=== PATIENT | female | born 1975 ===

== ENCOUNTER → 2020-05-27 12:40 | Outpatient (BNV) | payer MEDICAID, SELFPAY | PROVIDERS: PCP Family Medicine; Visit Provider Internal Medicine | DX: D72.829 Elevated white blood cell count, unspecified (principal); D50.9 Iron deficiency anemia, unspecified | CPT/HCPCS: 99212; 99213; 99214 ==

== ENCOUNTER 2020-05-30 08:09 | Outpatient (REF) | payer MEDICAID, SELFPAY ==
--- NOTE | 2020-05-30 10:33 | ECG_ITS ---
Test Reason : GERD Blood Pressure : / mmHG Vent. Rate : 087 BPM Atrial Rate : 087 BPM P-R Int : 136 ms QRS Dur : 078 ms QT Int : 368 ms P-R-T Axes : 055 026 011 degrees QTc Int : 442 ms Normal sinus rhythm Normal ECG When compared to the previous EKG of No significant changes seen Referred By: Asaf Stark Electronically Signed By:Mitul Winn
--- NOTE | 2020-05-30 10:43 | XR_ITS ---
EXAMINATION: XR CHEST CLINICAL INFORMATION: K21.9 - Gastro-esophageal reflux disease without esophagitis COMPARISON: Chest radiographs 05/05/2016 TECHNIQUE: 2 views of the chest were obtained. FINDINGS: The lungs are clear. There is no airspace consolidation or effusion. No groundglass opacities. The costophrenic sulci are well-defined. The heart is normal in size. The hilar and mediastinal contours are normal. There is focal calcific tendinosis adjacent to right humeral head. No acute bony abnormality. XR/XR chest 2V IMPRESSION: Unremarkable examination.
[2020-05-30 10:48] LABS: MANUAL DIFF FLAG NO
[2020-05-30 10:53] LABS: Basophils Percent Auto 0.3 % (0-2); Eosinophils Absolute Auto 0.2 X10*3/uL (0.0-0.4); Eosinophils Percent Auto 1.3 % (0-4); Hemoglobin 12.4 g/dl (12.0-16.0); Imm Gran Abs Auto 0.04 X10*3/uL (0.00-0.03); Imm Gran Pct Auto 0.3 % (0.0-0.4); Lymphocytes Absolute Auto 2.7 X10*3/uL (1.2-4.9); Mean Corpuscular HGB Conc 30.2 g/dl (31.0-35.0); Mean Corpuscular Hemoglobin 22.1 pg (27.0-33.0); Mean Platelet Volume 10.4 fL (9.4-12.3); Monocytes Absolute Auto 0.6 X10*3/uL (0.1-1.2); Monocytes Percent Auto 4.5 % (2-11); Neutrophils Absolute Auto 9.5 X10*3/uL (2.0-8.3); Neutrophils Percent Auto 72.6 % (45-73); Platelet Count 465 X10*3/uL (160-400); Red Blood Count 5.62 X10*6/uL (4.20-5.50); Red Cell Distribution Width 16.1 % (11.0-16.0)
[2020-05-30 10:58] LABS: Estimated Average Glucose 183 mg/dL
[2020-05-30 11:27] LABS: Alanine Aminotransferase 14 U/L (0-31); Albumin Level 4.2 g/dL (3.5-5.0); Alkaline Phosphatase 151 U/L (39-117); Anion Gap 13 (12-20); Aspartate Amino Transferase 14 U/L (5-31); Bilirubin Total 0.8 mg/dL (0.0-1.0); Blood Urea Nitrogen 8 mg/dL (9-16); C Reactive Protein 5.57 mg/dL (< or = 0.50); Calcium 9.8 mg/dL (8.4-10.2); Carbon Dioxide 29 mmol/L (22-29); Chloride 105 mmol/L (96-108); Cholesterol 271 mg/dL; Estimated Glomerular Filt Rate > 60; Glucose Random 128 mg/dL (60-115); HDL Cholesterol 43 mg/dL; LDL Cholesterol Calculated 199 mg/dl; Sodium 142 mmol/L (135-145); Total Protein 7.6 g/dL (6.5-8.0); Triglycerides 146 mg/dL
[2020-05-30 11:40] LABS: Ferritin 61 ng/mL (10-250); TSH reflex Free T4 1.24 mIU/mL (0.32-4.0)
[2020-06-02 14:57] LABS: Insulin Level Total 22.6 uIU/mL
[2020-06-02 15:43] LABS: Folate 5.7 ng/mL (> or = 4.0); Vitamin B12 398 pg/mL (200-900)
[2020-06-02 17:43] LABS: Calcium (PTHI) 9.8 mg/dL (8.6-10.2); PTHI 80 pg/mL (14-64)
[2020-06-04 01:22] LABS: Zinc 66 mcg/dL (60-130)
[2020-06-04 13:07] LABS: Vitamin B1 <6 nmol/L (8-30)
[2020-06-05 13:33] LABS: Vitamin A 35 mcg/dL (38-98)
== END 2020-05-30 08:10 | disposition home or self-care (01) ==
LOC: HO.LAB 08:09
PROVIDERS: PCP Family Medicine; Visit Provider Surgery
DX: E66.01 Morbid (severe) obesity due to excess calories (principal); E11.9 Type 2 diabetes mellitus without complications; I10 Essential (primary) hypertension; K21.9 Gastro-esophageal reflux disease without esophagitis; E78.5 Hyperlipidemia, unspecified; Z71.3 Dietary counseling and surveillance; Z79.4 Long term (current) use of insulin; Z79.899 Other long term (current) drug therapy
CPT/HCPCS: 36415; 71046; 80053; 80061; 82306; 82607; 82728; 82746; 83036; 83525; 83970; 84425; 84443; 84590; 84630; 85025; 86140; 93005; 99202

== ENCOUNTER → 2020-06-09 11:00 | Outpatient (BNVA) | payer MEDICAID, SELFPAY | PROVIDERS: PCP Family Medicine; Visit Provider Physician Assistant ==

== ENCOUNTER 2020-06-17 07:34 | Outpatient (REF) | payer MEDICAID, SELFPAY ==
--- NOTE | ~2020-06-17 | US_ITS ---
EXAMINATION: US COMPLETE ABDOMEN WITH LIVER ELASTOGRAPHY CLINICAL INFORMATION: Obesity COMPARISON: December 12, 2019 TECHNIQUE: Real-time imaging of the abdominal viscera. Noninvasive ultrasound liver fibrosis assessment is performed using Nicole ElastPQ point quantification shear wave elastography (pSWE) with a C5-2 MHz transducer. Multiple elastography samples are obtained. FINDINGS: PANCREAS: Normal. The visualized pancreatic head and body are normal in appearance. The remainder of the pancreas is obscured from visualization by the overlying bowel gas. ABDOMINAL AORTA: The proximal, middle, and distal aortic segments are normal in caliber. INFERIOR VENA CAVA: Visualized portions are normal. LIVER: There is hepatomegaly. There is a homogeneous echogenic mass within the right lobe measuring approximately 9 x 8 x 1.1 mm in size with the appearance of hemangioma. Hepatic echogenicity is diffusely increased. The right lobe measures 20.2 cm in length. The left lobe measures 14.9 cm in length. Portal flow is hepatopedal Shear wave liver elastography median stiffness is 1.31 m/s (reference: normal median stiffness is 1.3 m/s or less). IQR/median stiffness to assess sampling precision is 0.15 (reference: good quality data set is IQR/median stiffness of 0.15 or less). GALLBLADDER: Cholelithiasis is present as well as echogenic bile. No wall thickening identified and no pericholecystic fluid was identified. No tenderness to palpation is elicited. COMMON BILE DUCT: Normal in caliber measuring 0.3 cm in diameter. RIGHT KIDNEY: Normal. No hydronephrosis. No renal calculi or focal parenchymal lesions. The kidney measures 10.3 cm in maximum dimension. LEFT KIDNEY: There appears to be mild hydronephrosis similar to previous studies of ultrasound the abdomen of December 12, [address] of the abdomen of December 01, 2017.. No calculi or focal masses are appreciated. The kidney measures 10.4 cm in maximum dimension. SPLEEN: Normal. The spleen measures 9.9 cm in maximum dimension. FREE FLUID: None. US/US abdomen comp w elastography IMPRESSION: Findings consistent with fatty infiltration of the liver. Cholelithiasis without evidence of acute cholecystitis. Hepatic hemangioma. Liver elastography: In the absence of other known clinical signs, measurements rule out compensated advanced chronic liver disease. If there are known clinical signs, further testing may be needed for confirmation. REFERENCE: Society of Radiologists in Ultrasound Liver Stiffness Thresholds (2020): LIVER STIFFNESS THRESHOLDS: *Liver Stiffness equal or less than 1.3 m/s: High probability of being normal. *Liver Stiffness less than 1.7 m/s: In the absence of other known clinical signs, rules out compensated advanced chronic liver disease. *Liver Stiffness 1.7-2.1 m/s: Suggestive of compensated advanced chronic liver disease but need further test for confirmation. *Liver Stiffness over 2.1 m/s: Rules in compensated advanced chronic liver disease. *Liver Stiffness over 2.4 m/s: Suggestive of clinically significant portal hypertension. QUALITY OF DATA SET: *IQR/Median value equal or less than 0.15 implies a quality data set. *IQR/Median value over 0.15 implies a poor quality data set. SIGNIFICANT CHANGE FROM PRIOR EXAM: Significant change if liver stiffness measurement is 10% or greater from prior exam. OTHER CONSIDERATIONS: The stage of liver fibrosis may be overestimated in the setting of acute hepatitis, liver inflammation, elevated liver function tests, hepatic vascular congestion, obstructive cholestasis, non-fasting state, and infiltrative diseases such as amyloidosis and lymphoma. In some patients with NAFLD, the liver stiffness thresholds for compensated advanced chronic liver disease may be lower. In causes other than viral hepatitis and NAFLD, liver stiffness thresholds are not well established.
--- NOTE | ~2020-06-17 | FL_ITS ---
EXAMINATION: FL UPPER GI SERIES CLINICAL INFORMATION: Gastroesophageal reflux disease. COMPARISON: None TECHNIQUE: Air contrast upper GI examination. FINDINGS: There is normal elevation of the soft palate while saying candy. There is normal apposition of the vocal cords while saying E. Patient swallowed CO2 crystals, thin barium, and thick barium. Patient states that she has no difficulty swallowing. No nasopharyngeal reflux or tracheal aspiration identified. No cricopharyngeal hypertrophy or Zenker's diverticulum. There is normal distensibility of the esophagus without evidence of persistent stricture or mucosal abnormality. No hiatal hernia. No gastroesophageal reflux was elicited during the study including with water siphon test. The stomach demonstrates normal distensibility without evidence of focal mass or ulceration. There was no delay in gastric emptying. The duodenal bulb sweep appeared unremarkable. FLUOROSCOPY TIME: 1.7 minutes. DOSE AREA PRODUCT: 29.871 Gycm2. FL/FL upper GI series IMPRESSION: Normal air contrast upper GI examination.
[2020-06-18 12:07] LABS: H Pylori Breath Test NOT DETECTED (NOT DETECTED)
== END 2020-06-17 07:35 | disposition home or self-care (01) ==
LOC: HO.US 07:34
PROVIDERS: Visit Provider Surgery
DX: Z01.818 Encounter for other preprocedural examination (principal); E66.01 Morbid (severe) obesity due to excess calories; K21.9 Gastro-esophageal reflux disease without esophagitis; I10 Essential (primary) hypertension
CPT/HCPCS: 74240; 76705; 76981; 83013; 99211

== ENCOUNTER → 2020-06-20 08:15 | Outpatient (BNVA) | payer MEDICAID, SELFPAY | PROVIDERS: PCP Family Medicine; Visit Provider Dietitian, Registered ==

== ENCOUNTER → 2020-06-27 08:11 | Outpatient (BNVA) | payer MEDICAID, SELFPAY | PROVIDERS: PCP Family Medicine; Visit Provider Surgery ==

== ENCOUNTER 2020-06-30 08:35 | Outpatient (REF) | payer MEDICAID, SELFPAY | END 2020-06-30 08:36 | disposition home or self-care (01) | LOC: HO.LAB 08:35 | PROVIDERS: PCP Surgery; Visit Provider Surgery | DX: Z13.89 Encounter for screening for other disorder (principal) ==

== ENCOUNTER 2020-07-05 08:58 | Outpatient (REF) | payer MEDICAID, SELFPAY ==
[2020-07-05 09:59] LABS: MANUAL DIFF FLAG NO
[2020-07-05 10:14] LABS: INTERNATIONAL NORM RATIO 1.1 (0.9-1.1); Prothrombin Time 13.2 SEC (10.8-13.0)
[2020-07-05 10:19] LABS: Estimated Average Glucose 140 mg/dL; Hemoglobin A1c % 6.5 %
[2020-07-05 10:25] LABS: Basophils Percent Auto 0.4 % (0-2); Eosinophils Absolute Auto 0.1 X10*3/uL (0.0-0.4); Eosinophils Percent Auto 1.2 % (0-4); Hematocrit 39.9 % (37-47); Hemoglobin 12.4 g/dl (12.0-16.0); Imm Gran Abs Auto 0.04 X10*3/uL (0.00-0.03); Imm Gran Pct Auto 0.4 % (0.0-0.4); Lymphocytes Absolute Auto 2.4 X10*3/uL (1.2-4.9); Lymphocytes Percent Auto 23.2 % (20-40); Mean Corpuscular HGB Conc 31.1 g/dl (31.0-35.0); Mean Corpuscular Hemoglobin 22.3 pg (27.0-33.0); Mean Corpuscular Volume 71.8 fL (80-98); Mean Platelet Volume 10.9 fL (9.4-12.3); Monocytes Absolute Auto 0.7 X10*3/uL (0.1-1.2); Monocytes Percent Auto 6.4 % (2-11); Neutrophils Absolute Auto 7.1 X10*3/uL (2.0-8.3); Neutrophils Percent Auto 68.4 % (45-73); Platelet Count 464 X10*3/uL (160-400); Red Blood Count 5.56 X10*6/uL (4.20-5.50); Red Cell Distribution Width 17.2 % (11.0-16.0); White Blood Count 10.3 X10*3/uL (4.8-10.8)
[2020-07-05 10:57] LABS: Alanine Aminotransferase 12 U/L (0-31); Albumin Level 4.3 g/dL (3.5-5.0); Alkaline Phosphatase 111 U/L (39-117); Anion Gap 13 (12-20); Aspartate Amino Transferase 12 U/L (5-31); Bilirubin Total 0.6 mg/dL (0.0-1.0); Blood Urea Nitrogen 11 mg/dL (9-16); Calcium 9.5 mg/dL (8.4-10.2); Carbon Dioxide 26 mmol/L (22-29); Chloride 106 mmol/L (96-108); Estimated Glomerular Filt Rate > 60; Glucose Random 101 mg/dL (60-115); Potassium 4.7 mmol/L (3.3-5.1); Sodium 140 mmol/L (135-145); Total Protein 7.4 g/dL (6.5-8.0)
== END 2020-07-05 08:59 | disposition home or self-care (01) ==
LOC: HO.LAB 08:58
PROVIDERS: PCP Family Medicine; Visit Provider Surgery
DX: K80.20 Calculus of gallbladder without cholecystitis without obstruction (principal); K21.9 Gastro-esophageal reflux disease without esophagitis; I10 Essential (primary) hypertension; E66.01 Morbid (severe) obesity due to excess calories; E78.5 Hyperlipidemia, unspecified
CPT/HCPCS: 36415; 80053; 83036; 85025; 85610; 85730

== ENCOUNTER 2020-07-08 08:11 | Day surgery (SDC) | payer MEDICAID, SELFPAY ==
[2020-07-04 09:52] VITALS: BMI 46.3
--- NOTE | 2020-07-07 12:09 | P.CONAN_ITS ---
Documented by User: Nahed Garrett 07/07/20 13:45 HPI - Anesthesia Eval Consult details Narrative: 44yo F for Cholecystectomy Laparoscopic PMFSH Active Problems Active Problems: All Active Problems (Updated 07/04/20 @ 09:58 by Hemalatha Edmond) Chronic leukopenia (Acute) Leucocytosis (Chronic) Vitamin B1 deficiency (Acute) Vitamin A deficiency (Acute) Vitamin D deficiency (Acute) Vitamin D deficiency, unspecified (Acute) Cholelithiasis (Acute) GERD (gastroesophageal reflux disease) (Acute) Depression (Acute) Hypertension (Acute) Insulin dependent diabetes mellitus (Acute) Morbid obesity (Acute) Bilateral shoulder pain (Acute) Chronic back pain (Acute) Dyslipidemia (Acute) Polycystic ovarian syndrome (Acute) Past Medical History Medical History Arthritis Axillary hidradenitis suppurativa Bilateral shoulder pain Chronic back pain COVID-19 vaccine administered Depression Dyslipidemia Family history of anesthesia complication Fibromyalgia GERD (gastroesophageal reflux disease) Hypertension Insulin dependent diabetes mellitus Leukocytosis (leucocytosis) Morbid obesity Obesity Polycystic ovarian syndrome Sickle thalassemia disease Sleep apnea Family History Family History Mother Diabetes DVT (deep venous thrombosis) HTN (hypertension) Father Diabetes HTN (hypertension) Sister Stroke Son Asthma Sickle cell anemia Son Sickle cell anemia Surgical History Surgical History History of esophagogastroduodenoscopy (EGD) Hx of section Social History Social History Are you a primary acute care assistant to a significant other at home: No Do you presently have visiting nurse or other home services: No Alcohol intake: former Smoking Status: Never smoker Use of substances other than those prescribed or required for medical reasons: No Have you been hit, kicked, punched, or otherwise hurt by someone within the past year? If so, by whom?: No Advance Directives Information Provided: No Recently lost weight without trying: No Meds Allergies Allergy/AdvReac Type Severity Reaction Status Date / Time No Known Allergies Allergy Verified 07/04/20 10:01 Home Medications Medication Instructions Recorded Confirmed Last Taken Type aspirin [Aspir-81] 81 mg PO DAILY 05/27/20 07/04/20 Unknown History atorvastatin 80 mg PO BEDTIME 05/27/20 07/04/20 Unknown History cyclobenzaprine 10 mg PO BEDTIME 05/27/20 07/04/20 Unknown History fluoxetine 20 mg PO DAILY 05/27/20 07/04/20 Unknown History fluticasone propionate [Flonase 1 spray INTRANASAL DAILY 05/27/20 07/04/20 Unknown History Allergy Relief] insulin glargine [Lantus Solostar 18 unit SUBCUT QAM 05/27/20 07/04/20 Unknown History U-100 Insulin] insulin lispro [Humalog KwikPen 22 unit SUBCUT TID 05/27/20 05/30/20 Unknown History Insulin] loratadine 10 mg PO DAILY 05/27/20 07/04/20 Unknown History magnesium 30 mg PO DAILY 05/27/20 07/04/20 Unknown History medroxyprogesterone [Provera] 10 mg PO DAILY 05/27/20 07/04/20 Unknown History oxycodone 10 mg PO BID PRN 05/27/20 07/04/20 Unknown History sennosides [senna] 8.6 mg PO BEDTIME 05/27/20 07/04/20 Unknown History lisinopril 5 mg tablet 5 mg PO DAILY 05/30/20 07/04/20 Unknown History liraglutide [Victoza 2-Kody] 1.2 mg SUBCUT DAILY 07/04/20 07/04/20 Unknown History Exam Exam Date and Time: July 07, 2020 1209 Height,Weight and Vital Signs: Height 5 ft 4 in Weight 122.47 kg Pertinent Lab Results Pertinent Lab Results: Laboratory Tests 07/05/20 09:25 Blood Type AB Positive Antibody Screen NEGATIVE Laboratory Tests 07/05/20 07/05/20 09:25 09:25 WBC 10.3 Hgb 12.4 Hct 39.9 Plt Count 464 H Sodium 140 Potassium 4.7 Chloride 106 Carbon Dioxide 26 BUN 11 Creatinine 0.84 Narrative Narrative: EKG 05/2020 Normal sinus rhythm Normal ECG When compared to the previous EKG of No significant changes seen Assessment and Plan Assessment Anesthesia Assessment: Chart Reviewed Documented by User: Caio Carroll 07/08/20 10:44 [facility] Past Medical History Medical History Arthritis Axillary hidradenitis suppurativa Bilateral shoulder pain Chronic back pain COVID-19 vaccine administered Depression Dyslipidemia Family history of anesthesia complication Fibromyalgia GERD (gastroesophageal reflux disease) Hypertension Insulin dependent diabetes mellitus Leukocytosis (leucocytosis) Morbid obesity Obesity Polycystic ovarian syndrome Sickle thalassemia disease Sleep apnea Family History Family History Mother Diabetes DVT (deep venous thrombosis) HTN (hypertension) Father Diabetes HTN (hypertension) Sister Stroke Son Asthma Sickle cell anemia Son Sickle cell anemia Surgical History Surgical History History of esophagogastroduodenoscopy (EGD) Hx of section Social History Social History Are you a primary acute care assistant to a significant other at home: No Do you presently have visiting nurse or other home services: No Alcohol intake: former Smoking Status: Never smoker Use of substances other than those prescribed or required for medical reasons: No Have you been hit, kicked, punched, or otherwise hurt by someone within the past year? If so, by whom?: No Advance Directives Information Provided: No Recently lost weight without trying: No Meds Allergies Allergy/AdvReac Type Severity Reaction Status Date / Time No Known Allergies Allergy Verified 07/04/20 10:01 Home Medications Medication Instructions Recorded Confirmed Last Taken Type aspirin [Aspir-81] 81 mg PO DAILY 05/27/20 07/04/20 Unknown History atorvastatin 80 mg PO BEDTIME 05/27/20 07/04/20 Unknown History cyclobenzaprine 10 mg PO BEDTIME 05/27/20 07/04/20 Unknown History fluoxetine 20 mg PO DAILY 05/27/20 07/04/20 Unknown History fluticasone propionate [Flonase 1 spray INTRANASAL DAILY 05/27/20 07/04/20 Unknown History Allergy Relief] insulin glargine [Lantus Solostar 18 unit SUBCUT QAM 05/27/20 07/04/20 Unknown History U-100 Insulin] insulin lispro [Humalog KwikPen 22 unit SUBCUT TID 05/27/20 05/30/20 Unknown History Insulin] loratadine 10 mg PO DAILY 05/27/20 07/04/20 Unknown History magnesium 30 mg PO DAILY 05/27/20 07/04/20 Unknown History medroxyprogesterone [Provera] 10 mg PO DAILY 05/27/20 07/04/20 Unknown History oxycodone 10 mg PO BID PRN 05/27/20 07/04/20 Unknown History sennosides [senna] 8.6 mg PO BEDTIME 05/27/20 07/04/20 Unknown History lisinopril 5 mg tablet 5 mg PO DAILY 05/30/20 07/04/20 Unknown History liraglutide [Victoza 2-Kody] 1.2 mg SUBCUT DAILY 07/04/20 07/04/20 Unknown History Exam Airway Mallampati Class: III TM Dist: >3cm Neck ROM: Full Loose/Missing/Broken Teeth: No Heart: [id number] Lungs: cta b/l Assessment and Plan Assessment Anesthesia Assessment: Anesthesia Plan Discussed, PAT Visit and Chart Reviewed Final Anesthetic Review NPO: Yes ASA Class: III Final Preanesthetic Review: No Changes in Pt Med Stat, Meds/Allgs Chart Re viewed, Consent Obtained/Reviewed and Anes Risks/Benef Reviewed Patient Risk: Intermediate Procedure Risk: Low Assessment/Block/Sedation in SS: Assess/Block/Sedation-SS Anesthetic Plan Anesthetic Plan: GA and Agree w/ Assess. and Plan Disposition: Standard PACU
[2020-07-08] VITALS (8 sets, daily range): BP systolic 105–142; BP diastolic 53–82; PULSE 77–96; RESP 14–20; TEMP 36.2–36.3; O2SAT 93–100
--- NOTE | 2020-07-08 07:38 | MHC.SHP ---
Pre-Procedural Eval Section A The patient is an INPATIENT: No The History & Physical has been completed within 30 days and I have reviewed it.: Yes Section B Chief Complaint: cholecystitis Details of Present Illness: Symptomatic cholelithiasis Relevant Family History (Specify if Yes): No Relevant Social History: None Present Medications: see Short Stay Collaborative assessment Medical History: No relevant PMH History of Previous Operations: No relevant previous surgery Allergies: Allergies Allergy/AdvReac Type Severity Reaction Status Date / Time No Known Allergies Allergy Verified 07/04/20 10:01 Review of Systems Sugical H&P ROS: Negative: Constitution, Cardiovascular, Respiratory, Neurological, Psychiatric, Hem-Onc, Allergic/Immunologic, Gastrointestinal, Genitourinary, Musculoskeletal, Integumentary, Endocrine and Eyes/Ears/Nose/Throat Exam Surgical H&P Exam: Normal: HEENT, Normal: Heart, Normal: Lungs, Normal: Extremities, Normal: Abdomen, Normal: Skin and Normal: Neurological Plan Diagnosis/Plan: Unchanged (Lap cholecystectomy ) I have reviewed the history and physical and performed a pertinent physical examination on my patient. No changes have occurred unless specified.
[2020-07-08 09:49] LABS: Glucose, Whole Blood 98 mg/dL (60-115)
[2020-07-08 10:03] LABS: UPreg QC Valid YES; Urine Pregnancy NEGATIVE (NEGATIVE)
[2020-07-08 10:14] LABS: COVID-19 Test Negative (Negative)
--- NOTE | 2020-07-08 12:18 | PM.OP ---
Brief Operative Note Date of Service: 07/08/20 Pre-op diagnosis: Cholelithiasis Post-op diagnosis: same Procedure: Procedure: Diagnostic laparoscopy This is a 44 year old female who is seen for morbid obesity. During worl-up she was found to have cholelithiasis. Because she may need a gastric bypass due to her insulin dependent diabetes, I recommended a laparoscopic cholecystectomy prior to bariatric procedure as the anatomy of the upper GI tract and certain procedures such as the ERCP will not be feasible if required. Risks and complications of the surgery were discussed with the patient in advance, particularly the postoperative bleeding, infection, DVT or PE, bile leak, major bile duct injury that may require additional surgical intervention, cardiac, pulmonary or renal complications among others. We also discussed the possibility of not performing the cholecystectomy if the anatomy does not allow it to be done safely. The patient understood the risks and was in agreement with the plan. PROCEDURE: After informed consent was obtained by the patient, the patient was transferred to the Operating Room and was placed in the supine position. The patient was given preoperative antibiotics and after successful induction of general anesthesia, pneumatic compression devices were placed. The patient was then prepped and draped in the usual sterile manner and abdominal access was established with the Shilpa technique. The abdomen was insufflated with C02 to a pressure of 15 mmHg. A 5 mm Versi-step port was placed, slightly to the right and superior from the umbilicus. The 5 mm camera was introduced. We inspected the area where the trocar had been placed and there was no injury. The patient was then placed initially in a steep reverse Trendelenburg position and one additional 5 mm Versi-step port was placed at the right flank. At that point the patient was placed in a steep reverse Trendelenburg position tilted to the left side. The gallbladder was retracted cephalad and laterally. The patient had a very large right liver lobe and the fundus of the gallbladder was several centimeters below the liver margin. In order to provide adequate exposure to the cystic artery and duct, the gallbladder had to be retracted extensively. Even then due to the size of the liver, the area could not be exposed adequately. The gallbladder itself appeared normal without evidence of inflammation. I felt that the risks of removing it given the difficult anatomy, outweighed the benefits of removing it given the fact that it appeared normal. I made a decision then to abort based on my discussion with the patient preoperatively. At that point the patient was placed in supine position, we deflated the abdomen and we removed all ports under direct vision and no bleeding was noted from any of the port sites. The fascia of the 12 mm port was closed using a #1 Polysorb suture. 60cc 0.25% Marcaine plain were used to infiltrate the fascial closure as well as all skin incisions. The wounds were irrigated with saline mixed with antibiotic solution and then the skin was closed with 4-0 Monocryl subcuticular sutures antibiotic-coated. Steri-strips and OpSites were used to cover all incisions. The patient extubated and was transferred in stable condition to the Recovery Room for further care. I was present and performed all steps of the procedure. Lorraine Huynh was the election assistant. There were no residents to assist with this case. Chance Stark M.D., Ph.D., F.A.C.S. Surgeon: Asaf Stark MD Anesthesia: GETA, local and other (TAP block) Telephone Maintenance Mechanic: Thelma Padgett Estimated blood loss (mL): 0 Tourniquet time (min): 0 IV fluids (mL): 1,000 Urine output (mL): 0 (No Rodriguez to record) Pathology: none sent Condition: stable Disposition: PACU
[2020-07-08] MEDS: Acetaminophen 325 MG TABLET 650 MG PO (13:41)
[2020-07-08] MEDS: oxyCODONE HCl Immed Release 5 MG TABLET PO (13:42)
== END 2020-07-08 14:40 | disposition home or self-care (01) ==
PROVIDERS: Nurse Practitioner; PCP Family Medicine; Visit Provider Surgery
PROC: 0FT44ZZ Resection of Gallbladder, Percutaneous Endoscopic Approach (ICD-10-PCS; CPT 47562; principal; 2020-07-08 10:10)
DX: K80.20 Calculus of gallbladder without cholecystitis without obstruction (principal); R16.0 Hepatomegaly, not elsewhere classified; E11.9 Type 2 diabetes mellitus without complications; Z79.4 Long term (current) use of insulin; E66.01 Morbid (severe) obesity due to excess calories; Z68.42 Body mass index [BMI] 45.0-49.9, adult; D57.40 Sickle-cell thalassemia without crisis; I10 Essential (primary) hypertension; G47.33 Obstructive sleep apnea (adult) (pediatric); Z99.89 Dependence on other enabling machines and devices; Z79.899 Other long term (current) drug therapy
CPT/HCPCS: 47562; 36415; 81025; 82947; 86850; 86900; 87635; 94660; J0131; J0690; J1100; J2250; J2405; J3010

== ENCOUNTER → 2020-07-11 13:31 | Outpatient (BNVA) | payer MEDICAID, SELFPAY | PROVIDERS: PCP Family Medicine; Visit Provider Nurse Practitioner | DX: Z13.89 Encounter for screening for other disorder (principal) | CPT/HCPCS: 99212 ==

== ENCOUNTER → 2020-07-14 11:01 | Outpatient (BNVA) | payer MEDICAID, SELFPAY | PROVIDERS: PCP Family Medicine; Visit Provider Physician Assistant ==

== ENCOUNTER → 2020-07-18 10:40 | Outpatient (BNVA) | payer MEDICAID, SELFPAY | PROVIDERS: PCP Family Medicine; Visit Provider Surgery | DX: E66.01 Morbid (severe) obesity due to excess calories (principal); Z68.41 Body mass index [BMI] 40.0-44.9, adult; E11.9 Type 2 diabetes mellitus without complications; K80.20 Calculus of gallbladder without cholecystitis without obstruction; Z79.4 Long term (current) use of insulin; Z71.3 Dietary counseling and surveillance | CPT/HCPCS: 99212 ==

== ENCOUNTER → 2020-07-28 10:28 | Outpatient (BNVA) | payer MEDICAID, SELFPAY | PROVIDERS: PCP Family Medicine; Visit Provider Physician Assistant ==

== ENCOUNTER → 2020-08-04 10:18 | Outpatient (BNVA) | payer MEDICAID, SELFPAY | PROVIDERS: PCP Family Medicine; Visit Provider Surgery ==

== ENCOUNTER → 2020-08-13 08:35 | Outpatient (BNVA) | payer MEDICAID, SELFPAY | PROVIDERS: PCP Family Medicine; Visit Provider Surgery ==

== ENCOUNTER → 2020-08-15 14:06 | Outpatient (BNVA) | payer MEDICAID, SELFPAY | PROVIDERS: PCP Family Medicine; Visit Provider Nurse Practitioner ==

== ENCOUNTER → 2020-08-21 08:11 | Outpatient (BNVA) | payer MEDICAID, SELFPAY | PROVIDERS: PCP Family Medicine; Visit Provider Dietitian, Registered | DX: E66.01 Morbid (severe) obesity due to excess calories (principal); Z68.41 Body mass index [BMI] 40.0-44.9, adult | CPT/HCPCS: 97803 ==

== ENCOUNTER → 2020-08-25 09:31 | Outpatient (BNVA) | payer MEDICAID, SELFPAY | PROVIDERS: PCP Family Medicine; Visit Provider Physician Assistant ==

== ENCOUNTER → 2020-09-01 11:44 | Outpatient (BNVA) | payer MEDICAID, SELFPAY | PROVIDERS: PCP Family Medicine; Visit Provider Physician Assistant ==

== ENCOUNTER → 2020-09-05 08:34 | Outpatient (BNVA) | payer MEDICAID, SELFPAY | PROVIDERS: PCP Family Medicine; Visit Provider Surgery ==

== ENCOUNTER 2020-09-06 09:11 | Outpatient (REF) | payer MEDICAID, SELFPAY ==
[2020-09-06 10:28] LABS: Estimated Average Glucose 123 mg/dL; Hemoglobin A1c % 5.9 %
== END 2020-09-06 09:12 | disposition home or self-care (01) ==
LOC: HO.LAB 09:11
PROVIDERS: PCP Family Medicine; Visit Provider Surgery
DX: E11.9 Type 2 diabetes mellitus without complications (principal)
CPT/HCPCS: 36415; 83036

== ENCOUNTER → 2020-09-12 08:19 | Outpatient (BNVA) | payer MEDICAID, SELFPAY | PROVIDERS: PCP Family Medicine; Visit Provider Surgery ==

== ENCOUNTER 2020-09-18 07:17 | Inpatient (IN) | payer MEDICAID, SELFPAY ==
[2020-09-10 09:38] VITALS: BMI 44.1
[2020-09-13 09:14] LABS: MANUAL DIFF FLAG NO
[2020-09-13 09:34] LABS: Basophils Percent Auto 0.3 % (0-2); Eosinophils Absolute Auto 0.1 X10*3/uL (0.0-0.4); Hematocrit 39.5 % (37-47); Hemoglobin 12.2 g/dl (12.0-16.0); Imm Gran Abs Auto 0.05 X10*3/uL (0.00-0.03); Imm Gran Pct Auto 0.5 % (0.0-0.4); Lymphocytes Absolute Auto 2.4 X10*3/uL (1.2-4.9); Lymphocytes Percent Auto 22.3 % (20-40); Mean Corpuscular HGB Conc 30.9 g/dl (31.0-35.0); Mean Corpuscular Hemoglobin 22.1 pg (27.0-33.0); Mean Corpuscular Volume 71.7 fL (80-98); Mean Platelet Volume 10.6 fL (9.4-12.3); Monocytes Absolute Auto 0.5 X10*3/uL (0.1-1.2); Neutrophils Absolute Auto 7.5 X10*3/uL (2.0-8.3); Neutrophils Percent Auto 70.9 % (45-73); Platelet Count 466 X10*3/uL (160-400); Red Blood Count 5.51 X10*6/uL (4.20-5.50); Red Cell Distribution Width 16.4 % (11.0-16.0); White Blood Count 10.6 X10*3/uL (4.8-10.8)
[2020-09-13 09:38] LABS: INTERNATIONAL NORM RATIO 1.1 (0.9-1.1); Prothrombin Time 13.5 SEC (10.8-13.0)
[2020-09-13 09:43] LABS: Estimated Average Glucose 120 mg/dL; Hemoglobin A1c % 5.8 %
[2020-09-13 09:45] LABS: Alanine Aminotransferase 12 U/L (0-31); Albumin Level 4.1 g/dL (3.5-5.0); Alkaline Phosphatase 107 U/L (39-117); Anion Gap 11 (12-20); Aspartate Amino Transferase 10 U/L (5-31); Bilirubin Total 0.5 mg/dL (0.0-1.0); Blood Urea Nitrogen 9 mg/dL (9-16); C Reactive Protein 3.06 mg/dL (< or = 0.50); Calcium 9.7 mg/dL (8.4-10.2); Carbon Dioxide 28 mmol/L (22-29); Chloride 106 mmol/L (96-108); Cholesterol 251 mg/dL; Creatinine Clr Calc Pharmacy 111.5; Estimated Glomerular Filt Rate > 60; Glucose Random 108 mg/dL (60-115); HDL Cholesterol 39 mg/dL; LDL Cholesterol Calculated 188 mg/dl; Potassium 4.9 mmol/L (3.3-5.1); Sodium 140 mmol/L (135-145); Triglycerides 124 mg/dL
[2020-09-13 10:05] LABS: TSH reflex Free T4 1.15 uIU/mL (0.32-4.0)
[2020-09-15 14:46] LABS: Insulin Level Total 13.2 uIU/mL
--- NOTE | 2020-09-17 07:53 | P.CONAN_ITS ---
Documented by User: Nahed Garrett 09/17/20 07:55 HPI - Anesthesia Eval Consult details Narrative: 44yo F for Gastric Bypass Laparoscopic PMFSH Active Problems Active Problems: All Active Problems (Updated 09/10/20 @ 09:42 by Hemalatha Edmond) Chronic leukopenia (Acute) Leucocytosis (Chronic) Vitamin B1 deficiency (Acute) Vitamin A deficiency (Acute) Vitamin D deficiency (Acute) Vitamin D deficiency, unspecified (Acute) Cholelithiasis (Acute) GERD (gastroesophageal reflux disease) (Acute) HAWKINS (nonalcoholic steatohepatitis) (Acute) Chronic idiopathic constipation (Acute) Abdominal cramping (Acute) Gallstones (Acute) COVID-19 (Acute) Diabetes (Acute) Depression (Acute) Hypertension (Acute) Insulin dependent diabetes mellitus (Acute) Morbid obesity (Acute) Bilateral shoulder pain (Acute) Chronic back pain (Acute) Dyslipidemia (Acute) Polycystic ovarian syndrome (Acute) Past Medical History Medical History (Updated 09/18/20 @ 08:08 by Sondra Milligan) Arthritis Axillary hidradenitis suppurativa Bilateral shoulder pain Chronic back pain COVID-19 vaccine administered Depression Dyslipidemia Family history of anesthesia complication Fibromyalgia Hypertension Insulin dependent diabetes mellitus Leukocytosis (leucocytosis) Morbid obesity Obesity Polycystic ovarian syndrome Sickle thalassemia disease Sleep apnea Vitamin D deficiency Family History Family History Mother Diabetes DVT (deep venous thrombosis) HTN (hypertension) Father Diabetes HTN (hypertension) Sister Stroke Son Asthma Sickle cell anemia Son Sickle cell anemia Surgical History Surgical History History of esophagogastroduodenoscopy (EGD) Hx of section Hx of cholecystectomy Social History Social History Are you a primary adult care manager to a significant other at home: No Do you presently have visiting nurse or other home services: No Smoking Status: Never smoker Use of substances other than those prescribed or required for medical reasons: No Have you been hit, kicked, punched, or otherwise hurt by someone within the past year? If so, by whom?: No Are you DNR?: No Advance Directives Information Provided: No Recently lost weight without trying: No Eating poorly because of decreased appetite: No Nutrition Risks: No Nutritional Risk Patient : No Poor oral hygiene: No Meds Allergies Allergy/AdvReac Type Severity Reaction Status Date / Time No Known Allergies Allergy Verified 09/18/20 06:45 Home Medications Medication Instructions Recorded Confirmed Last Taken Type atorvastatin 80 mg PO BEDTIME 05/27/20 09/12/20 Unknown History cyclobenzaprine 10 mg PO BEDTIME 05/27/20 09/12/20 Unknown History fluoxetine 20 mg PO DAILY 05/27/20 09/12/20 Unknown History fluticasone propionate [Flonase 1 spray INTRANASAL DAILY 05/27/20 09/12/20 Unknown History Allergy Relief] insulin glargine [Lantus Solostar 8 unit SUBCUT QAM 05/27/20 09/12/20 Unknown History U-100 Insulin] loratadine 10 mg PO DAILY 05/27/20 09/12/20 Unknown History magnesium 30 mg PO DAILY 05/27/20 09/12/20 Unknown History medroxyprogesterone [Provera] 10 mg PO DAILY 05/27/20 09/12/20 Unknown History oxycodone 10 mg PO BID PRN 05/27/20 09/12/20 Unknown History lisinopril 5 mg tablet 5 mg PO DAILY 05/30/20 09/12/20 Unknown History liraglutide [Victoza 2-Kody] 1.2 mg SUBCUT QAM 07/04/20 09/12/20 Unknown History Exam Exam Date and Time: September 17, 2020 0753 Height,Weight and Vital Signs: Height 5 ft 4 in Weight 116.573 kg Pertinent Lab Results Pertinent Lab Results: Laboratory Tests 09/13/20 09/13/20 09/13/20 09:00 09:00 09:00 WBC 10.6 RBC 5.51 H Hgb 12.2 Hct 39.5 MCV 71.7 L MCH 22.1 L MCHC 30.9 L RDW 16.4 H Plt Count 466 H MPV 10.6 Immature Gran % (Auto) 0.5 H Neut % (Auto) 70.9 Lymph % (Auto) 22.3 [place] % (Auto) 5.0 Eos % (Auto) 1.0 Baso % (Auto) 0.3 Lymph # (Auto) 2.4 [place] # (Auto) 0.5 Eos # (Auto) 0.1 Baso # (Auto) 0.0 Abs Immat Gran (auto) 0.05 H Absolute Neuts (auto) 7.5 Absolute Nucleated RBC 0.000 Nucleated RBC % (auto) 0.0 PT 13.5 H INR 1.1 APTT 36.0 Sodium 140 Potassium 4.9 Chloride 106 Carbon Dioxide 28 Anion Gap 11 L BUN 9 Creatinine 0.79 Estim Creat Clear Calc 111.5 Estimated GFR > 60 Random Glucose 108 Estimat Average Glucose Hemoglobin A1c % Total Insulin Calcium 9.7 Total Bilirubin 0.5 AST 10 ALT 12 Alkaline Phosphatase 107 C-Reactive Protein 3.06 H Total Protein 7.0 Albumin 4.1 Triglycerides 124 Cholesterol 251 LDL Cholesterol, Calc 188 HDL Cholesterol 39 TSH 1.15 Blood Type Antibody Screen 09/13/20 09/13/20 09/13/20 09:00 09:00 09:00 WBC RBC Hgb Hct MCV MCH MCHC RDW Plt Count MPV Immature Gran % (Auto) Neut % (Auto) Lymph % (Auto) [place] % (Auto) Eos % (Auto) Baso % (Auto) Lymph # (Auto) [place] # (Auto) Eos # (Auto) Baso # (Auto) Abs Immat Gran (auto) Absolute Neuts (auto) Absolute Nucleated RBC Nucleated RBC % (auto) PT INR APTT Sodium Potassium Chloride Carbon Dioxide Anion Gap BUN Creatinine Estim Creat Clear Calc Estimated GFR Random Glucose Estimat Average Glucose 120 Hemoglobin A1c % 5.8 Total Insulin 13.2 Calcium Total Bilirubin AST ALT Alkaline Phosphatase C-Reactive Protein Total Protein Albumin Triglycerides Cholesterol LDL Cholesterol, Calc HDL Cholesterol TSH Blood Type AB Positive Antibody Screen NEGATIVE Narrative Narrative: EKG 05/2020 Vent. Rate : 087 BPM Atrial Rate : 087 BPM P-R Int : 136 ms QRS Dur : 078 ms QT Int : 368 ms P-R-T Axes : 055 026 011 degrees QTc Int : 442 ms Normal sinus rhythm Normal ECG When compared to the previous EKG of No significant changes seen Assessment and Plan Assessment Anesthesia Assessment: Chart Reviewed Documented by User: Sondra Milligan 09/18/20 08:27 [facility] Past Medical History Medical History (Updated 09/18/20 @ 08:08 by Sondra Milligan) Arthritis Axillary hidradenitis suppurativa Bilateral shoulder pain Chronic back pain COVID-19 vaccine administered Depression Dyslipidemia Family history of anesthesia complication Fibromyalgia Hypertension Insulin dependent diabetes mellitus Leukocytosis (leucocytosis) Morbid obesity Obesity Polycystic ovarian syndrome Sickle thalassemia disease Sleep apnea Vitamin D deficiency Family History Family History Mother Diabetes DVT (deep venous thrombosis) HTN (hypertension) Father Diabetes HTN (hypertension) Sister Stroke Son Asthma Sickle cell anemia Son Sickle cell anemia Family history of problems with anesthesia: No Surgical History Surgical History History of esophagogastroduodenoscopy (EGD) Hx of section Hx of cholecystectomy History of Problems with Anesthesia: No Social History Social History Are you a primary adult care manager to a significant other at home: No Do you presently have visiting nurse or other home services: No Smoking Status: Never smoker Use of substances other than those prescribed or required for medical reasons: No Have you been hit, kicked, punched, or otherwise hurt by someone within the past year? If so, by whom?: No Are you DNR?: No Advance Directives Information Provided: No Recently lost weight without trying: No Eating poorly because of decreased appetite: No Nutrition Risks: No Nutritional Risk Patient : No Poor oral hygiene: No Meds Allergies Allergy/AdvReac Type Severity Reaction Status Date / Time No Known Allergies Allergy Verified 09/18/20 06:45 Home Medications Medication Instructions Recorded Confirmed Last Taken Type atorvastatin 80 mg PO BEDTIME 05/27/20 09/12/20 Unknown History cyclobenzaprine 10 mg PO BEDTIME 05/27/20 09/12/20 Unknown History fluoxetine 20 mg PO DAILY 05/27/20 09/12/20 Unknown History fluticasone propionate [Flonase 1 spray INTRANASAL DAILY 05/27/20 09/12/20 Unknown History Allergy Relief] insulin glargine [Lantus Solostar 8 unit SUBCUT QAM 05/27/20 09/12/20 Unknown History U-100 Insulin] loratadine 10 mg PO DAILY 05/27/20 09/12/20 Unknown History magnesium 30 mg PO DAILY 05/27/20 09/12/20 Unknown History medroxyprogesterone [Provera] 10 mg PO DAILY 05/27/20 09/12/20 Unknown History oxycodone 10 mg PO BID PRN 05/27/20 09/12/20 Unknown History lisinopril 5 mg tablet 5 mg PO DAILY 05/30/20 09/12/20 Unknown History liraglutide [Victoza 2-Kody] 1.2 mg SUBCUT QAM 07/04/20 09/12/20 Unknown History Exam Height,Weight and Vital Signs: Vital Signs Temp Pulse Resp BP Pulse Ox 09/18/20 06:48 96.9 F 79 18 118/72 99 Pertinent Lab Results Pertinent Lab Results: Laboratory Results - last 24 hr 09/18/20 09/18/20 06:25 06:30 Urine Test NEGATIVE COVID-19 ([facility]) Negative COVID-19 Clin Com See Note Airway Mallampati Class: II TM Dist: >3cm Neck ROM: Full Heart: RRR Lungs: CTAB Assessment and Plan Assessment Anesthesia Assessment: Anesthesia Plan Discussed and Chart Reviewed Final Anesthetic Review NPO: Yes ASA Class: III Final Preanesthetic Review: No Changes in Pt Med Stat, Meds/Allgs Chart Reviewed, Consent Obtained/Reviewed and Anes Risks/Benef Reviewed Patient Risk: Intermediate Procedure Risk: Intermediate Assessment/Block/Sedation in SS: Assess/Block/Sedation-SS Anesthetic Plan Anesthetic Plan: GA Disposition: Standard PACU and Inp. Admit - Standard Bed
--- NOTE | 2020-09-17 23:06 | MHC.SHP ---
Pre-Procedural Eval Section A The patient is an INPATIENT: Yes The History & Physical has been completed within 30 days and I have reviewed it.: Yes Section B Chief Complaint: obesity Details of Present Illness: morbid obesity Relevant Family History (Specify if Yes): No Relevant Social History: None Present Medications: see Short Stay Collaborative assessment Medical History: No relevant PMH History of Previous Operations: No relevant previous surgery Allergies: Allergies Allergy/AdvReac Type Severity Reaction Status Date / Time No Known Allergies Allergy Verified 09/12/20 15:00 Review of Systems Sugical H&P ROS: Negative: Constitution, Cardiovascular, Respiratory, Neurological, Psychiatric, Hem-Onc, Allergic/Immunologic, Gastrointestinal, Genitourinary, Musculoskeletal, Integumentary, Endocrine and Eyes/Ears/Nose/Throat Exam Surgical H&P Exam: Normal: HEENT, Normal: Heart, Normal: Lungs, Normal: Extremities, Normal: Abdomen, Normal: Skin and Normal: Neurological Plan Diagnosis/Plan: Unchanged I have reviewed the history and physical and performed a pertinent physical examination on my patient. No changes have occurred unless specified.
[2020-09-18] VITALS (16 sets, daily range): BP systolic 118–181; BP diastolic 63–96; PULSE 79–98; RESP 14–20; TEMP 35.9–36.6; O2SAT 94–100
--- NOTE | ~2020-09-18 | FL_ITS ---
EXAMINATION: UPPER GI WITH GASTROGRAFIN CLINICAL INFORMATION: Postop day 1 status post chest bypass. COMPARISON: Upper GI exam 06/17/2020. TECHNIQUE: Upright upper GI exam was obtained following 5050 Gastrografin. FINDINGS: On oral administration the diluted Gastrografin there is normal progression of bolus from the cavity through the esophagus into reconstructed bypass stomach and from the stomach into the small bowel promptly. No extravasation or reflux seen. Slight delayed images upper stomach reveals contrast within the small bowel loops in the midabdomen. There is a Azeri drain seen adjacent to the reconstructed stomach extending peripherally into a suction bulb. FL/FL upper GI w gastrografin IMPRESSION: Widely patent GE junction and gastrojejunal anastomosis. No extravasation seen.
[2020-09-18 06:39] LABS: UPreg QC Valid YES; Urine Pregnancy NEGATIVE (NEGATIVE)
[2020-09-18 06:49] LABS: COVID-19 Test Negative (Negative); IDNOW Serial# 9DD0AD1C
[2020-09-18] MEDS: Lactated Ringers 1,000 ML 999 ML IV (07:06)
[2020-09-18] MEDS: Lactated Ringers 1,000 ML 100 ML IVCONT (07:07)
--- NOTE | 2020-09-18 07:18 | HO.ANESPROP2 ---
[facility] Active Problems Active Problems: All Active Problems (Updated 09/10/20 @ 09:42 by Hemalatha Edmond) Chronic leukopenia (Acute) Leucocytosis (Chronic) Vitamin B1 deficiency (Acute) Vitamin A deficiency (Acute) Vitamin D deficiency (Acute) Vitamin D deficiency, unspecified (Acute) Cholelithiasis (Acute) GERD (gastroesophageal reflux disease) (Acute) HAWKINS (nonalcoholic steatohepatitis) (Acute) Chronic idiopathic constipation (Acute) Abdominal cramping (Acute) Gallstones (Acute) COVID-19 (Acute) Diabetes (Acute) Depression (Acute) Hypertension (Acute) Insulin dependent diabetes mellitus (Acute) Morbid obesity (Acute) Bilateral shoulder pain (Acute) Chronic back pain (Acute) Dyslipidemia (Acute) Polycystic ovarian syndrome (Acute) Past Medical History Medical History (Updated 09/10/20 @ 09:42 by Hemalatha Edmond) Arthritis Axillary hidradenitis suppurativa Bilateral shoulder pain Chronic back pain COVID-19 vaccine administered Depression Dyslipidemia Family history of anesthesia complication Fibromyalgia Hypertension Insulin dependent diabetes mellitus Leukocytosis (leucocytosis) Morbid obesity Obesity Polycystic ovarian syndrome Sickle thalassemia disease Sleep apnea Family History Family History Mother Diabetes DVT (deep venous thrombosis) HTN (hypertension) Father Diabetes HTN (hypertension) Sister Stroke Son Asthma Sickle cell anemia Son Sickle cell anemia Surgical History Surgical History (Updated 09/10/20 @ 08:04 by Hemalatha Edmond) History of esophagogastroduodenoscopy (EGD) Hx of section Hx of cholecystectomy Social History Social History (Updated 09/10/20 @ 09:43 by Hemalatha Edmond) Are you a primary health care legal assistant to a significant other at home: No Do you presently have visiting nurse or other home services: No Smoking Status: Never smoker Meds Allergies Allergy/AdvReac Type Severity Reaction Status Date / Time No Known Allergies Allergy Verified 09/18/20 06:45 Active Medications: Current Medications Generic Name Dose Route Start Last Admin Trade Name Freq PRN Reason Stop Dose Admin Lactated Ringer's 1,000 mls @ 100 mls/hr 09/18/20 06:15 09/18/20 07:07 Lr IVCONT 100 mls/hr .Q10H TINY Administration Home Medications Medication Instructions Recorded Confirmed Last Taken Type atorvastatin 80 mg PO BEDTIME 05/27/20 09/12/20 Unknown History cyclobenzaprine 10 mg PO BEDTIME 05/27/20 09/12/20 Unknown History fluoxetine 20 mg PO DAILY 05/27/20 09/12/20 Unknown History fluticasone propionate [Flonase 1 spray INTRANASAL DAILY 05/27/20 09/12/20 Unknown History Allergy Relief] insulin glargine [Lantus Solostar 8 unit SUBCUT QAM 05/27/20 09/12/20 Unknown History U-100 Insulin] loratadine 10 mg PO DAILY 05/27/20 09/12/20 Unknown History magnesium 30 mg PO DAILY 05/27/20 09/12/20 Unknown History medroxyprogesterone [Provera] 10 mg PO DAILY 05/27/20 09/12/20 Unknown History oxycodone 10 mg PO BID PRN 05/27/20 09/12/20 Unknown History lisinopril 5 mg tablet 5 mg PO DAILY 05/30/20 09/12/20 Unknown History liraglutide [Victoza 2-Kody] 1.2 mg SUBCUT QAM 07/04/20 09/12/20 Unknown History Exam Exam Date and Time: September 18, 2020 0718 Height,Weight and Vital Signs: Height 5 ft 4 in Weight 116.573 kg Last Vital Signs Temp 96.9 F 09/18/20 06:48 Pulse 79 09/18/20 06:48 Resp 18 09/18/20 06:48 BP 118/72 09/18/20 06:48 Pulse Ox 99 09/18/20 06:48 Pertinent Lab Results Pertinent Lab Results: Laboratory Tests 09/13/20 09/13/20 09/13/20 09:00 09:00 09:00 WBC 10.6 RBC 5.51 H Hgb 12.2 Hct 39.5 MCV 71.7 L MCH 22.1 L MCHC 30.9 L RDW 16.4 H Plt Count 466 H MPV 10.6 Immature Gran % (Auto) 0.5 H Neut % (Auto) 70.9 Lymph % (Auto) 22.3 [place] % (Auto) 5.0 Eos % (Auto) 1.0 Baso % (Auto) 0.3 Lymph # (Auto) 2.4 [place] # (Auto) 0.5 Eos # (Auto) 0.1 Baso # (Auto) 0.0 Abs Immat Gran (auto) 0.05 H Absolute Neuts (auto) 7.5 Absolute Nucleated RBC 0.000 Nucleated RBC % (auto) 0.0 PT 13.5 H INR 1.1 APTT 36.0 Sodium 140 Potassium 4.9 Chloride 106 Carbon Dioxide 28 Anion Gap 11 L BUN 9 Creatinine 0.79 Estim Creat Clear Calc 111.5 Estimated GFR > 60 Random Glucose 108 Estimat Average Glucose Hemoglobin A1c % Total Insulin Calcium 9.7 Total Bilirubin 0.5 AST 10 ALT 12 Alkaline Phosphatase 107 C-Reactive Protein 3.06 H Total Protein 7.0 Albumin 4.1 Triglycerides 124 Cholesterol 251 LDL Cholesterol, Calc 188 HDL Cholesterol 39 TSH 1.15 Urine Test COVID-19 ([facility]) COVID-Heart Metabolics Blood Type Antibody Screen 09/13/20 09/13/20 09/13/20 09:00 09:00 09:00 WBC RBC Hgb Hct MCV MCH MCHC RDW Plt Count MPV Immature Gran % (Auto) Neut % (Auto) Lymph % (Auto) [place] % (Auto) Eos % (Auto) Baso % (Auto) Lymph # (Auto) [place] # (Auto) Eos # (Auto) Baso # (Auto) Abs Immat Gran (auto) Absolute Neuts (auto) Absolute Nucleated RBC Nucleated RBC % (auto) PT INR APTT Sodium Potassium Chloride Carbon Dioxide Anion Gap BUN Creatinine Estim Creat Clear Calc Estimated GFR Random Glucose Estimat Average Glucose 120 Hemoglobin A1c % 5.8 Total Insulin 13.2 Calcium Total Bilirubin AST ALT Alkaline Phosphatase C-Reactive Protein Total Protein Albumin Triglycerides Cholesterol LDL Cholesterol, Calc HDL Cholesterol TSH Urine Test COVID-19 ([facility]) COVID-Heart Metabolics Blood Type AB Positive Antibody Screen NEGATIVE 09/18/20 09/18/20 06:25 06:30 WBC RBC Hgb Hct MCV MCH MCHC RDW Plt Count MPV Immature Gran % (Auto) Neut % (Auto) Lymph % (Auto) [place] % (Auto) Eos % (Auto) Baso % (Auto) Lymph # (Auto) [place] # (Auto) Eos # (Auto) Baso # (Auto) Abs Immat Gran (auto) Absolute Neuts (auto) Absolute Nucleated RBC Nucleated RBC % (auto) PT INR APTT Sodium Potassium Chloride Carbon Dioxide Anion Gap BUN Creatinine Estim Creat Clear Calc Estimated GFR Random Glucose Estimat Average Glucose Hemoglobin A1c % Total Insulin Calcium Total Bilirubin AST ALT Alkaline Phosphatase C-Reactive Protein Total Protein Albumin Triglycerides Cholesterol LDL Cholesterol, Calc HDL Cholesterol TSH Urine Test NEGATIVE COVID-19 ([facility]) Negative COVID-19 Clin Com See Note Blood Type Antibody Screen
--- NOTE | 2020-09-18 12:17 | PM.OP ---
Brief Operative Note Date of Service: 09/18/20 Pre-op diagnosis: Morbid obesity and comorbidities including insulin dependent diabetes, sleep apnea, hypertension, GERD, DJD, PCOS, depression, liver steatosis, hepatomegaly, abdominal adhesions, hyperlipidemia Post-op diagnosis: same (and abdominal adhesions) Procedure: PROCEDURE: Upper endoscopy, laparoscopic lysis of adhesions and laparoscopic Ivette-en-Y gastric bypass with a Ivette limb of 155 cm INDICATIONS: This is a 44 year-old female with a BMI of 43.8 kg/m2 and associated comorbid conditions as described previously. After appropriate workup was performed and a 25.4lbs weight loss, the patient was electively scheduled for laparoscopic, possibly open, gastric bypass. The risks and complications of the procedure were discussed with the patient in advance, particularly the possibility of ; pulmonary embolism; anastomotic leak; bleeding; bowel obstruction; cardiac, pulmonary, or renal complications; as well as long-term problems such as insufficient weight loss, vitamin deficiency, anastomotic strictures, or ulcers. The patient understood all the risks, and was in agreement to proceed with surgery. DESCRIPTION OF PROCEDURE: After informed consent was obtained from the patient, the patient was given preoperative antibiotics, and was transferred to the operating room. After successful induction of general anesthesia, a Rodriguez catheter and pneumatic compressive devices were placed on both lower extremities. An upper endoscopy was performed next. The oropharynx and esophagus appeared to be within normal limits. There was no diaphragmatic hernia present consistent with the findings of the preoperative upper GI. The stomach was entered. Then after all fluid and air were suctioned and the stomach was fully decompressed, the scope was withdrawn and secured in the mid esophagus. The patient was then prepped and draped in the usual sterile manner, and abdominal access was established at the right upper quadrant with the Shilpa technique. A 12 mm blunt port was inserted, and the abdomen was insufflated with CO2 to a pressure of 15 mmHg. Under direct visualization, additional ports were placed, specifically a 5 and a 12 mm Versi-Step port, to the left and right of the umbilicus, two 5 mm ports to the left upper quadrant, and a 5 mm Versi-Step port to the right upper quadrant. Using the EndoClose suture passer device, I placed a #1 Polysorb tie across the falciform ligament in order to retract it up against the abdominal wall and prevent injury of the ligament with our instruments during the procedure. There were adhesions in the abdomen from previous C-sections involving the omentum and the anterior abdominal wall. Those were lysed completely with the ultrasonic device. Adhesiolysis took approximately 30 min to complete. Following that, the patient was placed in a steep reverse Trendelenburg position. An additional 5 mm port was placed to the right flank for the Mediflex retractor that was used to retract the left lobe of the liver. The pars flaccida was opened with the ultrasonic device and the lesser sac was entered. The angle of His was opened with the ultrasonic device the fundus of the stomach from any diaphragmatic and splenic attachments. ? PLEASE REVIEW BEFORE TO INCLUDE THIS SENTENCE There were extensive congenital adhesions between the pancreas and posterior gastric wall. Those were lysed completely with the ultrasonic device. I then opened the gastrocolic ligament between the transverse colon and the greater curvature of the stomach with the ultrasonic device to enter the lesser sac and facilitate delivery of the Ivette limb through the lesser sac at a later step of the procedure. The lesser omentum was divided with an Endo CHICHI-45 articulating marte load. I opened the angle of His with the ultrasonic device, the fundus of the stomach from any diaphragmatic or splenic attachments. After a window was established there, the stomach was divided transversely with an Endo CHICHI-45 articulating purple load. Every effort was made that the gastric pouch had a tubular and not spherical shape by limiting the vertical division of the stomach with the first staple load at the lesser curvature. A second articulating Endo CHICHI-45 purple load was fired next towards the angle of His. The staple line of the gastric remnant was then reinforced with a running 2-0 Surgidac suture using the Endo Stitch device. The retrogastric space was dissected after the first two staple loads were fired. The retrogastric space was opened in the avascular plane medially to the splenic artery and laterally to the left ki all the way to the angle of His. The gastric pouch was completed with two additional Endo CHICHI-45 and 60 articulating purple loads. The remaining staple line of the gastric remnant was also reinforced with a running 2-0 Surgidac suture using the Endo Stitch device. The staple line of the gastric pouch was reinforced with Hemoclips. The patient was then placed in supine position, and after we retracted the transverse colon and the omentum cephalad, we identified the ligament of Treitz. I counted 50 cm from the ligament of Treitz, and the small bowel and the mesentery were divided with an Endo CHICHI-60 white load. Using the ultrasonic device, we opened the peritoneum at the root of the mesentery further to gain extra mobility. A clip was used to jacquie the proximal end of the divided bowel, the bilio-pancreatic end, which was run back to the ligament of Treitz to confirm that we had marked the correct side and we had done so. We then developed the mesocolic window slightly to the left and superior to the ligament of Treitz using the ultrasonic device. The apex of the Ivette limb was identified. Following that, we grasped the apex of the Ivette limb with an articulating bowel grasper, and after we made sure there was no twisting of the mesentery, it was delivered in a retrocolic, retrogastric fashion through the mesocolic window which we had previously made. Following that, we noted there was no tension between the gastric pouch and the Ivette limb. Enterotomies were made at the apex of the pouch and the Ivette limb, and the gastro-jejunostomy was made with an Endo CHICHI-45 bird load measured to be 4.5 cm in diameter. The enterotomy was closed using the Endo Stitch device in one layer of running 2-0 Polysorb suture in a Kt fashion starting from each corner of the enterotomy and tying the two ends together in the center of the enterotomy. The Ivette limb was clamped with a bowel clamp approximately 15 cm from the gastro-jejunostomy, and a leak test was performed by submerging the anastomosis in saline and insufflating air off the scope into the pouch. There was no narrowing of the GE junction. There was no air leak during the test. There was no significant ischemia of the mucosa of the gastric pouch or Ivette limb. There was no bleeding from the suture or staple lines of the anastomosis, as well as the staple line of the gastric pouch which was clearly seen in its entirety. In addition, the anastomosis was patent, and we easily advanced the scope into the proximal Ivette limb. With the scope pulled back at the esophagus, we reinforced the anastomosis circumferentially with multiple interrupted 2-0 Polysorb sutures in a Lembert type fashion using the Endo Stitch device. At that point, we pulled the endoscope back to the esophagus while we were decompressing the Ivette limb and gastric pouch from any remaining air. At that point, the patient was placed in supine position, and after we reduced the Ivette limb back into the abdomen, I counted 155 cm from the gastro-jejunostomy. An enterotomy was made there with the ultrasonic device. After a similar enterotomy was made at the apex of the bilio-pancreatic limb, the jejuno-jejunostomy was made with an Endo CHICHI-60 white load. The enterotomy was closed with another Endo CHICHI-60 white load after appropriate alignment with four interrupted 2-0 Surgidac sutures. Two anti-obstruction sutures were placed next between the staple line of the bilio-pancreatic limb and the mesentery of the Ivette limb distal from the anastomosis to prevent kinking of the anastomosis. I then closed the small bowel mesenteric defect in a running fashion using a running 2-0 Surgidac suture using the Endo Stitch device. I checked the anastomosis at the end. The jejuno-jejunostomy was patent. The Ivette limb was not narrowed. The staple lines were intact, viable, without evidence of any ischemia, bleeding, or any open areas, and the entire anastomosis was sitting nicely without tension, narrowing, or kinking. I then closed the Milton's defect with two interrupted 2-0 Surgidac sutures in a U-type fashion and then the mesocolic defect with four interrupted 2-0 Sofsilk sutures in a U-type fashion. The Ivette limb was clamped 20 cm inferior to the mesocolic window and another endoscopy was performed. We could easily pass the gastroscope through the gastro-jejunostomy and mesocolic window without any narrowing, kinking, or evidence of bleeding or ischemia. At that point the gastroscope was withdrawn from the patient?s mouth while we were decompressing the bowel and the stomach from any remaining air. I ran back the Ivette limb from the mesocolic window to the jejuno-jejunostomy which appeared to be normal without any twisting or kinking. All blood clots were suctioned. I carefully positioned the transverse colon epiploic appendages to the root of the small bowel mesentery to prevent any adhesions between them and the anastomosis that could lead to an internal hernia. I then placed the patient back in a steep reverse Trendelenburg position. We looked into the lesser sac to see how the Ivette limb was situating and it was situating well. There was no bleeding from the suture lines of the remnant, angle of His, and gastric pouch, as well as from the mesentery of the Ivette limb. At this point I placed a 10 mm LUIS M drain underneath the gastro-jejunostomy and we secured the skin level with an #0 Sofsilk suture. The Mediflex retractor was removed, and the undersurface of the liver was inspected and there was no bleeding. The patient was placed in supine position. I closed the fascial defect of the two 12 mm periumbilical port sites laparoscopically with the EndoClose suture passer device using #1 Polysorb suture and the Shilpa port site with a figure of eight #1 Polysorb suture in an open fashion. Then 100 cc 0.25 % Marcaine and 10 mg of Dexamethasone plain were used to infiltrate both fascial closures as well as all skin incisions. At this point, the abdomen was deflated, all ports were removed under direct vision, and no bleeding was noted from any of the port sites. The skin incisions were irrigated with saline and were closed with 4-0 absorbable monofilament sutures. Steri-Strips and OpSites were used to cover all incisions. The patient was extubated and was transferred in stable condition to the recovery room for further care. I was present and performed all hair parts of the procedure. Dayron was the life science research assistant. There were no residents to assist with this case. Chance Stark MD, PhD, FACS Surgeon: Asaf Stark MD Anesthesia: GETA, local and other (TAP block) Was an Sap Basis Consultant used for this Procedure?: Yes Sap Basis Consultant: Thelma Padgett Estimated blood loss (mL): 10 IV fluids (mL): 4,000 Urine output (mL): 300 Pathology: none sent Condition: stable Disposition: PACU
--- NOTE | 2020-09-18 12:27 | PM.DS ---
DS: Providers Provider Date of Service: 09/19/20 Date of admission: 09/18/20 07:17 Primary care physician: Claudia Sapp MD DS: Medications Discharge Medications Home Medications: Home Medications Medication Instructions Recorded Confirmed atorvastatin 80 mg PO BEDTIME 05/27/20 09/12/20 cyclobenzaprine 10 mg PO BEDTIME 05/27/20 09/12/20 fluoxetine 20 mg PO DAILY 05/27/20 09/12/20 fluticasone propionate [Flonase 1 spray INTRANASAL DAILY 05/27/20 09/12/20 Allergy Relief] insulin glargine [Lantus Solostar 8 unit SUBCUT QAM 05/27/20 09/12/20 U-100 Insulin] loratadine 10 mg PO DAILY 05/27/20 09/12/20 magnesium 30 mg PO DAILY 05/27/20 09/12/20 medroxyprogesterone [Provera] 10 mg PO DAILY 05/27/20 09/12/20 oxycodone 10 mg PO BID PRN 05/27/20 09/12/20 lisinopril 5 mg tablet 5 mg PO DAILY 05/30/20 09/12/20 liraglutide [Victoza 2-Kody] 1.2 mg SUBCUT QAM 07/04/20 09/12/20 Previous Rx's Medication Instructions Recorded zchmbt-eqaejgus-uvcwcbi 1 cap PO QID #120 cap 02/14/20 3,000-9,500-15,000 unit capsule,delayed releas mecobalamin (vitamin B12) 1,000 1,000 mcg SUBLINGUAL DAILY #30 tab 06/14/20 mcg disintegrating tablet,sublingual thiamine HCl (vitamin B1) 100 mg 100 mg PO DAILY #30 tab 06/14/20 tablet vitamin A palmitate 15,000 unit 15,000 unit PO .COMPLEX #30 tab 06/14/20 tablet bisacodyl 5 mg tablet,delayed 10 mg PO BEDTIME 30 Days #60 tab 07/11/20 release dicyclomine 10 mg capsule 20 mg PO QID PRN #240 cap 07/21/20 docusate sodium 100 mg capsule 100 mg PO BID PRN #60 ea 07/21/20 omeprazole 40 mg capsule,delayed 40 mg PO DAILY #60 cap 07/21/20 release ondansetron HCl 4 mg tablet 4 mg PO Q12H #20 tab 09/12/20 pantoprazole 40 mg tablet,delayed 40 mg PO DAILY #30 tab 09/12/20 release polyethylene glycol 3350 17 gram 17 g PO DAILY #14 ea 09/12/20 oral powder packet sucralfate 100 mg/mL oral 10 ml PO BID #400 ml 09/12/20 suspension DS: Summary Time Spent with Patient Time attestation: ADMITTING DIAGNOSIS: Refractory morbid obesity with a BMI of 44 kg/m2 and associated co-morbid conditions includingIDDM, HTN, hyperlipidemia, GERD, arthritis, fibromyalgia, sicke cell thalassemia, depression DISCHARGE DIAGNOSIS: same, s/p laparoscopic RNYGBP Past surgical history: section and laparoscopic cholecystectomy PROCEDURE: Viefcuyd-suvwxt-atwsopwpbvn and laparoscopic Ivette-en-Y gastric bypass DISCHARGE SUMMARY: HISTORY OF PRESENT ILLNESS: The patient is a 44 year-old woman with a BMI of 48.1 kg/m2 and associated co-morbidities as described previously. The patient had extensive preoperative work-up, lost 25.4 lbs preoperatively and was electively scheduled for laparoscopic, possible open gastric bypass. Risks and complications of the surgery were discussed with the patient in advance, particularly the possibility of , pulmonary embolism, anastomotic leak, bleeding, bowel injury, GERD, cardiac, renal or pulmonary complications. The patient understood all the risks and was in agreement with the surgical plan. HOSPITAL COURSE: The patient underwent uneventful laparoscopic Ivette-en-Y gastric bypass on the day of admission. Postoperatively, the patient was transferred to the surgical floor on a monitored bed and hemoglobin during the first 8 hours remained stable. The patient was on IV Acetaminophen and dilaudid for pain control. On postoperative day one, the patient was feeling well without nausea, vomiting, fevers, or tachycardia. The patient had some mild incisional pain. The abdomen was soft. UGI showed no leak or obstruction. The patient was started on 1 ounce of water or ice every half hour. The Rodriguez was discontinued. During the first day, the patient did fairly well, having some incisional pain, but able to ambulate adequately and to tolerate liquids well. Since the patient is doing well, we decided that the patient was ready to be discharged. The patient was given instructions to follow-up with me next week and to call my office for any fever over 101, persistent abdominal pain, nausea, vomiting, change in the color of the LUIS M fluid, symptoms of DVT such as calf tenderness, or leg swelling, or pulmonary embolism such as chest pain or shortness of breath. The patient was also instructed to drink 40-60 ounces of liquids per day using the 1-ounce cups. The patient was given prescription for Tylenol for pain, Zofran prn for nausea, pantoprazole and carafate. The patient was encouraged to ambulate and use the incentive spirometry. The patient was allowed to shower, but no baths, and encouraged to stay active at home. All of these instructions were given to the patient personally. All questions were answered and the patient understood all instructions. The instructions were given to the patient in print as well. Total time spent providing and/or coordinating discharge services: 15 Discharge coordination time: Less than 30 minutes Quality: Stroke Does the patient have a stroke diagnosis?: No Physical Exam Vital Signs: Vital Signs: Last Vital Signs Temp 97.7 F 09/18/20 12:10 Pulse 92 09/18/20 12:10 Resp 16 09/18/20 12:10 BP 158/88 H 09/18/20 12:10 Pulse Ox 100 09/18/20 12:10 Body Mass Index 44.1 DS: Data Data Completed and Pending Labs on day of discharge: Laboratory Results - last 24 hr 09/18/20 09/18/20 06:25 06:30 Urine Test NEGATIVE COVID-19 ([facility]) Negative COVID-19 Clin Com See Note Discharge Plan Discharge Anticipated Discharge Date/Time: 09/19/20 12:21 Patient Disposition: Home, Self-Care Discharge Diagnosis: POD # 1, s/p gastric bypass Referrals: Claudia Sapp MD [Primary Care Provider] - 1 Week Discharge Medications: Continued docusate sodium 100 mg capsule 100 mg PO BID PRN (Reason: for constipation) Qty: 60 RF: 2 cyclobenzaprine 10 mg Tablet 10 mg PO BEDTIME RF: 0 medroxyprogesterone [Provera] 10 mg Tablet 10 mg PO DAILY RF: 0 atorvastatin 80 mg Tablet 80 mg PO BEDTIME RF: 0 fluoxetine 20 mg Tablet 20 mg PO DAILY RF: 0 fluticasone propionate [Flonase Allergy Relief] 50 mcg/actuation [place],Suspension 1 spray INTRANASAL DAILY RF: 0 oxycodone 10 mg Tablet 10 mg PO BID PRN (Reason: Pain) RF: 0 loratadine 10 mg Capsule 10 mg PO DAILY RF: 0 lisinopril 5 mg tablet 5 mg PO DAILY RF: 0 pantoprazole 40 mg tablet,delayed release (DR/EC) 40 mg PO DAILY Qty: 30 RF: 2 sucralfate 100 mg/mL suspension 10 ml PO BID Qty: 400 RF: 2 ondansetron HCl [Zofran] 4 mg tablet 4 mg PO Q12H Qty: 20 RF: 0 Held Creon 3,000-9,500- 15,000 unit capsule,delayed release(DR/EC) 1 cap PO QID Qty: 120 RF: 5 Hold Instructions: Discuss when to restart with Dr Sherrie Carvalho Solostar U-100 Insulin 100 unit/mL (3 mL) Insulin Pen 8 unit SUBCUT QAM RF: 0 Hold Instructions: Discuss dosage with Dr Stark Victoza 2-Kody 0.6 mg/0.1 mL (18 mg/3 mL) pen injector 1.2 mg subcut QAM RF: 0 Hold Instructions: Discuss when to restart with Dr Stark Discontinued thiamine HCl (vitamin B1) 100 mg tablet 100 mg PO DAILY Qty: 30 RF: 2 vitamin A palmitate 15,000 unit tablet 15,000 unit PO .COMPLEX Qty: 30 RF: 1 mecobalamin (vitamin B12) 1,000 mcg tablet,disintegrating 1,000 mcg sublingual DAILY Qty: 30 RF: 2 dicyclomine 10 mg capsule 20 mg PO QID PRN (Reason: cramping) Qty: 240 RF: 2 omeprazole 40 mg capsule,delayed release(DR/EC) 40 mg PO DAILY Qty: 60 RF: 2 magnesium 30 mg Tablet 30 mg PO DAILY RF: 0 bisacodyl [Dulcolax (bisacodyl)] 5 mg tablet,delayed release (DR/EC) 10 mg PO BEDTIME 30 Days Qty: 60 RF: 6 polyethylene glycol 3350 [Miralax] 17 gram powder in packet 17 g PO DAILY Qty: 14 RF: 0 Discharge Orders: Discharge Order (Routine); Ordered 09/19/20 Ordered By: Asaf Stark Diet: other Activity on Discharge: No heavy lifting Stand Alone Forms: Patient Portal Discharge page Activity Restrictions/Additional Instructions: No tub baths, sex or returning to work until discussed at first post op appointment. No exercise, alcohol, tobacco or illegal drug use. Continue to use incentive spirometer hourly while awake. Walk in home for 5- 10 minutes every 2 hours during the first week. Continue phase 1 diet today and start phase 2 diet tomorrow morning. Follow all instructions in the bariatric handbook and call with any questions. Empty LUIS M drain bulb at least twice per day and record drainage amount. Call MD if fluid is cloudy, greenish or bright red. Care Plan Goals: weight loss Health Concerns: morbid obesity Plan of Treatment: see discharge instructions Assessment: stable, post op gastric bypass Discharge Date/Time: 09/19/20 14:18
--- NOTE | 2020-09-18 12:43 | PM.PNGS ---
Subjective Subjective Date of Service: 09/19/20 Interval history: Complains of mild incisional pain but was able to ambulate and use the incentive spirometer. Physical Exam Vital Signs: Vital Signs: Last Vital Signs Temp 97.7 F 09/18/20 12:10 Pulse 88 09/18/20 12:25 Resp 16 09/18/20 12:25 BP 158/90 H 09/18/20 12:25 Pulse Ox 98 09/18/20 12:25 Body Mass Index 44.1 GI: Inspection: Yes incision (clean, dry and intact) and Yes other (LUIS M drain with serosanguinous fluid) Extrem: Right lower extremity: normal to inspection (no calf tenderness) Left lower extremity: normal to inspection (no calf tenderness) Progress Note: A&P Assessment and plan (1) Morbid obesity: Status: Acute (2) S/P gastric bypass: Status: Acute Assessment and Plan: s/p laparoscopic gastric bypass and lysis of adhesions Doing well Check am labs and UGI. If OK, will begin phase 1 bariatric diet (3) Insulin dependent diabetes mellitus: Problem details: dx 2012-taking Lantus QAM and Victoza QAM-glucose ~upper 80's to lower 90's Status: Acute (4) Hypertension: Status: Acute (5) Dyslipidemia: Status: Acute (6) Polycystic ovarian syndrome: Status: Acute (7) Chronic back pain: Status: Acute (8) Depression: Status: Acute (9) HAWKINS (nonalcoholic steatohepatitis): Problem details: mild elevation SMA 36 11/2018, US 12/07/2018, mld elevation SMA, Hep A, B, C neg, ast/alt wnl but alk phos up, AFP 0.9, ferritin wnl, ggt 59 07/05/2102/09/2102 [id number] Plt Count 464 H Estimated GFR > 60 Hemoglobin A1c % 6.5 Total Bilirubin 0.6 AST 12 ALT 12 Alkaline Phosphatase 111 D ULTRASOUND OF THE ABDOMEN WITH ELASTOGRAPHY 05/2020 IMPRESSION: Findings consistent with fatty infiltration of the liver. Cholelithiasis without evidence of acute cholecystitis. Hepatic hemangioma. Liver elastography: In the absence of other known clinical signs, measurements rule out compensated advanced chronic liver disease. If there are known clinical signs, further testing may be needed for confirmation. Status: Acute (10) GERD (gastroesophageal reflux disease): Status: Acute (11) Sleep apnea: Problem details: uses CPAP. Not used CPAP for over a month because machine broke Status: Acute (12) Abdominal adhesions: Status: Acute (13) DJD (degenerative joint disease): Status: Acute (14) Hepatomegaly: Status: Acute Fall Risk Details Current Medications: Current Medications Generic Name Dose Route Start Last Admin Trade Name Freq PRN Reason Stop Dose Admin Famotidine 20 mg 09/18/20 12:30 Famotidine/Pf 20 Mg/2 Ml Vial IVPUSH BID TINY Fentanyl 25 mcg 09/18/20 08:27 Fentanyl Citrate/Pf 100 Mcg/2 Ml Vial IVPUSH Q5M PRN Pain, Moderate (Pain Scale 4-6 Hydromorphone HCl 0.25 mg 09/18/20 08:27 Hydromorphone Hcl 0.5 Mg/0.5 Ml Syringe IVPUSH Q5M PRN Pain, Severe (Pain Scale 7-10) Lactated Ringer's 1,000 mls @ 100 mls/hr 09/18/20 06:15 09/18/20 07:07 Lr IVCONT 100 mls/hr .Q10H TINY Administration Promethazine HCl 6.25 mg/ 50.25 mls @ 201 mls/hr 09/18/20 08:27 Sodium Chloride IV ONCE PRN Nausea and Vomiting Ondansetron HCl 4 mg 09/18/20 08:27 Ondansetron Hcl 4 Mg/2 Ml Vial IVPUSH ONCE PRN Nausea and Vomiting Time Spent With Patient Time: Total time spent is greater than 50% in coordination of care (as documented) at patient's floor/unit and/or counseling patient: Time with patient: less than 15 minutes Procedures Date of Service Date of Service: 09/19/20
[2020-09-18] MEDS: Famotidine/PF 20 MG/2 ML VIAL IVPUSH ×2 (12:59→21:29)
[2020-09-18 13:04] LABS: Hematocrit 42.3 % (37-47); Hemoglobin 12.7 g/dl (12.0-16.0)
[2020-09-18] MEDS: HYDROmorphone HCl 0.5 MG/0.5 ML SYRINGE 0.25 MG IVPUSH ×4 (13:04→20:25)
[2020-09-18 13:35] LABS: Anion Gap 19 (12-20); Blood Urea Nitrogen 10 mg/dL (9-16); Calcium 9.1 mg/dL (8.4-10.2); Carbon Dioxide 18 mmol/L (22-29); Chloride 105 mmol/L (96-108); Creatinine Clr Calc Pharmacy 102.5; Estimated Glomerular Filt Rate > 60; Glucose Random 186 mg/dL (60-115); Potassium 5.6 mmol/L (3.3-5.1); Sodium 136 mmol/L (135-145)
[2020-09-18] MEDS: Lactated Ringers 1,000 ML 150 ML IVCONT ×2 (14:20→20:29)
[2020-09-18] MEDS: Enalaprilat Dihydrate 1.25 MG/ML VIAL 0.625 MG IV ×2 (14:25→20:09)
[2020-09-18] MEDS: ondansetron HCL 4 MG/2 ML VIAL IVPUSH ×2 (14:25→21:29)
[2020-09-18] MEDS: ceFAZolin Sodium/Dextrose,Iso 2 GM/50 ML PIGGYBACK IV (14:26)
[2020-09-18 16:28] LABS: Glucose, Whole Blood 200 mg/dL (60-115)
[2020-09-18 20:18] LABS: Glucose, Whole Blood 169 mg/dL (60-115)
[2020-09-18] MEDS: Metoprolol Tartrate 5 MG in 0.9 % Sodium Chloride 50 ML 220 MG IV (21:28)
[2020-09-18] MEDS: Insulin Lispro 100 UNIT/ML 3 ML VIAL SUBCUT (21:29)
[2020-09-19 00:02] VITALS: BP 146/74; PULSE 86
[2020-09-19] MEDS: HYDROmorphone HCl 0.5 MG/0.5 ML SYRINGE 0.25 MG IVPUSH (00:28)
[2020-09-19 02:06] VITALS: BP 122/69; PULSE 82
[2020-09-19] MEDS: Enalaprilat Dihydrate 1.25 MG/ML VIAL 0.625 MG IV ×3 (02:06→12:57)
[2020-09-19] MEDS: Lactated Ringers 1,000 ML 150 ML IVCONT ×2 (02:24→07:55)
[2020-09-19 03:29] VITALS: BP 128/54; PULSE 82; RESP 18; TEMP 36.2; O2SAT 98
[2020-09-19] MEDS: Metoprolol Tartrate 5 MG in 0.9 % Sodium Chloride 50 ML 220 MG IV (03:35)
[2020-09-19 05:09] LABS: MANUAL DIFF FLAG NO
[2020-09-19 05:13] LABS: Basophils Percent Auto 0.1 % (0-2); Hematocrit 33.9 % (37-47); Hemoglobin 10.5 g/dl (12.0-16.0); Imm Gran Abs Auto 0.07 X10*3/uL (0.00-0.03); Imm Gran Pct Auto 0.4 % (0.0-0.4); Lymphocytes Absolute Auto 1.7 X10*3/uL (1.2-4.9); Lymphocytes Percent Auto 10.8 % (20-40); Mean Corpuscular Hemoglobin 22.1 pg (27.0-33.0); Mean Corpuscular Volume 71.4 fL (80-98); Mean Platelet Volume 10.6 fL (9.4-12.3); Monocytes Absolute Auto 0.9 X10*3/uL (0.1-1.2); Monocytes Percent Auto 5.8 % (2-11); Neutrophils Absolute Auto 13.3 X10*3/uL (2.0-8.3); Neutrophils Percent Auto 82.9 % (45-73); Platelet Count 371 X10*3/uL (160-400); Red Blood Count 4.75 X10*6/uL (4.20-5.50); Red Cell Distribution Width 16.3 % (11.0-16.0)
[2020-09-19 05:46] LABS: Anion Gap 10 (12-20); Blood Urea Nitrogen 8 mg/dL (9-16); Carbon Dioxide 25 mmol/L (22-29); Chloride 108 mmol/L (96-108); Creatinine Clr Calc Pharmacy 117.6; Estimated Glomerular Filt Rate > 60; Glucose Random 99 mg/dL (60-115); Potassium 4.3 mmol/L (3.3-5.1); Sodium 139 mmol/L (135-145)
[2020-09-19] MEDS: ondansetron HCL 4 MG/2 ML VIAL IVPUSH ×2 (05:48→12:57)
[2020-09-19 07:12] VITALS: BP 146/78; PULSE 79; RESP 18; TEMP 36.4; O2SAT 97
[2020-09-19 07:46] LABS: Glucose, Whole Blood 91 mg/dL (60-115)
[2020-09-19] MEDS: Metoprolol Tartrate 5 MG in 0.9 % Sodium Chloride 50 ML 2220 MG IV (07:55)
[2020-09-19] MEDS: Famotidine/PF 20 MG/2 ML VIAL IVPUSH (07:57)
--- NOTE | 2020-09-19 09:40 | HO.POSTANES ---
Post Anesthesia Evaluation Post Anesthesia Evaluation Vital Signs: Vital Signs Temp Pulse Resp BP Pulse Ox 09/19/20 07:12 97.5 F 79 18 146/78 H 97 09/19/20 03:29 97.2 F 82 18 128/54 L 98 09/19/20 02:06 82 122/69 09/19/20 00:02 86 146/74 H 09/18/20 23:29 97.8 F 91 18 181/93 H 99 Anesthesia: General Endotracheal-GETA Mental Status: Awake Pain Control: Satisfactory Nausea/Vomiting: None Hydration: Adequate Anesthesia-Related Issues: No Anes. Related Issues
--- NOTE | 2020-09-19 09:41 | MHC.CM.PN ---
PATIENT LIVES WITH HER SPOUSE/HCP (COPY REQUESTED) NO DME OR VNA SERVICES IN THE HOME. SHE IS INDEPENDENT WITH ALL ADLS. SPOUSE IS IN ROOM TO TRANSPORT PATIENT HOME.
[2020-09-19 11:37] VITALS: BP 147/75; PULSE 71; RESP 18; TEMP 36.4; O2SAT 97
[2020-09-19 11:58] LABS: Glucose, Whole Blood 97 mg/dL (60-115)
--- NOTE | 2020-09-19 14:59 | MHC.CM.PN ---
note patient has been dischagre home no services s/p bariatric syrgery
== END 2020-09-19 14:18 | disposition home or self-care (01) | DRG 403 ==
LOC: HO.SSSA 12:27 → HO.S3 12:55
PROVIDERS: Nurse Practitioner; Physician Assistant; Admitting Provider Surgery; PCP Family Medicine; Visit Provider Surgery
PROC: 0D164ZA Bypass Stomach to Jejunum, Percutaneous Endoscopic Approach (ICD-10-PCS; principal; 2020-09-18 07:30)
DX: E66.01 Morbid (severe) obesity due to excess calories (principal); K75.81 Nonalcoholic steatohepatitis (NASH); E11.9 Type 2 diabetes mellitus without complications; G47.30 Sleep apnea, unspecified; K21.9 Gastro-esophageal reflux disease without esophagitis; M19.90 Unspecified osteoarthritis, unspecified site; E78.5 Hyperlipidemia, unspecified; K66.0 Peritoneal adhesions (postprocedural) (postinfection); F32.9 Major depressive disorder, single episode, unspecified; Z20.822 Contact with and (suspected) exposure to COVID-19; Z68.41 Body mass index [BMI] 40.0-44.9, adult; Z79.4 Long term (current) use of insulin; Z88.2 Allergy status to sulfonamides; Z79.891 Long term (current) use of opiate analgesic; Z79.899 Other long term (current) drug therapy
CPT/HCPCS: 36415; 74240; 80048; 80053; 80061; 81025; 82947; 83036; 83525; 84443; 85014; 85018; 85025; 85610; 85730; 86140; 86850; 86900; 86901; 87635; 99024; C1758; J0131; J0690; J1100; J1170; J2250; J2370; J2405; J3010

== ENCOUNTER 2020-09-21 06:21 | Emergency (ER) | payer MEDICAID, SELFPAY ==
[2020-09-21 07:02] VITALS: BP 133/64; PULSE 87; RESP 16; TEMP 37.4; O2SAT 98; BMI 43.7
== END 2020-09-21 09:45 | disposition left against medical advice (07) ==
PROVIDERS: Emergency Provider Emergency Medicine; PCP Family Medicine
DX: R10.9 Unspecified abdominal pain (principal); Z98.84 Bariatric surgery status
CPT/HCPCS: 99282

== ENCOUNTER 2020-09-21 22:10 | Inpatient (IN) | payer MEDICAID, SELFPAY ==
[2020-09-21 22:16] VITALS: BP 133/65; PULSE 65; RESP 18; TEMP 36.9; O2SAT 100
[2020-09-21 22:50] VITALS: BMI 45.9
--- NOTE | 2020-09-21 23:07 | PM.DS ---
DS: Providers Provider Date of Service: 09/22/20 Date of admission: 09/21/20 22:10 Primary care physician: Unknown Physician DS: Medications Discharge Medications Home Medications: Home Medications Medication Instructions Recorded Confirmed Lantus Solostar U-100 Insulin 8 unit SUBCUT QAM 05/27/20 09/12/20 atorvastatin 80 mg PO BEDTIME 05/27/20 09/12/20 cyclobenzaprine 10 mg PO BEDTIME 05/27/20 09/12/20 fluoxetine 20 mg PO DAILY 05/27/20 09/12/20 fluticasone propionate [Flonase 1 spray INTRANASAL DAILY 05/27/20 09/12/20 Allergy Relief] loratadine 10 mg PO DAILY 05/27/20 09/12/20 medroxyprogesterone [Provera] 10 mg PO DAILY 05/27/20 09/12/20 oxycodone 10 mg PO BID PRN 05/27/20 09/12/20 lisinopril 5 mg tablet 5 mg PO DAILY 05/30/20 09/12/20 Victoza 2-Kody 1.2 mg SUBCUT QAM 07/04/20 09/12/20 Previous Rx's Medication Instructions Recorded dhbnkl-[id number] 1 cap PO QID #120 cap 02/14/20 3,000-9,500-15,000 unit capsule,delayed releas docusate sodium 100 mg capsule 100 mg PO BID PRN #60 ea 07/21/20 ondansetron HCl 4 mg tablet 4 mg PO Q12H #20 tab 09/12/20 pantoprazole 40 mg tablet,delayed 40 mg PO DAILY #30 tab 09/12/20 release sucralfate 100 mg/mL oral 10 ml PO BID #400 ml 09/12/20 suspension DS: Summary Time Spent with Patient Time attestation: Total time spent providing and/or coordinating discharge services: Discharge coordination time: Greater than 30 minutes Quality: Stroke Does the patient have a stroke diagnosis?: No Physical Exam Vital Signs: Vital Signs: Last Vital Signs Temp 98.5 F 09/21/20 22:16 Pulse 65 09/21/20 22:16 Resp 18 09/21/20 22:16 BP 133/65 09/21/20 22:16 Pulse Ox 100 09/21/20 22:16 Body Mass Index 45.9 Discharge Plan Discharge Patient Disposition: Home Health Service Discharge Diagnosis: leukocytosis and hypoxia s/p LRYGB Referrals: Physician,Unknown [Primary Care Provider] - 1 Week Discharge Medications: Continued ciprofloxacin [Cipro] 500 mg/5 mL suspension,microcapsule recon 500 mg PO Q12H Qty: 60 RF: 0 fluoxetine 20 mg Tablet 20 mg PO DAILY RF: 0 fluticasone propionate [Flonase Allergy Relief] 50 mcg/actuation [place],Suspension 1 spray INTRANASAL DAILY RF: 0 Lantus Solostar U-100 Insulin 100 unit/mL (3 mL) Insulin Pen 8 unit SUBCUT QAM RF: 0 Hold Instructions: Discuss dosage with Dr Stark oxycodone 10 mg Tablet 10 mg PO BID PRN (Reason: Pain) RF: 0 loratadine 10 mg Capsule 10 mg PO DAILY RF: 0 lisinopril 5 mg tablet 5 mg PO DAILY RF: 0 pantoprazole 40 mg tablet,delayed release (DR/EC) 40 mg PO DAILY Qty: 30 RF: 2 sucralfate 100 mg/mL suspension 10 ml PO BID Qty: 400 RF: 2 ondansetron HCl [Zofran] 4 mg tablet 4 mg PO Q12H Qty: 20 RF: 0 Held medroxyprogesterone [Provera] 10 mg Tablet 10 mg PO DAILY RF: 0 Hold Instructions: Resume on 10/30/20. atorvastatin 80 mg Tablet 80 mg PO BEDTIME RF: 0 Hold Instructions: Resume on 10/06/20. Discontinued Creon 3,000-9,500- 15,000 unit capsule,delayed release(DR/EC) 1 cap PO QID Qty: 120 RF: 5 Hold Instructions: Discuss when to restart with Dr Sherrie carbajal docusate sodium 100 mg capsule 100 mg PO BID PRN (Reason: for constipation) Qty: 60 RF: 2 cyclobenzaprine 10 mg Tablet 10 mg PO BEDTIME RF: 0 Victoza 2-Kody 0.6 mg/0.1 mL (18 mg/3 mL) pen injector 1.2 mg subcut DAILY RF: 0 Hold Instructions: Discuss when to restart with Dr Stark Discharge Orders: Discharge Order (Routine); Ordered 09/22/20 Ordered By: Asaf Stark Diet: other Activity on Discharge: No heavy lifting Stand Alone Forms: Patient Portal Discharge page Activity Restrictions/Additional Instructions: Will have VNA home services for drain care. No tub baths, sex or returning to work until discussed at first post op appointment. No exercise, alcohol, tobacco or illegal drug use. Continue to use incentive spirometer hourly while awake. Walk in home for 5- 10 minutes every 2 hours during the first week. Continue phase 3 diet today. Follow all instructions in the bariatric handbook and call with any questions. Discharge Summary: Date of discharge: 09/22/20 Admit diagnosis: hypoxia and leukocytosis 3 days s/p LRYGB Discharge diagnosis: same, clinically improved and stable Hospital Course: 44 yo lady who is 3 days s/p LRYGB with Dr. Stark, went to [facility] ED and transfered here last night. No leak seen on CT, but with hypoxia and leukocytosis, will treat for empiric early pneumonia with IV antibiotics. Keep NPO, IVF, sliding scale overnight. Patient felt well this morning. Dr. Stark reviewed CT chest/abdomen/pelvis from [facility]: No abdominal pathology. Mild atelectasis. No pleural effusion or pneumonia. WBC had improved. Started phase 3 diet protein shakes and tolerated well. Was ambulating and using ICS (>2000). Discharged home on phase 3 and will follow up with Dr. Stark in office on Tuesday. Care Plan Goals: weight loss Health Concerns: obesity, T2DM Plan of Treatment: weight loss s/p LRYGB Assessment: s/p re-admission, transfered from [facility] ER Discharge Date/Time: 09/22/20 19:32
--- NOTE | 2020-09-21 23:08 | PM.HPGS ---
History of Present Illness History of Present Illness Date of Service: 09/22/20 Chief complaint: Sepsis Narrative: Felisa Lei is a 44 year old female who is 3 days s/p LRYGB with Dr. Stark, DOS 09/18/20. She went to [facility] ED for concerns regarding her drain, but left before being seen. Then called EMS when felt short of breath and noted fever at home. Went to [facility] ER, where they noted her to be slightly tachycardic and hypoxic at 80% on RA. Called our office, spoke with myself and then Dr. Stark. CT showed no signs of leak, did show small ?hepatic infarct likely related to recent bypass. WBC 16 with 90% neutrophils. Decision was made to transfer her to [facility] to keep overnight. No events overnight. I spoke with patient this morning with help of certified motor vehicle representative for [facility] [place]. Only complaints are some abdominal tenderness near her incisions. Reports normal/soft BMs and urinating normally. Patient confirmed that she needs sleep came to the [facility] emergency room with concerns for her drainage, she did leave the waiting room after being reassured by Dr. Stark and discussing expectations with drain output. However when she got home she felt unwell and had chills at home and had a temperature of a 102 degrees and family member checked her oxygen and it was low, they called an ambulance. Transfer to direct admit last night was uneventful and no overnight events. Has not needed any insulin. Prior to surgery was on 8 units q.a.m., has not needed since surgery. Has been ambulating in the [place]. Getting incentive spirometer up to 1999. Drain had 50 cc overnight since 22:00 yesterday and ended at 06:00 this morning. Patient spoke with Dr. Stark this morning. Review of Systems Constitutional: Constitutional: Reports as per HPI, Denies chills and Denies fever(s) Respiratory: Respiratory: Reports as per HPI Gastrointestinal: Gastrointestinal: Reports abdominal pain and Denies change in bowel habits Genitourinary: Genitourinary: Reports as per HPI [facility] Past Medical History Medical History Abdominal adhesions Abdominal cramping Arthritis Axillary hidradenitis suppurativa Bilateral shoulder pain BMI 45.0-49.9, adult Cholelithiasis Chronic back pain Chronic idiopathic constipation Chronic leukopenia COVID-19 COVID-19 vaccine administered Depression Diabetes DJD (degenerative joint disease) Dyslipidemia Family history of anesthesia complication Fibromyalgia Gallstones Hepatomegaly Hypertension Hypoxia Insulin dependent diabetes mellitus Intestinal malabsorption following gastrectomy Leucocytosis Leukocytosis (leucocytosis) Morbid obesity Obesity Polycystic ovarian syndrome Sickle thalassemia disease Sleep apnea Vitamin A deficiency Vitamin B1 deficiency Vitamin D deficiency Vitamin D deficiency, unspecified Family History Family History Mother Diabetes DVT (deep venous thrombosis) HTN (hypertension) Father Diabetes HTN (hypertension) Sister Stroke Son Asthma Sickle cell anemia Son Sickle cell anemia Surgical History Surgical History History of esophagogastroduodenoscopy (EGD) Hx of section Hx of cholecystectomy Social History Social History Household Members: Spouse and Children Housing: House Are you a primary patient care to a significant other at home: No Do you presently have visiting nurse or other home services: No Smoking Status: Never smoker Use of substances other than those prescribed or required for medical reasons: No Have you been hit, kicked, punched, or otherwise hurt by someone within the past year? If so, by whom?: No Do you feel safe in your current relationship?: Yes Is there a partner from a previous relationship who is making you feel unsafe now?: No Are you made to feel afraid or neglected: No Spiritual Healthcare Practices: No issues Spiritism Healthcare Practices: No issues Cultural Healthcare Practices: No issues Advance Directives: No Advance Directives Information Provided: No Do you have thoughts of harming others: None Do you have a plan to hurt others: No Plan Recently lost weight without trying: No Nutrition Risks: No Nutritional Risk Patient : No : No Poor oral hygiene: No service: No Current occupational status: unemployed Meds Allergies Allergy/AdvReac Type Severity Reaction Status Date / Time sulfamethoxazole Allergy Rash Verified 09/21/20 23:31 [From Bactrim] trimethoprim [From Bactrim] Allergy Rash Verified 09/21/20 23:31 Active Medications: Current Medications Generic Name Dose Route Start Last Admin Trade Name Freq PRN Reason Stop Dose Admin Lactated Ringer's 1,000 mls @ 125 mls/hr 09/21/20 22:45 Lr IVCONT .Q8H TINY Piperacillin Sod/Tazobactam 50 mls @ 100 mls/hr 09/21/20 22:45 Sod 3.375 gm/ Sodium Chloride IV Q6H [facility] Metronidazole 500 mg in 100 mls @ 100 mls/hr 09/21/20 23:15 Flagyl IV TID [facility] Insulin Human Lispro 0 unit 09/22/20 07:30 Insulin Lispro 100 Unit/Ml 3 Ml Vial SUBCUT 09/22/20 23:06 QIDACHS [facility] Protocol Home Medications Medication Instructions Recorded Confirmed Last Taken Type Lantus Solostar U-100 Insulin 8 unit SUBCUT QAM 05/27/20 09/22/20 Unknown History atorvastatin 80 mg PO BEDTIME 05/27/20 09/22/20 Unknown History cyclobenzaprine 10 mg PO BEDTIME 05/27/20 09/22/20 Unknown History fluoxetine 20 mg PO DAILY 05/27/20 09/22/20 Unknown History fluticasone propionate [Flonase 1 spray INTRANASAL DAILY 05/27/20 09/22/20 Unknown History Allergy Relief] loratadine 10 mg PO DAILY 05/27/20 09/22/20 Unknown History medroxyprogesterone [Provera] 10 mg PO DAILY 05/27/20 09/22/20 Unknown History oxycodone 10 mg PO BID PRN 05/27/20 09/22/20 Unknown History lisinopril 5 mg tablet 5 mg PO DAILY 05/30/20 09/22/20 Unknown History Victoza 2-Kody 1.2 mg SUBCUT DAILY 07/04/20 09/22/20 Unknown History Physical Exam Vital Signs: Vital Signs: Last Vital Signs Temp 98.5 F 09/21/20 22:16 Pulse 65 09/21/20 22:16 Resp 18 09/21/20 22:16 BP 133/65 09/21/20 22:16 Pulse Ox 100 09/21/20 22:16 Body Mass Index 45.9 Const: General: cooperative, comfortable, no acute distress, alert and awake Nutritional Appearance: obese Orientation/consciousness: oriented to person, oriented to place and oriented to time Neck: Neck: Yes normal visual inspection, Yes no lymphadenopathy and No submandibular swelling Resp: Effort & Inspection: normal respiratory effort and symmetric chest movement Auscultation: clear to auscultation bilaterally Cardio: Rate: regular rate Rhythm: regular rhythm GI: Other: Drain with serosanguineous fluid, incisions clean/dry/intact Inspection: Yes normal to inspection and Yes obesity Palpation (GI): Soft to palpation, nontender, no guarding, not rigid and No Rebound tenderness present Auscultation: normal bowel sounds Neuro: General: oriented to person, oriented to place and oriented to time Extrem: Right lower extremity: no edema Left lower extremity: no edema Psych: Appearance: grossly normal Mental Status: mental status grossly normal Speech and movement: Normal speech and movement present Affect: normal affect Attitude: cooperative Thought process: Normal thought process present Thought content: Normal thought content present Insight: Good insight present (Psych) Judgement: Good judgement present (Psych) Assessment and Plan (1) S/P gastric bypass: Status: Acute (2) Morbid obesity: Status: Acute (3) BMI 45.0-49.9, adult: Status: Acute (4) Intestinal malabsorption following gastrectomy: Status: Acute (5) Hypoxia: Status: Acute (6) Leukocytosis (leucocytosis): Status: Acute 44 yo lady who is 3 days s/p LRYGB with Dr. Stark, went to [facility] ED and transfered here. No leak seen on CT, but with hypoxia and leukocytosis, will treat for empiric early pneumonia with IV antibiotics. Keep NPO, IVF, sliding scale. Patient feels well today. Continue to ambulate and use incentive spirometer around the clock. She spoke with Dr. Stark as well this morning. He will review records and CT scan from [facility] to determine next steps. We will plan on discharge home with VNA services. Procedures Date of Service Date of Service: 09/22/20
[2020-09-21 23:38] LABS: Glucose, Whole Blood 87 mg/dL (60-115)
[2020-09-21] MEDS: Lactated Ringers 1,000 ML 125 ML IVCONT (23:45)
[2020-09-22] VITALS: BP 140/75; PULSE 68; RESP 18; TEMP 36.9; O2SAT 100
[2020-09-22] MEDS: metroNIDAZOLE/NS 500 MG/100 ML PIGGYBACK 100 MG IV ×2 (00:17→10:02)
[2020-09-22 04:00] VITALS: BP 150/76; PULSE 68; RESP 18; TEMP 36.6; O2SAT 99
[2020-09-22 06:27] LABS: Glucose, Whole Blood 102 mg/dL (60-115)
[2020-09-22 07:15] LABS: MANUAL DIFF FLAG NO
[2020-09-22 07:24] VITALS: BP 147/73; PULSE 73; RESP 20; TEMP 36.9; O2SAT 96
[2020-09-22 07:24] LABS: Basophils Percent Auto 0.3 % (0-2); Eosinophils Absolute Auto 0.2 X10*3/uL (0.0-0.4); Eosinophils Percent Auto 1.6 % (0-4); Hematocrit 30.9 % (37-47); Hemoglobin 9.7 g/dl (12.0-16.0); Imm Gran Abs Auto 0.04 X10*3/uL (0.00-0.03); Imm Gran Pct Auto 0.3 % (0.0-0.4); Lymphocytes Absolute Auto 1.9 X10*3/uL (1.2-4.9); Lymphocytes Percent Auto 16.9 % (20-40); Mean Corpuscular HGB Conc 31.4 g/dl (31.0-35.0); Mean Corpuscular Hemoglobin 22.7 pg (27.0-33.0); Mean Corpuscular Volume 72.2 fL (80-98); Monocytes Absolute Auto 0.7 X10*3/uL (0.1-1.2); Monocytes Percent Auto 6.4 % (2-11); Neutrophils Absolute Auto 8.6 X10*3/uL (2.0-8.3); Neutrophils Percent Auto 74.5 % (45-73); Platelet Count 318 X10*3/uL (160-400); Red Blood Count 4.28 X10*6/uL (4.20-5.50); Red Cell Distribution Width 16.6 % (11.0-16.0); White Blood Count 11.5 X10*3/uL (4.8-10.8)
[2020-09-22 07:37] LABS: Glucose, Whole Blood 102 mg/dL (60-115)
[2020-09-22 08:08] LABS: Alanine Aminotransferase 78 U/L (0-31); Albumin Level 3.4 g/dL (3.5-5.0); Alkaline Phosphatase 95 U/L (39-117); Anion Gap 14 (12-20); Aspartate Amino Transferase 17 U/L (5-31); Bilirubin Direct 0.2 mg/dL (0.0-0.5); Bilirubin Total 0.6 mg/dL (0.0-1.0); Blood Urea Nitrogen 6 mg/dL (9-16); Calcium 8.7 mg/dL (8.4-10.2); Carbon Dioxide 23 mmol/L (22-29); Chloride 107 mmol/L (96-108); Creatinine Clr Calc Pharmacy 115.8; Estimated Glomerular Filt Rate > 60; Glucose Random 89 mg/dL (60-115); Potassium 3.6 mmol/L (3.3-5.1); Sodium 140 mmol/L (135-145); Total Protein 5.8 g/dL (6.5-8.0)
[2020-09-22 11:35] LABS: Glucose, Whole Blood 94 mg/dL (60-115)
[2020-09-22 11:45] VITALS: BP 135/66; PULSE 66; RESP 20; TEMP 36.4; O2SAT 97
--- NOTE | 2020-09-22 12:25 | MHC.CM.PN ---
with acquisitions librarian met with pt and her pt is independent cm intervention is not indicated ,filed a hcp with pt naminG her HER AGENT ,PTS FAMILY WILL TRANSPORT HER HOME WHEN SHE IS DCD
--- NOTE | 2020-09-22 13:20 | PM.PNGS ---
Subjective Subjective Date of Service: 09/22/20 Interval history: Spoke to the patient with an educational sign language interpreter. Patient feels better.Has some mild incisional pain. No nausea or vomiting. No left abdominal pain or left shoulder pain Reviewed CT chest/abdomen/pelvis from [facility]: No abdominal pathology. Mild atelectasis. No pleural effusion or pneumonia Physical Exam Vital Signs: Vital Signs: Last Vital Signs Temp 97.5 F 09/22/20 11:45 Pulse 66 09/22/20 11:45 Resp 20 09/22/20 11:45 BP 135/66 09/22/20 11:45 Pulse Ox 97 09/22/20 11:45 Body Mass Index 45.9 GI: Inspection: Yes normal to inspection, Yes incision (healing well) and Yes other (LUIS M with serous fluid) Palpation (GI): Other GI palpation findings present (mild incisional tenderness) Extrem: Right lower extremity: normal to inspection (no calf tenderness) Left lower extremity: normal to inspection (no calf tenderness) Progress Note: A&P Assessment and plan (1) Morbid obesity: Status: Acute Assessment and Plan: 1. WBC has improved. Start phase 3 diet 2. Increase ambulation 3. Continue I/S hourly. I showed her how to do it. 4. Check ultrasound Fall Risk Details Current Medications: Current Medications Generic Name Dose Route Start Last Admin Trade Name Shekhar PRN Reason Stop Dose Admin Lactated Ringer's 1,000 mls @ 125 mls/hr 09/21/20 22:45 09/22/20 06:43 Lr IVCONT Not Given .Q8H TINY Metronidazole 500 mg in 100 mls @ 100 mls/hr 09/22/20 01:00 09/22/20 11:02 Flagyl IV Infused Q8H TINY Infusion Piperacillin Sod/Tazobactam 50 mls @ 100 mls/hr 09/22/20 00:00 09/22/20 13:11 Sod 4.5 gm/ Sodium Chloride IV 100 mls/hr Q6H TINY Administration Insulin Human Lispro 0 unit 09/22/20 07:30 09/22/20 11:45 Insulin Lispro 100 Unit/Ml 3 Ml Vial SUBCUT 09/22/20 23:06 Not Given QIDACHS [facility] Protocol Time Spent With Patient Time: Total time spent is greater than 50% in coordination of care (as documented) at patient's floor/unit and/or counseling patient: Time with patient: 15 - 24 minutes Procedures Date of Service Date of Service: 09/22/20
[2020-09-22] MEDS: Lactated Ringers 1,000 ML 125 ML IVCONT (13:51)
[2020-09-22 16:00] VITALS: BP 135/78; PULSE 78; RESP 20; TEMP 36.6; O2SAT 97
[2020-09-22 16:43] LABS: Glucose, Whole Blood 92 mg/dL (60-115)
== END 2020-09-22 19:32 | disposition home health service (06) | DRG 663 ==
PROVIDERS: Physician Assistant; Admitting Provider Surgery; PCP Family Medicine; Visit Provider Surgery
DX: D72.829 Elevated white blood cell count, unspecified (principal); E66.01 Morbid (severe) obesity due to excess calories; K90.89 Other intestinal malabsorption; Z68.42 Body mass index [BMI] 45.0-49.9, adult; Z98.84 Bariatric surgery status; R09.02 Hypoxemia; J98.11 Atelectasis; Z79.4 Long term (current) use of insulin; Z88.2 Allergy status to sulfonamides; Z79.51 Long term (current) use of inhaled steroids; Z79.891 Long term (current) use of opiate analgesic; Z79.899 Other long term (current) drug therapy
CPT/HCPCS: 36415; 80048; 80076; 82947; 85025; 99024; J0131; J0690; J1100; J1170; J2250; J2370; J2405; J2543; J3010

== ENCOUNTER → 2020-09-26 07:31 | Outpatient (BNVA) | payer MEDICAID, SELFPAY | PROVIDERS: PCP Family Medicine; Visit Provider Surgery | DX: E66.01 Morbid (severe) obesity due to excess calories (principal); Z68.41 Body mass index [BMI] 40.0-44.9, adult; Z98.84 Bariatric surgery status; Z71.3 Dietary counseling and surveillance | CPT/HCPCS: 99212 ==

== ENCOUNTER → 2020-10-02 09:36 | Outpatient (BNVA) | payer MEDICAID, SELFPAY | PROVIDERS: PCP Family Medicine; Referring Provider Family Medicine; Visit Provider Physician Assistant ==

== ENCOUNTER → 2020-10-09 09:39 | Outpatient (BNVA) | payer MEDICAID, SELFPAY | PROVIDERS: PCP Family Medicine; Visit Provider Physician Assistant ==

== ENCOUNTER → 2020-10-17 06:44 | Outpatient (BNVA) | payer MEDICAID, SELFPAY | PROVIDERS: PCP Family Medicine; Visit Provider Surgery | DX: E66.01 Morbid (severe) obesity due to excess calories (principal); Z68.39 Body mass index [BMI] 39.0-39.9, adult | CPT/HCPCS: 99212 ==

== ENCOUNTER → 2020-11-13 08:31 | Outpatient (BNVA) | payer MEDICAID, SELFPAY | PROVIDERS: PCP Family Medicine; Referring Provider Family Medicine; Visit Provider Physician Assistant ==

== ENCOUNTER → 2020-11-17 07:57 | Outpatient (BNVA) | payer MEDICAID, SELFPAY | PROVIDERS: PCP Family Medicine; Visit Provider Surgery | DX: E66.9 Obesity, unspecified (principal); Z68.38 Body mass index [BMI] 38.0-38.9, adult | CPT/HCPCS: 99212 ==

== ENCOUNTER 2021-01-30 13:22 | Outpatient (REF) | payer MEDICAID, SELFPAY ==
[2021-01-30 14:35] LABS: MANUAL DIFF FLAG NO
[2021-01-30 14:41] LABS: Basophils Percent Auto 0.3 % (0-2); Eosinophils Absolute Auto 0.2 X10*3/uL (0.0-0.4); Eosinophils Percent Auto 1.4 % (0-4); Hematocrit 41.1 % (37-47); Hemoglobin 12.8 g/dl (12.0-16.0); Imm Gran Abs Auto 0.03 X10*3/uL (0.00-0.03); Imm Gran Pct Auto 0.3 % (0.0-0.4); Lymphocytes Absolute Auto 3.5 X10*3/uL (1.2-4.9); Mean Corpuscular HGB Conc 31.1 g/dl (31.0-35.0); Mean Corpuscular Hemoglobin 23.1 pg (27.0-33.0); Mean Corpuscular Volume 74.3 fL (80-98); Mean Platelet Volume 10.3 fL (9.4-12.3); Monocytes Absolute Auto 0.5 X10*3/uL (0.1-1.2); Monocytes Percent Auto 4.4 % (2-11); Neutrophils Absolute Auto 7.3 X10*3/uL (2.0-8.3); Neutrophils Percent Auto 63.6 % (45-73); Platelet Count 413 X10*3/uL (160-400); Red Blood Count 5.53 X10*6/uL (4.20-5.50); Red Cell Distribution Width 15.6 % (11.0-16.0); White Blood Count 11.5 X10*3/uL (4.8-10.8)
[2021-01-30 14:54] LABS: Alanine Aminotransferase 10 U/L (0-31); Albumin Level 4.2 g/dL (3.5-5.0); Alkaline Phosphatase 115 U/L (39-117); Anion Gap 14 (12-20); Aspartate Amino Transferase 16 U/L (5-31); Bilirubin Total 0.3 mg/dL (0.0-1.0); Blood Urea Nitrogen 8 mg/dL (9-16); Calcium 9.8 mg/dL (8.4-10.2); Carbon Dioxide 23 mmol/L (22-29); Chloride 110 mmol/L (96-108); Estimated Glomerular Filt Rate > 60; Glucose Random 96 mg/dL (60-115); Potassium 4.5 mmol/L (3.3-5.1); Sodium 142 mmol/L (135-145); Total Protein 7.2 g/dL (6.5-8.0)
[2021-02-02 13:27] LABS: Alpha Fetoprotein 1.3 ng/mL
== END 2021-01-30 13:23 | disposition home or self-care (01) ==
LOC: HO.LAB 13:22
PROVIDERS: PCP Family Medicine; Referring Provider Family Medicine; Visit Provider Nurse Practitioner
DX: K75.81 Nonalcoholic steatohepatitis (NASH) (principal); K59.04 Chronic idiopathic constipation; K21.9 Gastro-esophageal reflux disease without esophagitis; K91.2 Postsurgical malabsorption, not elsewhere classified; Z90.3 Acquired absence of stomach [part of]
CPT/HCPCS: 36415; 80053; 82105; 85025; 99212

== ENCOUNTER 2021-03-03 09:29 | Outpatient (REF) | payer MEDICAID, SELFPAY ==
--- NOTE | ~2021-03-03 | US_ITS ---
EXAMINATION: US ABDOMEN LIMITED CLINICAL INFORMATION: [place]. COMPARISON: None. TECHNIQUE: Real-time imaging of the right upper quadrant abdominal viscera. FINDINGS: PANCREAS: Not well visualized due to bowel gas. LIVER: Normal. The liver is normal in size. The liver contour is normal. Liver echotexture is slightly increased.. No focal hepatic lesion. There is no intrahepatic biliary duct dilatation seen. The previously identified 1 cm hyperechoic lesion in the right lobe liver on prior exams is not appreciated. GALLBLADDER: The gallbladder is normal in size. There are gallstones in the gallbladder. The gallbladder wall is normal COMMON BILE DUCT: Normal in caliber measuring 0.3 cm in diameter. RIGHT KIDNEY: Normal. No hydronephrosis. No renal calculi or focal parenchymal lesions. The kidney measures 9.1 cm in maximum dimension. FREE FLUID: None. US/US abdomen limited IMPRESSION: Slightly echogenic liver probably representing fatty infiltration. Gallstones. Limited visualization of the pancreas.
== END 2021-03-03 09:30 | disposition home or self-care (01) ==
LOC: HO.US 09:29
PROVIDERS: PCP Family Medicine; Visit Provider Nurse Practitioner
DX: K75.81 Nonalcoholic steatohepatitis (NASH) (principal)
CPT/HCPCS: 76705

== ENCOUNTER 2021-04-08 11:06 | Outpatient (REF) | payer MEDICAID, SELFPAY ==
[2021-04-08 12:38] LABS: MANUAL DIFF FLAG NO
[2021-04-08 13:31] LABS: Basophils Percent Auto 0.4 % (0-2); Eosinophils Absolute Auto 0.1 X10*3/uL (0.0-0.4); Eosinophils Percent Auto 0.9 % (0-4); Hematocrit 37.6 % (37.0-47.0); Hemoglobin 11.6 g/dl (12.0-16.0); Imm Gran Abs Auto 0.03 X10*3/uL (0.00-0.03); Imm Gran Pct Auto 0.3 % (0.0-0.4); Lymphocytes Percent Auto 27.8 % (20-40); Mean Corpuscular HGB Conc 30.9 g/dl (31.0-35.0); Mean Corpuscular Hemoglobin 23.4 pg (27.0-33.0); Monocytes Absolute Auto 0.6 X10*3/uL (0.1-1.2); Monocytes Percent Auto 5.5 % (2-11); Neutrophils Percent Auto 65.1 % (45-73); Platelet Count 452 X10*3/uL (160-400); Red Blood Count 4.95 X10*6/uL (4.20-5.50); Red Cell Distribution Width 14.8 % (11.0-16.0); White Blood Count 10.7 X10*3/uL (4.8-10.8)
[2021-04-08 13:35] LABS: Estimated Average Glucose 111 mg/dL; Hemoglobin A1c % 5.5 %
[2021-04-08 14:42] LABS: TSH reflex Free T4 0.62 uIU/mL (0.32-4.0)
[2021-04-08 14:46] LABS: Folate 10.4 ng/mL (> or = 4.0); Vitamin B12 428 pg/mL (200-900)
[2021-04-08 15:11] LABS: Insulin 6 uU/mL (2-29)
[2021-04-09 16:32] LABS: Calcium (PTHI) 9.9 mg/dL (8.6-10.2); PTHI 81 pg/mL (14-64)
[2021-04-12 16:57] LABS: Zinc 64 mcg/dL (60-130)
[2021-04-14 12:02] LABS: Vitamin B1 7 nmol/L (8-30)
[2021-04-15 00:57] LABS: Vitamin A 26 mcg/dL (38-98)
== END 2021-04-08 11:07 | disposition home or self-care (01) ==
LOC: HO.LAB 11:06
PROVIDERS: PCP Family Medicine; Referring Provider Family Medicine; Visit Provider Physician Assistant
DX: R10.10 Upper abdominal pain, unspecified (principal); E66.9 Obesity, unspecified; Z68.34 Body mass index [BMI] 34.0-34.9, adult; Z98.84 Bariatric surgery status; Z71.3 Dietary counseling and surveillance
CPT/HCPCS: 36415; 82306; 82607; 82746; 83036; 83525; 83970; 84425; 84443; 84590; 84630; 85025; 99214

== ENCOUNTER → 2021-05-08 08:07 | Outpatient (BNVA) | payer MEDICAID, SELFPAY | PROVIDERS: PCP Family Medicine; Visit Provider Physician Assistant ==

== ENCOUNTER 2021-05-12 09:10 | Outpatient (REF) | payer MEDICAID, SELFPAY | END 2021-05-12 09:11 | disposition home or self-care (01) | LOC: HO.LAB 09:10 | PROVIDERS: Visit Provider Internal Medicine | DX: Z13.89 Encounter for screening for other disorder (principal) ==

== ENCOUNTER 2021-05-12 09:14 | Outpatient (REF) | payer MEDICAID, SELFPAY ==
[2021-05-12 10:31] LABS: Binax Internal Control QC Valid; Binax Now Covid-19 Ag Negative (Negative)
== END 2021-05-12 09:15 | disposition home or self-care (01) ==
LOC: HO.LAB 09:14
PROVIDERS: Visit Provider Internal Medicine
DX: Z20.822 Contact with and (suspected) exposure to COVID-19 (principal)
CPT/HCPCS: C9803

== ENCOUNTER → 2021-06-11 10:32 | Outpatient (REF) | payer MEDICAID, SELFPAY ==
--- NOTE | ~2021-06-11 | NM_ITS ---
EXAMINATION: NM BILIARY TRACT WITH ORAL FATTY MEAL CLINICAL INFORMATION: Upper abdominal pain. Gallstones COMPARISON: The previous study dated 01/31/2019 is available for comparison. Abdominal ultrasound dated 03/03/2021 is also available for comparison. TECHNIQUE: Serial gamma scintillation camera images were obtained over the abdomen for a total observation period of 123 minutes following the intravenous administration of 5 mCi Tc-99m Mebrofenin. FINDINGS: There is good concentration of activity in the liver by 5 minutes post injection. Biliary activity is visualized by 10 minutes. The gallbladder is well visualized by 30 minutes. Small bowel is well visualized by 20 minutes. At 60 minutes post Mebrofenin injection, 8 ounces of Ensure-plus Brand was administered orally and an additional 60 minutes of images were obtained. There is good emptying of the gallbladder following ingestion of the fatty meal. At the end of the study there is good clearance of activity from the liver and visualization of diffuse small bowel activity. The calculated gallbladder ejection fraction is 84% (normal gallbladder ejection fraction using Ensure supplement orally is greater than 33%). NM/NM hepatobiliary wo pharm IMPRESSION: Visualization of the gallbladder is evidence of a patent cystic duct and strong evidence against the diagnosis of acute cholecystitis. The common bile duct is patent. Gallbladder emptying and ejection fraction are normal. Liver function appears normal.
== END ==
LOC: HO.NUCMED 10:32
PROVIDERS: Visit Provider Nurse Practitioner
DX: R10.10 Upper abdominal pain, unspecified (principal); K80.20 Calculus of gallbladder without cholecystitis without obstruction
CPT/HCPCS: 78226; A9537

== ENCOUNTER 2022-01-05 10:55 | Outpatient (REF) | payer MEDICAID, SELFPAY | END 2022-01-05 10:56 | disposition home or self-care (01) | LOC: HO.MDS 10:55 | PROVIDERS: Visit Provider Internal Medicine | DX: D50.9 Iron deficiency anemia, unspecified (principal) | CPT/HCPCS: 96365; J1756 ==

== ENCOUNTER 2022-01-14 09:13 | Outpatient (REF) | payer MEDICAID, SELFPAY | END 2022-01-14 09:14 | disposition home or self-care (01) | LOC: HO.MDS 09:13 | PROVIDERS: Visit Provider Internal Medicine | DX: D50.9 Iron deficiency anemia, unspecified (principal) | CPT/HCPCS: 96365; J1756 ==

== ENCOUNTER 2022-01-21 10:37 | Outpatient (REF) | payer MEDICAID, SELFPAY | END 2022-01-21 10:38 | disposition home or self-care (01) | LOC: HO.MDS 10:37 | PROVIDERS: Visit Provider Internal Medicine | DX: D50.9 Iron deficiency anemia, unspecified (principal) | CPT/HCPCS: 96365; J1756 ==

== ENCOUNTER 2022-01-26 10:34 | Outpatient (REF) | payer MEDICAID, SELFPAY ==
[2022-01-26 12:23] LABS: Alanine Aminotransferase 17 U/L (0-31); Albumin Level 4.2 g/dL (3.5-5.0); Alkaline Phosphatase 120 U/L (39-117); Anion Gap 16 (12-20); Aspartate Amino Transferase 15 U/L (5-31); Bilirubin Total 0.5 mg/dL (0.0-1.0); Blood Urea Nitrogen 10 mg/dL (9-16); Calcium 9.5 mg/dL (8.4-10.2); Carbon Dioxide 26 mmol/L (22-29); Chloride 106 mmol/L (96-108); Estimated Glomerular Filt Rate > 60; Glucose Random 92 mg/dL (60-115); Potassium 4.8 mmol/L (3.3-5.1); Sodium 143 mmol/L (135-145); Total Protein 7.1 g/dL (6.5-8.0)
== END 2022-01-26 10:35 | disposition home or self-care (01) ==
LOC: HO.LAB 10:34
PROVIDERS: PCP Family Medicine; Visit Provider Nurse Practitioner
DX: Z01.818 Encounter for other preprocedural examination (principal); K59.04 Chronic idiopathic constipation
CPT/HCPCS: 36415; 80053; 99212

== ENCOUNTER → 2022-02-23 08:38 | Outpatient (BNVA) | payer MEDICAID, SELFPAY | PROVIDERS: PCP Family Medicine; Referring Provider Family Medicine; Visit Provider Nurse Practitioner | DX: K59.04 Chronic idiopathic constipation (principal); K21.9 Gastro-esophageal reflux disease without esophagitis; K75.81 Nonalcoholic steatohepatitis (NASH) | CPT/HCPCS: 99212 ==

== ENCOUNTER → 2022-05-13 10:18 | Outpatient (BNVA) | payer MEDICAID, SELFPAY | PROVIDERS: PCP Family Medicine; Visit Provider Nurse Practitioner | DX: K59.04 Chronic idiopathic constipation (principal); K64.4 Residual hemorrhoidal skin tags; K21.9 Gastro-esophageal reflux disease without esophagitis; K75.81 Nonalcoholic steatohepatitis (NASH) | CPT/HCPCS: 99212 ==

== ENCOUNTER 2022-06-09 07:43 | Outpatient (REF) | payer MEDICAID, SELFPAY ==
--- NOTE | ~2022-06-09 | MM_ITS ---
EXAMINATION: MM SCREENING DIGITAL BREAST TOMOSYNTHESIS, BILATERAL CLINICAL INFORMATION: Screening. Asymptomatic. The lifetime risk of breast cancer based on the Tyrer-Cuzick Model is 11.0%. COMPARISON: Mammography: September 28, 2018 and studies dating back to December 23, 2014 TECHNIQUE: Digital breast tomosynthesis is performed in both the craniocaudal and mediolateral oblique views along with computer-aided detection (CAD). Synthesized 2D images are generated from the tomosynthesis. FINDINGS: There are scattered areas of fibroglandular density (ACR BI-RADS breast composition Category b). There are no significant masses, abnormal calcifications, or other abnormalities. MM/MM tomosynthesis screening BI IMPRESSION: No significant changes from prior exam. ASSESSMENT: BI-RADS 1: Negative RECOMMENDATION: Routine annual mammography screening. This patient's information was entered into a reminder system with a target due date for their next mammogram.
== END 2022-06-09 07:44 | disposition home or self-care (01) ==
LOC: HO.MAMMO 07:43
PROVIDERS: PCP Family Medicine; Visit Provider Family Medicine
DX: Z12.31 Encounter for screening mammogram for malignant neoplasm of breast (principal)
CPT/HCPCS: 77063; 77067

== ENCOUNTER 2022-08-31 12:40 | Outpatient (REF) | payer MEDICAID, SELFPAY | END 2022-08-31 12:41 | disposition home or self-care (01) | LOC: HO.MDS 12:40 | PROVIDERS: PCP Family Medicine; Visit Provider Internal Medicine | DX: D50.9 Iron deficiency anemia, unspecified (principal) | CPT/HCPCS: 96365; J1756 ==

== ENCOUNTER 2022-09-07 11:56 | Outpatient (REF) | payer MEDICAID, SELFPAY | END 2022-09-07 11:57 | disposition home or self-care (01) | LOC: HO.MDS 11:56 | PROVIDERS: Visit Provider Internal Medicine | DX: D50.9 Iron deficiency anemia, unspecified (principal) | CPT/HCPCS: 96365; J1756 ==

== ENCOUNTER 2022-09-14 10:06 | Outpatient (REF) | payer MEDICAID, SELFPAY | END 2022-09-14 10:07 | disposition home or self-care (01) | LOC: HO.MDS 10:06 | PROVIDERS: Visit Provider Internal Medicine | DX: D50.9 Iron deficiency anemia, unspecified (principal) | CPT/HCPCS: 96365; J1756 ==

== ENCOUNTER 2022-10-05 09:05 | Emergency (ER) | payer MEDICAID, SELFPAY ==
--- NOTE | ~2022-10-05 | US_ITS ---
EXAMINATION: US RETROPERITONEAL LIMITED (RENAL ONLY) CLINICAL INFORMATION: Left CVA tenderness and dysuria. COMPARISON: Previous abdominal ultrasound from March 2021 and [address] November 2017 TECHNIQUE: Grayscale and color imaging of the kidneys FINDINGS: RIGHT KIDNEY: 9.5 x 4.7 x 5.2 cm (SAG x AP x TRV). The kidney is normal in size, contour, and echogenicity. Renal cortical thickness is normal. No calculi or focal parenchymal lesions. No hydronephrosis. LEFT KIDNEY: 10.4 x 5.7 x 4.5 cm (SAG x AP x TRV). The kidney is normal in size, contour, and echogenicity. Renal cortical thickness is normal. 4 mm echogenic area in the cortex of the lateral midpole. This is new from previous ultrasound and no corresponding abnormality is seen on previous CT November 2017. Mild fullness of the left renal pelvis similar to November 2017 ultrasound exam. No calyceal dilatation. US/US renal BI IMPRESSION: Normal right kidney. Mild fullness of the left renal pelvis similar to previous ultrasound November 2017. 4 mm nonspecific echogenic area in the cortex of the left kidney. This is not appreciated on previous ultrasound exam. No corresponding abnormality is seen on CT from 2018..
[2022-10-05 09:35] VITALS: BP 176/84; PULSE 71; RESP 18; TEMP 36.7; O2SAT 97; BMI 36.0
[2022-10-05 10:00] LABS: Appearance Urine Cloudy; Color Urine Yellow; Glucose Urine UA Negative (Negative); Leukocyte Esterase Urine Negative (Negative); Nitrite Urine Negative (Negative); PH 6.5 (5.0-9.0); Urine Blood Negative (Negative); Urine Ketones Trace mg/dL (Negative); Urine Protein Negative (Neg-Trace)
[2022-10-05 10:02] LABS: Basophils Absolute Auto 0.1 X10*3/uL (0.0-0.2); Basophils Percent Auto 0.5 % (0-2); Eosinophils Absolute Auto 0.1 X10*3/uL (0.0-0.4); Eosinophils Percent Auto 0.8 % (0-4); Hemoglobin 13.1 g/dl (12.0-16.0); Imm Gran Abs Auto 0.04 X10*3/uL (0.00-0.03); Imm Gran Pct Auto 0.4 % (0.0-0.4); Lymphocytes Absolute Auto 2.4 X10*3/uL (1.2-4.9); Lymphocytes Percent Auto 25.2 % (20-40); MANUAL DIFF FLAG SCAN; Mean Corpuscular HGB Conc 31.2 g/dl (31.0-35.0); Mean Corpuscular Hemoglobin 23.2 pg (27.0-33.0); Mean Corpuscular Volume 74.5 fL (80.0-98.0); Monocytes Absolute Auto 0.7 X10*3/uL (0.1-1.2); Monocytes Percent Auto 7.2 % (2-11); Neutrophils Absolute Auto 6.3 x10*3/uL (2.0-8.3); Neutrophils Percent Auto 65.9 % (45-73); PLT CLUMP 1; Red Blood Count 5.64 X10*6/uL (4.20-5.50); Red Cell Distribution Width 18.6 % (11.0-16.0); SCAN SMEAR FLAG 1
[2022-10-05 10:03] LABS: NRBC Pct Auto 1.7 /100WBC (0.0-0.2)
[2022-10-05 10:10] LABS: Alanine Aminotransferase 13 U/L (0-31); Albumin Level 4.1 g/dL (3.5-5.0); Alkaline Phosphatase 106 U/L (39-117); Anion Gap 15 (12-20); Aspartate Amino Transferase 14 U/L (5-31); Bilirubin Total 0.5 mg/dL (0.0-1.0); Blood Urea Nitrogen 11 mg/dL (9-16); Calcium 9.6 mg/dL (8.4-10.2); Carbon Dioxide 19 mmol/L (22-29); Chloride 112 mmol/L (96-108); Creatinine Clr Calc Pharmacy 96.2; Estimated Glomerular Filt Rate > 60; Glucose Random 98 mg/dL (60-115); Potassium 4.5 mmol/L (3.3-5.1); Sodium 141 mmol/L (135-145); Total Protein 7.3 g/dL (6.5-8.0)
[2022-10-05 10:52] LABS: Platelet Count 347 X10*3/uL (160-400); White Blood Count 9.5 X10*3/uL (4.8-10.8)
[2022-10-05 10:53] LABS: SLIDE REVIEW VERIFIED
--- NOTE | 2022-10-05 12:11 | ED_ITS ---
HPI - Female Genitourinary General Chief complaint: Urogenital-Female Stated complaint: Abd pain Time Seen by Provider: 10/05/22 11:36 Source: patient, RN notes reviewed, old records reviewed and cloth desizing range tender Mode of arrival: ambulatory Limitations: no limitations History of Present Illness HPI Narrative: 46 year old female with history of GERD, nonalcoholic steatohepatitis, gallstones, obesity w/ gastric bypass, CORBIN, depression, DM, HTN, and HDL presenting to the ED complaining of intermittent left flank pain radiating to suprapubic region with associated urinary hesitancy & dysuria x few days. Denies history of renal stones. Denies urinary frequency/ urgency, hematuria, fever, chills, N/V/D, abdomain pain, constipation. Related Data Home Medications Medication Instructions Recorded Confirmed fluticasone propionate 50 1 spray intranasal DAILY 05/27/20 08/23/22 mcg/actuation nasal spray,suspension (Flonase Allergy Relief) loratadine 10 mg capsule 10 mg PO DAILY 05/27/20 08/23/22 oxycodone 10 mg tablet 10 mg PO BID PRN Pain 05/27/20 08/23/22 atorvastatin 80 mg tablet 80 mg PO BEDTIME 01/26/22 08/23/22 cromolyn 4 % eye drops 1 drp ophthalmic (eye) QID 01/26/22 08/23/22 duloxetine 30 mg capsule,delayed 30 mg PO DAILY 01/26/22 08/23/22 release lisinopril 5 mg tablet 5 mg PO DAILY 01/26/22 08/23/22 alcohol swabs (Alcohol Prep Pads) 0 pad topical DIRECTED 05/13/22 blood sugar diagnostic (FreeStyle #10 ea 05/13/22 Lite Strips) lancets 33 gauge (TRUEplus Lancets) #100 ea 05/13/22 Previous Rx's Medication Instructions Recorded calcium citrate 315 mg-vitamin D3 1 tab PO DAILY #60 tabs 04/08/21 5 mcg (200 unit) tablet (Calcium Citrate + D) peg 3350-electrolytes 236 240 ml PO Q10M 1 day #4,000 mL 01/26/22 gram-22.74 gram-6.74 gram-5.86 gram solution (Golytely) bisacodyl 5 mg tablet,delayed 10 mg PO BEDTIME 30 days #60 tabs 07/08/22 release (Dulcolax (bisacodyl)) linaclotide 290 mcg capsule 290 mcg PO QAM 30 days #30 caps 07/08/22 (Linzess) hydrocortisone 2.5 % topical cream 1 appl IN QID hemorrhoids #60 grams 09/13/22 with perineal applicator (Proctosol HC) phenazopyridine 200 mg tablet 200 mg PO TID PRN pain 6 doses #6 10/05/22 (Pyridium) tabs Allergies Allergy/AdvReac Type Severity Reaction Status Date / Time sulfamethoxazole Allergy Rash Verified 05/13/22 10:40 [From Bactrim] trimethoprim [From Bactrim] Allergy Rash Verified 05/13/22 10:40 Review of Systems Review of Systems: Constitutional: No Fever, No Chills ENT/Mouth: No Ear Pain, No Swallowing Difficulty Cardiovascular: No Chest Pain, No SOB Respiratory: No Cough, No Wheezing Gastrointestinal: No Nausea, No Vomiting, No Diarrhea, No Constipation, No Abdominal pain Genitourinary: + Dysuria, No Urinary Frequency, +hesitancy, No Hematuria, No Urinary Incontinence/retention, No Urgency, + Flank Pain Musculoskeletal: No joint pain, No Myalgias, No Joint Swelling Skin: No Skin Lesions, No rash Neuro: No Weakness Yes all other systems are reviewed and are negative Constitutional: Constitutional: Reports as per [facility] Past Medical History Attestation statement: The following information was validated with the patient. Source: old records reviewed Medical History Abdominal adhesions Abdominal cramping Arthritis Axillary hidradenitis suppurativa Bilateral shoulder pain BMI 45.0-49.9, adult Cholelithiasis Chronic back pain Chronic idiopathic constipation Chronic leukopenia COVID-19 COVID-19 vaccine administered Depression Diabetes DJD (degenerative joint disease) Dyslipidemia Family history of anesthesia complication Fibromyalgia Gallstones Hepatomegaly Hypertension Hypoxia Insulin dependent diabetes mellitus Intestinal malabsorption following gastrectomy Leucocytosis Leukocytosis (leucocytosis) Morbid obesity Obesity Polycystic ovarian syndrome Sickle thalassemia disease Sleep apnea Vitamin A deficiency Vitamin B1 deficiency Vitamin D deficiency Vitamin D deficiency, unspecified Surgical History History of esophagogastroduodenoscopy (EGD) Hx of section Hx of cholecystectomy Hx of gastric bypass Family History Family History Mother Diabetes DVT (deep venous thrombosis) HTN (hypertension) Father Diabetes HTN (hypertension) Sister Stroke Son Asthma Sickle cell anemia Son Sickle cell anemia Maternal Aunt Ovary cancer Throat cancer Breast cancer Paternal Aunt Stomach neoplasm Social History Social History Household Members: Spouse and Children Housing: Apartment Are you a primary respiratory care technician to a significant other at home: Yes Do you presently have visiting nurse or other home services: No Patient Tobacco Use Status: Never used Tobacco Advance Directives: No Advance Directives Information Provided: Yes service: No Current occupational status: employed and unemployed 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 Current occupational exposures/hazards: Yes (stress) Physical Exam Vital Signs: Vital Signs: Last Vital Signs Temp 98.1 F 10/05/22 09:35 Pulse 75 10/05/22 15:21 Resp 19 10/05/22 15:21 BP 162/89 H 10/05/22 15:21 Pulse Ox 98 10/05/22 15:21 O2 Del Method Room Air 10/05/22 15:21 BMI result Body Mass Index 36.0 Vital signs stable, obese, hypertensive Const: General: cooperative, healthy appearing, no acute distress, alert and awake Nutritional Appearance: obese Orientation/consciousness: patient oriented x3 Limitations: no limitations HEENT: Head: Yes normal to inspection and Yes atraumatic Ears: hearing grossly normal bilaterally General nose exam: Normal external nose present Face and sinus: Yes normal facial exam Eyes: General: appearance normal, both eyes and all related structures EOM: EOMs intact bilaterally Neck: Neck: Yes normal visual inspection and Yes no meningeal signs Resp: Effort & Inspection: normal respiratory effort and no respiratory distress Auscultation: clear to auscultation bilaterally Cardio: Rate: regular rate Heart sounds: S1 normal heart sound present and S2 normal heart sound present GI: Inspection: Yes normal to inspection and Yes obesity Palpation (GI): Soft to palpation, nontender, no guarding, not rigid and No hepatosplenomegaly present : Other: Abdomen soft, non distended, non TTP, no rebound or guarding, well healed surgical scars noted from previous gastric bypass. No ecchymosis, erythema, obvious masses or deformity. + L CVA tenderness. No midline or paraspinal tenderness. General: Yes bladder normal to palpation and Yes CVA tenderness on the left Bimanual exam- vagina & uterus: bladder normal to palpation Back/Spine/Pelvis: Back: CVA tenderness Skin: Rashes: no rashes Wounds: no wounds Neuro: General: patient oriented x3, tone normal and no meningeal signs Gait exam (Neuro): Normal gait present Extrem: General: Yes normal to inspection Course Course Course Narrative: -1224: UA without infection or blood. CBC without leukocytosis. -1435: US/US renal BI ?IMPRESSION: Normal right kidney. Mild fullness of the left renal pelvis similar to previous ultrasound November 2017. 4 mm nonspecific echogenic area in the cortex of the left kidney. This is not appreciated on previous ultrasound exam. No corresponding abnormality is seen on CT from 2018. Results discussed with patient with oyster culturist. Recommended close PCP follow-up for abnormal findings seen on CT. Discussed worrisome signs and symptoms and strict return precautions, and when to return to the emergency department. They verbalized understanding and feel safe for discharge at this t [facility]. Medical Decision Making Medical Decision Making [facility] Narrative: 46 year old female with history of GERD, nonalcoholic steatohepatitis, gallstones, obesity w/ gastric bypass, CORBIN, depression, DM, HTN, and HDL presenting to the ED complaining of intermittent left flank pain radiating to suprapubic region with associated urinary hesitancy & dysuria x few days. Vital signs significant for hypertension, likely secondary to pain, obesity. Physical exam unremarkable except left CVA tenderness. Concern for renal stones, UTI vs pyelonephritis, hydronephrosis or MSK pain/spasming. Low suspicion for appendicitis/diverticulitis, cholecystitis/lithiasis, or ovarian pathology Plan: labs, UA, renal US, pain control Please refer to course for remaining clinical decision making, interpretation of labs/imaging results, and discussions with consultants and/or family members. Differential Diagnosis Differential Diagnoses: The differential diagnosis associated with the presentation includes As above Lab Data [facility] Lab Attestation statement: I reviewed the patient's lab results. 10/05/22 09:48 10/05/22 09:48 Labs: Lab Results 10/05/22 10/05/22 10/05/22 Range/Units 09:48 09:48 09:48 WBC 9.5 (4.8-10.8) X10*3/uL RBC 5.64 H (4.20-5.50) X10*6/uL Hgb 13.1 (12.0-16.0) g/dl Hct 42.0 (37.0-47.0) % MCV 74.5 L (80.0-98.0) fL MCH 23.2 L (27.0-33.0) pg MCHC 31.2 (31.0-35.0) g/dl RDW 18.6 H (11.0-16.0) % Plt Count 347 (160-400) X10*3/uL MPV Not Reportable Immature Gran % (Auto) 0.4 (0.0-0.4) % Neut % (Auto) 65.9 (45-73) % Lymph % (Auto) 25.2 (20-40) % [place] % (Auto) 7.2 (2-11) % Eos % (Auto) 0.8 (0-4) % Baso % (Auto) 0.5 (0-2) % Lymph # (Auto) 2.4 (1.2-4.9) X10*3/uL [place] # (Auto) 0.7 (0.1-1.2) X10*3/uL Eos # (Auto) 0.1 (0.0-0.4) X10*3/uL Baso # (Auto) 0.1 (0.0-0.2) X10*3/uL Abs Immat Gran (auto) 0.04 H (0.00-0.03) X10*3/uL Absolute Neuts (auto) 6.3 (2.0-8.3) x10*3/uL Absolute Nucleated RBC 0.160 H (0.0-0.012) X10*3/uL Nucleated RBC % (auto) 1.7 H (0.0-0.2) /100WBC Smear Tech's Comments VERIFIED Sodium 141 (135-145) mmol/L Potassium 4.5 (3.3-5.1) mmol/L Chloride 112 H (96-108) mmol/L Carbon Dioxide 19 L (22-29) mmol/L Anion Gap 15 (12-20) BUN 11 (9-16) mg/dL Creatinine 0.80 (0.5-1.4) mg/dL Estim Creat Clear Calc 96.2 Estimated GFR > 60 Random Glucose 98 (60-115) mg/dL Calcium 9.6 (8.4-10.2) mg/dL Total Bilirubin 0.5 (0.0-1.0) mg/dL AST 14 (5-31) U/L ALT 13 (0-31) U/L Alkaline Phosphatase 106 (39-117) U/L Total Protein 7.3 (6.5-8.0) g/dL Albumin 4.1 (3.5-5.0) g/dL Urine Color Yellow Urine Appearance Cloudy Urine pH 6.5 (5.0-9.0) Ur Specific [place] 1.020 (1.005-1.025) Urine Protein Negative (Neg-Trace) mg/dL Urine Glucose (UA) Negative (Negative) mg/dL Urine Ketones Trace (Negative) mg/dL Urine Blood Negative (Negative) Urine Nitrite Negative (Negative) Ur Leukocyte Esterase Negative (Negative) Radiology Impression Discussion of test interpretation with radiology: I have reviewed the radiologist's reading. External Record Review External record reviewed: Inpatient record, Office record, Outpatient record, Prior outpatient labs, Prior outpatient radiology, Primary care record and Outside ED record Tests considered The following testing was considered but not selected: As above Discharge Plan Discharge Clinical Impression: Left flank pain Patient Disposition: Home, Self-Care Instructions: Flank Pain (ED) Additional Instructions: Your blood work is reassuring Your urine is not infected Ultrasound shows fullness of your left renal pelvis which is similar to prior imaging from 2018 however also shows a 4 mm nonspecific echogenic area of the left kidney cortex Please have close follow-up with her primary care doctor pertaining to these findings, you need further workup If symptoms persist or worsen return to the emergency department Pyridium will help with urinary discomfort Prescriptions: New phenazopyridine [Pyridium] 200 mg tablet 200 mg PO TID PRN (Reason: pain) Qty: 6 0RF No Action bisacodyl [Dulcolax (bisacodyl)] 5 mg tablet,delayed release (DR/EC) 10 mg PO BEDTIME 30 Days Qty: 60 6RF Linzess 290 mcg capsule 290 mcg PO QAM 30 Days Qty: 30 3RF hydrocortisone [Proctosol HC] 2.5 % cream with perineal applicator 1 appl IN QID Qty: 60 3RF fluticasone propionate [Flonase Allergy Relief] 50 mcg/actuation [place],Suspension 1 spray INTRANASAL DAILY oxycodone 10 mg Tablet 10 mg PO BID PRN (Reason: Pain) loratadine 10 mg Capsule 10 mg PO DAILY calcium citrate-vitamin D3 [Calcium Citrate + D] 315 mg-5 mcg (200 unit) tablet 1 tab PO DAILY Qty: 60 11RF peg 3350-electrolytes [Golytely] 236-22.74-6.74 -5.86 gram recon soln 240 ml PO Q10M 1 Days Qty: 4000 0RF Rx Instructions: until fecal effluent is clear; do not exceed a total volume of 2,000 mL atorvastatin 80 mg tablet 80 mg PO BEDTIME lisinopril 5 mg tablet 5 mg PO DAILY duloxetine 30 mg capsule,delayed release(DR/EC) 30 mg PO DAILY cromolyn 4 % drops 1 drp ophthalmic (eye) QID alcohol swabs [Alcohol Prep Pads] Pads, Medicated 0 pad topical DIRECTED (DME) lancets [TRUEplus Lancets] 33 gauge misc See Rx Instructions .ROUTE BID Qty: 100 Rx Instructions: As directed (DME) FreeStyle Lite Strips Strip See Rx Instructions .ROUTE BID Qty: 10 Rx Instructions: As directed Referrals: [facility] [Provider Group] Claudia Sapp MD [Primary Care Provider] - Interventions: ED Discharge Assessment Last Done: 10/05/22 15:22 Discharge Date/Time: 10/05/22 15:23 Print Language: Swazi
[2022-10-05 15:21] VITALS: BP 162/89; PULSE 75; RESP 19; O2SAT 98
== END 2022-10-05 15:23 | disposition home or self-care (01) ==
PROVIDERS: Emergency Provider Emergency Medicine; PCP Family Medicine
DX: R10.9 Unspecified abdominal pain (principal); I10 Essential (primary) hypertension; E78.5 Hyperlipidemia, unspecified; Z98.84 Bariatric surgery status; Z79.899 Other long term (current) drug therapy; Z79.02 Long term (current) use of antithrombotics/antiplatelets
CPT/HCPCS: 36415; 76775; 80053; 81003; 85025; 99283; 99284

== ENCOUNTER 2022-10-13 10:57 | Outpatient (REF) | payer MEDICAID, SELFPAY ==
--- NOTE | ~2022-10-13 | CT_ITS ---
EXAMINATION: CT ABDOMEN WITHOUT AND WITH CONTRAST CLINICAL INFORMATION: Abnormal renal ultrasound. COMPARISON: Renal ultrasound 10/05/2022: Mild fullness of the left renal pelvis similar to previous ultrasound November 2017. A 4 mm nonspecific echogenic area in the cortex of the left kidney. This is not appreciated on previous ultrasound exam. No corresponding abnormality is seen on CT from 2018. TECHNIQUE: Contiguous axial thin section helical images of the abdomen were performed before and after the administration of oral contrast and 85 mL of Omnipaque 350 intravenous contrast. The data set was reformatted in the coronal and sagittal planes and reviewed on an independent workstation. This CT examination was performed using dose optimization techniques as appropriate, variously including the following: *Automated exposure control *Adjustment of mA and/or kV according to patient size (this includes techniques or standardized protocols for targeted exams where dose is matched to indication/reason for exam; i.e. extremities or head) *Use of iterative reconstruction technique DLP: 677 mGy-cm FINDINGS: LUNG BASES: The visualized lung bases are unremarkable. A small water density cyst is noted just below the inferior right pulmonary vein, unchanged from 12/01/2017. LIVER, GALLBLADDER, AND BILIARY TREE: The liver is normal in size and shape but is hypoattenuating suggesting hepatic steatosis. No focal hepatic lesion or biliary ductal dilatation is present. The gallbladder is unremarkable with no evidence of radiopaque gallstones, gallbladder wall thickening, or obvious pericholecystic inflammatory changes. PANCREAS: Unremarkable. SPLEEN: Unremarkable. ADRENAL GLANDS: Unremarkable. KIDNEYS AND URETERS: The kidneys are normal in size, shape, and attenuation. A benign 0.5 cm Bosniak class I renal cyst is noted in the left kidney which requires no additional imaging or follow-up. No solid renal masses are seen. No hydronephrosis, hydroureter, or calculi seen. No perinephric stranding. GASTROINTESTINAL TRACT: There is been interval gastric bypass with gastrojejunostomy since the prior CT scan. The visualized small and large bowel are unremarkable. The partially visualized appendix is unremarkable. ABDOMINAL WALL: No significant hernia is appreciated. LYMPH NODES: No retroperitoneal lymphadenopathy. Partially visualized top of uterus which appears mildly lobular similar to prior. VASCULAR: Unremarkable. OSSEOUS STRUCTURES: Unremarkable. CT/CT abdomen wo/w IV con IMPRESSION: A worrisome renal abnormality is not seen. There is no hydronephrosis. There is a benign left renal Bosniak class I cyst which needs no additional imaging or follow-up. Incidental note made of: 1. Hepatic steatosis. 2. Interval gastric bypass. 3. Probable uterine fibroids. Fleischner guidelines were followed. .
[2022-10-13] MEDS: iohexoL 350 MG/ML 100 ML INFUS..BTL 85 ML IV (12:25)
== END 2022-10-13 10:58 | disposition home or self-care (01) ==
LOC: HO.CT 10:57
PROVIDERS: PCP Family Medicine; Visit Provider Nurse Practitioner Primary Care
DX: R93.429 Abnormal radiologic findings on diagnostic imaging of unspecified kidney (principal)
CPT/HCPCS: 74170; Q9967

== ENCOUNTER 2022-12-24 10:04 | Outpatient (AMB) | payer MEDICAID, SELFPAY ==
[2022-12-24 10:25] VITALS: BP 146/79; PULSE 65; BMI 37.4
--- NOTE | 2022-12-24 10:25 | MHC.OFFVIS ---
Intake Vital Signs 12/24/22 10:25 Height 5 ft 4 in Weight 217 lb 13.067 oz BMI 37.4 BP 146/79 H Blood Pressure Location Rt brachial Position Sitting Pulse 65 Intake Visit Reasons: Colonoscopy Screening Intake Note: Patient presents to in office visit today in follow up to discuss colonoscopy screening. CC: Patient reports constipation, abdominal pain after some pain. Denies other GI symptoms today. Human Resource Officer Required: Yes Human Resource Officer Language: Ugandan Accompanied by: Self / Same As Patient Allergies sulfamethoxazole [From Bactrim] Allergy (Verified 12/27/22 09:17) Rash trimethoprim [From Bactrim] Allergy (Verified 12/27/22 09:17) Rash HPI Colonoscopy Screening HPI Details Assessment & Plan (1) Chronic idiopathic constipation: ?Code(s): K59.04 - Chronic idiopathic constipation ?Plan: Ug[place]an # Claudia ledesma she is doing much better on the 290mcg dose of LInzess.? She does not feel we need to make any more dosing adjustments to her therapy.? The problem she is having today is with a very large external hemorrhoid that is quite painful for her.? She has been using the cream aggressively and she is using the rectal cone but she still having trouble.? I instruct her that she can use ice packs wrapped in clot (frozen peas are quite affective because they do not have sharp edges) to set on and also Sitz baths.? If this does not resolve the problem I would be happy to refer her to General surgery for consideration of a hemorrhoidectomy. She has not been contacted yet for colonoscopy.? I checked as no longer an order in the computer so I me in put it as she is due for her follow-up screening. She is seeing her pcp this week, ask if they will be following her liver or if they want us to. Return office visit in 6 weeks and or after the colonoscopy (2) External hemorrhoids: ?Code(s): K64.4 - Residual hemorrhoidal skin tags (3) GERD (gastroesophageal reflux disease): ?Comment: Was on omeprazole twice a day but since her constipation is improved and she is not taking any medication ?Code(s): K21.9 - Gastro-esophageal reflux disease without esophagitis (4) HAWKINS (nonalcoholic steatohepatitis): ?Comment: mild elevation SMA 36 11/2018, US 12/07/2018, mld elevation SMA, Hep A, B, C neg, ast/alt wnl but alk phos up, AFP 0.9, ferritin wnl, ggt 59 01/30/2110/05/2109 ?[id number]:3314:[id number] WBC 11.5 H Hgb 12.8? D Hct 41.1? D MCV 74.3 L MCH 23.1 L Plt Count 413 H D Estimated GFR > 60 Total Bilirubin 0.3 AST 16 ALT 10 Alkaline Phosphatase 115? D Alpha Fetoprotein 1.3 ULTRASOUND OF THE ABDOMEN? 03/04/21 FINDINGS: PANCREAS: Not well visualized due to bowel gas. LIVER: Normal. The liver is normal in size. The liver contour is normal. Liver echotexture is slightly increased.. No focal hepatic lesion. There is no intrahepatic biliary duct dilatation seen. The previously identified 1 cm hyperechoic lesion in the right lobe liver on prior exams is not appreciated. GALLBLADDER: The gallbladder is normal in size. There are gallstones in the gallbladder. The gallbladder wall is normal COMMON BILE DUCT: Normal in caliber measuring 0.3 cm in diameter. RIGHT KIDNEY: Normal. No hydronephrosis. No renal calculi or focal parenchymal lesions. The kidney measures 9.1 cm in maximum dimension. FREE FLUID: None. US/US abdomen limited IMPRESSION: Slightly echogenic liver probably representing fatty infiltration. Gallstones. Limited visualization of the pancreas. NOW BEING FOLLOWED BY [facility] ?Code(s): K75.81 - Nonalcoholic steatohepatitis (HAWKINS) ? ? ? Medications: Changed From hydrocortisone 2.5 % (Proctosol HC) 1 appl? AR BID 30 grams 3RF hemorrho ids K64.4 - Residual h emorrhoidal skin t ags ? To hydrocortisone 2.5 % (Proctosol HC) 1 appl? AR QID 60 grams 3RF hemorrho ids K64.4 - Residual h emorrhoidal skin t ags ? COLONOSCOPY Not scheduled her obtained/no ordering computer.. BIOPSY TODAY'S VISIT Ugandan #Claudia Live She has been having a lot of personal struggles recently, and this has caused her to lack compliance daily with her Linzess. I suggest she try taking it later in the day, perhaps in the evening, but not at bedtime. Her hemorrhoids have been ok. She did not get an answer from her. PCP re: ROSS, so I will keep and eye. ROV 6 week. 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 Leucocytosis Leukocytosis (leucocytosis) Morbid obesity Obesity Polycystic ovarian syndrome Sickle thalassemia disease Sleep apnea Vitamin A deficiency Vitamin B1 deficiency Vitamin D deficiency Vitamin D deficiency, unspecified Surgical History (Updated 12/27/22 @ 09:20 by MICAELA Jeffries) History of esophagogastroduodenoscopy (EGD) Hx of section Hx of cholecystectomy Hx of gastric bypass Hx of tubal ligation Family History Mother Diabetes DVT (deep venous thrombosis) HTN (hypertension) Father Diabetes HTN (hypertension) Sister Stroke Son Asthma Sickle cell anemia Son Sickle cell anemia Maternal Aunt Ovary cancer Throat cancer Breast cancer Paternal Aunt Stomach neoplasm Social History Household Members: Spouse and Children Housing: Apartment Are you a primary continuum of care manager to a significant other at home: Yes Do you presently have visiting nurse or other home services: No Patient Tobacco Use Status: Never used Tobacco service: No Current occupational status: employed and unemployed 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 Current occupational exposures/hazards: Yes (stress) Review of Systems Const Denies fatigue, Denies fever(s), Denies night sweats, Denies poor appetite and Denies weight loss ENT Reports Normal hearing present, Denies dental pain, Denies dysphagia, Denies hearing loss, Denies mouth pain, Denies odynophagia, Denies throat swelling, Denies tongue swelling and Reports other (Dentition adequate) Card Reports no additional complaints Resp Reports no additional complaints GI Denies abdominal pain, Denies melena, Denies bloating, Denies hematochezia, Reports constipation, Denies GI cramping, Denies dysphagia, Denies excessive flatus, Denies early satiety, Denies heartburn, Denies diarrhea, Denies nausea, Denies odynophagia, Denies vomiting and Denies hematemesis Skin/Breast Denies pruritus, Denies lesions, Denies rash and Denies jaundice Neuro Reports Normal hearing present and Denies Abnormal speech present Endo Denies fatigue Aller/Immun Denies throat swelling and Denies tongue swelling Physical Exam Vital Signs: Last Vital Signs Pulse 65 12/24/22 10:25 BP 146/79 H 12/24/22 10:25 BMI result Body Mass Index 37.4 Const General: cooperative, no acute distress, well developed and well groomed Nutritional Appearance: well nourished and obese Orientation/consciousness: oriented to person, oriented to place and oriented to time Limitations: No language barrier HEENT Head: Yes normocephalic and Yes atraumatic Eyes General: appearance normal, both eyes and all related structures Pupils: Equal, round and reactive pupils present Neck Neck: Yes normal visual inspection and Yes no lymphadenopathy Thyroid: Thyroid normal Resp Effort & Inspection: normal respiratory effort and able to speak in complete sentences Auscultation: clear to auscultation bilaterally Cardio Rate: regular rate Rhythm: regular rhythm Heart sounds: Normal, physiologic split S2 sound present Peripheral pulses: radial pulses present and posterior tibial pulses present GI Inspection: No distended, Yes Abdominal panniculus present and Yes obesity Palpation (GI): Soft to palpation, nontender, no guarding, not rigid and No hepatosplenomegaly present Percussion: Yes normal to percussion Auscultation: normal bowel sounds Rectal Exam - Female: deferred Skin General skin exam: no rashes or lesions noted, turgor normal, skin not dry, no jaundice, No spider nevi and no striae Rashes: no rashes Nails: normal Neuro General: oriented to person, oriented to place and oriented to time Cranial nerves: Yes Equal, round and reactive pupils present and Yes Normal hearing present Speech: No Abnormal speech present Extrem General: Yes normal to inspection, No clubbing, No cyanosis and No edema Psych Appearance: grossly normal and well kempt Mental Status: mental status grossly normal Speech and movement: Normal speech and movement present Affect: normal affect Attitude: cooperative Thought process: Normal thought process present and not confabulating Thought content: Normal thought content present Insight: Limited insight present (Psych) Judgement: Limited judgement present (Psych) Assessment & Plan Assessment & Plan (1) Chronic idiopathic constipation: Code(s): K59.04 - Chronic idiopathic constipation Plan: COLONOSCOPY Not scheduled her obtained/no ordering computer.. BIOPSY TODAY'S VISIT Ug[place] #Claudia Ledesma She has been having a lot of personal struggles recently, and this has caused her to lack compliance daily with her Linzess. I suggest she try taking it later in the day, perhaps in the evening, but not at bedtime. Her hemorrhoids have been ok. She did not get an answer from her. PCP re: ROSS, so I will keep and eye. ROV 6 week. (2) GERD (gastroesophageal reflux disease): Comment: Was on omeprazole twice a day but since her constipation is improved and she is not taking any medication Code(s): K21.9 - Gastro-esophageal reflux disease without esophagitis Coding Level of Care Code Est Pt Level 3 (33503) Diagnoses Chronic idiopathic constipation K59.04 GERD (gastroesophageal reflux disease) K21.9
== END 2022-12-24 11:17 | disposition home or self-care (01) ==
PROVIDERS: PCP Family Medicine; Visit Provider Nurse Practitioner
DX: K59.04 Chronic idiopathic constipation (principal); K21.9 Gastro-esophageal reflux disease without esophagitis

== ENCOUNTER → 2022-12-24 10:04 | Outpatient (BNVA) | payer MEDICAID, SELFPAY | PROVIDERS: PCP Family Medicine; Visit Provider Nurse Practitioner | DX: K59.04 Chronic idiopathic constipation (principal); K21.9 Gastro-esophageal reflux disease without esophagitis | CPT/HCPCS: 99212; 99213 ==

== ENCOUNTER 2022-12-27 08:57 | Outpatient (REF) | payer MEDICAID, SELFPAY ==
[2022-12-27 13:38] LABS: CT PCR NOT DETECTED (Not Detect.); NG PCR NOT DETECTED (Not Detect.)
[2022-12-28 09:28] LABS: BV Int Neg Control Negative (Negative); BV Int Pos Control Positive (Positive)
[2022-12-29 21:28] LABS: HPV mRNA E6/E7 rflx Not Detected (Not Detected)
== END 2022-12-27 08:58 | disposition home or self-care (01) ==
LOC: HO.LNP 08:57
PROVIDERS: PCP Family Medicine; Visit Provider Advanced Practice Midwife
DX: R10.2 Pelvic and perineal pain (principal); I10 Essential (primary) hypertension; K59.04 Chronic idiopathic constipation; D21.9 Benign neoplasm of connective and other soft tissue, unspecified; K75.81 Nonalcoholic steatohepatitis (NASH); R33.9 Retention of urine, unspecified; E66.01 Morbid (severe) obesity due to excess calories; Z98.84 Bariatric surgery status; Z79.899 Other long term (current) drug therapy; Z12.4 Encounter for screening for malignant neoplasm of cervix
CPT/HCPCS: 0353U; 87480; 87510; 87624; 87660; 88142; 99386

== ENCOUNTER 2022-12-27 08:57 | Outpatient (AMB) | payer MEDICAID, SELFPAY ==
--- NOTE | 2022-12-27 09:10 | MHC.OFFVIS ---
Intake Vital Signs 12/27/22 09:13 Height 5 ft 4 in Weight 216 lb BMI 37.1 BP 140/84 H Intake Visit Reasons: Pelvic Pain 30min Intake Note: feeling pain and pressure in pelvic area Facilities Locator Required: Yes Facilities Locator Language: Mauritian Information Interpreted: non-clinical & clinical Health And Wellness Director: Health And Wellness Director Present (Aidyn) Allergies sulfamethoxazole [From Bactrim] Allergy (Verified 12/27/22 09:17) Rash trimethoprim [From Bactrim] Allergy (Verified 12/27/22 09:17) Rash Medication List - Last Reconciled 12/27/22 by Amparo Hogan CNM alcohol swabs (Alcohol Prep Pads) 0 pad topical DIRECTED atorvastatin 80 mg PO BEDTIME bisacodyl (Dulcolax (bisacodyl)) 10 mg (2 x 5 mg) PO BEDTIME 30 days blood sugar diagnostic (FreeStyle Lite Strips) As directed calcium citrate-vitamin D3 315 mg-5 mcg (200 unit) (Calcium Citrate + D) 1 tab PO DAILY cromolyn 4% 1 drp ophthalmic (eye) QID duloxetine 30 mg PO DAILY fluticasone propionate 50 mcg/actuation (Flonase Allergy Relief) 1 spray intranasal DAILY hydrocortisone 2.5% (Proctosol HC) 1 appl DC QID lancets (TRUEplus Lancets) As directed linaclotide (Linzess) 290 mcg PO QAM lisinopril 5 mg PO DAILY loratadine 10 mg PO DAILY oxycodone 10 mg PO BID PRN peg 3350-electrolytes 236-22.74-6.74 -5.86 gram (Golytely) 240 mL PO Q10M 1 day phenazopyridine (Pyridium) 200 mg PO TID PRN 6 doses Is last menstrual period known: Yes Last menstrual period: 12/11/22 Post menopausal: No HPI Pelvic Pain 30min HPI Details Patient here for an it annual exam it has been several years since she has had a Pap in annual. Her last children were born in 2013 at [facility] she had 2 C sections and then she had her tubes tied both of her children have sickle cell disease and have lots of health challenges from them she did investigate having a child via in vitro and using the cord for stem cell transplants for the children but it was not possible because of her various health concerns with hypertension and diabetes etc. and other options were discussed but not feasible either. She has had gastric bypass surgery in lost about 80 lb and does continue to lose she says her diabetes is well controlled now with her fastings per the chart in 80s or 90s. Much was assisted with the gastric bypass surgery. She has an appointment coming up with Gastroenterology for colonoscopy in January. She is trying to get to the bottom of various pelvic pressure and abdominal pain that she has been experiencing she was in the hospital and had a CT scan done and there was a suspicion of something in her kidneys but it turns out that it is not very much to worry about in her kidneys at all. She does have fatty liver and she knows that. She says fibroids were found on the CT scan so she is wondering if that is the cause of the pelvic pressure which has been bothering her more since September. The pain she is having is more on her left side mid abdomen around waist level. She gets very heavy long periods but she is not anemic. She does have also have a history of PCOS. On very direct questioning she does admit to having a problem fully emptying her bladder, and feeling like she still needs to void after voiding. 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 Leucocytosis Leukocytosis (leucocytosis) Morbid obesity Obesity Polycystic ovarian syndrome Sickle thalassemia disease Sleep apnea Vitamin A deficiency Vitamin B1 deficiency Vitamin D deficiency Vitamin D deficiency, unspecified Surgical History (Updated 12/27/22 @ 09:20 by MICAELA Jeffries) History of esophagogastroduodenoscopy (EGD) Hx of section Hx of cholecystectomy Hx of gastric bypass Hx of tubal ligation Family History Mother Diabetes DVT (deep venous thrombosis) HTN (hypertension) Father Diabetes HTN (hypertension) Sister Stroke Son Asthma Sickle cell anemia Son Sickle cell anemia Maternal Aunt Ovary cancer Throat cancer Breast cancer Paternal Aunt Stomach neoplasm Social History Household Members: Spouse and Children Housing: Apartment Are you a primary career technology teacher to a significant other at home: Yes Do you presently have visiting nurse or other home services: No Patient Tobacco Use Status: Never used Tobacco service: No Current occupational status: employed and unemployed 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 As well as previous C-sections x2. Also scars from hydradenitis suppurative. Also evidence of longstanding facial hair and acne and skin color changes. General: healthy appearing, comfortable, no acute distress and well developed Nutritional Appearance: average body habitus Orientation/consciousness: patient oriented x3 Limitations: no limitations HEENT Head: Yes normocephalic Neck Neck: Yes normal visual inspection Thyroid: Thyroid normal Chest Chest palpation & inspection: normal inspection of the chest Breast/axilla inspection: normal inspection of the breasts and normal inspection of the axillae Breast/axilla palpation: normal palpation of the breasts and normal palpation of the axillae Resp Effort & Inspection: normal respiratory effort GI Inspection: Yes normal to inspection, No Abdominal wall edema and No distended Palpation (GI): Soft to palpation and nontender Other: Normal external exam. Vagina is pink and moist cervix parous moist pink smooth mobile nontender uterus does not feel particularly enlarged adnexa nontender not enlarged very good tone with Kegel elicited. General: Yes bladder normal to palpation External Female Exam: normal external appearance and normal appearance of the urethra Speculum Exam - Vagina: normal appearance of the vagina, normal palpation and normal vaginal discharge Speculum Exam - Cervix: normal appearance of the cervix, normal palpation and nontender Bimanual exam- vagina & uterus: normal bimanual exam, normal palpation, uterine size normal, bladder normal to palpation, consistency normal, normal palpation, uterine mobility normal, uterine shape normal, No Cervical tenderness present, non-tender and no cervical motion tenderness Bimanual Exam- Adnexa, other: normal adnexae, no masses, normal and No adnexal tenderness Neuro General: patient oriented x3 Assessment & Plan Assessment & Plan (1) Morbid obesity: Code(s): E66.01 - Morbid (severe) obesity due to excess calories (2) S/P laparoscopic sleeve gastrectomy: Code(s): Z98.84 - Bariatric surgery status (3) Chronic idiopathic constipation: Code(s): K59.04 - Chronic idiopathic constipation (4) Insulin dependent diabetes mellitus: Comment: dx 2012-taking Lantus QAM and Victoza QAM-glucose ~upper 80's to lower 90's (5) Hypertension: Code(s): I10 - Essential (primary) hypertension (6) Pelvic pressure in female: Code(s): R10.2 - Pelvic and perineal pain (7) Urinary retention with incomplete bladder emptying: Comment: By history of symptoms only... Pelvic ultrasound pending To check for fibroids, and placing referral to Urology Code(s): R33.9 - Retention of urine, unspecified (8) HAWKINS (nonalcoholic steatohepatitis): Comment: mild elevation SMA 36 11/2018, US 12/07/2018, mld elevation SMA, Hep A, B, C neg, ast/alt wnl but alk phos up, AFP 0.9, ferritin wnl, ggt 59 01/30/211005/2109 14:3314:3314:[id number] WBC 11.5 H Hgb 12.8 D Hct 41.1 D MCV 74.3 L MCH 23.1 L Plt Count 413 H D Estimated GFR > 60 Total Bilirubin 0.3 AST 16 ALT 10 Alkaline Phosphatase 115 D Alpha Fetoprotein 1.3 ULTRASOUND OF THE ABDOMEN 03/04/21 FINDINGS: PANCREAS: Not well visualized due to bowel gas. LIVER: Normal. The liver is normal in size. The liver contour is normal. Liver echotexture is slightly increased.. No focal hepatic lesion. There is no intrahepatic biliary duct dilatation seen. The previously identified 1 cm hyperechoic lesion in the right lobe liver on prior exams is not appreciated. GALLBLADDER: The gallbladder is normal in size. There are gallstones in the gallbladder. The gallbladder wall is normal COMMON BILE DUCT: Normal in caliber measuring 0.3 cm in diameter. RIGHT KIDNEY: Normal. No hydronephrosis. No renal calculi or focal parenchymal lesions. The kidney measures 9.1 cm in maximum dimension. FREE FLUID: None. US/US abdomen limited IMPRESSION: Slightly echogenic liver probably representing fatty infiltration. Gallstones. Limited visualization of the pancreas. NOW BEING FOLLOWED BY [facility] Code(s): K75.81 - Nonalcoholic steatohepatitis (HAWKINS) (9) Fibroids: Comment: Noted on CT scan, ordering ultrasound to better evaluate... Code(s): D21.9 - Benign neoplasm of connective and other soft tissue, unspecified Plan Patient here for an it annual exam it has been several years since she has had a Pap in annual. Her last children were born in 2013 at [facility] she had 2 C sections and then she had her tubes tied both of her children have sickle cell disease and have lots of health challenges from them she did investigate having a child via in vitro and using the cord for stem cell transplants for the children but it was not possible because of her various health concerns with hypertension and diabetes etc. and other options were discussed but not feasible either. She has had gastric bypass surgery in lost about 80 lb and does continue to lose she says her diabetes is well controlled now with her fastings per the chart in 80s or 90s. Much was assisted with the gastric bypass surgery. She has an appointment coming up with Gastroenterology for colonoscopy in January. She is trying to get to the bottom of various pelvic pressure and abdominal pain that she has been experiencing she was in the hospital and had a CT scan done and there was a suspicion of something in her kidneys but it turns out that it is not very much to worry about in her kidneys at all. She does have fatty liver and she knows that. She says fibroids were found on the CT scan so she is wondering if that is the cause of the pelvic pressure which has been bothering her more since September. The pain she is having is more on her left side mid abdomen around waist level. She gets very heavy long periods but she is not anemic. She does have also have a history of PCOS. On very direct questioning she does admit to having a problem fully emptying her bladder, and feeling like she still needs to void after voiding. Discussed strategies for evaluation. I will order a pelvic ultrasound to assess the size of the fibroids if they are very large she will have an appointment with Dr. Mcbride to discuss the merits of hysterectomy or other treatment. If they are not we will find out by the ultrasound. Additionally I discussed strategies to try to ensure that she does empty her bladder as completely as possible after each void to see if that would ameliorate her symptoms she does do a very good Kegel and she does practice those which is great discussed moving around when she is voiding to ensure more complete emptying and voiding more frequently and not holding her urine I am going to place of referral to Urology is so she can further investigate bladder emptying issues which could be contributing to her sensation of pelvic pressure. Pap smear and testing done for GC chlamydia trich Gardnerella and Dunia. Patient says she has no need for other STI testing. Orders: Orders Bacterial Vaginosis Panel Today R10.2 - Pelvic and perineal pain CT NG by PCR Today R10.2 - Pelvic and perineal pain Pap Smear Today R10.2 - Pelvic and perineal pain US pelvic and transvaginal Today D21.9 - Benign neoplasm of connective and other soft tissue, unspecified, E66.01 - Morbid (severe) obesity due to excess calories, I10 - Essential (primary) hypertension, K59.04 - Chronic idiopathic constipation, K75.81 - Nonalcoholic steatohepatitis (HAWKINS), R10.2 - Pelvic and perineal pain, R33.9 - Retention of urine, unspecified, Z98.84 - Bariatric surgery status Referrals Urology Referral E66.01 - Morbid (severe) obesity due to excess calories, I10 - Essential (primary) hypertension, K59.04 - Chronic idiopathic constipation, R10.2 - Pelvic and perineal pain, R33.9 - Retention of urine, unspecified, Z98.84 - Bariatric surgery status Coding Level of Care Code New Pt Prev Care 40-64y(20635) Diagnoses Morbid obesity E66.01 S/P laparoscopic sleeve gastrectomy Z98.84 Chronic idiopathic constipation K59.04 Insulin dependent diabetes mellitus Hypertension I10 Pelvic pressure in female R10.2 Urinary retention with incomplete bladder emptying R33.9 HAWKINS (nonalcoholic steatohepatitis) K75.81 Fibroids D21.9
[2022-12-27 09:13] VITALS: BP 140/84; BMI 37.1
== END 2022-12-27 10:25 | disposition home or self-care (01) ==
LOC: HO.HWS 09:00
PROVIDERS: PCP Family Medicine; Visit Provider Advanced Practice Midwife
DX: E66.01 Morbid (severe) obesity due to excess calories (principal); Z98.84 Bariatric surgery status; K59.04 Chronic idiopathic constipation; I10 Essential (primary) hypertension; R10.2 Pelvic and perineal pain; R33.9 Retention of urine, unspecified; K75.81 Nonalcoholic steatohepatitis (NASH); D21.9 Benign neoplasm of connective and other soft tissue, unspecified
CPT/HCPCS: 99386

== ENCOUNTER 2023-01-14 10:35 | Outpatient (REF) | payer MEDICAID, SELFPAY ==
--- NOTE | ~2023-01-14 | US_ITS ---
EXAMINATION: US PELVIS COMPLETE CLINICAL INFORMATION: Retention of urine, leiomyoma COMPARISON: CT abdomen pelvis 12/01/2017 TECHNIQUE: Transabdominal and transvaginal imaging was performed. FINDINGS: The uterus is of mild enlarged heterogeneous echotexture measuring 12.7 x 6.2 x 6.9 cm. Uterus is retroflexed in position. A regular homogeneous endometrium is identified measuring 1.1 cm. Nabothian cysts in the cervix. Both ovaries are of normal size. The right measures 3.0 x 1.9 x 2.0 cm for a volume of 5.7 mL and is remarkable for a 0.5 x 0.4 x 0.3 cm hyperechoic focus in the ovary without internal vascularity which may reflect a tiny ovarian dermoid.. The left measures 1.8 x 1.9 x 2.9 cm for a volume of 5.4 mL. There is no pelvic free fluid. US/US pelvic and transvaginal IMPRESSION: 1. A 0.5 cm hyperechoic focus in the right ovary without internal vascularity which may reflect a tiny ovarian dermoid. Recommend definitive characterization with contrast-enhanced MR and if not surgically resected, annual follow-up ultrasound. 2. Uterus is mildly enlarged and heterogeneous in echotexture, which could be seen in the setting of adenomyosis, which could be confirmed with MR pelvis.
== END 2023-01-14 10:36 | disposition home or self-care (01) ==
LOC: HO.US 10:35
PROVIDERS: PCP Family Medicine; Visit Provider Advanced Practice Midwife
DX: R33.9 Retention of urine, unspecified (principal); R10.2 Pelvic and perineal pain; K59.04 Chronic idiopathic constipation; K75.81 Nonalcoholic steatohepatitis (NASH)
CPT/HCPCS: 76830; 76856

== ENCOUNTER 2023-01-31 09:48 | Outpatient (AMB) | payer MEDICAID, SELFPAY ==
[2023-01-31 10:35] VITALS: BP 142/80; BMI 37.2
--- NOTE | 2023-01-31 10:35 | A.OFFVIS_ITS ---
Intake Vital Signs 01/31/23 10:35 Height 5 ft 4 in Weight 217 lb BMI 37.2 BP 142/80 H Intake Visit Reasons: Ultrasound follow up [place] Required: Yes [place] Language: Swedish Allergies sulfamethoxazole [From Bactrim] Allergy (Verified 01/31/23 10:36) Rash trimethoprim [From Bactrim] Allergy (Verified 01/31/23 10:36) Rash Medication List - Last Reconciled 01/31/23 by Amparo Hogan CNM alcohol swabs (Alcohol Prep Pads) 0 pad topical DIRECTED atorvastatin 80 mg PO BEDTIME bisacodyl (Dulcolax (bisacodyl)) 10 mg (2 x 5 mg) PO BEDTIME 30 days blood sugar diagnostic (FreeStyle Lite Strips) As directed calcium citrate-vitamin D3 315 mg-5 mcg (200 unit) (Calcium Citrate + D) 1 tab PO DAILY cromolyn 4% 1 drp ophthalmic (eye) QID duloxetine 30 mg PO DAILY fluticasone propionate 50 mcg/actuation (Flonase Allergy Relief) 1 spray intranasal DAILY hydrocortisone 2.5% (Proctosol HC) 1 appl [place] QID lancets (TRUEplus Lancets) As directed linaclotide (Linzess) 290 mcg PO QAM lisinopril 5 mg PO DAILY loratadine 10 mg PO DAILY oxycodone 10 mg PO BID PRN peg 3350-electrolytes 236-22.74-6.74 -5.86 gram (Golytely) 240 mL PO Q10M 1 day phenazopyridine (Pyridium) 200 mg PO TID PRN 6 doses Is last menstrual period known: No (unsure of date) Post menopausal: No HPI Ultrasound follow up HPI Details Patient is here to review her ultrasound findings and Pap smear results. She had been hospitalized earlier in the summer and had been having lots of symptoms that been plaguing her and she is trying to get to the bottom of the feeling of pressure that she has all the time there was discussion before about possibly she may have a fibroid or something that could explain her symptoms there was also something found in her kidneys and the was also issues with her liver noted as well. She also has had difficulty completely emptying with her bladder and for that I placed a referral to Urology and also she was having trouble with constipation but she says July in gastroenterology changed her medication to taking some thing in the morning now and she is having much b sonam success with that. [facility] Medical History Hypoxia Intestinal malabsorption following gastrectomy BMI 45.0-49.9, adult Hepatomegaly DJD (degenerative joint disease) Abdominal adhesions Diabetes COVID-19 Gallstones Abdominal cramping Chronic idiopathic constipation Family history of anesthesia complication COVID-19 vaccine administered Arthritis Fibromyalgia Sleep apnea Cholelithiasis Vitamin D deficiency, unspecified Vitamin D deficiency Vitamin A deficiency Vitamin B1 deficiency Depression Hypertension Insulin dependent diabetes mellitus Morbid obesity Leukocytosis (leucocytosis) Sickle thalassemia disease Leucocytosis Chronic leukopenia Bilateral shoulder pain Dyslipidemia Axillary hidradenitis suppurativa Chronic back pain Polycystic ovarian syndrome Obesity Surgical History Hx of tubal ligation Hx of gastric bypass Hx of cholecystectomy History of esophagogastroduodenoscopy (EGD) Hx of section Family History Mother Diabetes DVT (deep venous thrombosis) HTN (hypertension) Father Diabetes HTN (hypertension) Sister Stroke Son Asthma Sickle cell anemia Son Sickle cell anemia Maternal Aunt Ovary cancer Throat cancer Breast cancer Paternal Aunt Stomach neoplasm Social History Household Members: Spouse and Children Housing: Apartment Are you a primary lead care manager to a significant other at home: Yes Do you presently have visiting nurse or other home services: No Patient Tobacco Use Status: Never used Tobacco service: No Current occupational status: employed and unemployed 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 Current occupational exposures/hazards: Yes (stress) Female Reproductive History Menstrual Age of Menarche: 9 control method: other (tubal ligation) Date of last pap smear: 12/27/22 (negative) Physical Exam Vital Signs: Last Vital Signs BP 142/80 H 01/31/23 10:35 BMI result Body Mass Index 37.2 Results Reviewed Results Reviewed: Patient: Felisa Calhoun MR#: [id number] : 1975 Acct:[id number] Age/Sex: 47 / F ADM Date: 01/14/23 Loc: HO.US Attending Dr: Amparo Hogan CNM Ordering Physician: Amparo Hogan CNM Date of Service: 01/14/23 Procedure(s): US pelvic and transvaginal Accession Number(s): [id number] cc: Claudia Sapp MD; Amparo Hogan CNM~ EXAMINATION: US PELVIS COMPLETE CLINICAL INFORMATION: Retention of urine, leiomyoma COMPARISON: CT abdomen pelvis 12/01/2017 TECHNIQUE: Transabdominal and transvaginal imaging was performed. FINDINGS: The uterus is of mild enlarged heterogeneous echotexture measuring 12.7 x 6.2 x 6.9 cm. Uterus is retroflexed in position. A regular homogeneous endometrium is identified measuring 1.1 cm. Nabothian cysts in the cervix. Both ovaries are of normal size. The right measures 3.0 x 1.9 x 2.0 cm for a volume of 5.7 mL and is remarkable for a 0.5 x 0.4 x 0.3 cm hyperechoic focus in the ovary without internal vascularity which may reflect a tiny ovarian dermoid.. The left measures 1.8 x 1.9 x 2.9 cm for a volume of 5.4 mL. There is no pelvic free fluid. US/US pelvic and transvaginal IMPRESSION: 1. A 0.5 cm hyperechoic focus in the right ovary without internal vascularity which may reflect a tiny ovarian dermoid. Recommend definitive characterization with contrast-enhanced MR and if not surgically resected, annual follow-up ultrasound. 2. Uterus is mildly enlarged and heterogeneous in echotexture, which could be seen in the setting of adenomyosis, which could be confirmed with MR pelvis. Dictated By: Skye Meraz MD Signed By: <Electronically signed by Skye Meraz MD in OV> 01/17/232022 Name: Jonah LeiFelisa Age/Sex: 47/F Attending: Amparo Hogan CNM : 1975 Submitted by: Amparo Hogan CNM Copies to: Claudia Sapp MD MR #: [id number] Status: DEP REF Collected: 12/27/22 Location: [facility] Received: 12/27/22 Interpretation Satisfactory for evaluation. No endocervical cells seen. Negative for intraepithelial lesion or malignancy. HPV mRNA E6/E7: NOT DETECTED This assay detects E6/E7 viral messenger RNA (mRNA) from 14 high-risk HPV types (16, 18, 31, 33, 35, 39, 45, 51, 52, 56, 58, 59, 66, 68) HPV testing performed by [facility] [facility], [place], [place]. See reference laboratory portion of the EMR for entire report. Clinical Information LMP:12/11/22 Previous PAP test:01/27/15, WNL Other history:pelvic and perineal pain Material Received ThinPrep-Cervical Copies To Claudia Sapp MD [address] [place] [id number] [place]oya [address] [place] [id number] Electronically Signed By: Florina Stanford 01/08/23 1414 The Pap Test is a screening procedure with the inherent possibility of both false negative and false positive results. Results should be interpreted in the context of historic and current clinical findings. Reliability of the Pap Test is enhanced by performing the test on a regular repetitive basis. Patient: Felisa Calhoun Age/Sex: 47/F MR#: [id number] Page 1 of 1 Assessment & Plan Assessment & Plan (1) Cervical cancer screening: Comment: 12/27/2022 Pap is negative with negative HPV. Code(s): Z12.4 - Encounter for screening for malignant neoplasm of cervix (2) Fibroids: Comment: Noted on CT scan, ordering ultrasound to better evaluate...; not noted on ultrasound. Question of addendum myosis or small right ovarian dermoid noted, to be further investigated. Code(s): D21.9 - Benign neoplasm of connective and other soft tissue, unspecified (3) Urinary retention with incomplete bladder emptying: Comment: By history of symptoms only... Pelvic ultrasound pending To check for fibroids, and placing referral to Urology Code(s): R33.9 - Retention of urine, unspecified Plan I reviewed the patient's ultrasound with her as well as her Pap as well as all of her other symptoms both gastrointestinal and urologic as well as all of her other concerns. She is having better luck with the constipation by taking the medication in the morning. She has a follow-up appointment with Urology coming up later within the month. I discussed her ultrasound findings which are somewhat nonspecific. I am recommending she have a visit with Dr. Mcbride to consider the best ways of investigating the uterine and ovarian findings if there is any follow-up necessary. In the meantime she is going to follow through with her other lines of inquiry and I recommend she also see her primary care provider who she has not been able to get in to see in a long time. Her primary is Dr. Claudia Sapp at the [facility].. Coding Level of Care Code Est Pt Level 3 (34692) Diagnoses Cervical cancer screening Z12.4 Fibroids D21.9 Urinary retention with incomplete bladder emptying R33.9
== END 2023-01-31 11:12 | disposition home or self-care (01) ==
PROVIDERS: PCP Family Medicine; Visit Provider Advanced Practice Midwife
DX: Z12.4 Encounter for screening for malignant neoplasm of cervix (principal); D21.9 Benign neoplasm of connective and other soft tissue, unspecified; R33.9 Retention of urine, unspecified
CPT/HCPCS: 99213

== ENCOUNTER → 2023-01-31 09:48 | Outpatient (BNVA) | payer MEDICAID, SELFPAY | PROVIDERS: PCP Family Medicine; Visit Provider Advanced Practice Midwife | DX: E28.2 Polycystic ovarian syndrome (principal); D21.9 Benign neoplasm of connective and other soft tissue, unspecified; R33.9 Retention of urine, unspecified; Z12.4 Encounter for screening for malignant neoplasm of cervix | CPT/HCPCS: 99212 ==

== ENCOUNTER 2023-02-15 07:32 | Day surgery (SDC) | payer MEDICAID, SELFPAY ==
[2023-02-11 15:18] VITALS: BMI 37.4
--- NOTE | 2023-02-14 13:26 | HO.ANESPROP2 ---
Documented by User: Nahed Garrett NP 02/14/23 13:27 HPI - Anesthesia Eval Consult details Narrative: 47yo F for Colonoscopy PMFSH Active Problems Active Problems: All Active Problems (Updated 01/31/23 @ 11:13 by Amparo Hogan CNM) Cervical cancer screening (Acute) Fibroids (Acute) Urinary retention with incomplete bladder emptying (Acute) Pelvic pressure in female (Acute) External hemorrhoids (Acute) Chronic idiopathic constipation (Acute) Pre-op chest exam (Acute) GERD (gastroesophageal reflux disease) (Acute) HAWKINS (nonalcoholic steatohepatitis) (Acute) S/P gastric bypass (Acute) Obesity (Acute) BMI 38.0-38.9,adult (Acute) Upper abdominal pain (Acute) Gallstones (Acute) S/P laparoscopic sleeve gastrectomy (Acute) Morbid obesity (Acute) BMI 45.0-49.9, adult (Acute) Intestinal malabsorption following gastrectomy (Acute) Hypoxia (Acute) Leukocytosis (leucocytosis) (Acute) Sleep apnea (Acute) Depression (Acute) Hypertension (Acute) Insulin dependent diabetes mellitus (Acute) Dyslipidemia (Acute) Past Medical History Medical History Hypoxia Intestinal malabsorption following gastrectomy BMI 45.0-49.9, adult Hepatomegaly DJD (degenerative joint disease) Abdominal adhesions Diabetes COVID-19 Gallstones Abdominal cramping Chronic idiopathic constipation Family history of anesthesia complication COVID-19 vaccine administered Arthritis Fibromyalgia Sleep apnea Cholelithiasis Vitamin D deficiency, unspecified Vitamin D deficiency Vitamin A deficiency Vitamin B1 deficiency Depression Hypertension Insulin dependent diabetes mellitus Morbid obesity Leukocytosis (leucocytosis) Sickle thalassemia disease Leucocytosis Chronic leukopenia Bilateral shoulder pain Dyslipidemia Axillary hidradenitis suppurativa Chronic back pain Polycystic ovarian syndrome Obesity Family History Family History Mother Diabetes DVT (deep venous thrombosis) HTN (hypertension) Father Diabetes HTN (hypertension) Sister Stroke Son Asthma Sickle cell anemia Son Sickle cell anemia Maternal Aunt Ovary cancer Throat cancer Breast cancer Paternal Aunt Stomach neoplasm Family history of problems with anesthesia: No Surgical History Surgical History Hx of tubal ligation Hx of gastric bypass Hx of cholecystectomy History of esophagogastroduodenoscopy (EGD) Hx of section History of Problems with Anesthesia: No Social History Social History Household Members: Spouse and Children Housing: Apartment Are you a primary progressive care unit registered nurse to a significant other at home: Yes Do you presently have visiting nurse or other home services: No Patient Tobacco Use Status: Never used Tobacco Use of substances other than those prescribed or required for medical reasons: No Are you DNR?: No Advance Directives: No Advance Directives Information Provided: Yes service: No Current occupational status: employed and unemployed 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 occupational exposures/hazards: Yes (stress) Meds Allergies Allergy/AdvReac Type Severity Reaction Status Date / Time sulfamethoxazole Allergy Rash Verified 01/31/23 10:36 [From Bactrim] trimethoprim [From Bactrim] Allergy Rash Verified 01/31/23 10:36 Home Medications Medication Instructions Recorded Confirmed Last Taken Type fluticasone propionate 50 1 spray intranasal DAILY 05/27/20 01/31/23 Unknown History mcg/actuation nasal spray,suspension (Flonase Allergy Relief) loratadine 10 mg capsule 10 mg PO DAILY 05/27/20 01/31/23 Unknown History oxycodone 10 mg tablet 10 mg PO BID PRN Pain 05/27/20 01/31/23 Unknown History atorvastatin 80 mg tablet 80 mg PO BEDTIME 01/26/22 01/31/23 Unknown History cromolyn 4 % eye drops 1 drp ophthalmic (eye) QID 01/26/22 01/31/23 Unknown History duloxetine 30 mg capsule,delayed 30 mg PO DAILY 01/26/22 01/31/23 Unknown History release lisinopril 5 mg tablet 5 mg PO DAILY 01/26/22 01/31/23 Unknown History alcohol swabs (Alcohol Prep Pads) 0 pad topical DIRECTED 05/13/22 01/31/23 Unknown History blood sugar diagnostic (FreeStyle #10 ea 05/13/22 01/31/23 Unknown History Lite Strips) lancets 33 gauge (TRUEplus Lancets) #100 ea 05/13/22 01/31/23 Unknown History Exam Exam Date and Time: February 14, 2023 132 Height,Weight and Vital Signs: Height 5 ft 4 in Weight 98.798 kg Pertinent Lab Results Pertinent Lab Results: Laboratory Tests 10/05/22 09:48 WBC 9.5 Hgb 13.1 Hct 42.0 Plt Count 347 Sodium 141 Potassium 4.5 Chloride 112 H Carbon Dioxide 19 L BUN 11 Creatinine 0.80 Assessment and Plan Assessment Anesthesia Assessment: Chart Reviewed Final Anesthetic Review Family History of Problems with Anesthesia: No History of Problems with Anesthesia: No Documented by User: Daksha Jasso MD 02/15/23 09:19 [facility] Past Medical History Medical History Hypoxia Intestinal malabsorption following gastrectomy BMI 45.0-49.9, adult Hepatomegaly DJD (degenerative joint disease) Abdominal adhesions Diabetes COVID-19 Gallstones Abdominal cramping Chronic idiopathic constipation Family history of anesthesia complication COVID-19 vaccine administered Arthritis Fibromyalgia Sleep apnea Cholelithiasis Vitamin D deficiency, unspecified Vitamin D deficiency Vitamin A deficiency Vitamin B1 deficiency Depression Hypertension Insulin dependent diabetes mellitus Morbid obesity Leukocytosis (leucocytosis) Sickle thalassemia disease Leucocytosis Chronic leukopenia Bilateral shoulder pain Dyslipidemia Axillary hidradenitis suppurativa Chronic back pain Polycystic ovarian syndrome Obesity Family History Family History Mother Diabetes DVT (deep venous thrombosis) HTN (hypertension) Father Diabetes HTN (hypertension) Sister Stroke Son Asthma Sickle cell anemia Son Sickle cell anemia Maternal Aunt Ovary cancer Throat cancer Breast cancer Paternal Aunt Stomach neoplasm Surgical History Surgical History Hx of tubal ligation Hx of gastric bypass Hx of cholecystectomy History of esophagogastroduodenoscopy (EGD) Hx of section Social History Social History Household Members: Spouse and Children Housing: Apartment Are you a primary progressive care unit registered nurse to a significant other at home: Yes Do you presently have visiting nurse or other home services: No Patient Tobacco Use Status: Never used Tobacco Use of substances other than those prescribed or required for medical reasons: No Are you DNR?: No Advance Directives: No Advance Directives Information Provided: Yes service: No Current occupational status: employed and unemployed 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 occupational exposures/hazards: Yes (stress) Meds Allergies Allergy/AdvReac Type Severity Reaction Status Date / Time sulfamethoxazole Allergy Rash Verified 01/31/23 10:36 [From Bactrim] trimethoprim [From Bactrim] Allergy Rash Verified 01/31/23 10:36 Home Medications Medication Instructions Recorded Confirmed Last Taken Type fluticasone propionate 50 1 spray intranasal DAILY 05/27/20 01/31/23 Unknown History mcg/actuation nasal spray,suspension (Flonase Allergy Relief) loratadine 10 mg capsule 10 mg PO DAILY 05/27/20 01/31/23 Unknown History oxycodone 10 mg tablet 10 mg PO BID PRN Pain 05/27/20 01/31/23 Unknown History atorvastatin 80 mg tablet 80 mg PO BEDTIME 01/26/22 01/31/23 Unknown History cromolyn 4 % eye drops 1 drp ophthalmic (eye) QID 01/26/22 01/31/23 Unknown History duloxetine 30 mg capsule,delayed 30 mg PO DAILY 01/26/22 01/31/23 Unknown History release lisinopril 5 mg tablet 5 mg PO DAILY 01/26/22 01/31/23 Unknown History alcohol swabs (Alcohol Prep Pads) 0 pad topical DIRECTED 05/13/22 01/31/23 Unknown History blood sugar diagnostic (FreeStyle #10 ea 05/13/22 01/31/23 Unknown History Lite Strips) lancets 33 gauge (TRUEplus Lancets) #100 ea 05/13/22 01/31/23 Unknown History Exam Airway Mallampati Class: II TM Dist: >3cm Neck ROM: Full Assessment and Plan Assessment Anesthesia Assessment: Anesthesia Plan Discussed Final Anesthetic Review NPO: Yes ASA Class: III Final Preanesthetic Review: No Changes in Pt Med Stat, Meds/Allgs Chart Reviewed, Consent Obtained/Reviewed and Anes Risks/Benef Reviewed Patient Risk: Intermediate Procedure Risk: Low Anesthetic Plan Anesthetic Plan: MAC: Disposition: Standard PACU
[2023-02-15 08:08] VITALS: BMI 37.1
[2023-02-15 08:11] VITALS: BP 145/82; PULSE 69; RESP 18; TEMP 37.1; O2SAT 100
--- NOTE | 2023-02-15 08:17 | MHC.SHP ---
Pre-Procedural Eval Section A Date of Service: 02/15/23 Section B Chief Complaint: Chronic idiopathic constipation, Residual hemorrho Relevant Family History (Specify if Yes): No Relevant Social History: None Present Medications: see Short Stay Collaborative assessment Medical History: Significant History (Hypoxia Intestinal malabsorption following gastrectomy BMI 45.0-49.9, adult Hepatomegaly DJD (degenerative joint disease) Abdominal adhesions Diabetes COVID-19 Gallstones Abdominal cramping Chronic idiopathic constipation Family history of anesthesia complication COVID-19 vaccine administered Arthri) History of Previous Operations: Relevant previous surgery/procedure and date(s) (Hx of tubal ligation Hx of gastric bypass Hx of cholecystectomy History of esophagogastroduodenoscopy (EGD) Hx of section) Allergies: Allergies Allergy/AdvReac Type Severity Reaction Status Date / Time sulfamethoxazole Allergy Rash Verified 01/31/23 10:36 [From Bactrim] trimethoprim [From Bactrim] Allergy Rash Verified 01/31/23 10:36 Review of Systems Sugical H&P ROS: Negative: Constitution, Cardiovascular, Respiratory, Neurological, Psychiatric, Hem-Onc, Allergic/Immunologic, Gastrointestinal, Genitourinary, Musculoskeletal, Integumentary, Endocrine and Eyes/Ears/Nose/Throat Exam Surgical H&P Exam: Normal: HEENT, Normal: Heart, Normal: Lungs, Normal: Extremities, Normal: Abdomen, Normal: Skin and Normal: Neurological Plan Diagnosis/Plan: Unchanged I have reviewed the history and physical and performed a pertinent physical examination on my patient. No changes have occurred unless specified. Time Spent With Patient Time: Total time managing care of this patient today ____ minutes.
--- NOTE | 2023-02-15 09:31 | W.PM.OPN ---
Operative Note Operative Note Date of Service: 02/15/23 Narrative: Operative Information Procedure Description: Colonoscopy Indication: screening Anesthesia: MAC COLONOSCOPY Instrument: Olympus variable stiffness ADULT scope 190L Colonoscopy Monitoring: Vital signs and clinical assessment, continuous EKG monitoring, Pulse oximetry, Carbon Dioxide monitoring and blood pressure monitoring were done throughout the procedure. Colon withdrawal time was 12 minutes. Procedure: The patient was placed in the left lateral decubitis position and pre-procedure medications were administered. After a digital rectal examination of the ano-rectum, the video colonoscope was inserted into the rectum and advanced through the colon to the cecum/TI. The colonoscope was slowly withdrawn in a retrograde panoramic fashion and the colon mucosa was carefully examined including a retroflexed view of the rectum. Findings and interventions are described below. Procedure Difficulty: easy Findings: Terminal Ileum-normal Cecum:normal Ascending Colon: normal Transverse Colon -normal Descending Colon:normal Sigmoid Colon: normal Rectum: Retroflexion with medium sized internal hemorrhoids, grade I, 6-8 mm sessile polyp removed with cold snare Anorectum - normal Colon preparation: Rose Bud Bowel Preparation Scale Right colon; 2 Transverse colon: 3 Left colon; 2 (0 = Unprepared colon segment with mucosa not seen due to solid stool that cannot be cleared. 1 = Portion of mucosa of the colon segment seen, but other areas of the colon segment not well seen due to staining, residual stool and/or opaque liquid. 2 = Minor amount of residual staining, small fragments of stool and/or opaque liquid, but mucosa of colon segment seen well. 3 = Entire mucosa of colon segment seen well with no residual staining, small fragments of stool or opaque liquid) Impression and Post Procedure Diagnosis: polyp internal hemorrhoids Plan: High fiber diet leaflet Avoid straining at stool, epsom salts and sitz bath, anusol supps or cream Repeat Colonoscopy in 5-7 years if adenomatous polyp, 10 yrs if hyperplastic or earlier if clinically indicated Above findings were reviewed with the patient and relevant handouts were provided if indicated.
[2023-02-15 09:34] VITALS: BP 106/58; PULSE 62; RESP 19; TEMP 36.6; O2SAT 100
[2023-02-15 09:49] VITALS: BP 124/62; PULSE 65; RESP 16; TEMP 36.6; O2SAT 100
== END 2023-02-15 10:13 | disposition home or self-care (01) ==
PROVIDERS: PCP Family Medicine; Visit Provider Internal Medicine Gastroenterology
PROC: 0DJD8ZZ Inspection of Lower Intestinal Tract, Via Natural or Artificial Opening Endoscopic (ICD-10-PCS; CPT 45378; principal; 2023-02-15 09:00)
DX: Z12.11 Encounter for screening for malignant neoplasm of colon (principal); K62.1 Rectal polyp; K64.0 First degree hemorrhoids; K59.04 Chronic idiopathic constipation; Z98.84 Bariatric surgery status; Z90.3 Acquired absence of stomach [part of]; K66.0 Peritoneal adhesions (postprocedural) (postinfection); E11.9 Type 2 diabetes mellitus without complications; Z79.4 Long term (current) use of insulin; E78.5 Hyperlipidemia, unspecified; R09.02 Hypoxemia; Z79.51 Long term (current) use of inhaled steroids; Z79.899 Other long term (current) drug therapy; Z88.2 Allergy status to sulfonamides; E66.01 Morbid (severe) obesity due to excess calories; Z68.42 Body mass index [BMI] 45.0-49.9, adult
CPT/HCPCS: 45385; 88305

== ENCOUNTER → 2023-02-15 07:32 | Outpatient (BNV) | payer MEDICAID, SELFPAY | PROVIDERS: PCP Family Medicine; Visit Provider Internal Medicine Gastroenterology | DX: Z12.11 Encounter for screening for malignant neoplasm of colon (principal); K63.5 Polyp of colon; K64.0 First degree hemorrhoids | CPT/HCPCS: 45385 ==

== ENCOUNTER 2023-02-21 09:40 | Outpatient (REF) | payer MEDICAID, SELFPAY ==
[2023-02-21 12:02] LABS: Alanine Aminotransferase 10 U/L (0-31); Alkaline Phosphatase 99 U/L (39-117); Anion Gap 10 (12-20); Aspartate Amino Transferase 11 U/L (5-31); Bilirubin Direct 0.2 mg/dL (0.0-0.5); Bilirubin Total 0.4 mg/dL (0.0-1.0); Blood Urea Nitrogen 8 mg/dL (9-16); Calcium 9.5 mg/dL (8.4-10.2); Carbon Dioxide 28 mmol/L (22-29); Chloride 108 mmol/L (96-108); Cholesterol 258 mg/dL (<200); Estimated Glomerular Filt Rate > 60; Glucose Random 99 mg/dL (60-115); HDL Cholesterol 50 mg/dL (>40); LDL Cholesterol Calculated 183 mg/dL (<100); Potassium 4.3 mmol/L (3.3-5.1); Sodium 142 mmol/L (135-145); Total Protein 7.3 g/dL (6.5-8.0); Triglycerides 125 mg/dL (<150)
[2023-02-21 12:17] LABS: Creatinine Urine 187.11 mg/dL; Microalbum/Creatinine Ratio Ur 4.2 ug/mg cr (<30)
[2023-02-21 12:19] LABS: HIV AB/AG Nonreactive (Nonreactive); HIV Num 1 0.05 S/CO (0.00-0.99); ~HepC Num1 0.08 S/CO (0.00-0.79); ~Hepatitis C Antibody Nonreactive (Nonreactive)
== END 2023-02-21 09:41 | disposition home or self-care (01) ==
LOC: HO.HHCL 09:40
PROVIDERS: Visit Provider Family Medicine
DX: E11.9 Type 2 diabetes mellitus without complications (principal); E78.5 Hyperlipidemia, unspecified; Z79.4 Long term (current) use of insulin; Z11.3 Encounter for screening for infections with a predominantly sexual mode of transmission
CPT/HCPCS: 36415; 80048; 80061; 80076; 82043; 82570; 86803; 87389

== ENCOUNTER 2023-05-19 11:07 | Outpatient (AMB) | payer MEDICAID, SELFPAY ==
--- NOTE | 2023-05-19 11:18 | MHC.OFFVIS ---
Intake Vital Signs 05/19/23 11:20 Height 5 ft 4 in Weight 213 lb 13.574 oz BMI 36.7 Intake Visit Reasons: US findings per Amparo Troy Advertisement Distributor Required: Yes Advertisement Distributor Language: Couples Therapist Name: Maribell HINOJOSA Information Interpreted: non-clinical & clinical Accompanied by: Self / Same As Patient Allergies sulfamethoxazole [From Bactrim] Allergy (Verified 05/19/23 11:22) Rash trimethoprim [From Bactrim] Allergy (Verified 05/19/23 11:22) Rash HPI HPI Comments History of Present Illness Details Presenting referred from Amparo Hogan CNM regarding abnormal findings on pelvic ultrasound, which showed the following: The uterus is of mild enlarged heterogeneous echotexture measuring 12.7 x 6.2 x 6.9 cm. Uterus is retroflexed in position. A regular homogeneous endometrium is identified measuring 1.1 cm. Nabothian cysts in the cervix. Both ovaries are of normal size. The right measures 3.0 x 1.9 x 2.0 cm for a volume of 5.7 mL and is remarkable for a 0.5 x 0.4 x 0.3 cm hyperechoic focus in the ovary without internal vascularity which may reflect a tiny ovarian dermoid.. The left measures 1.8 x 1.9 x 2.9 cm for a volume of 5.4 mL. There is no pelvic free fluid. [facility] Medical History Hypoxia Intestinal malabsorption following gastrectomy BMI 45.0-49.9, adult Hepatomegaly DJD (degenerative joint disease) Abdominal adhesions Diabetes COVID-19 Gallstones Abdominal cramping Chronic idiopathic constipation Family history of anesthesia complication COVID-19 vaccine administered Arthritis Fibromyalgia Sleep apnea Cholelithiasis Vitamin D deficiency, unspecified Vitamin D deficiency Vitamin A deficiency Vitamin B1 deficiency Depression Hypertension Insulin dependent diabetes mellitus Morbid obesity Leukocytosis (leucocytosis) Sickle thalassemia disease Leucocytosis Chronic leukopenia Bilateral shoulder pain Dyslipidemia Axillary hidradenitis suppurativa Chronic back pain Polycystic ovarian syndrome Obesity Surgical History Hx of tubal ligation Hx of gastric bypass Hx of cholecystectomy History of esophagogastroduodenoscopy (EGD) Hx of section Family History Mother Diabetes DVT (deep venous thrombosis) HTN (hypertension) Father Diabetes HTN (hypertension) Sister Stroke Son Asthma Sickle cell anemia Son Sickle cell anemia Maternal Aunt Ovary cancer Throat cancer Breast cancer Paternal Aunt Stomach neoplasm Social History Household Members: Spouse and Children Housing: Apartment Are you a primary home care specialist to a significant other at home: Yes Do you presently have visiting nurse or other home services: No Patient Tobacco Use Status: Never used Tobacco service: No Current occupational status: employed and unemployed 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 Discussed with the patient the Ultrasound findings, the main limitation of transvaginal ultrasonography alone as a diagnostic tool to distinguish benign from malignant masses relates to its lack of specificity and low positive predictive value for cancer. The differential diagnosis discussed with the patient includes the following but not limited to: benign and malignant gynecological and non-gynecological causes. Will order MRI of the pelvis for further evaluation. Instructions given the patient to schedule MRI follow-up appointment. All questions answered, the patient verbalized understanding. Orders: Orders MR pelvis wo/w con Today N83.299 - Other ovarian cyst, unspecified side Coding Level of Care Code Est Pt Level 3 (71138) Diagnoses Complex ovarian cyst N83.299
[2023-05-19 11:20] VITALS: BMI 36.7
== END 2023-05-19 11:32 | disposition home or self-care (01) ==
PROVIDERS: PCP Family Medicine; Referring Provider Family Medicine; Visit Provider Obstetrics & Gynecology
DX: N83.299 Other ovarian cyst, unspecified side (principal)
CPT/HCPCS: 99213

== ENCOUNTER → 2023-05-19 11:07 | Outpatient (BNVA) | payer MEDICAID, SELFPAY | PROVIDERS: PCP Family Medicine; Visit Provider Obstetrics & Gynecology | DX: N83.299 Other ovarian cyst, unspecified side (principal) | CPT/HCPCS: 99212 ==

== ENCOUNTER 2023-05-26 09:09 | Outpatient (REF) | payer MEDICAID, SELFPAY ==
[2023-05-26 10:27] LABS: MANUAL DIFF FLAG NO
[2023-05-26 10:52] LABS: Basophils Absolute Auto 0.1 X10*3/uL (0.0-0.2); Basophils Percent Auto 0.5 % (0-2); Eosinophils Absolute Auto 0.1 X10*3/uL (0.0-0.4); Eosinophils Percent Auto 1.1 % (0-4); Hemoglobin 12.5 g/dl (12.0-16.0); Imm Gran Pct Auto 0.9 % (0.0-0.4); Lymphocytes Absolute Auto 2.9 X10*3/uL (1.2-4.9); Mean Corpuscular HGB Conc 31.3 g/dl (31.0-35.0); Mean Corpuscular Hemoglobin 23.2 pg (27.0-33.0); Mean Corpuscular Volume 74.3 fL (80.0-98.0); Mean Platelet Volume 11.1 fL (9.4-12.3); Monocytes Absolute Auto 0.8 X10*3/uL (0.1-1.2); Monocytes Percent Auto 6.8 % (2-11); Neutrophils Absolute Auto 7.3 x10*3/uL (2.0-8.3); Neutrophils Percent Auto 64.7 % (45-73); Platelet Count 397 X10*3/uL (160-400); Red Blood Count 5.38 X10*6/uL (4.20-5.50); White Blood Count 11.2 X10*3/uL (4.8-10.8)
[2023-05-26 11:30] LABS: Alanine Aminotransferase 13 U/L (0-31); Albumin Level 4.1 g/dL (3.5-5.0); Alkaline Phosphatase 118 U/L (39-117); Anion Gap 14 (12-20); Aspartate Amino Transferase 16 U/L (5-31); Bilirubin Total 0.5 mg/dL (0.0-1.0); Blood Urea Nitrogen 11 mg/dL (9-16); Calcium 9.8 mg/dL (8.4-10.2); Carbon Dioxide 23 mmol/L (22-29); Chloride 108 mmol/L (96-108); Estimated Glomerular Filt Rate > 60; Glucose Random 99 mg/dL (60-115); Potassium 4.4 mmol/L (3.3-5.1); Sodium 141 mmol/L (135-145); Total Protein 7.8 g/dL (6.5-8.0)
== END 2023-05-26 09:10 | disposition home or self-care (01) ==
LOC: HO.LAB 09:09
PROVIDERS: PCP Family Medicine; Visit Provider Nurse Practitioner
DX: K75.81 Nonalcoholic steatohepatitis (NASH) (principal); K21.9 Gastro-esophageal reflux disease without esophagitis; K59.04 Chronic idiopathic constipation; K63.5 Polyp of colon; K91.2 Postsurgical malabsorption, not elsewhere classified; T88.59XA Other complications of anesthesia, initial encounter; Z90.3 Acquired absence of stomach [part of]
CPT/HCPCS: 36415; 80053; 85025; 99212

== ENCOUNTER 2023-05-26 09:09 | Outpatient (AMB) | payer MEDICAID, SELFPAY ==
--- NOTE | 2023-05-26 09:17 | MHC.OFFVIS ---
Intake Vital Signs 05/26/23 09:22 Height 5 ft 4 in Weight 220 lb 7.396 oz BMI 37.8 BP 141/66 H Blood Pressure Location Rt brachial Position Sitting Pulse 67 Intake Visit Reasons: S/P Colon, Barker Intake Note: Patient returns to in office visit today s/p colonoscopy . CC: Felisa returns s/p colonoscopy on 02/15/[address] Barker. She c/o constipation. Patient states Linzess was helping before but now it takes a few days after she takes it before she is able to have a BM. Denies other GI concerns today. Allergies sulfamethoxazole [From Bactrim] Allergy (Verified 05/26/23 09:26) Rash trimethoprim [From Bactrim] Allergy (Verified 05/26/23 09:26) Rash HPI S/P Colon, Lucero HPI Details Assessment & Plan (1) Chronic idiopathic constipation: Code(s): K59.04 - Chronic idiopathic constipation Plan: She has been having a lot of personal struggles recently, and this has caused her to lack compliance daily with her Linzess. I suggest she try taking it later in the day, perhaps in the evening, but not at bedtime. Her hemorrhoids have been ok. She did not get an answer from her. PCP re: ROSS, so I will keep and eye. ROV 6 week. (2) GERD (gastroesophageal reflux disease): Comment: Was on omeprazole twice a day but since her constipation is improved and she is not taking any medication Code(s): K21.9 - Gastro-esophageal reflux disease without esophagitis COLONOSCOPY 02/15/23 Findings: Terminal Ileum-normal Cecum:normal Ascending Colon: normal Transverse Colon -normal Descending Colon:normal Sigmoid Colon: normal Rectum: Retroflexion with medium sized internal hemorrhoids, grade I, 6-8 mm sessile polyp removed with cold snare Anorectum - normal Impression and Post Procedure Diagnosis: polyp internal hemorrhoids Plan: High fiber diet leaflet Avoid straining at stool, epsom salts and sitz bath, anusol supps or cream Repeat Colonoscopy in 5-7 years if adenomatous polyp, 10 yrs if hyperplastic or earlier if clinically indicated BIOPSY Received: 02/15/23 Diagnosis Colon, rectal polyp: No tissue present for evaluation; fecal material only. TODAY'S VISIT [place] #Adri Morales She says she was not completely asleep for the colonoscopy, and it was a bad experience for her. She is somewhat fearful of this but agrees to a 5 year follow up, and I'm sure anesthesia can fix this. The procedure was well tolerated. The results were explained and the patient is agreeable to the follow-up interval as stated. Education was provided to tell any 1st degree relatives about their findings to be sure that they are screened by age 45. Educated that they will be put on a recall list when it is time for their repeat scope but should they move out of state or away from the hospital they will need to remember along with their primary to repeat the procedure in a timely fashion to avoid any adverse complications. She continues the Linzess 290 in the am but it will take 4-5 days to move he bowels. We will add bisacodyl now qhs. She is aware that she may need to buy this OTC. She reminds me that she needs labs for her HAWKINS and an US - ordered. ROV 4 weeks. [facility] Medical History (Updated 05/26/23 @ 13:23 by SLIME Temple) Cervical cancer screening Pre-op chest exam Gallstones Upper abdominal pain BMI 38.0-38.9,adult Obesity Hypoxia BMI 45.0-49.9, adult Intestinal malabsorption following gastrectomy Hepatomegaly DJD (degenerative joint disease) Abdominal adhesions Diabetes COVID-19 Gallstones Abdominal cramping Chronic idiopathic constipation Family history of anesthesia complication COVID-19 vaccine administered Arthritis Fibromyalgia Sleep apnea Cholelithiasis Vitamin D deficiency, unspecified Vitamin D deficiency Vitamin A deficiency Vitamin B1 deficiency Depression Hypertension Insulin dependent diabetes mellitus Morbid obesity Leukocytosis (leucocytosis) Sickle thalassemia disease Leucocytosis Chronic leukopenia Bilateral shoulder pain Dyslipidemia Axillary hidradenitis suppurativa Chronic back pain Polycystic ovarian syndrome Obesity Surgical History (Updated 05/26/23 @ 13:22 by SLIME Temple) S/P laparoscopic sleeve gastrectomy S/P gastric bypass H/O colonoscopy Hx of tubal ligation Hx of gastric bypass Hx of cholecystectomy History of esophagogastroduodenoscopy (EGD) Hx of section Family History Mother Diabetes DVT (deep venous thrombosis) HTN (hypertension) Father Diabetes HTN (hypertension) Sister Stroke Son Asthma Sickle cell anemia Son Sickle cell anemia Maternal Aunt Ovary cancer Throat cancer Breast cancer Paternal Aunt Stomach neoplasm Social History Household Members: Spouse and Children Housing: Apartment Are you a primary child care nurse to a significant other at home: Yes Do you presently have visiting nurse or other home services: No Patient Tobacco Use Status: Never used Tobacco service: No Current occupational status: employed and unemployed 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 Current occupational exposures/hazards: Yes (stress) Female Reproductive History Menstrual Age of Menarche: 9 Review of Systems Const Denies fatigue, Denies fever(s), Denies night sweats, Denies poor appetite and Denies weight loss ENT Reports Normal hearing present, Denies dysphagia, Denies odynophagia, Denies throat swelling and Denies tongue swelling Card Reports no additional complaints Resp Reports no additional complaints GI Denies abdominal pain, Denies melena, Denies bloating, Denies hematochezia, Reports constipation, Denies GI cramping, Denies dysphagia, Denies excessive flatus, Denies early satiety, Denies heartburn, Denies diarrhea, Denies nausea, Denies odynophagia, Denies vomiting and Denies hematemesis Skin/Breast Denies pruritus, Denies lesions, Denies rash and Denies jaundice Neuro Reports Normal hearing present and Denies Abnormal speech present Endo Denies fatigue Aller/Immun Denies throat swelling and Denies tongue swelling Physical Exam Vital Signs: Last Vital Signs Pulse 67 05/26/23 09:22 BP 141/66 H 05/26/23 09:22 BMI result Body Mass Index 37.8 Const General: cooperative, no acute distress, well developed and well groomed Nutritional Appearance: well nourished and obese Orientation/consciousness: oriented to person, oriented to place and oriented to time Limitations: language barrier HEENT Head: Yes normocephalic and Yes atraumatic Eyes General: appearance normal, both eyes and all related structures Pupils: Equal, round and reactive pupils present Neck Neck: Yes normal visual inspection and Yes no lymphadenopathy Thyroid: Thyroid normal Resp Effort & Inspection: normal respiratory effort and able to speak in complete sentences Auscultation: clear to auscultation bilaterally Cardio Rate: regular rate Rhythm: regular rhythm Heart sounds: Normal, physiologic split S2 sound present Peripheral pulses: radial pulses present and posterior tibial pulses present GI Inspection: No distended, Yes Abdominal panniculus present and Yes obesity Palpation (GI): Soft to palpation, nontender, no guarding, not rigid and No hepatosplenomegaly present Percussion: Yes normal to percussion Auscultation: normal bowel sounds Rectal Exam - Female: deferred Skin General skin exam: no rashes or lesions noted, turgor normal, skin not dry, no jaundice, No spider nevi and no striae Rashes: no rashes Nails: normal Neuro General: oriented to person, oriented to place and oriented to time Cranial nerves: Yes Equal, round and reactive pupils present and Yes Normal hearing present Speech: No Abnormal speech present Extrem General: Yes normal to inspection, No clubbing, No cyanosis and No edema Psych Appearance: grossly normal and well kempt Mental Status: mental status grossly normal Speech and movement: Normal speech and movement present Affect: normal affect Attitude: cooperative Thought process: Normal thought process present and not confabulating Thought content: Normal thought content present Insight: Limited insight present (Psych) Judgement: Limited judgement present (Psych) Results Reviewed Results Reviewed: COLONOSCOPY 02/15/23 Findings: Terminal Ileum-normal Cecum:normal Ascending Colon: normal Transverse Colon -normal Descending Colon:normal Sigmoid Colon: normal Rectum: Retroflexion with medium sized internal hemorrhoids, grade I, 6-8 mm sessile polyp removed with cold snare Anorectum - normal Impression and Post Procedure Diagnosis: polyp internal hemorrhoids Plan: High fiber diet leaflet Avoid straining at stool, epsom salts and sitz bath, anusol supps or cream Repeat Colonoscopy in 5-7 years if adenomatous polyp, 10 yrs if hyperplastic or earlier if clinically indicated BIOPSY Received: 02/15/23 Diagnosis Colon, rectal polyp: No tissue present for evaluation; fecal material only. Assessment & Plan Assessment & Plan (1) HAWKINS (nonalcoholic steatohepatitis): Comment: mild elevation SMA 36 11/2018, US 12/07/2018, mld elevation SMA, Hep A, B, C neg, ast/alt wnl but alk phos up, AFP 0.9, ferritin wnl, ggt 59 01/30/211005/2109 [id number] WBC 11.5 H Hgb 12.8 D Hct 41.1 D MCV 74.3 L MCH 23.1 L Plt Count 413 H D Estimated GFR > 60 Total Bilirubin 0.3 AST 16 ALT 10 Alkaline Phosphatase 115 D Alpha Fetoprotein 1.3 ULTRASOUND OF THE ABDOMEN 03/04/21 FINDINGS: PANCREAS: Not well visualized due to bowel gas. LIVER: Normal. The liver is normal in size. The liver contour is normal. Liver echotexture is slightly increased.. No focal hepatic lesion. There is no intrahepatic biliary duct dilatation seen. The previously identified 1 cm hyperechoic lesion in the right lobe liver on prior exams is not appreciated. GALLBLADDER: The gallbladder is normal in size. There are gallstones in the gallbladder. The gallbladder wall is normal COMMON BILE DUCT: Normal in caliber measuring 0.3 cm in diameter. RIGHT KIDNEY: Normal. No hydronephrosis. No renal calculi or focal parenchymal lesions. The kidney measures 9.1 cm in maximum dimension. FREE FLUID: None. US/US abdomen limited IMPRESSION: Slightly echogenic liver probably representing fatty infiltration. Gallstones. Limited visualization of the pancreas. NOW BEING FOLLOWED BY [facility] Code(s): K75.81 - Nonalcoholic steatohepatitis (HAWKINS) (2) GERD (gastroesophageal reflux disease): Comment: Was on omeprazole twice a day but since her constipation is improved she is not taking any medication Code(s): K21.9 - Gastro-esophageal reflux disease without esophagitis (3) Chronic idiopathic constipation: Code(s): K59.04 - Chronic idiopathic constipation (4) Intestinal malabsorption following gastrectomy: Code(s): K91.2 - Postsurgical malabsorption, not elsewhere classified; Z90.3 - Acquired absence of stomach [part of] (5) Anesthesia complication: Comment: Patient not completely 2022 colonoscopy and she found this experience, please addresses with anesthesia when she needs a repeat scope Code(s): T88.59XA - Other complications of anesthesia, initial encounter (6) Colon polyp: Comment: 2022 scope equals un retrieved so unknown type of polyp repeat in 5 years to be safe Code(s): K63.5 - Polyp of colon Plan [place] #Adri Live She says she was not completely asleep for the colonoscopy, and it was a bad experience for her. She is somewhat fearful of this but agrees to a 5 year follow up, and I'm sure anesthesia can fix this. The procedure was well tolerated. The results were explained and the patient is agreeable to the follow-up interval as stated. Education was provided to tell any 1st degree relatives about their findings to be sure that they are screened by age 45. Educated that they will be put on a recall list when it is time for their repeat scope but should they move out of state or away from the hospital they will need to remember along with their primary to repeat the procedure in a timely fashion to avoid any adverse complications. She continues the Linzess 290 in the am but it will take 4-5 days to move he bowels. We will add bisacodyl now qhs. She is aware that she may need to buy this OTC. She reminds me that she needs labs for her HAWKINS and an US - ordered. ROV 4 weeks. Orders: Orders Complete Blood Count Auto Diff Today K75.81 - Nonalcoholic steatohepatitis (HAWKINS) Comprehensive Met. Panel Today K75.81 - Nonalcoholic steatohepatitis (HAWKINS) US abdomen complete Today K75.81 - Nonalcoholic steatohepatitis (HAWKINS) Medications: Refilled linaclotide (Linzess) 290 mcg PO QAM 30 caps 6RF K59.04 - Chronic idiopathic constipation bisacodyl (Dulcolax (bisacodyl)) 10 mg (2 x 5 mg) PO BEDTIME 30 days 60 tabs 6RF K59.04 - Chronic idiopathic constipation Coding Level of Care Code Est Pt Level 3 (73383) Diagnoses HAWKINS (nonalcoholic steatohepatitis) K75.81 GERD (gastroesophageal reflux disease) K21.9 Chronic idiopathic constipation K59.04 Intestinal malabsorption following gastrectomy K91.2; Z90.3 Anesthesia complication T88.59XA Colon polyp K63.5
[2023-05-26 09:22] VITALS: BP 141/66; PULSE 67; BMI 37.8
== END 2023-05-26 10:08 | disposition home or self-care (01) ==
PROVIDERS: PCP Family Medicine; Visit Provider Nurse Practitioner
DX: K75.81 Nonalcoholic steatohepatitis (NASH) (principal); K21.9 Gastro-esophageal reflux disease without esophagitis; K59.04 Chronic idiopathic constipation; K91.2 Postsurgical malabsorption, not elsewhere classified; Z90.3 Acquired absence of stomach [part of]; T88.59XA Other complications of anesthesia, initial encounter; K63.5 Polyp of colon
CPT/HCPCS: 99213

== ENCOUNTER 2023-06-02 08:12 | Outpatient (REF) | payer MEDICAID, SELFPAY ==
--- NOTE | ~2023-06-02 | MR_ITS ---
EXAMINATION: MR PELVIS WITHOUT AND WITH CONTRAST CLINICAL INFORMATION: Pelvic pain for 8 months, echogenic right ovarian lesion found on ultrasound COMPARISON: Ultrasound examination of pelvis on 01/14/2023 EXAMINATION: MRI pelvis . INDICATION: Pelvic mass lesion. TECHNIQUE: Examination was performed in a high field strength MRI scanner. Pre-contrast multiplanar multisequence MR imaging of the pelvis was performed without IV contrast enhancement. Post-contrast coronal, axial and sagittal T1 weighted fat suppressed images of the pelvis were obtained after IV injection of 10 mL Gadavist. FINDINGS: Left adnexal T2 hyperintense rim-enhancing cyst is seen, measuring 1.8 cm in AP and transverse diameter, 1.7 cm in vertical height. Uterus is anteverted with normal endometrial stripe. Right ovary is normal in size, visualized in posterior right adnexa. No focal lesion with abnormal signal or enhancement could be seen, specifically, no T1 hyperintense lesion No right adnexal lesion could be seen. Urinary bladder is well filled with urine. Pelvic fat plane is clean. No pelvic ascites is seen. No abnormally enlarged iliac or inguinal lymph nodes are found. The pelvis and bilateral hips are intact. Bilateral femoral heads and necks show normal signal without focal lesion. No abnormal joint effusion can be seen. The visualized bony pelvis show normal signal. Bilateral sacroiliac joints also appear unremarkable. At least 2 T2 hypointense filling defects are seen in the gallbladder measuring up to 1 cm in diameter, series 3 image #22. MR/MR pelvis wo/w con IMPRESSION: 1. No focal lesion including T1 hyperintense lesion could be found in the right ovary to suggest dermoid lesion. The hypoechoic lesion reported on ultrasound examination of the pelvis may represent resolved small hemorrhagic right ovarian cyst. Follow-up pelvic ultrasound examination in 6-12 weeks is still recommended. 2. Incidental note is made of at least 2 filling defects in the gallbladder measuring up to 1 cm in diameter, likely representing gallstones. 3. Left adnexal 1.8 cm simple cyst. Findings are overwhelmingly likely to represent a normal ovarian follicle. No followup imaging recommended.
[2023-06-02] MEDS: gadobutroL 10 ML VIAL IVPUSH (09:11)
== END 2023-06-02 08:13 | disposition home or self-care (01) ==
LOC: HO.MRI 08:12
PROVIDERS: PCP Family Medicine; Visit Provider Obstetrics & Gynecology
DX: N83.299 Other ovarian cyst, unspecified side (principal)
CPT/HCPCS: 72197; A9585

== ENCOUNTER 2023-06-14 08:54 | Outpatient (REF) | payer MEDICAID, SELFPAY ==
--- NOTE | ~2023-06-14 | US_ITS ---
EXAMINATION: US ABDOMEN COMPLETE CLINICAL INFORMATION: Nonalcoholic steatohepatitis (HAWKINS). COMPARISON: CT abdomen 10/13/2022. Ultrasound abdomen 03/03/2021. TECHNIQUE: Real-time imaging of the abdominal viscera. FINDINGS: PANCREAS: The visualized head and body of the pancreas appears unremarkable. Remainder of the pancreas is obscured by bowel gas. ABDOMINAL AORTA: The proximal, mid, and distal segments are normal in caliber. INFERIOR VENA CAVA: Visualized portions are normal. LIVER: The liver is normal in size. The liver contour is normal. Diffuse increased parenchymal echogenicity. No focal hepatic lesion. There is no intrahepatic biliary duct dilatation seen. GALLBLADDER: Gallstones present. Largest measures 1.3 cm. No evidence of gallbladder wall thickening or pericholecystic fluid. COMMON BILE DUCT: Normal in caliber measuring 0.3 cm in diameter. RIGHT KIDNEY: Normal. No hydronephrosis. No renal calculi or focal parenchymal lesions. The kidney measures 9.9 cm in maximum dimension. LEFT KIDNEY: The small Bosniak I cyst seen on the prior CT scan is not evident on today's ultrasound. No renal calculi or focal parenchymal lesions. The kidney measures 9.7 cm in maximum dimension. Cystic focus in the renal pelvis, could reflect parapelvic cyst versus calyceal dilatation. SPLEEN: Normal. The spleen measures 9.1 cm in maximum dimension. FREE FLUID: None. US/US abdomen complete IMPRESSION: 1. There is generalized increase in hepatic echotexture, consistent with fatty infiltration or hepatocellular disease. Please correlate clinically. No focal hepatic mass or intrahepatic biliary duct dilatation is seen. 2. Gallstones. No sonographic findings to suggest acute cholecystitis. 3. Small left renal parapelvic cyst versus calyceal dilatation.
== END 2023-06-14 08:55 | disposition home or self-care (01) ==
LOC: HO.US 08:54
PROVIDERS: PCP Family Medicine; Visit Provider Nurse Practitioner
DX: K75.81 Nonalcoholic steatohepatitis (NASH) (principal)
CPT/HCPCS: 76700

== ENCOUNTER 2023-06-22 08:46 | Outpatient (REF) | payer MEDICAID, SELFPAY ==
[2023-06-22 10:15] LABS: Hematocrit 37.1 % (37.0-47.0); Hemoglobin 11.3 g/dl (12.0-16.0); Mean Corpuscular HGB Conc 30.5 g/dl (31.0-35.0); Mean Corpuscular Hemoglobin 22.5 pg (27.0-33.0); Mean Corpuscular Volume 73.9 fL (80.0-98.0); Mean Platelet Volume 10.8 fL (9.4-12.3); Platelet Count 438 X10*3/uL (160-400); Red Blood Count 5.02 X10*6/uL (4.20-5.50); Red Cell Distribution Width 14.8 % (11.0-16.0); White Blood Count 9.2 X10*3/uL (4.8-10.8)
[2023-06-22 11:07] LABS: HCG Quantitative < 2 mIU/mL; TSH reflex Free T4 0.98 uIU/mL (0.32-4.0)
[2023-06-23 10:59] LABS: Lutenizing Hormone 5.8 mIU/mL; Prolactin 3.4 ng/mL
== END 2023-06-22 08:47 | disposition home or self-care (01) ==
LOC: HO.LAB 08:46
PROVIDERS: PCP Family Medicine; Visit Provider Obstetrics & Gynecology
DX: N93.9 Abnormal uterine and vaginal bleeding, unspecified (principal); N83.299 Other ovarian cyst, unspecified side; K80.20 Calculus of gallbladder without cholecystitis without obstruction
CPT/HCPCS: 36415; 83001; 83002; 84146; 84443; 84702; 85027; 99212

== ENCOUNTER 2023-06-22 08:46 | Outpatient (AMB) | payer MEDICAID, SELFPAY ==
[2023-06-22 09:03] VITALS: BMI 37.8
--- NOTE | 2023-06-22 09:03 | MHC.OFFVIS ---
Intake Vital Signs 06/22/23 09:03 Height 5 ft 4 in Weight 220 lb 7.396 oz BMI 37.8 Intake Visit Reasons: MRI follow up Equipment Engineering Technician Required: Yes Equipment Engineering Technician Language: Worm Raiser Name: Maribell HINOJOSA Information Interpreted: non-clinical & clinical Accompanied by: Son Allergies sulfamethoxazole [From Bactrim] Allergy (Verified 06/22/23 09:12) Rash trimethoprim [From Bactrim] Allergy (Verified 06/22/23 09:12) Rash HPI HPI Comments History of Present Illness Details Presenting for pelvic MRI follow-up . Pelvic MRI showed the following: IMPRESSION: 1. No focal lesion including T1 hyperintense lesion could be found in the right ovary to suggest dermoid lesion. The hypoechoic lesion reported on ultrasound examination of the pelvis may represent resolved small hemorrhagic right ovarian cyst. Follow-up pelvic ultrasound examination in 6-12 weeks is still recommended. 2. Incidental note is made of at least 2 filling defects in the gallbladder measuring up to 1 cm in diameter, likely representing gallstones. 3. Left adnexal 1.8 cm simple cyst. Findings are overwhelmingly likely to represent a normal ovarian follicle. No followup imaging recommended The patient has been complaining of regular heavy menstrual cycles associated with passage of blood clots and pelvic cramping Last co testing was in 12/22 was negative Last mammogram was in 06/24 was BI-RADS 1 Last pelvic ultrasound was in 01/22 which showed the following: IMPRESSION: 1. A 0.5 cm hyperechoic focus in the right ovary without internal vascularity which may reflect a tiny ovarian dermoid. Recommend definitive characterization with contrast-enhanced MR and if not surgically resected, annual follow-up ultrasound. 2. Uterus is mildly enlarged and heterogeneous in echotexture, which could be seen in the setting of adenomyosis, which could be confirmed with MR pelvis [facility] Medical History Cervical cancer screening Pre-op chest exam Gallstones Upper abdominal pain BMI 38.0-38.9,adult Obesity Hypoxia BMI 45.0-49.9, adult Intestinal malabsorption following gastrectomy Hepatomegaly DJD (degenerative joint disease) Abdominal adhesions Diabetes COVID-19 Gallstones Abdominal cramping Chronic idiopathic constipation Family history of anesthesia complication COVID-19 vaccine administered Arthritis Fibromyalgia Sleep apnea Cholelithiasis Vitamin D deficiency, unspecified Vitamin D deficiency Vitamin A deficiency Vitamin B1 deficiency Depression Hypertension Insulin dependent diabetes mellitus Morbid obesity Leukocytosis (leucocytosis) Sickle thalassemia disease Leucocytosis Chronic leukopenia Bilateral shoulder pain Dyslipidemia Axillary hidradenitis suppurativa Chronic back pain Polycystic ovarian syndrome Obesity Surgical History S/P laparoscopic sleeve gastrectomy S/P gastric bypass H/O colonoscopy Hx of tubal ligation Hx of gastric bypass Hx of cholecystectomy History of esophagogastroduodenoscopy (EGD) Hx of section Family History Mother Diabetes DVT (deep venous thrombosis) HTN (hypertension) Father Diabetes HTN (hypertension) Sister Stroke Son Asthma Sickle cell anemia Son Sickle cell anemia Maternal Aunt Ovary cancer Throat cancer Breast cancer Paternal Aunt Stomach neoplasm Social History Household Members: Spouse and Children Housing: Apartment Are you a primary summer child caregiver to a significant other at home: Yes Do you presently have visiting nurse or other home services: No Patient Tobacco Use Status: Never used Tobacco service: No Current occupational status: employed and unemployed 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 Current occupational exposures/hazards: Yes (stress) Female Reproductive History Menstrual Age of Menarche: 9 Review of Systems Const All systems reviewed & are unremarkable except as noted in HPI and below Reports as per HPI and Reports no additional complaints GI Reports no additional complaints Reports no additional complaints Physical Exam Vital Signs: BMI result Body Mass Index 37.8 Assessment & Plan Assessment & Plan (1) Complex ovarian cyst: Comment: Resolved by MRI Code(s): N83.299 - Other ovarian cyst, unspecified side Plan: Discussed with the patient pelvic MRI findings showing the previously identified complex cyst has resolved. The patient was instructed to call if symptoms recur. All questions were answered the patient verbalized understanding. (2) Gallbladder calculus: Code(s): K80.20 - Calculus of gallbladder without cholecystitis without obstruction Plan: Discussed with the patient the finding on pelvic MRI showing gallbladder stones, with refer to general surgery for further management (3) Abnormal uterine bleeding (AUB): Code(s): N93.9 - Abnormal uterine and vaginal bleeding, unspecified Plan: Co testing up-to-date, GC and chlamydia done few months ago they were normal , will order CBC, TSH, prolactin, FSH/LH HCG. Discussed with the patient the different causes of abnormal bleeding including thyroid disorders, uterine and ovarian pathology, endometrial hyperplasia, carcinoma and other potential causes. Discussed with the patient the work up including CBC (to r/o anemia), TSH, prolactin, FSH/LH, endometrial biopsy to r/o endometrial pathology. All questions answered and the patient verbalized understanding. Instructed the patient to schedule an appointment for an endometrial biopsy in 2 weeks. Orders: Orders MM screening mammo BI Today Z12.31 - Encounter for screening mammogram for malignant neoplasm of breast HCG Quantitative Today N93.9 - Abnormal uterine and vaginal bleeding, unspecified Follicle Stimulating Hormone Today N93.9 - Abnormal uterine and vaginal bleeding, unspecified TSH reflex Free T4 Today N93.9 - Abnormal uterine and vaginal bleeding, unspecified Prolactin Today N93.9 - Abnormal uterine and vaginal bleeding, unspecified Complete Blood Count no Diff Today N93.9 - Abnormal uterine and vaginal bleeding, unspecified Lutenizing Hormone Today N93.9 - Abnormal uterine and vaginal bleeding, unspecified Referrals General Surgery Referral K80.20 - Calculus of gallbladder without cholecystitis without obstruction Coding Level of Care Code Est Pt Level 3 (02632) Diagnoses Complex ovarian cyst N83.299 Gallbladder calculus K80.20 Abnormal uterine bleeding (AUB) N93.9
== END 2023-06-22 10:19 | disposition home or self-care (01) ==
LOC: HO.HWS 08:46
PROVIDERS: PCP Family Medicine; Visit Provider Obstetrics & Gynecology
DX: N83.299 Other ovarian cyst, unspecified side (principal); K80.20 Calculus of gallbladder without cholecystitis without obstruction; N93.9 Abnormal uterine and vaginal bleeding, unspecified
CPT/HCPCS: 99213

== ENCOUNTER 2023-06-23 10:43 | Outpatient (AMB) | payer MEDICAID, SELFPAY ==
--- NOTE | 2023-06-23 10:45 | MHC.OFFVIS ---
Intake Vital Signs 06/23/23 11:16 Height 5 ft 4 in Weight 216 lb BMI 37.1 BP 135/68 Blood Pressure Location Lt brachial Position Sitting Pulse 65 Intake Visit Reasons: 4 week follow up Intake Note: Patient follow up for constipation and results. Patient cc: abdominal pain on and off, denies any other GI issues for today. Annual Campaign Manager Required: Yes Annual Campaign Manager Name: [facility] Interpeter Accompanied by: Self / Same As Patient Allergies sulfamethoxazole [From Bactrim] Allergy (Verified 07/05/23 10:00) Rash trimethoprim [From Bactrim] Allergy (Verified 07/05/23 10:00) Rash HPI 4 week follow up HPI Details Assessment & Plan (1) HAWKINS (nonalcoholic steatohepatitis): Comment: mild elevation SMA 36 11/2018, US 12/07/2018, mld elevation SMA, Hep A, B, C neg, ast/alt wnl but alk phos up, AFP 0.9, ferritin wnl, ggt 59 01/30/211005/2109 14:3314:3314:33 WBC 11.5 H Hgb 12.8 D Hct 41.1 D MCV 74.3 L MCH 23.1 L Plt Count 413 H D Estimated GFR > 60 Total Bilirubin 0.3 AST 16 ALT 10 Alkaline Phosphatase 115 D Alpha Fetoprotein 1.3 ULTRASOUND OF THE ABDOMEN 03/04/21 FINDINGS: PANCREAS: Not well visualized due to bowel gas. LIVER: Normal. The liver is normal in size. The liver contour is normal. Liver echotexture is slightly increased.. No focal hepatic lesion. There is no intrahepatic biliary duct dilatation seen. The previously identified 1 cm hyperechoic lesion in the right lobe liver on prior exams is not appreciated. GALLBLADDER: The gallbladder is normal in size. There are gallstones in the gallbladder. The gallbladder wall is normal COMMON BILE DUCT: Normal in caliber measuring 0.3 cm in diameter. RIGHT KIDNEY: Normal. No hydronephrosis. No renal calculi or focal parenchymal lesions. The kidney measures 9.1 cm in maximum dimension. FREE FLUID: None. US/US abdomen limited IMPRESSION: Slightly echogenic liver probably representing fatty infiltration. Gallstones. Limited visualization of the pancreas. NOW BEING FOLLOWED BY [facility] Code(s): K75.81 - Nonalcoholic steatohepatitis (HAWKINS) (2) GERD (gastroesophageal reflux disease): Comment: Was on omeprazole twice a day but since her constipation is improved she is not taking any medication Code(s): K21.9 - Gastro-esophageal reflux disease without esophagitis (3) Chronic idiopathic constipation: Code(s): K59.04 - Chronic idiopathic constipation (4) Intestinal malabsorption following gastrectomy: Code(s): K91.2 - Postsurgical malabsorption, not elsewhere classified; Z90.3 - Acquired absence of stomach [part of] (5) Anesthesia complication: Comment: Patient not completely 2022 colonoscopy and she found this experience, please addresses with anesthesia when she needs a repeat scope Code(s): T88.59XA - Other complications of anesthesia, initial encounter (6) Colon polyp: Comment: 2022 scope equals un retrieved so unknown type of polyp repeat in 5 years to be safe Code(s): K63.5 - Polyp of colon Plan Congolese #Adri Live She says she was not completely asleep for the colonoscopy, and it was a bad experience for her. She is somewhat fearful of this but agrees to a 5 year follow up, and I'm sure anesthesia can fix this. The procedure was well tolerated. The results were explained and the patient is agreeable to the follow-up interval as stated. Education was provided to tell any 1st degree relatives about their findings to be sure that they are screened by age 45. Educated that they will be put on a recall list when it is time for their repeat scope but should they move out of state or away from the hospital they will need to remember along with their primary to repeat the procedure in a timely fashion to avoid any adverse complications. She continues the Linzess 290 in the am but it will take 4-5 days to move he bowels. We will add bisacodyl now qhs. She is aware that she may need to buy this OTC. She reminds me that she needs labs for her HAWKINS and an US - ordered. ROV 4 weeks. Orders: Orders Complete Blood Cou nt Auto Diff Today K75.81 - Nonalcoho lic steatohepatiti s (HAWKINS) Comprehensive Met. Panel Today K75.81 - Nonalcoho lic steatohepatiti s (HAWKINS) US abdomen complet e Today K75.81 - Nonalcoho lic steatohepatiti s (HAWKINS) Medications: Refilled linaclotide (Linze ss) 290 mcg PO QAM 30 caps 6RF K59.04 - Chronic i diopathic constipa tion bisacodyl (Dulcola x (bisacodyl)) 10 mg (2 x 5 mg) P O BEDTIME 30 days 60 tabs 6RF K59.04 - Chronic i diopathic constipa tion LABS: Laboratory Tests 05/26/23 06/22/23 06/22/23 10:26 09:57 09:57 WBC 9.2 Hgb 11.3 L Hct 37.1 MCV 73.9 L MCH 22.5 L MCHC 30.5 L Plt Count 438 H Estimated GFR > 60 Total Bilirubin 0.5 AST 16 ALT 13 Alkaline Phosphata se 118 H TSH 0.98 ULTRASOUND OF THE ABDOMEN 06/14/23 FINDINGS: PANCREAS: The visualized head and body of the pancreas appears unremarkable. Remainder of the pancreas is obscured by bowel gas. ABDOMINAL AORTA: The proximal, mid, and distal segments are normal in caliber. INFERIOR VENA CAVA: Visualized portions are normal. LIVER: The liver is normal in size. The liver contour is normal. Diffuse increased parenchymal echogenicity. No focal hepatic lesion. There is no intrahepatic biliary duct dilatation seen. GALLBLADDER: Gallstones present. Largest measures 1.3 cm. No evidence of gallbladder wall thickening or pericholecystic fluid. COMMON BILE DUCT: Normal in caliber measuring 0.3 cm in diameter. RIGHT KIDNEY: Normal. No hydronephrosis. No renal calculi or focal parenchymal lesions. The kidney measures 9.9 cm in maximum dimension. LEFT KIDNEY: The small Bosniak I cyst seen on the prior CT scan is not evident on today's ultrasound. No renal calculi or focal parenchymal lesions. The kidney measures 9.7 cm in maximum dimension. Cystic focus in the renal pelvis, could reflect parapelvic cyst versus calyceal dilatation. SPLEEN: Normal. The spleen measures 9.1 cm in maximum dimension. FREE FLUID: None. US/US abdomen complete IMPRESSION: 1. There is generalized increase in hepatic echotexture, consistent with fatty infiltration or hepatocellular disease. Please correlate clinically. No focal hepatic mass or intrahepatic biliary duct dilatation is seen. 2. Gallstones. No sonographic findings to suggest acute cholecystitis. 3. Small left renal parapelvic cyst versus calyceal dilatation. Danish #Yolanda Live She is now moving her bowels well with the LInzess 290 and the bisacodyl qhs. We review the labs and since her transaminases are completely normal and the fatty replacement is minimal I do not think she needs to be followed by our office for this. Her primary can simply do her normal half yearly her yearly labs and should her transaminases become more than twice the upper normal limit then she can be returned to our services for further consideration. Return office visit in 6 months [facility] Medical History Cervical cancer screening Pre-op chest exam Gallstones Upper abdominal pain BMI 38.0-38.9,adult Obesity Hypoxia BMI 45.0-49.9, adult Intestinal malabsorption following gastrectomy Hepatomegaly DJD (degenerative joint disease) Abdominal adhesions Diabetes COVID-19 Gallstones Abdominal cramping Chronic idiopathic constipation Family history of anesthesia complication COVID-19 vaccine administered Arthritis Fibromyalgia Sleep apnea Cholelithiasis Vitamin D deficiency, unspecified Vitamin D deficiency Vitamin A deficiency Vitamin B1 deficiency Depression Hypertension Insulin dependent diabetes mellitus Morbid obesity Leukocytosis (leucocytosis) Sickle thalassemia disease Leucocytosis Chronic leukopenia Bilateral shoulder pain Dyslipidemia Axillary hidradenitis suppurativa Chronic back pain Polycystic ovarian syndrome Obesity Surgical History S/P laparoscopic sleeve gastrectomy S/P gastric bypass H/O colonoscopy Hx of tubal ligation Hx of gastric bypass Hx of cholecystectomy History of esophagogastroduodenoscopy (EGD) Hx of section Family History Mother Diabetes DVT (deep venous thrombosis) HTN (hypertension) Father Diabetes HTN (hypertension) Sister Stroke Son Asthma Sickle cell anemia Son Sickle cell anemia Maternal Aunt Ovary cancer Throat cancer Breast cancer Paternal Aunt Stomach neoplasm Social History (Reviewed 07/05/23 @ 10:01 by YAMILKA Vallejo Household Members: Spouse and Children Housing: Apartment Are you a primary care advocate to a significant other at home: Yes Do you presently have visiting nurse or other home services: No Patient Tobacco Use Status: Never used Tobacco service: No Current occupational status: employed and unemployed 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 Current occupational exposures/hazards: Yes (stress) Female Reproductive History Menstrual Age of Menarche: 9 Review of Systems Const Denies fatigue, Denies fever(s), Denies night sweats, Denies poor appetite and Denies weight loss Eyes Reports requires corrective lenses ENT Reports Normal hearing present, Denies dental pain, Denies dysphagia, Denies hearing loss, Denies mouth pain, Denies odynophagia, Denies throat swelling, Denies tongue swelling and Reports other (Dentition adequate) GI Details: Denies abdominal pain, Denies melena, Denies bloating, Denies hematochezia, Denies constipation, Denies GI cramping, Denies dysphagia, Denies excessive flatus, Denies early satiety, Denies heartburn, Denies diarrhea, Denies nausea, Denies odynophagia, Denies vomiting and Denies hematemesis Skin/Breast Denies pruritus, Denies lesions, Denies rash and Denies jaundice Neuro Reports Normal hearing present and Denies Abnormal speech present Endo Denies fatigue Aller/Immun Denies throat swelling and Denies tongue swelling Physical Exam Vital Signs: Last Vital Signs Pulse 65 06/23/23 11:16 BP 135/68 06/23/23 11:16 BMI result Body Mass Index 37.1 Const General: cooperative, no acute distress, well developed and well groomed Nutritional Appearance: well nourished, obese and overweight Orientation/consciousness: oriented to person, oriented to place and oriented to time Limitations: No language barrier, ambulation with cane, ambulation with walker and wheelchair HEENT Head: Yes normocephalic and Yes atraumatic Eyes General: appearance normal, both eyes and all related structures Pupils: Equal, round and reactive pupils present Neck Neck: Yes normal visual inspection and Yes no lymphadenopathy Thyroid: Thyroid normal Resp Effort & Inspection: normal respiratory effort and able to speak in complete sentences Auscultation: clear to auscultation bilaterally Cardio Rate: regular rate Rhythm: regular rhythm Heart sounds: Normal, physiologic split S2 sound present Peripheral pulses: radial pulses present and posterior tibial pulses present GI Inspection: No distended and No Abdominal panniculus present Palpation (GI): Soft to palpation, nontender, no guarding, not rigid, No hepatosplenomegaly present and Hepatosplenomegaly present Percussion: Yes normal to percussion Auscultation: normal bowel sounds Rectal Exam - Female: deferred Skin General skin exam: no rashes or lesions noted, turgor normal, skin not dry, no jaundice, No spider nevi and no striae Rashes: no rashes Nails: normal Neuro General: oriented to person, oriented to place and oriented to time Cranial nerves: Yes Equal, round and reactive pupils present and Yes Normal hearing present Speech: No Abnormal speech present Extrem General: Yes normal to inspection, No clubbing, No cyanosis and No edema Psych Thought process: Normal thought process present and not confabulating Thought content: Normal thought content present Insight: Good insight present (Psych) Judgement: Good judgement present (Psych) Results Reviewed Results Reviewed: Laboratory Tests 05/26/23 06/22/23 06/22/23 10:26 09:57 09:57 WBC 9.2 Hgb 11.3 L Hct 37.1 MCV 73.9 L MCH 22.5 L MCHC 30.5 L Plt Count 438 H Estimated GFR > 60 Total Bilirubin 0.5 AST 16 ALT 13 Alkaline Phosphatase 118 H TSH 0.98 ULTRASOUND OF THE ABDOMEN 06/14/23 FINDINGS: PANCREAS: The visualized head and body of the pancreas appears unremarkable. Remainder of the pancreas is obscured by bowel gas. ABDOMINAL AORTA: The proximal, mid, and distal segments are normal in caliber. INFERIOR VENA CAVA: Visualized portions are normal. LIVER: The liver is normal in size. The liver contour is normal. Diffuse increased parenchymal echogenicity. No focal hepatic lesion. There is no intrahepatic biliary duct dilatation seen. GALLBLADDER: Gallstones present. Largest measures 1.3 cm. No evidence of gallbladder wall thickening or pericholecystic fluid. COMMON BILE DUCT: Normal in caliber measuring 0.3 cm in diameter. RIGHT KIDNEY: Normal. No hydronephrosis. No renal calculi or focal parenchymal lesions. The kidney measures 9.9 cm in maximum dimension. LEFT KIDNEY: The small Bosniak I cyst seen on the prior CT scan is not evident on today's ultrasound. No renal calculi or focal parenchymal lesions. The kidney measures 9.7 cm in maximum dimension. Cystic focus in the renal pelvis, could reflect parapelvic cyst versus calyceal dilatation. SPLEEN: Normal. The spleen measures 9.1 cm in maximum dimension. FREE FLUID: None. US/US abdomen complete IMPRESSION: 1. There is generalized increase in hepatic echotexture, consistent with fatty infiltration or hepatocellular disease. Please correlate clinically. No focal hepatic mass or intrahepatic biliary duct dilatation is seen. 2. Gallstones. No sonographic findings to suggest acute cholecystitis. 3. Small left renal parapelvic cyst versus calyceal dilatation. Assessment & Plan Assessment & Plan (1) HAWKINS (nonalcoholic steatohepatitis): Comment: GIVEN THE NORMAL TRANSAMINASES AND RELATIVELY BENIGN FINDINGS THIS CAN NOW BE MONITORED BY HER PRIMARY CARE PROVIDER AT 6 MONTH INTERVALS AND SHE IS RETURN TO OUR SERVICE IF THE TRANSAMINASES BECOME MORE THAN TWICE THE UPPER NORMAL LIMIT mild elevation SMA 36 11/2018, US 12/07/2018, mld elevation SMA, Hep A, B, C neg, ast/alt wnl but alk phos up, AFP 0.9, ferritin wnl, ggt 59 Laboratory Tests 05/26/2401/ 10:2609:5709:57 WBC 9.2 Hgb 11.3 L Hct 37.1 MCV 73.9 L MCH 22.5 L MCHC 30.5 L Plt Count 438 H Estimated GFR > 60 Total Bilirubin 0.5 AST 16 ALT 13 Alkaline Phosphatase 118 H TSH 0.98 ULTRASOUND OF THE ABDOMEN 06/14/23 FINDINGS: PANCREAS: The visualized head and body of the pancreas appears unremarkable. Remainder of the pancreas is obscured by bowel gas. ABDOMINAL AORTA: The proximal, mid, and distal segments are normal in caliber. INFERIOR VENA CAVA: Visualized portions are normal. LIVER: The liver is normal in size. The liver contour is normal. Diffuse increased parenchymal echogenicity. No focal hepatic lesion. There is no intrahepatic biliary duct dilatation seen. GALLBLADDER: Gallstones present. Largest measures 1.3 cm. No evidence of gallbladder wall thickening or pericholecystic fluid. COMMON BILE DUCT: Normal in caliber measuring 0.3 cm in diameter. RIGHT KIDNEY: Normal. No hydronephrosis. No renal calculi or focal parenchymal lesions. The kidney measures 9.9 cm in maximum dimension. LEFT KIDNEY: The small Bosniak I cyst seen on the prior CT scan is not evident on today's ultrasound. No renal calculi or focal parenchymal lesions. The kidney measures 9.7 cm in maximum dimension. Cystic focus in the renal pelvis, could reflect parapelvic cyst versus calyceal dilatation. SPLEEN: Normal. The spleen measures 9.1 cm in maximum dimension. FREE FLUID: None. US/US abdomen complete IMPRESSION: 1. There is generalized increase in hepatic echotexture, consistent with fatty infiltration or hepatocellular disease. Please correlate clinically. No focal hepatic mass or intrahepatic biliary duct dilatation is seen. 2. Gallstones. No sonographic findings to suggest acute cholecystitis. 3. Small left renal parapelvic cyst versus calyceal dilatation. NOW BEING FOLLOWED BY [facility] Code(s): K75.81 - Nonalcoholic steatohepatitis (HAWKINS) (2) GERD (gastroesophageal reflux disease): Comment: Was on omeprazole twice a day but since her constipation is improved she is not taking any medication Code(s): K21.9 - Gastro-esophageal reflux disease without esophagitis (3) Chronic idiopathic constipation: Code(s): K59.04 - Chronic idiopathic constipation Plan Danish #Yolanda Live She is now moving her bowels well with the LInzess 290 and the bisacodyl qhs. We review the labs and since her transaminases are completely normal and the fatty replacement is minimal I do not think she needs to be followed by our office for this. Her primary can simply do her normal half yearly her yearly labs and should her transaminases become more than twice the upper normal limit then she can be returned to our services for further consideration. Return office visit in 6 months Coding Level of Care Code Est Pt Level 3 (22709) Diagnoses HAWKINS (nonalcoholic steatohepatitis) K75.81 GERD (gastroesophageal reflux disease) K21.9 Chronic idiopathic constipation K59.04
[2023-06-23 11:16] VITALS: BP 135/68; PULSE 65; BMI 37.1
== END 2023-06-23 11:31 | disposition home or self-care (01) ==
PROVIDERS: PCP Family Medicine; Visit Provider Nurse Practitioner
DX: K75.81 Nonalcoholic steatohepatitis (NASH) (principal); K21.9 Gastro-esophageal reflux disease without esophagitis; K59.04 Chronic idiopathic constipation
CPT/HCPCS: 99213

== ENCOUNTER → 2023-06-23 10:43 | Outpatient (BNVA) | payer MEDICAID, SELFPAY | PROVIDERS: PCP Family Medicine; Visit Provider Nurse Practitioner | DX: K75.81 Nonalcoholic steatohepatitis (NASH) (principal); K21.9 Gastro-esophageal reflux disease without esophagitis; K59.04 Chronic idiopathic constipation | CPT/HCPCS: 99212 ==

== ENCOUNTER 2023-07-05 09:50 | Outpatient (AMB) | payer MEDICAID, SELFPAY ==
--- NOTE | 2023-07-05 09:56 | MHC.OFFVIS ---
Intake Vital Signs 07/05/23 10:04 Height 5 ft 4 in Weight 218 lb BMI 37.4 BP 124/68 Blood Pressure Location Rt brachial Position Sitting Pulse 71 Intake Visit Reasons: Calculus of gallbladder Intake Note: Patient referred by PCP Dr. Lincoln for calculus of gallbadder. Patient c/o: pain after eating a meal. Reports nausea, vomiting. Abs US: 06-14-23. Dialysis Equipment Technician Required: Yes Accompanied by: Self / Same As Patient Allergies sulfamethoxazole [From Bactrim] Allergy (Verified 07/05/23 10:00) Rash trimethoprim [From Bactrim] Allergy (Verified 07/05/23 10:00) Rash HPI HPI Comments History of Present Illness Details Patient presents with least a 2 year history of symptomatic gallbladder. She has postprandial right upper quadrant pain radiating around to her back. She has no other GI issues or complaints. She has tolerating a diet. Having regular bowel habits. She has never been jaundiced before. Chart was reviewed and patient evaluated. Sonogram demonstrates cholelithiasis PFSH Medical History Cervical cancer screening Pre-op chest exam Gallstones Upper abdominal pain BMI 38.0-38.9,adult Obesity Hypoxia BMI 45.0-49.9, adult Intestinal malabsorption following gastrectomy Hepatomegaly DJD (degenerative joint disease) Abdominal adhesions Diabetes COVID-19 Gallstones Abdominal cramping Chronic idiopathic constipation Family history of anesthesia complication COVID-19 vaccine administered Arthritis Fibromyalgia Sleep apnea Cholelithiasis Vitamin D deficiency, unspecified Vitamin D deficiency Vitamin A deficiency Vitamin B1 deficiency Depression Hypertension Insulin dependent diabetes mellitus Morbid obesity Leukocytosis (leucocytosis) Sickle thalassemia disease Leucocytosis Chronic leukopenia Bilateral shoulder pain Dyslipidemia Axillary hidradenitis suppurativa Chronic back pain Polycystic ovarian syndrome Obesity Surgical History S/P laparoscopic sleeve gastrectomy S/P gastric bypass H/O colonoscopy Hx of tubal ligation Hx of gastric bypass Hx of cholecystectomy History of esophagogastroduodenoscopy (EGD) Hx of section Family History Mother Diabetes DVT (deep venous thrombosis) HTN (hypertension) Father Diabetes HTN (hypertension) Sister Stroke Son Asthma Sickle cell anemia Son Sickle cell anemia Maternal Aunt Ovary cancer Throat cancer Breast cancer Paternal Aunt Stomach neoplasm Social History Household Members: Spouse and Children Housing: Apartment Are you a primary patient care director to a significant other at home: Yes Do you presently have visiting nurse or other home services: No Patient Tobacco Use Status: Never used Tobacco service: No Current occupational status: employed and unemployed 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 Current occupational exposures/hazards: Yes (stress) Female Reproductive History Menstrual Age of Menarche: 9 Physical Exam Vital Signs: Last Vital Signs Pulse 71 07/05/23 10:04 BP 124/68 07/05/23 10:04 BMI result Body Mass Index 37.4 Eyes Other: Anicteric Chest Other: Chest breath sounds bilaterally, HS 1 in 2 GI Other: Very corpulent abdomen, soft, benign Assessment & Plan Assessment & Plan (1) Recurrent biliary colic: Code(s): K80.50 - Calculus of bile duct without cholangitis or cholecystitis without obstruction (2) Gallbladder calculus: Code(s): K80.20 - Calculus of gallbladder without cholecystitis without obstruction Plan Risks, benefits, alternatives laparoscopic possible open cholecystectomy reviewed the patient included but not limited to bleeding, infection, recurrence of symptoms, numbness, pain, scarring, bowel or bile duct injury or leak and the patient wishes to proceed. All questions answered. Arrangements were made for this. Coding Level of Care Code New Pt Level 5 (26676) Diagnoses Recurrent biliary colic K80.50 Gallbladder calculus K80.20
[2023-07-05 10:04] VITALS: BP 124/68; PULSE 71; BMI 37.4
== END 2023-07-05 10:08 | disposition home or self-care (01) ==
PROVIDERS: PCP Family Medicine; Referring Provider Obstetrics & Gynecology; Visit Provider Surgery
DX: K80.50 Calculus of bile duct without cholangitis or cholecystitis without obstruction (principal); K80.20 Calculus of gallbladder without cholecystitis without obstruction
CPT/HCPCS: 99204

== ENCOUNTER → 2023-07-05 09:50 | Outpatient (BNVA) | payer MEDICAID, SELFPAY | PROVIDERS: PCP Family Medicine; Referring Provider Obstetrics & Gynecology; Visit Provider Surgery | DX: K80.50 Calculus of bile duct without cholangitis or cholecystitis without obstruction (principal); K80.20 Calculus of gallbladder without cholecystitis without obstruction | CPT/HCPCS: 99202 ==

== ENCOUNTER → 2023-08-19 10:06 | Day surgery (SDC) | payer MEDICAID, SELFPAY ==
--- NOTE | 2023-08-18 06:47 | MHC.SHP ---
Pre-Procedural Eval Section A - 24 Hr Update-Section A only Date of Service: 08/18/23 The patient is an INPATIENT: No Changes since office visit: No Cold of Flu in the past 2 weeks, No New Medical Problems, No Changes in Medication and No Patient answered all questions Section B - Complete if H&P > 30 days Chief Complaint: Calculus of bile duct without cholangitis or kate Allergies: Allergies Allergy/AdvReac Type Severity Reaction Status Date / Time sulfamethoxazole Allergy Rash Verified 07/05/23 10:00 [From Bactrim] trimethoprim [From Bactrim] Allergy Rash Verified 07/05/23 10:00 Plan I have reviewed the history and physical and performed a pertinent physical examination on my patient. No changes have occurred unless specified. Time Spent With Patient Time: Total time managing care of this patient today ____ minutes.
[2023-08-19 10:51] VITALS: BMI 37.2
[2023-08-19 11:07] VITALS: BP 149/84; PULSE 67; RESP 16; TEMP 35.8; O2SAT 100
[2023-08-19 11:13] LABS: Glucose, Whole Blood 96 mg/dL (60-115)
--- NOTE | 2023-08-19 12:19 | PC.NURSE ---
Case cancelled by Dr. Hagen pt advised office will call to reschedule. IV discontinued prior to leaving.
== END ==
PROVIDERS: PCP Family Medicine; Visit Provider Surgery
DX: K08.20 Unspecified atrophy of edentulous alveolar ridge (principal); Z53.8 Procedure and treatment not carried out for other reasons; E11.9 Type 2 diabetes mellitus without complications
CPT/HCPCS: 82947; J0690

== ENCOUNTER 2023-09-02 09:51 | Day surgery (SDC) | payer MEDICAID, SELFPAY ==
[2023-08-31 14:21] VITALS: BMI 37.4
--- NOTE | 2023-09-01 12:23 | MHC.SHP ---
Pre-Procedural Eval Section A - 24 Hr Update-Section A only Date of Service: 09/01/23 The patient is an INPATIENT: No Changes since office visit: No Cold of Flu in the past 2 weeks, No New Medical Problems, No Changes in Medication and No Patient answered all questions Section B - Complete if H&P > 30 days Chief Complaint: Calculus of bile duct without cholangitis or kate Allergies: Allergies Allergy/AdvReac Type Severity Reaction Status Date / Time sulfamethoxazole Allergy Rash Verified 08/19/23 10:54 [From Bactrim] trimethoprim [From Bactrim] Allergy Rash Verified 08/19/23 10:54 Plan I have reviewed the history and physical and performed a pertinent physical examination on my patient. No changes have occurred unless specified. Time Spent With Patient Time: Total time managing care of this patient today ____ minutes.
[2023-09-02] VITALS (7 sets, daily range): BP systolic 113–164; BP diastolic 63–83; PULSE 60–69; RESP 16–18; TEMP 36.1–36.9; O2SAT 96–100; BMI 37.8
[2023-09-02 10:52] LABS: Glucose, Whole Blood 102 mg/dL (60-115)
[2023-09-02] MEDS: Lactated Ringers 1,000 ML 100 ML IVCONT (11:11)
--- NOTE | 2023-09-02 13:20 | HO.ANESPROP2 ---
Documented by User: Nahed Garrett NP 08/31/23 14:47 HPI - Anesthesia Eval Consult details Narrative: 47yo F for Cholecystectomy Laparoscopic, possible open s/p colo 01/2023 with [facility]. No rx PMFSH Active Problems Active Problems: All Active Problems Recurrent biliary colic (Acute) Abnormal uterine bleeding (AUB) (Acute) Gallbladder calculus (Acute) Colon polyp (Acute) Anesthesia complication (Acute) Complex ovarian cyst (Acute) Fibroids (Acute) Urinary retention with incomplete bladder emptying (Acute) Pelvic pressure in female (Acute) External hemorrhoids (Acute) Chronic idiopathic constipation (Acute) GERD (gastroesophageal reflux disease) (Acute) HAWKINS (nonalcoholic steatohepatitis) (Acute) Morbid obesity (Acute) Intestinal malabsorption following gastrectomy (Acute) Leukocytosis (leucocytosis) (Acute) Sleep apnea (Acute) Depression (Acute) Hypertension (Acute) Insulin dependent diabetes mellitus (Acute) Dyslipidemia (Acute) Past Medical History Medical History Cervical cancer screening Pre-op chest exam Gallstones Upper abdominal pain BMI 38.0-38.9,adult Obesity Hypoxia BMI 45.0-49.9, adult Intestinal malabsorption following gastrectomy Hepatomegaly DJD (degenerative joint disease) Abdominal adhesions Diabetes COVID-19 Gallstones Abdominal cramping Chronic idiopathic constipation Family history of anesthesia complication COVID-19 vaccine administered Arthritis Fibromyalgia Sleep apnea Cholelithiasis Vitamin D deficiency, unspecified Vitamin D deficiency Vitamin A deficiency Vitamin B1 deficiency Depression Hypertension Insulin dependent diabetes mellitus Morbid obesity Leukocytosis (leucocytosis) Sickle thalassemia disease Leucocytosis Chronic leukopenia Bilateral shoulder pain Dyslipidemia Axillary hidradenitis suppurativa Chronic back pain Polycystic ovarian syndrome Obesity Family History Family History Mother Diabetes DVT (deep venous thrombosis) HTN (hypertension) Father Diabetes HTN (hypertension) Sister Stroke Son Asthma Sickle cell anemia Son Sickle cell anemia Maternal Aunt Ovary cancer Throat cancer Breast cancer Paternal Aunt Stomach neoplasm Family history of problems with anesthesia: No Surgical History Surgical History S/P laparoscopic sleeve gastrectomy S/P gastric bypass H/O colonoscopy Hx of tubal ligation Hx of gastric bypass Hx of cholecystectomy History of esophagogastroduodenoscopy (EGD) Hx of section History of Problems with Anesthesia: No Social History Social History Household Members: Spouse and Children Housing: Apartment Are you a primary health care marketing specialist to a significant other at home: Yes Do you presently have visiting nurse or other home services: No Patient Tobacco Use Status: Never used Tobacco Use of substances other than those prescribed or required for medical reasons: No Are you DNR?: No Advance Directives: No Advance Directives Information Provided: Yes service: No Current occupational status: employed and unemployed 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 Current occupational exposures/hazards: Yes (stress) Meds Allergies Allergy/AdvReac Type Severity Reaction Status Date / Time sulfamethoxazole Allergy Rash Verified 09/02/23 10:32 [From Bactrim] trimethoprim [From Bactrim] Allergy Rash Verified 08/19/23 10:54 Home Medications ?Medication ?Instructions ?Recorded ?Confirmed ?Last Taken ?Type fluticasone propionate 50 1 spray intranasal DAILY 05/27/20 09/02/23 Unknown History mcg/actuation nasal spray,suspension (Flonase Allergy Relief) loratadine 10 mg capsule 10 mg PO DAILY 05/27/20 09/02/23 09/01/23 History oxycodone 10 mg tablet 10 mg PO BID PRN Pain 05/27/20 01/31/23 Unknown History atorvastatin 80 mg tablet 80 mg PO BEDTIME 01/26/22 09/02/23 09/01/23 History cromolyn 4 % eye drops 1 drp ophthalmic (eye) QID 01/26/22 09/02/23 Unknown History duloxetine 30 mg capsule,delayed 30 mg PO DAILY 01/26/22 09/02/23 09/01/23 History release lisinopril 5 mg tablet 5 mg PO DAILY 01/26/22 09/02/23 09/01/23 History alcohol swabs (Alcohol Prep Pads) 0 pad topical DIRECTED 05/13/22 09/02/23 Unknown History blood sugar diagnostic (FreeStyle #10 ea 05/13/22 01/31/23 Unknown History Lite Strips) lancets 33 gauge (TRUEplus Lancets) #100 ea 05/13/22 01/31/23 Unknown History Exam Height,Weight and Vital Signs: Height 5 ft 4 in Weight 98.883 kg Pertinent Lab Results Pertinent Lab Results: Laboratory Tests 05/26/23 06/22/23 10:26 09:57 WBC 9.2 Hgb 11.3 L Hct 37.1 Plt Count 438 H Sodium 141 Potassium 4.4 Chloride 108 Carbon Dioxide 23 BUN 11 Creatinine 0.80 Assessment and Plan Assessment Anesthesia Assessment: Chart Reviewed Final Anesthetic Review Family History of Problems with Anesthesia: No History of Problems with Anesthesia: No Documented by User: Safia Adams DO 09/02/23 14:29 [facility] Past Medical History Medical History Cervical cancer screening Pre-op chest exam Gallstones Upper abdominal pain BMI 38.0-38.9,adult Obesity Hypoxia BMI 45.0-49.9, adult Intestinal malabsorption following gastrectomy Hepatomegaly DJD (degenerative joint disease) Abdominal adhesions Diabetes COVID-19 Gallstones Abdominal cramping Chronic idiopathic constipation Family history of anesthesia complication COVID-19 vaccine administered Arthritis Fibromyalgia Sleep apnea Cholelithiasis Vitamin D deficiency, unspecified Vitamin D deficiency Vitamin A deficiency Vitamin B1 deficiency Depression Hypertension Insulin dependent diabetes mellitus Morbid obesity Leukocytosis (leucocytosis) Sickle thalassemia disease Leucocytosis Chronic leukopenia Bilateral shoulder pain Dyslipidemia Axillary hidradenitis suppurativa Chronic back pain Polycystic ovarian syndrome Obesity Family History Family History Mother Diabetes DVT (deep venous thrombosis) HTN (hypertension) Father Diabetes HTN (hypertension) Sister Stroke Son Asthma Sickle cell anemia Son Sickle cell anemia Maternal Aunt Ovary cancer Throat cancer Breast cancer Paternal Aunt Stomach neoplasm Family history of problems with anesthesia: No Surgical History Surgical History S/P laparoscopic sleeve gastrectomy S/P gastric bypass H/O colonoscopy Hx of tubal ligation Hx of gastric bypass Hx of cholecystectomy History of esophagogastroduodenoscopy (EGD) Hx of section History of Problems with Anesthesia: No Social History Social History Household Members: Spouse and Children Housing: Apartment Are you a primary health care marketing specialist to a significant other at home: Yes Do you presently have visiting nurse or other home services: No Patient Tobacco Use Status: Never used Tobacco Use of substances other than those prescribed or required for medical reasons: No Are you DNR?: No Advance Directives: No Advance Directives Information Provided: Yes service: No Current occupational status: employed and unemployed 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 Current occupational exposures/hazards: Yes (stress) Meds Allergies Allergy/AdvReac Type Severity Reaction Status Date / Time sulfamethoxazole Allergy Rash Verified 09/02/23 10:32 [From Bactrim] trimethoprim [From Bactrim] Allergy Rash Verified 08/19/23 10:54 Home Medications ?Medication ?Instructions ?Recorded ?Confirmed ?Last Taken ?Type fluticasone propionate 50 1 spray intranasal DAILY 05/27/20 09/02/23 Unknown History mcg/actuation nasal spray,suspension (Flonase Allergy Relief) loratadine 10 mg capsule 10 mg PO DAILY 05/27/20 09/02/23 09/01/23 History oxycodone 10 mg tablet 10 mg PO BID PRN Pain 05/27/20 01/31/23 Unknown History atorvastatin 80 mg tablet 80 mg PO BEDTIME 01/26/22 09/02/23 09/01/23 History cromolyn 4 % eye drops 1 drp ophthalmic (eye) QID 01/26/22 09/02/23 Unknown History duloxetine 30 mg capsule,delayed 30 mg PO DAILY 01/26/22 09/02/23 09/01/23 History release lisinopril 5 mg tablet 5 mg PO DAILY 01/26/22 09/02/23 09/01/23 History alcohol swabs (Alcohol Prep Pads) 0 pad topical DIRECTED 05/13/22 09/02/23 Unknown History blood sugar diagnostic (FreeStyle #10 ea 05/13/22 01/31/23 Unknown History Lite Strips) lancets 33 gauge (TRUEplus Lancets) #100 ea 05/13/22 01/31/23 Unknown History Exam Exam Date and Time: September 02, 2023 1320 Height,Weight and Vital Signs: Height 5 ft 4 in Weight 98.883 kg Height 5 ft 4 in Weight 99.79 kg Vital Signs Temperature 97.0 F 09/02/23 10:46 Pulse Rate 60 09/02/23 10:46 Respiratory Rate 16 09/02/23 10:46 Blood Pressure 147/63 H 09/02/23 10:46 Pulse Oximetry 100 09/02/23 10:46 Oxygen Delivery Method Room Air 09/02/23 10:46 Temperature 97.0 F 09/02/23 10:46 Pulse Rate 60 09/02/23 10:46 Respiratory Rate 16 09/02/23 10:46 Blood Pressure 147/63 H 09/02/23 10:46 Pulse Oximetry 100 09/02/23 10:46 Oxygen Delivery Method Room Air 09/02/23 10:46 Airway Mallampati Class: I TM Dist: >3cm Neck ROM: Full Loose/Missing/Broken Teeth: No (patient denies any loose or broken teeth) Heart: S1S2 Lungs: CTAB Assessment and Plan Assessment Anesthesia Assessment: Anesthesia Plan Discussed and Chart Reviewed Final Anesthetic Review Family History of Problems with Anesthesia: No History of Problems with Anesthesia: No NPO: Yes ASA Class: III Final Preanesthetic Review: No Changes in Pt Med Stat, Meds/Allgs Chart Reviewed, Consent Obtained/Reviewed (renal dialysis rn at bedside) and Anes Risks/Benef Reviewed Patient Risk: Intermediate Procedure Risk: Low Anesthetic Plan Anesthetic Plan: GA and Agree w/ Assess. and Plan Disposition: Standard PACU
--- NOTE | 2023-09-02 14:28 | MHC.SHP ---
Pre-Procedural Eval Section A - 24 Hr Update-Section A only Date of Service: 09/02/23 The patient is an INPATIENT: No The patient has been examined within 24 hours of the surgical procedure. The History & Physical has been completed within 30 days and I have reviewed it.: Yes Section B - Complete if H&P > 30 days Chief Complaint: Calculus of bile duct without cholangitis or kate Details of Present Illness: Nothing new Allergies: Allergies Allergy/AdvReac Type Severity Reaction Status Date / Time sulfamethoxazole Allergy Rash Verified 09/02/23 10:32 [From Bactrim] trimethoprim [From Bactrim] Allergy Rash Verified 08/19/23 10:54 Review of Systems Sugical H&P ROS: Negative: Constitution, Cardiovascular, Respiratory, Neurological, Psychiatric, Hem-Onc, Allergic/Immunologic, Gastrointestinal, Genitourinary, Musculoskeletal, Integumentary, Endocrine and Eyes/Ears/Nose/Throat Exam Surgical H&P Exam: Normal: HEENT, Normal: Heart, Normal: Lungs, Normal: Extremities, Normal: Abdomen, Normal: Skin and Normal: Neurological Plan I have reviewed the history and physical and performed a pertinent physical examination on my patient. No changes have occurred unless specified. Time Spent With Patient Time: Total time managing care of this patient today ____ minutes.
--- NOTE | 2023-09-02 15:26 | P.OP_ITS ---
Operative Note Operative Note Date of Service: 09/02/23 Narrative: Preoperative diagnosis: [] Symptomatic gallbladder Postop diagnosis: [] The same Procedure [] laparoscopic cholecystectomy Surgeon: [] Hieu Cheese Pancake Roller: [] Nikita Type of Anesthesia: [] General Indication for surgery: [] Very corpulent abdomen. Gallbladder with omental adhesions to it. Findings: [] Patient brought to the operating room, placed on operative table supine position, after an adequate level of general anesthesia was induced, the patient's abdomen was prepped and draped in usual sterile fashion. Using a supraumbilical curvilinear incision, Barker technique was used to insufflate abdominal cavity to 15 mm of CO2. Upper midline and right subcostal ports were placed under direct laparoscopic view, and the patient placed in reverse Trendelenburg position, and tilted to the left. Findings were as noted above. Gallbladder was grasped using laparoscopic graspers and retracted superiorly and laterally. Omental adhesions swept off the gallbladder with the hilum was approached. Common bile duct was identified and preserved throughout the procedure. Cystic artery and cystic duct were identified, circumferentially skeletonized, traced directly into the gallbladder, and critical view obtained. Each was clipped proximally x2, distally x1, and transected gallbladder was then cauterized from the gallbladder fossa using Bovie. Specimen was placed in an Endo-Catch bag, a retrieved through the umbilical port. Abdominal cavity was copiously irrigated and secured hemostasis. All ports removed under direct laparoscopic view. Wounds were closed in the following manner; umbilical wound is fascia reapproximated using interrupted 0 Vicryl sutures. Skin wounds were closed using subcuticular 4-0 Vicryl sutures followed by Steri-Strips and sterile dressings. Wounds were infiltrated 0.5% Marcaine at completion. Sponge, needle, and instrument counts reported correct. Patient tolerated the procedure well and emerged from anesthesia stable in condition. EBL minimal
[2023-09-02] MEDS: fentaNYL citrate/PF 100 MCG/2 ML VIAL 50 MCG IVPUSH (15:45)
[2023-09-02] MEDS: oxyCODONE HCl Immed Release 5 MG TABLET 10 MG PO (15:50)
== END 2023-09-02 16:50 | disposition home or self-care (01) ==
PROVIDERS: PCP Family Medicine; Visit Provider Surgery
PROC: 0FT44ZZ Resection of Gallbladder, Percutaneous Endoscopic Approach (ICD-10-PCS; CPT 47562; principal; 2023-09-02 13:00)
DX: K80.10 Calculus of gallbladder with chronic cholecystitis without obstruction (principal); K82.8 Other specified diseases of gallbladder; K59.04 Chronic idiopathic constipation; Z98.84 Bariatric surgery status; Z90.3 Acquired absence of stomach [part of]; M79.7 Fibromyalgia; G47.30 Sleep apnea, unspecified; G89.4 Chronic pain syndrome; I10 Essential (primary) hypertension; D57.40 Sickle-cell thalassemia without crisis; E11.9 Type 2 diabetes mellitus without complications; E66.01 Morbid (severe) obesity due to excess calories; Z68.37 Body mass index [BMI] 37.0-37.9, adult; Z79.4 Long term (current) use of insulin; Z79.51 Long term (current) use of inhaled steroids; Z79.899 Other long term (current) drug therapy; Z88.2 Allergy status to sulfonamides; Z90.49 Acquired absence of other specified parts of digestive tract
CPT/HCPCS: 47562; 82947; 88304; J0131; J0690; J1100; J1885; J2250; J2405; J2704; J2795; J3010

== ENCOUNTER → 2023-09-02 09:51 | Outpatient (BNV) | payer MEDICAID, SELFPAY | PROVIDERS: PCP Family Medicine; Visit Provider Surgery | DX: K80.20 Calculus of gallbladder without cholecystitis without obstruction (principal); K80.50 Calculus of bile duct without cholangitis or cholecystitis without obstruction | CPT/HCPCS: 47562 ==

== ENCOUNTER 2023-09-07 09:32 | Emergency (ER) | payer MEDICAID, SELFPAY ==
[2023-09-07 09:52] VITALS: BP 155/78; PULSE 74; RESP 16; TEMP 36.9; O2SAT 100; BMI 37.1
[2023-09-07 10:24] LABS: MANUAL DIFF FLAG NO
[2023-09-07 10:47] LABS: Anion Gap 16 (12-20); Blood Urea Nitrogen 10 mg/dL (9-16); Calcium 10.2 mg/dL (8.4-10.2); Carbon Dioxide 21 mmol/L (22-29); Chloride 108 mmol/L (96-108); Creatinine Clr Calc Pharmacy 101.8; Estimated Glomerular Filt Rate > 60; Glucose Random 117 mg/dL (60-115); Potassium 4.5 mmol/L (3.3-5.1); Sodium 140 mmol/L (135-145)
[2023-09-07 10:48] LABS: Basophils Percent Auto 0.2 % (0-2); Eosinophils Absolute Auto 0.1 X10*3/uL (0.0-0.4); Hematocrit 37.1 % (37.0-47.0); Hemoglobin 11.7 g/dl (12.0-16.0); Imm Gran Abs Auto 0.05 X10*3/uL (0.00-0.03); Imm Gran Pct Auto 0.4 % (0.0-0.4); Lymphocytes Percent Auto 21.3 % (20-40); Mean Corpuscular HGB Conc 31.5 g/dl (31.0-35.0); Mean Corpuscular Hemoglobin 21.7 pg (27.0-33.0); Mean Corpuscular Volume 68.8 fL (80.0-98.0); Mean Platelet Volume 10.7 fL (9.4-12.3); Monocytes Absolute Auto 0.9 X10*3/uL (0.1-1.2); Neutrophils Absolute Auto 10.1 x10*3/uL (2.0-8.3); Neutrophils Percent Auto 71.1 % (45-73); Platelet Count 428 X10*3/uL (160-400); Red Blood Count 5.39 X10*6/uL (4.20-5.50); Red Cell Distribution Width 15.5 % (11.0-16.0); White Blood Count 14.2 X10*3/uL (4.8-10.8)
--- NOTE | 2023-09-07 16:56 | PC.NURSE ---
This RN and PA called pt from triage after she LWT with line leader to encourage her to come back to ED d/t WBC. Pt stating she left because she was in pain and is a single mom and doesn't have anyone to help at home. Pt stated she is going to try and get transport to come back but is unsure if she is going to be able to
[2023-09-07 19:48] VITALS: BP 129/76; PULSE 64; RESP 16; TEMP 36.8; O2SAT 100
--- NOTE | 2023-09-07 21:21 | ED_ITS ---
HPI - General Adult General Chief complaint: Wound/Laceration Stated complaint: Infection Surg Site Time Seen by Provider: 09/07/23 20:59 Source: patient Mode of arrival: ambulatory Limitations: no limitations History of Present Illness HPI narrative: Patient is a 47-year-old female who presented to the emergency department today for evaluation she expressed concern that she believed 1 of her surgical incisions near her umbilicus was potentially infected after cholecystectomy 5 days ago on 09/02/2023, performed at this hospital from Dr. Hagen in fact she actually went up to his office today for evaluation, and was advised that her surgical sites were healing well. She states that she received call from the hospital and was advised to come back, as they believed that she had left without being seen from the waiting room. Based on review of the chart it appears that nursing staff in triage had called her back due to elevated white blood cell count. She denies fevers, chills, abdominal pain, nausea, vomiting, constipation, diarrhea, URI symptoms, symptoms. Related Data Home Medications ?Medication ?Instructions ?Recorded ?Confirmed fluticasone propionate 50 1 spray intranasal DAILY 05/27/20 09/02/23 mcg/actuation nasal spray,suspension (Flonase Allergy Relief) loratadine 10 mg capsule 10 mg PO DAILY 05/27/20 09/02/23 oxycodone 10 mg tablet 10 mg PO BID PRN Pain 05/27/20 01/31/23 atorvastatin 80 mg tablet 80 mg PO BEDTIME 01/26/22 09/02/23 cromolyn 4 % eye drops 1 drp ophthalmic (eye) QID 01/26/22 09/02/23 duloxetine 30 mg capsule,delayed 30 mg PO DAILY 01/26/22 09/02/23 release lisinopril 5 mg tablet 5 mg PO DAILY 01/26/22 09/02/23 alcohol swabs (Alcohol Prep Pads) 0 pad topical DIRECTED 05/13/22 09/02/23 blood sugar diagnostic (FreeStyle #10 ea 05/13/22 01/31/23 Lite Strips) lancets 33 gauge (TRUEplus Lancets) #100 ea 05/13/22 01/31/23 Previous Rx's ?Medication ?Instructions ?Recorded calcium citrate 315 mg-vitamin D3 1 tab PO DAILY #60 tabs 04/08/21 5 mcg (200 unit) tablet (Calcium Citrate + D) hydrocortisone 2.5 % topical cream 1 appl VA QID hemorrhoids #60 grams 09/13/22 with perineal applicator (Proctosol HC) phenazopyridine 200 mg tablet 200 mg PO TID PRN pain 6 doses #6 10/05/22 (Pyridium) tabs bisacodyl 5 mg tablet,delayed 10 mg (2 x 5 mg) PO BEDTIME 30 05/26/23 release (Dulcolax (bisacodyl)) days #60 tabs linaclotide 290 mcg capsule 290 mcg PO QAM #30 caps 05/26/23 (Linzess) hydrocodone 5 mg-acetaminophen 325 1 tab PO Q4-6H PRN pain #30 tabs 09/02/23 mg tablet Allergies Allergy/AdvReac Type Severity Reaction Status Date / Time sulfamethoxazole Allergy Rash Verified 09/07/23 13:25 [From Bactrim] trimethoprim [From Bactrim] Allergy Rash Verified 09/07/23 13:25 Review of Systems 2 Review of Systems: Yes all other systems are reviewed and are negative [facility] Past Medical History Attestation statement: The following information was validated with the patient. Source: old records reviewed Medical History Cervical cancer screening Pre-op chest exam Gallstones Upper abdominal pain BMI 38.0-38.9,adult Obesity Hypoxia BMI 45.0-49.9, adult Intestinal malabsorption following gastrectomy Hepatomegaly DJD (degenerative joint disease) Abdominal adhesions Diabetes COVID-19 Gallstones Abdominal cramping Chronic idiopathic constipation Family history of anesthesia complication COVID-19 vaccine administered Arthritis Fibromyalgia Sleep apnea Cholelithiasis Vitamin D deficiency, unspecified Vitamin D deficiency Vitamin A deficiency Vitamin B1 deficiency Depression Hypertension Insulin dependent diabetes mellitus Morbid obesity Leukocytosis (leucocytosis) Sickle thalassemia disease Leucocytosis Chronic leukopenia Bilateral shoulder pain Dyslipidemia Axillary hidradenitis suppurativa Chronic back pain Polycystic ovarian syndrome Obesity Surgical History Hx laparoscopic cholecystectomy (09/02/23) S/P laparoscopic sleeve gastrectomy S/P gastric bypass H/O colonoscopy Hx of tubal ligation Hx of gastric bypass Hx of cholecystectomy History of esophagogastroduodenoscopy (EGD) Hx of section Family History Family History Mother Diabetes DVT (deep venous thrombosis) HTN (hypertension) Father Diabetes HTN (hypertension) Sister Stroke Son Asthma Sickle cell anemia Son Sickle cell anemia Maternal Aunt Ovary cancer Throat cancer Breast cancer Paternal Aunt Stomach neoplasm Social History Social History Household Members: Spouse and Children Housing: Apartment Are you a primary floor care specialist to a significant other at home: Yes Do you presently have visiting nurse or other home services: No Comment: counts correct Patient Tobacco Use Status: Never used Tobacco service: No Current occupational status: employed and unemployed 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 No acute distress.?Normal affect. Eyes: Pupils equal, round and reactive to light.? ENT: Pharynx normal.?? Neck: Normal inspection.? Neck supple.?? CVS: Heart sounds normal. Normal heart rate and rhythm.? Pulses normal.?? Respiratory: No respiratory distress.? Lung sounds clear to auscultation bilaterally?? Abdomen: Soft and non-tender. Normoactive bowel sounds. Skin: Skin warm and dry.? Normal skin color.? Surgical wound to the abdomen with Steri-Strips intact, no surrounding erythema, purulence, warmth. Extremities: No lower extremity edema.? Neuro: Moves all extremities spontaneously. Ambulates with normal steady gait. Medical Decision Making Medical Decision Making MDM Narrative: Patient is a 47-year-old female who presents emergency department for evaluation of concern for potential surgical wound incision infections. At the time my evaluation there is no evidence of infection to the wounds or surrounding cellulitis. Her abdominal examination is benign, I do not have concern for acute intra-abdominal infection. She was seen by her surgeon today for follow- up, who felt that she was stable to follow-up outpatient as needed. Upon review of her labs she does have a mild leukocytosis of 14.2, though I suspect that this is secondary to her recent surgical procedure rather than an infectious process. No electrolyte derangement. No MARTHA. At this time I feel that she is stable for discharge home. Differential Diagnosis Differential Diagnoses: The differential diagnosis associated with the presentation includes (See narrative above) Lab Data MDM Lab Attestation statement: I reviewed the patient's lab results. (See narrative above) 09/07/23 10:20 09/07/23 10:20 Labs: Lab Results 09/07/23 Range/Units 10:20 WBC 14.2 H (4.8-10.8) X10*3/uL RBC 5.39 (4.20-5.50) X10*6/uL Hgb 11.7 L (12.0-16.0) g/dl Hct 37.1 (37.0-47.0) % MCV 68.8 L (80.0-98.0) fL MCH 21.7 L (27.0-33.0) pg MCHC 31.5 (31.0-35.0) g/dl RDW 15.5 (11.0-16.0) % Plt Count 428 H (160-400) X10*3/uL MPV 10.7 (9.4-12.3) fL Immature Gran % (Auto) 0.4 (0.0-0.4) % Neut % (Auto) 71.1 (45-73) % Lymph % (Auto) 21.3 (20-40) % Kerr % (Auto) 6.0 (2-11) % Eos % (Auto) 1.0 (0-4) % Baso % (Auto) 0.2 (0-2) % Lymph # (Auto) 3.0 (1.2-4.9) X10*3/uL Kerr # (Auto) 0.9 (0.1-1.2) X10*3/uL Eos # (Auto) 0.1 (0.0-0.4) X10*3/uL Baso # (Auto) 0.0 (0.0-0.2) X10*3/uL Abs Immat Gran (auto) 0.05 H (0.00-0.03) X10*3/uL Absolute Neuts (auto) 10.1 H (2.0-8.3) x10*3/uL Absolute Nucleated RBC 0.000 (0.0-0.012) X10*3/uL Nucleated RBC % (auto) 0.0 (0.0-0.2) /100WBC Sodium 140 (135-145) mmol/L Potassium 4.5 (3.3-5.1) mmol/L Chloride 108 (96-108) mmol/L Carbon Dioxide 21 L (22-29) mmol/L Anion Gap 16 (12-20) BUN 10 (9-16) mg/dL Creatinine 0.76 (0.5-1.4) mg/dL Estim Creat Clear Calc 101.8 Estimated GFR > 60 Random Glucose 117 H (60-115) mg/dL Calcium 10.2 (8.4-10.2) mg/dL External Record Review External record reviewed: Outpatient record Prescription Management I considered prescription management with: Antibiotic (No evidence of acute infection, no indication for antibiotics) Discharge Plan Discharge Clinical Impression: Visit for wound check Patient Disposition: Home, Self-Care Additional Instructions: Surgical wounds appear to be well healing and without infection at this time. Follow with your primary care provider/surgeon as needed. Return back to emergency department any new or worsening symptoms or concerns. Prescriptions: No Action hydrocortisone [Proctosol HC] 2.5 % cream with perineal applicator 1 appl VA QID Qty: 60 3RF fluticasone propionate [Flonase Allergy Relief] 50 mcg/actuation [place],Suspension 1 spray INTRANASAL DAILY oxycodone 10 mg Tablet 10 mg PO BID PRN (Reason: Pain) loratadine 10 mg Capsule 10 mg PO DAILY phenazopyridine [Pyridium] 200 mg tablet 200 mg PO TID PRN (Reason: pain) Qty: 6 0RF hydrocodone-acetaminophen 5-325 mg tablet 1 tab PO Q4-6H PRN (Reason: pain) Qty: 30 0RF Rx Instructions: Partial Fill upon patient request. calcium citrate-vitamin D3 [Calcium Citrate + D] 315 mg-5 mcg (200 unit) tablet 1 tab PO DAILY Qty: 60 11RF atorvastatin 80 mg tablet 80 mg PO BEDTIME lisinopril 5 mg tablet 5 mg PO DAILY duloxetine 30 mg capsule,delayed release(DR/EC) 30 mg PO DAILY cromolyn 4 % drops 1 drp ophthalmic (eye) QID alcohol swabs [Alcohol Prep Pads] Pads, Medicated 0 pad topical DIRECTED (DME) lancets [TRUEplus Lancets] 33 gauge misc See Rx Instructions .ROUTE BID Qty: 100 Rx Instructions: As directed (DME) FreeStyle Lite Strips Strip See Rx Instructions .ROUTE BID Qty: 10 Rx Instructions: As directed bisacodyl [Dulcolax (bisacodyl)] 5 mg tablet,delayed release (DR/EC) 10 mg PO BEDTIME 30 Days Qty: 60 6RF Linzess 290 mcg capsule 290 mcg PO QAM Qty: 30 6RF Referrals: Claudia Sapp MD [Primary Care Provider] - Interventions: LWBS Worksheet Last Done: 09/07/23 16:58 Print Language: Australian
[2023-09-07 21:54] VITALS: BP 134/85; PULSE 78; RESP 18; TEMP 36.8; O2SAT 95
== END 2023-09-07 21:56 | disposition home or self-care (01) ==
PROVIDERS: Emergency Medicine; Emergency Provider Emergency Medicine; PCP Family Medicine
DX: Z48.00 Encounter for change or removal of nonsurgical wound dressing (principal); Z79.899 Other long term (current) drug therapy
CPT/HCPCS: 36415; 80048; 85025; 99212; 99283; 99284

== ENCOUNTER 2023-09-07 12:53 | Outpatient (AMB) | payer MEDICAID, SELFPAY ==
[2023-09-07 13:24] VITALS: BP 130/63; PULSE 76; BMI 37.1
--- NOTE | 2023-09-07 13:24 | MHC.OFFVIS ---
Vital Signs 09/07/23 13:24 Height 5 ft 4 in Weight 216 lb BMI 37.1 BP 130/63 Blood Pressure Location Rt brachial Position Sitting Pulse 76 Intake Visit Reasons: poss infection, post lap kate Intake Note: Patient is being seen this afternoon for urgent visit. Went to ER earlier c/o surgical site concerns. Patient c/o: pain at surgical site. Still taking rx pain meds. Denies oozing, redness. Steri strip still in place. SX: Lap kate 09-02-23. P/O: 09-13-23. Entry Operator Required: No Accompanied by: Self / Same As Patient Allergies sulfamethoxazole [From Bactrim] Allergy (Verified 09/07/23 13:25) Rash trimethoprim [From Bactrim] Allergy (Verified 09/07/23 13:25) Rash HPI Comments Details: Patient is status post recent laparoscopic cholecystectomy. She was initially seen emergency department but is intact came to the office complaining of incisional discomfort at the umbilicus. She otherwise has been tolerating a diet, having regular bowel habits and has no other wound issues or complaints. [facility] Medical History Cervical cancer screening Pre-op chest exam Gallstones Upper abdominal pain BMI 38.0-38.9,adult Obesity Hypoxia BMI 45.0-49.9, adult Intestinal malabsorption following gastrectomy Hepatomegaly DJD (degenerative joint disease) Abdominal adhesions Diabetes COVID-19 Gallstones Abdominal cramping Chronic idiopathic constipation Family history of anesthesia complication COVID-19 vaccine administered Arthritis Fibromyalgia Sleep apnea Cholelithiasis Vitamin D deficiency, unspecified Vitamin D deficiency Vitamin A deficiency Vitamin B1 deficiency Depression Hypertension Insulin dependent diabetes mellitus Morbid obesity Leukocytosis (leucocytosis) Sickle thalassemia disease Leucocytosis Chronic leukopenia Bilateral shoulder pain Dyslipidemia Axillary hidradenitis suppurativa Chronic back pain Polycystic ovarian syndrome Obesity Surgical History (Updated 09/07/23 @ 14:53 by Jeff Hagen MD) Hx laparoscopic cholecystectomy (09/02/23) S/P laparoscopic sleeve gastrectomy S/P gastric bypass H/O colonoscopy Hx of tubal ligation Hx of gastric bypass Hx of cholecystectomy History of esophagogastroduodenoscopy (EGD) Hx of section Family History Mother Diabetes DVT (deep venous thrombosis) HTN (hypertension) Father Diabetes HTN (hypertension) Sister Stroke Son Asthma Sickle cell anemia Son Sickle cell anemia Maternal Aunt Ovary cancer Throat cancer Breast cancer Paternal Aunt Stomach neoplasm Social History Household Members: Spouse and Children Housing: Apartment Are you a primary care coordination manager to a significant other at home: Yes Do you presently have visiting nurse or other home services: No Comment: counts correct Patient Tobacco Use Status: Never used Tobacco service: No Current occupational status: employed and unemployed 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 All wounds clean dry and intact healing well. Assessment & Plan Assessment & Plan (1) Status post laparoscopic cholecystectomy: Code(s): Z90.49 - Acquired absence of other specified parts of digestive tract Category: Medical Plan Patient was reassured that she has no wound issues or complaints. She is to slowly but steadily increase her activity level, and advanced diet as tolerated. At present, no acute surgical issues. Patient was to be seen next week for follow-up but we will cancel that appointment issue was seen today. All questions answered. Patient otherwise follow-up p.r.n.. Coding Level of Care Code Global (10588) Diagnoses Status post laparoscopic cholecystectomy Z90.49
== END 2023-09-07 13:59 | disposition home or self-care (01) ==
PROVIDERS: PCP Family Medicine; Visit Provider Surgery
DX: Z90.49 Acquired absence of other specified parts of digestive tract (principal)
CPT/HCPCS: 99024

== ENCOUNTER 2023-10-24 11:46 | Outpatient (REF) | payer MEDICAID, SELFPAY | END 2023-10-24 11:47 | disposition home or self-care (01) | LOC: HO.MAMMO 11:46 | PROVIDERS: PCP Family Medicine; Visit Provider Obstetrics & Gynecology | DX: Z12.31 Encounter for screening mammogram for malignant neoplasm of breast (principal) | CPT/HCPCS: 77063; 77067 ==

== ENCOUNTER → 2023-10-24 12:30 | Outpatient (BNV) | payer MEDICAID, SELFPAY | PROVIDERS: PCP Family Medicine; Visit Provider Radiology Diagnostic Radiology | DX: Z12.31 Encounter for screening mammogram for malignant neoplasm of breast (principal) | CPT/HCPCS: 77063; 77067 ==

== ENCOUNTER 2023-11-07 08:38 | Outpatient (AMB) | payer MEDICAID, SELFPAY ==
--- NOTE | 2023-11-07 08:54 | A.OFFVIS_ITS ---
Intake Visit Reasons: Incomplete bladder emptying Intake Note: Patient is present for incomplete bladder emptying Urology Medication:none Antibiotic Allergy:sulfamethoxazole,trimethoprim Blood Thinner:none today PVR: 0ML'S Agile Developer Required: Yes Agile Developer Name: [id number]-- [id number] Information Interpreted: non-clinical & clinical Allergies sulfamethoxazole [From Bactrim] Allergy (Verified 11/07/23 08:56) Rash trimethoprim [From Bactrim] Allergy (Verified 11/07/23 08:56) Rash Medication List - Last Reconciled 11/07/23 by Denisha Espitia MD alcohol swabs (Alcohol Prep Pads) 0 pad topical DIRECTED atorvastatin 80 mg PO BEDTIME bisacodyl (Dulcolax (bisacodyl)) 10 mg (2 x 5 mg) PO BEDTIME 30 days blood sugar diagnostic (FreeStyle Lite Strips) As directed calcium citrate-vitamin D3 315 mg-5 mcg (200 unit) (Calcium Citrate + D) 1 tab PO DAILY cromolyn 4% 1 drp ophthalmic (eye) QID duloxetine 30 mg PO DAILY fluticasone propionate 50 mcg/actuation (Flonase Allergy Relief) 1 spray intranasal DAILY hydrocodone-acetaminophen 5-325 mg 1 tab PO Q4-6H PRN hydrocortisone 2.5% (Proctosol HC) 1 appl [place] QID lancets (TRUEplus Lancets) As directed linaclotide (Linzess) 290 mcg PO QAM lisinopril 5 mg PO DAILY loratadine 10 mg PO DAILY oxycodone 10 mg PO BID PRN HPI Comments Details: Felisa is a 47-year-old Slovenian-speaking female who states that she sometimes has pain with urination. Comorbidity diabetes. She also feels pain on her sides at times when she is laying down. Slovenian interpreters utilized. Bladder scan PVR is 0, urinalysis no signs of infection. She has had prior imaging in review of her chart, abdominal ultrasound in June left renal cyst no renal calculi. I have discussed re-evaluating kidneys will check renal ultrasound. [facility] Medical History Cervical cancer screening Pre-op chest exam Gallstones Upper abdominal pain BMI 38.0-38.9,adult Obesity Hypoxia BMI 45.0-49.9, adult Intestinal malabsorption following gastrectomy Hepatomegaly DJD (degenerative joint disease) Abdominal adhesions Diabetes COVID-19 Gallstones Abdominal cramping Chronic idiopathic constipation Family history of anesthesia complication COVID-19 vaccine administered Arthritis Fibromyalgia Sleep apnea Cholelithiasis Vitamin D deficiency, unspecified Vitamin D deficiency Vitamin A deficiency Vitamin B1 deficiency Depression Hypertension Insulin dependent diabetes mellitus Morbid obesity Leukocytosis (leucocytosis) Sickle thalassemia disease Leucocytosis Chronic leukopenia Bilateral shoulder pain Dyslipidemia Axillary hidradenitis suppurativa Chronic back pain Polycystic ovarian syndrome Obesity Surgical History Hx laparoscopic cholecystectomy (09/02/23) S/P laparoscopic sleeve gastrectomy S/P gastric bypass H/O colonoscopy Hx of tubal ligation Hx of gastric bypass Hx of cholecystectomy History of esophagogastroduodenoscopy (EGD) Hx of section Family History Mother Diabetes DVT (deep venous thrombosis) HTN (hypertension) Father Diabetes HTN (hypertension) Sister Stroke Son Asthma Sickle cell anemia Son Sickle cell anemia Maternal Aunt Ovary cancer Throat cancer Breast cancer Paternal Aunt Stomach neoplasm Social History Household Members: Spouse and Children Housing: Apartment Are you a primary memory care director to a significant other at home: Yes Do you presently have visiting nurse or other home services: No Comment: counts correct Patient Tobacco Use Status: Never used Tobacco service: No Current occupational status: employed and unemployed 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 Current occupational exposures/hazards: Yes (stress) Female Reproductive History Menstrual Age of Menarche: 9 Review of Systems Const All systems reviewed & are unremarkable except as noted in HPI and below Reports no additional complaints Eyes Reports no additional complaints ENT Reports no additional complaints Card Reports no additional complaints Resp Reports no additional complaints GI Reports no additional complaints Reports as per HPI Musc Reports no additional complaints Skin/Breast Reports system reviewed and no additional complaints, except as documented Neuro Reports no additional complaints Psych Reports no additional complaints Endo Reports no additional complaints Bebo/Lymph Reports no additional complaints Aller/Immun Reports no additional complaints Physical Exam Const General: cooperative, healthy appearing and no acute distress Nutritional Appearance: overweight Orientation/consciousness: patient oriented x3 HEENT Head: Yes normal to inspection, Yes normocephalic and Yes atraumatic Eyes Conjunctivae: conjunctivae normal Neck Neck: Yes normal visual inspection and Yes trachea midline Chest Chest palpation & inspection: normal inspection of the chest Resp Effort & Inspection: normal respiratory effort Cardio Rate: regular rate GI Inspection: Yes normal to inspection Palpation (GI): Soft to palpation Neuro General: patient oriented x3 Psych Appearance: grossly normal Results AMB Urinalysis, Automated UA Leukoctes 0 Arleen/uL Last Edit by THELMA Kan on 11/07/23 09:10 UA Nitrite Negative Last Edit by Desiree Barreto CCM on 11/07/23 09:10 UA Urobilinogen 0.2 mg/dL Last Edit by THELMA Kan on 11/07/23 09:1 0 UA Protein 0 mg/dL Last Edit by Desiree Barreto CCM on 11/07/23 09:10 UA pH 6.0 Last Edit by Desiree Barreto CCM on 11/07/23 09:10 UA Blood 0 Osito/uL Last Edit by Desiree Barreto CCM on 11/07/23 09:10 UA Specific [place] 1.020 Last Edit by THELMA Kan on 11/07/23 09: 10 UA Ketone Positive Last Edit by THELMA Kan on 11/07/23 09:10 UA Bilirubin 0 mg/dL Last Edit by THELMA Kan on 11/07/23 09:10 UA Glucose 0 mg/dL Last Edit by Desiree Barreto [facility] [place] on 11/07/23 09:10 Results Reviewed Results Reviewed: Date of Service: 06/14/23 EXAMINATION: US ABDOMEN COMPLETE CLINICAL INFORMATION: Nonalcoholic steatohepatitis (HAWK[place]). COMPARISON: CT abdomen 10/13/2022. Ultrasound abdomen 03/03/2021. TECHNIQUE: Real-time imaging of the abdominal viscera. FINDINGS: PANCREAS: The visualized head and body of the pancreas appears unremarkable. Remainder of the pancreas is obscured by bowel gas. ABDOMINAL AORTA: The proximal, mid, and distal segments are normal in caliber. INFERIOR VENA CAVA: Visualized portions are normal. LIVER: The liver is normal in size. The liver contour is normal. Diffuse increased parenchymal echogenicity. No focal hepatic lesion. There is no intrahepatic biliary duct dilatation seen. GALLBLADDER: Gallstones present. Largest measures 1.3 cm. No evidence of gallbladder wall thickening or pericholecystic fluid. COMMON BILE DUCT: Normal in caliber measuring 0.3 cm in diameter. RIGHT KIDNEY: Normal. No hydronephrosis. No renal calculi or focal parenchymal lesions. The kidney measures 9.9 cm in maximum dimension. LEFT KIDNEY: The small Bosniak I cyst seen on the prior CT scan is not evident on today's ultrasound. No renal calculi or focal parenchymal lesions. The kidney measures 9.7 cm in maximum dimension. Cystic focus in the renal pelvis, could reflect parapelvic cyst versus calyceal dilatation. SPLEEN: Normal. The spleen measures 9.1 cm in maximum dimension. FREE FLUID: None. IMPRESSION: 1. There is generalized increase in hepatic echotexture, consistent with fatty infiltration or hepatocellular disease. Please correlate clinically. No focal hepatic mass or intrahepatic biliary duct dilatation is seen. 2. Gallstones. No sonographic findings to suggest acute cholecystitis. 3. Small left renal parapelvic cyst versus calyceal dilatation. Date of Service: 10/13/22 EXAMINATION: CT ABDOMEN WITHOUT AND WITH CONTRAST CLINICAL INFORMATION: Abnormal renal ultrasound. COMPARISON: Renal ultrasound 10/05/2022: Mild fullness of the left renal pelvis similar to previous ultrasound November 2017. A 4 mm nonspecific echogenic area in the cortex of the left kidney. This is not appreciated on previous ultrasound exam. No corresponding abnormality is seen on CT from 2018. TECHNIQUE: Contiguous axial thin section helical images of the abdomen were performed before and after the administration of oral contrast and 85 mL of Omnipaque 350 intravenous contrast. The data set was reformatted in the coronal and sagittal planes and reviewed on an independent workstation. This CT examination was performed using dose optimization techniques as appropriate, variously including the following: *Automated exposure control *Adjustment of mA and/or kV according to patient size (this includes techniques or standardized protocols for targeted exams where dose is matched to indication/reason for exam; i.e. extremities or head) *Use of iterative reconstruction technique DLP: 677 mGy-cm FINDINGS: LUNG BASES: The visualized lung bases are unremarkable. A small water density cyst is noted just below the inferior right pulmonary vein, unchanged from 12/01/2017. LIVER, GALLBLADDER, AND BILIARY TREE: The liver is normal in size and shape but is hypoattenuating suggesting hepatic steatosis. No focal hepatic lesion or biliary ductal dilatation is present. The gallbladder is unremarkable with no evidence of radiopaque gallstones, gallbladder wall thickening, or obvious pericholecystic inflammatory changes. PANCREAS: Unremarkable. SPLEEN: Unremarkable. ADRENAL GLANDS: Unremarkable. KIDNEYS AND URETERS: The kidneys are normal in size, shape, and attenuation. A benign 0.5 cm Bosniak class I renal cyst is noted in the left kidney which requires no additional imaging or follow-up. No solid renal masses are seen. No hydronephrosis, hydroureter, or calculi seen. No perinephric stranding. GASTROINTESTINAL TRACT: There is been interval gastric bypass with gastrojejunostomy since the prior CT scan. The visualized small and large bowel are unremarkable. The partially visualized appendix is unremarkable. ABDOMINAL WALL: No significant hernia is appreciated. LYMPH NODES: No retroperitoneal lymphadenopathy. Partially visualized top of uterus which appears mildly lobular similar to prior. VASCULAR: Unremarkable. OSSEOUS STRUCTURES: Unremarkable. IMPRESSION: A worrisome renal abnormality is not seen. There is no hydronephrosis. There is a benign left renal Bosniak class I cyst which needs no additional imaging or follow-up. Incidental note made of: 1. Hepatic steatosis. 2. Interval gastric bypass. 3. Probable uterine fibroids. Assessment & Plan Assessment & Plan (1) Abdominal pain: Code(s): R10.9 - Unspecified abdominal pain Category: Medical (2) Renal cyst: Code(s): N28.1 - Cyst of kidney, acquired Category: Medical Plan Will check renal ultrasound Orders: Orders AMB Urinalysis Automated Today Z13.9 - Encounter for screening, unspecified US renal BI Today N28.1 - Cyst of kidney, acquired, R10.9 - Unspecified abdominal pain Patient Instructions: The patient had an opportunity to ask questions regarding treatment plan. The patient expressed understanding and agreement with the above treatment plan. The patient is aware they should contact our office by phone for worsening of their current condition or the appearance of new symptoms. Compliance is encour aged with any medications and followup testing that is ordered. It is a privilege to be allowed the opportunity to participate in the urologic care of your patient. If you have any questions or concerns regarding treatment for the above conditions please do not hesitate to contact me. The office telephone contact is [phone]. This note is constructed in part using voice recognition software. While every effort has been made to ensure accuracy gem setter errors may have been included. Yours sincerely, Denisha Espitia MD Coding Level of Care Code New Pt Level 3 (65254) Diagnoses Abdominal pain R10.9 Renal cyst N28.1
== END 2023-11-07 09:26 | disposition home or self-care (01) ==
PROVIDERS: PCP Family Medicine; Visit Provider Urology
DX: R10.9 Unspecified abdominal pain (principal); N28.1 Cyst of kidney, acquired; Z13.9 Encounter for screening, unspecified
CPT/HCPCS: 99203

== ENCOUNTER → 2023-11-07 08:38 | Outpatient (BNVA) | payer MEDICAID, SELFPAY | PROVIDERS: PCP Family Medicine; Visit Provider Urology | DX: R10.9 Unspecified abdominal pain (principal); N28.1 Cyst of kidney, acquired | CPT/HCPCS: 81003; 99202 ==

== ENCOUNTER 2023-11-09 13:37 | Outpatient (REF) | payer MEDICAID, SELFPAY | END 2023-11-09 13:38 | disposition home or self-care (01) | LOC: HO.LNP 13:37 | PROVIDERS: PCP Family Medicine; Visit Provider Obstetrics & Gynecology | DX: N93.9 Abnormal uterine and vaginal bleeding, unspecified (principal) | CPT/HCPCS: 58100; 81025; 88305 ==

== ENCOUNTER 2023-11-09 13:37 | Outpatient (AMB) | payer MEDICAID, SELFPAY ==
--- NOTE | 2023-11-09 14:05 | A.OFFVIS_ITS ---
Vital Signs 11/09/23 14:07 Height 5 ft 4 in Weight 218 lb BMI 37.4 BP 100/64 Intake Visit Reasons: EMB Shag Truck Driver Required: Yes Shag Truck Driver Language: Cradle Slide Maker Name: Maribell Information Interpreted: non-clinical & clinical Sales Agent Food Vending Service: Sales Agent Food Vending Service Present (Maribell) Allergies sulfamethoxazole [From Bactrim] Allergy (Verified 11/09/23 14:06) Rash trimethoprim [From Bactrim] Allergy (Verified 11/09/23 14:06) Rash HPI Comments Details: Presenting for EMB [facility] Medical History Cervical cancer screening Pre-op chest exam Gallstones Upper abdominal pain BMI 38.0-38.9,adult Obesity Hypoxia BMI 45.0-49.9, adult Intestinal malabsorption following gastrectomy Hepatomegaly DJD (degenerative joint disease) Abdominal adhesions Diabetes COVID-19 Gallstones Abdominal cramping Chronic idiopathic constipation Family history of anesthesia complication COVID-19 vaccine administered Arthritis Fibromyalgia Sleep apnea Cholelithiasis Vitamin D deficiency, unspecified Vitamin D deficiency Vitamin A deficiency Vitamin B1 deficiency Depression Hypertension Insulin dependent diabetes mellitus Morbid obesity Leukocytosis (leucocytosis) Sickle thalassemia disease Leucocytosis Chronic leukopenia Bilateral shoulder pain Dyslipidemia Axillary hidradenitis suppurativa Chronic back pain Polycystic ovarian syndrome Obesity Surgical History Hx laparoscopic cholecystectomy (09/02/23) S/P laparoscopic sleeve gastrectomy S/P gastric bypass H/O colonoscopy Hx of tubal ligation Hx of gastric bypass Hx of cholecystectomy History of esophagogastroduodenoscopy (EGD) Hx of section Family History Mother Diabetes DVT (deep venous thrombosis) HTN (hypertension) Father Diabetes HTN (hypertension) Sister Stroke Son Asthma Sickle cell anemia Son Sickle cell anemia Maternal Aunt Ovary cancer Throat cancer Breast cancer Paternal Aunt Stomach neoplasm Social History Household Members: Spouse and Children Housing: Apartment Are you a primary property caretaker to a significant other at home: Yes Do you presently have visiting nurse or other home services: No Comment: counts correct Patient Tobacco Use Status: Never used Tobacco service: No Current occupational status: employed and unemployed 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 hysteroscopy D&C) & the risks were discussed with the patient including but not limited: pain, uterine perforation, bleeding, infection, possible injury to bladder, bowel, ureter, possible need for blood transfusion with all its possible risks. The patient verbalized understanding all questions answered and signed consent. Urine test done in the office was negative The patient was placed into the dorsal lithotomy position; a speculum was inserted in the vagina. Using aseptic technique for the procedure, the cervix was cleansed with Betadine. The anterior lip of the cervix was grasped with a single tooth tenaculum. The uterus was sounded to 7 cm with a 4 mm Pipelle was used. Tissues samples were obtained and placed in formalin, in a patient labeled container and sent to the pathology department. At the end of the procedure, there was minimal bleeding noted The patient tolerated the procedure well and was discharged in good condition with the following instructions: Nothing in the vagina until the bleeding stops. No sex until the bleeding stops, to call if any of the following occurs: fever (>100.4), flu-like symptoms, abdominal pain, heavy bleeding, four smelling vaginal discharge. The patient was instructed to schedule a Follow up appointment in 2 weeks to discuss pathology results of the biopsy and treatment options. This note was generated with a voice recognition program. Some errors may have been overlooked during the review of this note. Sometimes these errors may affect the content or meaning of a given sentence. [id number] Biopsy Results AMB Test Urine AMB Test Urine Negative Last Edit by MICAELA Ulloa on 11/09/23 14:12 Results Reviewed Results Reviewed: Laboratory Last Values Tst Clinic Negative 11/09/23 14:12 Assessment & Plan Assessment & Plan (1) Abnormal uterine bleeding (AUB): Code(s): N93.9 - Abnormal uterine and vaginal bleeding, unspecified Category: Medical Plan: EMB done, see procedure note Orders: Orders AMB HCG Urine Test Today Z32.02 - Encounter for test, result negative AMB Endometrial Biopsy Today N93.9 - Abnormal uterine and vaginal bleeding, unspecified Coding Level of Care Code Procedure Only Diagnoses Abnormal uterine bleeding (AUB) N93.9 CPT Codes Endometrial Biopsy - CPT: 38164-Tvyugzthxrz Biopsy ([id number])
[2023-11-09 14:07] VITALS: BP 100/64; BMI 37.4
== END 2023-11-09 14:24 | disposition home or self-care (01) ==
PROVIDERS: PCP Family Medicine; Visit Provider Obstetrics & Gynecology
DX: N93.9 Abnormal uterine and vaginal bleeding, unspecified (principal); Z32.02 Encounter for pregnancy test, result negative
CPT/HCPCS: 58100

== ENCOUNTER 2023-11-23 10:14 | Outpatient (REF) | payer MEDICAID, SELFPAY ==
[2023-11-23 13:17] LABS: Microalbum/Creatinine Ratio Ur 13.3 ug/mg cr (<30)
[2023-11-23 14:06] LABS: CT PCR NOT DETECTED (Not Detect.); NG PCR NOT DETECTED (Not Detect.)
[2023-11-23 14:15] LABS: Alanine Aminotransferase 11 U/L (0-31); Albumin Level 4.2 g/dL (3.5-5.0); Alkaline Phosphatase 110 U/L (39-117); Anion Gap 15 (12-20); Aspartate Amino Transferase 12 U/L (5-31); Bilirubin Direct 0.1 mg/dL (0.0-0.5); Bilirubin Total 0.4 mg/dL (0.0-1.0); Blood Urea Nitrogen 9 mg/dL (9-16); Calcium 9.7 mg/dL (8.4-10.2); Carbon Dioxide 26 mmol/L (22-29); Chloride 106 mmol/L (96-108); Cholesterol 288 mg/dL (<200); Estimated Glomerular Filt Rate > 60; Glucose Random 81 mg/dL (60-115); HDL Cholesterol 53 mg/dL (>40); Iron 60 mcg/dL (30-160); LDL Cholesterol Calculated 209 mg/dL (<100); Percent Iron Saturation 18 % (15-50); Potassium 3.8 mmol/L (3.3-5.1); Sodium 143 mmol/L (135-145); Total Iron Binding Capacity 326 mcg/dL (228-428); Total Protein 7.4 g/dL (6.5-8.0); Triglycerides 131 mg/dL (<150); Unsaturated Iron Binding 266 ug/dL
[2023-11-23 14:31] LABS: Ferritin 197 ng/mL (10-250)
[2023-11-24 04:42] LABS: Syphilis Screen Nonreactive (Nonreactive)
[2023-11-24 05:06] LABS: HIV AB/AG Nonreactive (Nonreactive); HIV Num 1 0.05 S/CO (0.00-0.99); ~HepC Num1 0.11 S/CO (0.00-0.79); ~Hepatitis C Antibody Nonreactive (Nonreactive)
[2023-11-24 05:07] LABS: HBS Num1 0.59 mIU/mL (0-7.99); HBc Num1 0.12 S/CO (0.00-0.79); HBsAGNum1 0.22 S/CO (0.00-0.99); Hepatitis A Antibody IgM 0.29 Index (0-0.79); Hepatitis B Core Antibody Nonreactive (Nonreactive); Hepatitis B Surface Antigen Negative (Negative); ~HepC Num1 0.11 S/CO (0.00-0.79); ~Hepatitis A Antibody IgM Nonreactive (Nonreactive); ~Hepatitis B Surface Antibody NONREACTIVE (Nonreactive); ~Hepatitis C Antibody Nonreactive (Nonreactive)
[2023-11-24 10:18] LABS: Ceruloplasmin 36 mg/dL (14-48)
[2023-11-24 13:03] LABS: Alpha Fetoprotein 1.3 ng/mL
[2023-11-25 15:18] LABS: Mitochondrial Antibodies NEGATIVE (NEGATIVE)
[2023-11-28 14:13] LABS: Anti Nuclear Antibody Screen NEGATIVE (NEGATIVE)
[2023-11-29 13:58] LABS: Smooth Muscle Antibody 32 U (<20)
== END 2023-11-23 10:15 | disposition home or self-care (01) ==
LOC: HO.HHCL 10:14
PROVIDERS: Visit Provider Family Medicine
DX: K76.0 Fatty (change of) liver, not elsewhere classified (principal); E78.5 Hyperlipidemia, unspecified; E11.9 Type 2 diabetes mellitus without complications; Z79.4 Long term (current) use of insulin; Z11.3 Encounter for screening for infections with a predominantly sexual mode of transmission
CPT/HCPCS: 36415; 80048; 80061; 80076; 82043; 82105; 82390; 82570; 82728; 83540; 86015; 86038; 86381; 86704; 86706; 86709; 86780; 86803; 87340; 87389; 87491; 87591

== ENCOUNTER → 2023-11-25 10:37 | Outpatient (RCR) | payer MEDICAID, SELFPAY ==
[2023-10-28 13:13] VITALS: BP 138/80; PULSE 70; RESP 16; TEMP 37.3; O2SAT 100
[2023-10-28] MEDS: Iron Sucrose Complex 200 MG in 0.9 % Sodium Chloride 100 ML 440 MG IV (13:27)
[2023-11-04 08:56] VITALS: BP 124/67; PULSE 82; RESP 18; TEMP 36.6
[2023-11-04] MEDS: Iron Sucrose Complex 200 MG in 0.9 % Sodium Chloride 100 ML 440 MG IV (09:09)
[2023-11-04] MEDS: 0.9 % Sodium Chloride Flush 10 ML SYRINGE 5 ML IVFLUSH (09:29)
[2023-11-11 08:09] VITALS: BP 113/62; PULSE 72; RESP 16; TEMP 36.8; O2SAT 98
[2023-11-11] MEDS: Iron Sucrose Complex 200 MG in 0.9 % Sodium Chloride 100 ML 440 MG IV (08:17)
[2023-11-11] MEDS: 0.9 % Sodium Chloride Flush 10 ML SYRINGE 5 ML IVFLUSH (08:37)
[2023-11-18 08:48] VITALS: BP 146/81; PULSE 70; RESP 18; TEMP 36.4; O2SAT 99
[2023-11-18] MEDS: Iron Sucrose Complex 200 MG in 0.9 % Sodium Chloride 100 ML 440 MG IV (09:03)
[2023-11-18] MEDS: 0.9 % Sodium Chloride Flush 10 ML SYRINGE 5 ML IVFLUSH (09:18)
[2023-11-25 10:01] VITALS: BP 124/65; PULSE 65; RESP 18; TEMP 36.9; O2SAT 97
[2023-11-25] MEDS: Iron Sucrose Complex 200 MG in 0.9 % Sodium Chloride 100 ML 440 MG IV (10:08)
[2023-11-25] MEDS: 0.9 % Sodium Chloride Flush 10 ML SYRINGE 5 ML IVFLUSH (10:27)
== END | disposition home or self-care (01) ==
LOC: HO.INF 10-28 13:04
PROVIDERS: Visit Provider Internal Medicine
DX: D64.9 Anemia, unspecified (principal)
CPT/HCPCS: 96365; 96374; J1756

== ENCOUNTER 2024-01-05 09:30 | Outpatient (REF) | payer MEDICAID, SELFPAY ==
--- NOTE | ~2024-01-05 | US_ITS ---
EXAMINATION: US RETROPERITONEAL LIMITED (RENAL ONLY) CLINICAL INFORMATION: Unspecified abdominal pain. COMPARISON: Ultrasound abdomen complete 06/14/2023. CT abdomen 10/13/2022. Renal ultrasound 10/05/2022. TECHNIQUE: Real-time imaging of the kidneys. FINDINGS: RIGHT KIDNEY: 9.0 x 4.6 x 4.6 cm (SAG x AP x TRV). The kidney is normal in size, contour, and echogenicity. Renal cortical thickness is normal. No calculi or focal parenchymal lesions. There is mild pelviectasis, without get hydronephrosis. LEFT KIDNEY: 10.3 x 5.9 x 5.4 cm (SAG x AP x TRV). The kidney is normal in size, contour, and echogenicity. Renal cortical thickness is normal. No calculi or focal parenchymal lesions. There is mild pelviectasis, without get hydronephrosis. US/US renal BI IMPRESSION: Unremarkable examination. No renal cyst is presently seen. Electronically signed by: Navarro Rodriguez MD 01/19/2024 02:29 PM EDT
== END 2024-01-05 09:31 | disposition home or self-care (01) ==
LOC: HO.US 09:30
PROVIDERS: PCP Family Medicine; Visit Provider Urology
DX: R10.9 Unspecified abdominal pain (principal); N28.1 Cyst of kidney, acquired
CPT/HCPCS: 76775

== ENCOUNTER 2024-01-19 08:32 | Outpatient (AMB) | payer MEDICAID, SELFPAY ==
--- NOTE | 2024-01-19 08:30 | MHC.OFFVIS ---
Intake Visit Reasons: 11w/US Intake Note: Patient is present for 11w/US Urology Medication:none Antibiotic Allergy:sulfamethoxazole,trimethoprim Blood Thinner:none Thimble Press Operator Required: Yes Thimble Press Operator Name: Darrell-- [id number] Information Interpreted: non-clinical & clinical Allergies sulfamethoxazole [From Bactrim] Allergy (Verified 01/19/24 08:31) Rash trimethoprim [From Bactrim] Allergy (Verified 01/19/24 08:31) Rash HPI Comments Details: 01/19/24--telehealth follow-up with Hanna with translator and interpreter, discussed renal ultrasound 01/05/2024 kidneys within normal limits negative for hydronephrosis or renal calculi. We will follow-up on p.r.n. basis. Review of chart: 11/07/23--Felisa is a 47-year-old Pakistani-speaking female who states that she sometimes has pain with urination. Comorbidity diabetes. She also feels pain on her sides at times when she is laying down. Pakistani interpreters utilized. Bladder scan PVR is 0, urinalysis no signs of infection. She has had prior imaging in review of her chart, abdominal ultrasound in June left renal cyst no renal calculi. I have discussed re-evaluating kidneys will check renal ultrasound. [facility] Medical History Cervical cancer screening Pre-op chest exam Gallstones Upper abdominal pain BMI 38.0-38.9,adult Obesity Hypoxia BMI 45.0-49.9, adult Intestinal malabsorption following gastrectomy Hepatomegaly DJD (degenerative joint disease) Abdominal adhesions Diabetes COVID-19 Gallstones Abdominal cramping Chronic idiopathic constipation Family history of anesthesia complication COVID-19 vaccine administered Arthritis Fibromyalgia Sleep apnea Cholelithiasis Vitamin D deficiency, unspecified Vitamin D deficiency Vitamin A deficiency Vitamin B1 deficiency Depression Hypertension Insulin dependent diabetes mellitus Morbid obesity Leukocytosis (leucocytosis) Sickle thalassemia disease Leucocytosis Chronic leukopenia Bilateral shoulder pain Dyslipidemia Axillary hidradenitis suppurativa Chronic back pain Polycystic ovarian syndrome Obesity Surgical History Hx laparoscopic cholecystectomy (09/02/23) S/P laparoscopic sleeve gastrectomy S/P gastric bypass H/O colonoscopy Hx of tubal ligation Hx of gastric bypass Hx of cholecystectomy History of esophagogastroduodenoscopy (EGD) Hx of section Family History Mother Diabetes DVT (deep venous thrombosis) HTN (hypertension) Father Diabetes HTN (hypertension) Sister Stroke Son Asthma Sickle cell anemia Son Sickle cell anemia Maternal Aunt Ovary cancer Throat cancer Breast cancer Paternal Aunt Stomach neoplasm Social History Household Members: Spouse and Children Housing: Apartment Are you a primary care rep to a significant other at home: Yes Do you presently have visiting nurse or other home services: No Comment: counts correct Patient Tobacco Use Status: Never used Tobacco service: No Current occupational status: employed and unemployed 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 Current occupational exposures/hazards: Yes (stress) Female Reproductive History Menstrual Age of Menarche: 9 Review of Systems Const All systems reviewed & are unremarkable except as noted in HPI and below Reports no additional complaints Eyes Reports no additional complaints ENT Reports no additional complaints Card Reports no additional complaints Resp Reports no additional complaints GI Reports no additional complaints Reports as per HPI Musc Reports no additional complaints Skin/Breast Reports system reviewed and no additional complaints, except as documented Neuro Reports no additional complaints Psych Reports no additional complaints Endo Reports no additional complaints Bebo/Lymph Reports no additional complaints Aller/Immun Reports no additional complaints Telehealth Telehealth Telehealth Platform: Telephone Location of provider rendering services: practice address Location of patient: address on file Patient Identification confirmed using: Name, : Yes Telehealth method: voice only Patient verbally consented to treatment: Yes Patient verbally consented to billing insurance company: Yes Patient informed of any privacy concerns related to visit: Yes Minutes spent on Phone/Video with Pt.: 13 Results Reviewed Results Reviewed: Date of Service: 06/14/23 EXAMINATION: US ABDOMEN COMPLETE CLINICAL INFORMATION: Nonalcoholic steatohepatitis (HAWKINS). COMPARISON: CT abdomen 10/13/2022. Ultrasound abdomen 03/03/2021. TECHNIQUE: Real-time imaging of the abdominal viscera. FINDINGS: PANCREAS: The visualized head and body of the pancreas appears unremarkable. Remainder of the pancreas is obscured by bowel gas. ABDOMINAL AORTA: The proximal, mid, and distal segments are normal in caliber. INFERIOR VENA CAVA: Visualized portions are normal. LIVER: The liver is normal in size. The liver contour is normal. Diffuse increased parenchymal echogenicity. No focal hepatic lesion. There is no intrahepatic biliary duct dilatation seen. GALLBLADDER: Gallstones present. Largest measures 1.3 cm. No evidence of gallbladder wall thickening or pericholecystic fluid. COMMON BILE DUCT: Normal in caliber measuring 0.3 cm in diameter. RIGHT KIDNEY: Normal. No hydronephrosis. No renal calculi or focal parenchymal lesions. The kidney measures 9.9 cm in maximum dimension. LEFT KIDNEY: The small Bosniak I cyst seen on the prior CT scan is not evident on today's ultrasound. No renal calculi or focal parenchymal lesions. The kidney measures 9.7 cm in maximum dimension. Cystic focus in the renal pelvis, could reflect parapelvic cyst versus calyceal dilatation. SPLEEN: Normal. The spleen measures 9.1 cm in maximum dimension. FREE FLUID: None. IMPRESSION: 1. There is generalized increase in hepatic echotexture, consistent with fatty infiltration or hepatocellular disease. Please correlate clinically. No focal hepatic mass or intrahepatic biliary duct dilatation is seen. 2. Gallstones. No sonographic findings to suggest acute cholecystitis. 3. Small left renal parapelvic cyst versus calyceal dilatation. Date of Service: 10/13/22 EXAMINATION: CT ABDOMEN WITHOUT AND WITH CONTRAST CLINICAL INFORMATION: Abnormal renal ultrasound. COMPARISON: Renal ultrasound 10/05/2022: Mild fullness of the left renal pelvis similar to previous ultrasound November 2017. A 4 mm nonspecific echogenic area in the cortex of the left kidney. This is not appreciated on previous ultrasound exam. No corresponding abnormality is seen on CT from 2018. TECHNIQUE: Contiguous axial thin section helical images of the abdomen were performed before and after the administration of oral contrast and 85 mL of Omnipaque 350 intravenous contrast. The data set was reformatted in the coronal and sagittal planes and reviewed on an independent workstation. This CT examination was performed using dose optimization techniques as appropriate, variously including the following: *Automated exposure control *Adjustment of mA and/or kV according to patient size (this includes techniques or standardized protocols for targeted exams where dose is matched to indication/reason for exam; i.e. extremities or head) *Use of iterative reconstruction technique DLP: 677 mGy-cm FINDINGS: LUNG BASES: The visualized lung bases are unremarkable. A small water density cyst is noted just below the inferior right pulmonary vein, unchanged from 12/01/2017. LIVER, GALLBLADDER, AND BILIARY TREE: The liver is normal in size and shape but is hypoattenuating suggesting hepatic steatosis. No focal hepatic lesion or biliary ductal dilatation is present. The gallbladder is unremarkable with no evidence of radiopaque gallstones, gallbladder wall thickening, or obvious pericholecystic inflammatory changes. PANCREAS: Unremarkable. SPLEEN: Unremarkable. ADRENAL GLANDS: Unremarkable. KIDNEYS AND URETERS: The kidneys are normal in size, shape, and attenuation. A benign 0.5 cm Bosniak class I renal cyst is noted in the left kidney which requires no additional imaging or follow-up. No solid renal masses are seen. No hydronephrosis, hydroureter, or calculi seen. No perinephric stranding. GASTROINTESTINAL TRACT: There is been interval gastric bypass with gastrojejunostomy since the prior CT scan. The visualized small and large bowel are unremarkable. The partially visualized appendix is unremarkable. ABDOMINAL WALL: No significant hernia is appreciated. LYMPH NODES: No retroperitoneal lymphadenopathy. Partially visualized top of uterus which appears mildly lobular similar to prior. VASCULAR: Unremarkable. OSSEOUS STRUCTURES: Unremarkable. IMPRESSION: A worrisome renal abnormality is not seen. There is no hydronephrosis. There is a benign left renal Bosniak class I cyst which needs no additional imaging or follow-up. Incidental note made of: 1. Hepatic steatosis. 2. Interval gastric bypass. 3. Probable uterine fibroids. Assessment & Plan Assessment & Plan (1) Abdominal pain: Code(s): R10.9 - Unspecified abdominal pain Category: Medical (2) Renal cyst: Code(s): N28.1 - Cyst of kidney, acquired Category: Medical Plan Renal ultrasound 01/05/2024 kidneys within normal limits negative for hydronephrosis or renal calculi. Will follow-up on p.r.n. basis. Patient Instructions: The patient had an opportunity to ask questions regarding treatment plan. The patient expressed understanding and agreement with the above treatment plan. The patient is aware they should contact our office by phone for worsening of their current condition or the appearance of new symptoms. Compliance is encouraged with any medications and followup testing that is ordered. It is a privilege to be allowed the opportunity to participate in the urologic care of your patient. If you have any questions or concerns regarding treatment for the above conditions please do not hesitate to contact me. The office telephone contact is [phone]. This note is constructed in part using voice recognition software. While every effort has been made to ensure accuracy vice president payer errors may have been included. Yours sincerely, Denisha Espitia MD Coding Level of Care Code Tele Est Pt Level 3 (87102) Diagnoses Abdominal pain R10.9 Renal cyst N28.1
== END 2024-01-19 11:35 | disposition home or self-care (01) ==
LOC: HO.HUSH 08:32
PROVIDERS: PCP Family Medicine; Visit Provider Urology
DX: R10.9 Unspecified abdominal pain (principal); N28.1 Cyst of kidney, acquired
CPT/HCPCS: 99213

== ENCOUNTER → 2024-01-19 08:32 | Outpatient (BNVA) | payer MEDICAID, SELFPAY | PROVIDERS: PCP Family Medicine; Visit Provider Urology ==

== ENCOUNTER 2024-02-01 09:46 | Outpatient (AMB) | payer MEDICAID, SELFPAY ==
--- NOTE | 2024-02-01 09:48 | A.OFFVIS_ITS ---
Intake Visit Reasons: EMB results Sociology Adjunct Instructor Required: Yes Sociology Adjunct Instructor Language: Fitter Hand Services: Sociology Adjunct Instructor Present (in person) Sociology Adjunct Instructor Name: Maribell HINOJOSA Information Interpreted: non-clinical & clinical Allergies sulfamethoxazole [From Bactrim] Allergy (Verified 02/01/24 09:48) Rash trimethoprim [From Bactrim] Allergy (Verified 02/01/24 09:48) Rash Post menopausal: Yes HPI Comments Details: The patient scheduled a follow-up to discuss the results of her abnormal uterine bleeding workup and options of treatment. The following workup was done.: H&H= 10.5/34.2 TSH, prolactin, hCG, GC and chlamydia were negative. FSH/LH 15.0/5.8 Endometrial biopsy pathology showed secretory endometrium with no evidence of hyperplasia and/or malignancy. Co testing was done in 12/22 was negative. Mammogram was BI-RADS 1 in 10/23. Pelvic ultrasound showed the following: IMPRESSION: 1. A 0.5 cm hyperechoic focus in the right ovary without internal vascularity which may reflect a tiny ovarian dermoid. Recommend definitive characterization with contrast-enhanced MR and if not surgically resected, annual follow-up ultrasound. 2. Uterus is mildly enlarged and heterogeneous in echotexture, which could be seen in the setting of adenomyosis, which could be confirmed with MR pelvis. Pelvic MRI: IMPRESSION: 1. No focal lesion including T1 hyperintense lesion could be found in the right ovary to suggest dermoid lesion. The hypoechoic lesion reported on ultrasound examination of the pelvis may represent resolved small hemorrhagic right ovarian cyst. Follow-up pelvic ultrasound examination in 6-12 weeks is still recommended. 2. Incidental note is made of at least 2 filling defects in the gallbladder measuring up to 1 cm in diameter, likely representing gallstones. 3. Left adnexal 1.8 cm simple cyst. Findings are overwhelmingly likely to represent a normal ovarian follicle. No followup imaging recommended. [facility] Medical History Cervical cancer screening Pre-op chest exam Gallstones Upper abdominal pain BMI 38.0-38.9,adult Obesity Hypoxia BMI 45.0-49.9, adult Intestinal malabsorption following gastrectomy Hepatomegaly DJD (degenerative joint disease) Abdominal adhesions Diabetes COVID-19 Gallstones Abdominal cramping Chronic idiopathic constipation Family history of anesthesia complication COVID-19 vaccine administered Arthritis Fibromyalgia Sleep apnea Cholelithiasis Vitamin D deficiency, unspecified Vitamin D deficiency Vitamin A deficiency Vitamin B1 deficiency Depression Hypertension Insulin dependent diabetes mellitus Morbid obesity Leukocytosis (leucocytosis) Sickle thalassemia disease Leucocytosis Chronic leukopenia Bilateral shoulder pain Dyslipidemia Axillary hidradenitis suppurativa Chronic back pain Polycystic ovarian syndrome Obesity Surgical History Hx laparoscopic cholecystectomy (09/02/23) S/P laparoscopic sleeve gastrectomy S/P gastric bypass H/O colonoscopy Hx of tubal ligation Hx of gastric bypass Hx of cholecystectomy History of esophagogastroduodenoscopy (EGD) Hx of section Family History Mother Diabetes DVT (deep venous thrombosis) HTN (hypertension) Father Diabetes HTN (hypertension) Sister Stroke Son Asthma Sickle cell anemia Son Sickle cell anemia Maternal Aunt Ovary cancer Throat cancer Breast cancer Paternal Aunt Stomach neoplasm Social History Household Members: Spouse and Children Housing: Apartment Are you a primary childcare administrator to a significant other at home: Yes Do you presently have visiting nurse or other home services: No Comment: counts correct Patient Tobacco Use Status: Never used Tobacco service: No Current occupational status: employed and unemployed 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 Current occupational exposures/hazards: Yes (stress) Female Reproductive History Menstrual Age of Menarche: 9 Review of Systems Const All systems reviewed & are unremarkable except as noted in HPI and below Reports as per HPI and Reports no additional complaints GI Reports no additional complaints Reports no additional complaints Telehealth Telehealth Telehealth Platform: Telephone Location of provider rendering services: practice address Location of patient: address on file Patient Identification confirmed using: Name, : Yes Telehealth method: voice only Patient verbally consented to treatment: Yes Patient verbally consented to billing insurance company: Yes Patient informed of any privacy concerns related to visit: Yes Assessment & Plan Assessment & Plan (1) Abnormal uterine bleeding (AUB): Code(s): N93.9 - Abnormal uterine and vaginal bleeding, unspecified Category: Medical Plan: Discussed with the patient the results of the work up done and options of treatment including Lysteda, BCP's, Mirena IUD, endometrial ablation and hysterectomy. All pros, cons, risks and benefits if each option was discussed with the patient and the patient decided to go ahead with endometrial ablation. so a more detailed discussion about the procedure was conducted including mechanism of action, effectiveness and its potential failure rate in the coming 3-5 years, its risks (initial or future failure of AUB control, uterine perforation, infection, injury to bladder, bowel, ureter, and blood vessels, possible need for blood transfusion, inability to access the uterine cavity in order to sample the endometrial cavity to rule out endometrial pathology including endometrial cancer and others), post ablation syndrome, benefits ( hypomenorrhea, amenorrhea, ...) . The patient verbalized understanding and signed the consent. The patient was instructed to call day 1 of next cycle for scheduling Novasure endometrial ablation on day 1-10 of next cycle. In addition, the patient understands that although the endometrial ablation is not a method of control it will decrease markedly her chance of getting . The patient verbalized understanding and agreed with the plan. (2) Ovarian cyst: Code(s): N83.209 - Unspecified ovarian cyst, unspecified side Category: Medical Plan: Pelvic ultrasound ordered, instructions given the patient to schedule an ultrasound and a follow-up appointment within 2 weeks. All questions answered, the patient verbalized understanding. I spent a total of 20 minutes reviewing the chart, talking to the patient via phone and documenting in the medical record. Orders: Orders US pelvic and transvaginal Today N83.209 - Unspecified ovarian cyst, unspecified side Coding Level of Care Code Tele Est Pt Level 1 (49003) Diagnoses Abnormal uterine bleeding (AUB) N93.9 Ovarian cyst N83.209
== END 2024-02-01 11:19 | disposition home or self-care (01) ==
LOC: HO.HWS 09:46
PROVIDERS: PCP Family Medicine; Visit Provider Obstetrics & Gynecology
DX: N93.9 Abnormal uterine and vaginal bleeding, unspecified (principal); N83.209 Unspecified ovarian cyst, unspecified side
CPT/HCPCS: 99211

== ENCOUNTER → 2024-02-01 09:46 | Outpatient (BNVA) | payer MEDICAID, SELFPAY | PROVIDERS: PCP Family Medicine; Visit Provider Obstetrics & Gynecology ==

== ENCOUNTER 2024-02-08 10:36 | Outpatient (REF) | payer MEDICAID, SELFPAY ==
--- NOTE | ~2024-02-08 | US_ITS ---
US/US pelvic and transvaginal IMPRESSION: Small echogenic mass in the right ovary is slightly larger than on the prior ultrasound. This could represent a small dermoid. Follow-up ultrasound in 6-12 months is recommended. Electronically signed by: Jonnathan lAlen MD 04/05/2024 01:06 AM EST EXAMINATION: US PELVIS CLINICAL INFORMATION: Ovarian cyst. COMPARISON: MR pelvis 06/02/2023: No focal lesion including T1 hyperintense lesion could be found in the right ovary to suggest dermoid lesion. The hypoechoic lesion reported on ultrasound examination of the pelvis may represent resolved small hemorrhagic right ovarian cyst. Follow-up pelvic ultrasound examination in 6-12 weeks is still recommended. TECHNIQUE: Ultrasound of the pelvis is performed using both transabdominal and transvaginal transducers along with Doppler. Transvaginal imaging is performed due to inadequate visualization transabdominally. FINDINGS: Uterus: The uterus is anteverted and measures 11.8 x 4.9 x 6.1 cm. The double wall endometrial thickness is 2 mm. The uterus is smooth in contour and has normal myometrial echogenicity. No visible fibroid. Adnexa: Both ovaries are visualized. There is normal color flow to the adnexa. There is no ovarian torsion. There is no pelvic ascites or fluid collection. Right ovary measures 2.8 x 2.0 x 1.9 cm for a volume of 5.6 mL and contains a small echogenic mass measuring 7 x 5 x 4 mm (previously 5 x 4 x 3 mm). Left ovary measures 2.6 x 2.0 x 3.4 cm for a volume of 9.3 mL.
== END 2024-02-08 10:37 | disposition home or self-care (01) ==
LOC: HO.US 10:36
PROVIDERS: PCP Family Medicine; Visit Provider Obstetrics & Gynecology
DX: N83.209 Unspecified ovarian cyst, unspecified side (principal)
CPT/HCPCS: 76830; 76856

== ENCOUNTER 2024-05-28 08:58 | Outpatient (AMB) | payer MEDICAID, SELFPAY ==
--- NOTE | 2024-05-28 09:23 | A.OFFVIS_ITS ---
Intake Visit Reasons: ultrasound follow up/DO NO [facility] Campus Interviews Intern Required: Yes Campus Interviews Intern Services: Campus Interviews Intern Present ([employer]) Campus Interviews Intern Name: Nadeen [id number] Information Interpreted: clinical only Assistant Associate Full Professor: Assistant Associate Full Professor Present (Julia) Accompanied by: Self / Same As Patient Allergies sulfamethoxazole [From Bactrim] Allergy (Verified 05/28/24 09:25) Rash trimethoprim [From Bactrim] Allergy (Verified 05/28/24 09:25) Rash HPI Comments Details: The patient is presenting for follow-up ultrasound done in 02/22. No complaints 01/22 pelvic ultrasound showed the following: IMPRESSION: 1. A 0.5 cm hyperechoic focus in the right ovary without internal vascularity which may reflect a tiny ovarian dermoid. Recommend definitive characterization with contrast-enhanced MR and if not surgically resected, annual follow-up ultrasound. 2. Uterus is mildly enlarged and heterogeneous in echotexture, which could be seen in the setting of adenomyosis, which could be confirmed with MR pelvis. 06/06/2023 pelvic MRI showed the following: IMPRESSION: 1. No focal lesion including T1 hyperintense lesion could be found in the right ovary to suggest dermoid lesion. The hypoechoic lesion reported on ultrasound examination of the pelvis may represent resolved small hemorrhagic right ovarian cyst. Follow-up pelvic ultrasound examination in 6-12 weeks is still recommended. 2. Incidental note is made of at least 2 filling defects in the gallbladder measuring up to 1 cm in diameter, likely representing gallstones. 3. Left adnexal 1.8 cm simple cyst. Findings are overwhelmingly likely to represent a normal ovarian follicle. No followup imaging recommended 02/28/2024 pelvic ultrasound showed the following: Uterus: The uterus is anteverted and measures 11.8 x 4.9 x 6.1 cm. The double wall endometrial thickness is 2 mm. The uterus is smooth in contour and has normal myometrial echogenicity. No visible fibroid. Adnexa: Both ovaries are visualized. There is normal color flow to the adnexa. There is no ovarian torsion. There is no pelvic ascites or fluid collection. Right ovary measures 2.8 x 2.0 x 1.9 cm for a volume of 5.6 mL and contains a small echogenic mass measuring 7 x 5 x 4 mm (previously 5 x 4 x 3 mm). Left ovary measures 2.6 x 2.0 x 3.4 cm for a volume of 9.3 mL. [facility] Medical History Cervical cancer screening Pre-op chest exam Gallstones Upper abdominal pain BMI 38.0-38.9,adult Obesity Hypoxia BMI 45.0-49.9, adult Intestinal malabsorption following gastrectomy Hepatomegaly DJD (degenerative joint disease) Abdominal adhesions Diabetes COVID-19 Gallstones Abdominal cramping Chronic idiopathic constipation Family history of anesthesia complication COVID-19 vaccine administered Arthritis Fibromyalgia Sleep apnea Cholelithiasis Vitamin D deficiency, unspecified Vitamin D deficiency Vitamin A deficiency Vitamin B1 deficiency Depression Hypertension Insulin dependent diabetes mellitus Morbid obesity Leukocytosis (leucocytosis) Sickle thalassemia disease Leucocytosis Chronic leukopenia Bilateral shoulder pain Dyslipidemia Axillary hidradenitis suppurativa Chronic back pain Polycystic ovarian syndrome Obesity Surgical History Hx laparoscopic cholecystectomy (09/02/23) S/P laparoscopic sleeve gastrectomy S/P gastric bypass H/O colonoscopy Hx of tubal ligation Hx of gastric bypass Hx of cholecystectomy History of esophagogastroduodenoscopy (EGD) Hx of section Family History Mother Diabetes DVT (deep venous thrombosis) HTN (hypertension) Father Diabetes HTN (hypertension) Sister Stroke Son Asthma Sickle cell anemia Son Sickle cell anemia Maternal Aunt Ovary cancer Throat cancer Breast cancer Paternal Aunt Stomach neoplasm Social History Household Members: Spouse and Children Housing: Apartment Are you a primary sub acute care nurse to a significant other at home: Yes Do you presently have visiting nurse or other home services: No Comment: counts correct Patient Tobacco Use Status: Never used Tobacco service: No Current occupational status: employed and unemployed 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 Discussed with the patient the Ultrasound findings, the main limitation of transvaginal ultrasonography alone as a diagnostic tool to distinguish benign from malignant masses relates to its lack of specificity and low positive predictive value for cancer. The differential diagnosis discussed with the patient includes the following but not limited to: benign and malignant gynecological and non-gynecological causes. Will proceed with pelvic MRI and schedule follow-up appointment afterwards. Instructions given the patient to schedule a 2 week pelvic MRI follow-up ultrasound appointment. All questions were answered & the patient verbalized understanding and agreed with the plan. Orders: Orders MR pelvis wo/w con Today N83.299 - Other ovarian cyst, unspecified side Coding Level of Care Code Est Pt Level 3 (33932) Diagnoses Complex ovarian cyst N83.299
== END 2024-05-28 10:10 | disposition home or self-care (01) ==
PROVIDERS: PCP Family Medicine; Visit Provider Obstetrics & Gynecology
DX: N83.299 Other ovarian cyst, unspecified side (principal)
CPT/HCPCS: 99213

== ENCOUNTER → 2024-05-28 08:58 | Outpatient (BNVA) | payer MEDICAID, SELFPAY | PROVIDERS: PCP Family Medicine; Visit Provider Obstetrics & Gynecology | DX: N83.299 Other ovarian cyst, unspecified side (principal) | CPT/HCPCS: 99212 ==

== ENCOUNTER 2024-05-30 12:59 | Outpatient (REF) | payer MEDICAID, SELFPAY ==
--- NOTE | ~2024-05-30 | MR_ITS ---
EXAMINATION: MR PELVIS WITHOUT AND WITH CONTRAST CLINICAL INFORMATION: Ovarian cyst. COMPARISON: MRI dated June 02, 2023. TECHNIQUE: Multiplanar, multisequence MRI pelvis without and following the IV contrast administration. Total of 10 cc gadolinium based (Gadavist) without reported immediate complications. FINDINGS: The uterus measures 4 x 8 x 13 cm. The cervix measures 4 cm. The junctional zone measures 6 mm. No enhancing lesion within the uterus. Right ovary measures 4 x 3 x 2 cm. There is a focal, 2 cm intrinsic hyperintense T1 and slightly fat saturated nonenhancing signal abnormality. Left ovary measures 3 x 2 x 2 cm. No cystic lesion or enhancing lesion. No ascites. Abundant stool within the large intestine. No intestinal obstruction pattern. No aneurysm or dissection in the included infrarenal distal abdominal aorta and iliac arteries. Bone marrow signal is normal. Nonspecific prominent lymph nodes, inguinal region. Diastases abdominal rectus muscles. No gross inguinal hernias. Spondylosis L5-S1 with disc bulging. MR/MR pelvis wo/w con IMPRESSION: Probable 2 cm dermoid, right adnexa. Electronically signed by: Sherif Herrera MD 05/30/2024 03:11 PM JOHN
[2024-05-30] MEDS: gadobutroL 10 ML VIAL IVPUSH (14:31)
--- OUTSIDE RECORDS SUMMARY | 2024-05-30 15:06 | XMS_ITS | Encounter Summary ---
Author Organization [facility] Address [address] [place] [address] [address] [place] [address] Care Team Providers Care Marketing Automation Analyst Name Role Phone [place], Claudia GORMAN Primary Care Provider [phone] Graham Mcbride MD Unavailable Tamika Barker MD Unavailable [phone] Trudy Solomon MD Unavailable Reason for Visit * Reason Comments Med Refill Encounter Details Date Type Department Care Team (Late st Contact Info) Description 10/08/2022 Refill [facility] [address] [place], [place] [phone] Mary Abdul, ANP [address] [place], [place] [phone] Low back pain at multiple sites Social History Tobacco Use Types Packs/Day Years Used Date Smoking Tobacco: Never Smokeless Tobacco: Never Depression Answer Date Recorded Patient Health Questionnaire-9 Score 0 05/24/2022 Depression Answer Date Recorded Patient Health Questionnaire-2 Score 0 05/24/2022 Comments Unknown Sex and Gender Information Value Date Recorded Sex Assigned at Female 03/01/2022 10:19 AM EDT Legal Sex Female 10:19 AM EDT Gender Identity Female 03/01/2022 10:19 AM EDT Sexual Orientation Straight 03/01/2022 10 :19 AM EDT documented as of this encounter Miscellaneous Notes * Telephone Encounter - Mali Alvesnez - 10/08/2022 2:58 PM EDT Tc from patient re calling, in regards to med refill for oxycodone. * Telephone Encounter - Mariama Franklin RN - 10/08/2022 2:43 PM EDT Sent to pcp 10/07/22 * Telephone Encounter - Mariama Franklin RN - 10/08/2022 2:43 PM EDT Pended to provider 10/07/22 documented in this encounter Plan of Treatment Upcoming Encounters Date Type Department Care Team (Late st Contact Info) Description 06/08/2024 10:00 AM EST Clinical Support [facility] [address] [place] [address] Pauline Galvin RN [address] [place] [address] documented as of this encounter Visit Diagnoses Diagnosis Low back pain at multiple sites documented in this encounter Additional Health Concerns Assessment Noted Time PHQ-9 Depression Total Score: 0 05/24/19 10:10 AM EST documented as of this encounter Care Teams Marketing Automation Analyst Relationship Specialty Start Date End Date Claudia Sapp MD [address] [place] [address] PCP - General Family Medicine 05/02/18 Graham Mcbride MD [address] [place] [address] [address] [place] [address] Obstetrics and Gynecology 04/05/24 Tamika Barker MD [address] [place] [address] 3[address] [place] [address] Gastroenterology 05/08/24 Trudy Solomon MD [address] [place] [address] Hematology and Oncology 05/08/24 documented as of this encounter
--- OUTSIDE RECORDS SUMMARY | 2024-05-30 15:06 | XMS_ITS | Clinical Summary ---
Author Organization [facility] Address [address] [place] [address] [address] [place] [address] Care Team Providers Care Director Learning And Development Name Role Phone [place], Claudia GORMAN Primary Care Provider [phone] Graham Mcbride MD Unavailable Tamika Barker MD Unavailable [phone] Trudy Solomon MD Unavailable [phone] Allergies No known active allergies Medications Blood Glucose Monitoring Suppl (FreeStyle Lite) w/Device kitIndications: Type 2 diabetes mellitus with hyperglycemia, unspecified whether long term care pharmacist insulin use ([facility]) 1 kit 2 times daily. 1 kit 023 Active Blood Glucose Monitoring Suppl (FreeStyle glucose monitoring) kitIndications: Type 2 diabetes mellitus with hyperglycemia, with long-term current use of insulin (CMS/FORMER[facility]) Use BID. Dx type 2 diabetes 1 each 023 Active docusate sodium (Colace) 100 MG capsuleIndicati ons:Constipatio n, unspecified constipation type TAKE 1 CAPSULE BY MOUTH TWICE DAILY NEEDED 180 capsule 3 023 Active cromolyn (Opticrom) 4 % ophthalmic solutionIndicat ions:Dry eyes PLACE 1 DROP INTO THE AFFECTED EYE(S) FOUR TIMES DAILY 10 mL 5 023 Active clindamycin (Clindagel) 1 % gelIndications: Axillary hidradenitis suppurativa APPLY TO THE AFFECTED AREA(S) TOPICALLY EVERY MORNING 60 g 023 Active FREESTYLE LITE test stripIndication s:Type 2 diabetes mellitus without complication, unspecified whether nursing home insulin use (CMS/HCC) USE DIRECTED TO TEST BLOOD SUGAR TWICE DAILY 100 strip 5 024 Active TRUEplus Lancets 33G miscIndications :Type 2 diabetes mellitus without complication, unspecified whether long term care pharmacist insulin use ([facility]) USE DIRECTED TO TEST BLOOD SUGAR TWICE DAILY 100 each 5 024 Active DULoxetine (Cymbalta) [address] capsuleIndicati ons:Moderate major depression ([facility]) Take 1 capsule (30 mg) by mouth Once per day. 90 capsule 3 024 Active lisinopril 5 MG tabletIndicatio ns:Primary hypertension Take 1 tablet (5 mg) by mouth Once per day. 30 tablet 11 024 2024 Active loratadine (Claritin) 10 MG tabletIndicatio ns:Allergic rhinitis, unspecified seasonality, unspecified trigger TAKE 1 TABLET BY MOUTH ONCE DAILY NEEDED FOR ALLERGIES 90 tablet 1 024 Active polyethylene glycol, PEG, 3350 (GaviLAX) 17 GM/SCOOP powderIndicatio ns:Constipation , unspecified constipation type Mix 17g (1 capful) in 8 ounces of water and take by mouth every day AT BEDTIME NEEDED FOR CONSTIPATION 510 g 2 024 Active oxyCODONE (Roxicodone) 10 MG immediate release tabletIndicatio ns:Low back pain at multiple sites Take 1 tablet (10 mg) by mouth every 8 (eight) hours if needed for severe pain. 84 tablet 024 Active Bisacodyl EC 5 MG EC tabletIndicatio ns:Irritable bowel syndrome, unspecified type Take 10 mg by mouth at bedtime. 024 Active Linzess 290 MCG capsuleIndicati ons:Irritable bowel syndrome, unspecified type take 1 capsule by mouth every day in the morning 024 Active naloxone (Narcan) 4 mg/0.1 mL nasal sprayIndication s:Chronic low back pain with sciatica, sciatica laterality unspecified, unspecified back pain laterality Administer 1 spray (4 mg) into affected nostril(s) if needed for opioid reversal. 2 each 025 Active fluticasone (Flonase) 50 MCG/ACT nasal sprayIndication s:Allergic rhinitis, unspecified seasonality, unspecified trigger Administer 1 spray into each nostril Once per day. Shake gently. Before first use, prime pump. After use, clean tip and replace cap. 48 g 025 Active atorvastatin (Lipitor) 40 MG tabletIndicatio ns:Dyslipidemia Take 1 tablet (40 mg) by mouth Once per day. 30 tablet 11 025 2025 Active naloxone (Narcan) 4 mg/0.1 mL nasal sprayIndication s:Chronic low back pain with sciatica, sciatica laterality unspecified, unspecified back pain laterality Administer 1 spray (4 mg) into affected nostril(s) if needed for opioid reversal. 2 each 023 2024 Discontinued(R eorder (will not trigger notification to Pharmacy)) Alcohol Swabs (Alcohol Prep) 70 % pads USE DIRECTED 100 each 11 023 2024 Discontinued(D uplicate order (will not trigger notification to Pharmacy)) atorvastatin (Lipitor) 80 MG tabletIndicatio ns:Dyslipidemia ,Type 2 diabetes mellitus without complication, unspecified whether long term care pharmacist insulin use ([facility]) Take 1 tablet (80 mg) by mouth at bedtime. 90 tablet 3 024 2024 Discontinued fluticasone (Flonase) 50 MCG/ACT nasal sprayIndication s:Allergic rhinitis, unspecified seasonality, unspecified trigger Administer 1 spray into each nostril Once per day. Shake gently. Before first use, prime pump. After use, clean tip and replace cap. 48 g 024 2024 Discontinued(R eorder (will not trigger notification to Pharmacy)) oxyCODONE (Roxicodone) 10 MG immediate release tabletIndicatio ns:Low back pain at multiple sites Take 1 tablet (10 mg) by mouth every 8 (eight) hours if needed for severe pain. 84 tablet 024 2023 Discontinued(R eorder (will not trigger notification to Pharmacy)) Active Problems Problem Noted Date Diagnosed Date Dietary counseling 05/30/2024 Assessment & Plan (05/30/2024 2:27 PM EST): Dietary Recommendations: Fruits, vegetables, whole grains, protein foods, and fat-free or low-fat dairy products are healthy choices. Eat different types of protein foods in your diet. This can include seafood, lean meats, poultry, beans, peas, lentils, nuts, seeds, soy products, and eggs. Limit foods and beverages higher in added sugars, saturated fat, and sodium. 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 No renal cyst is presently seen. Primary hypertension 11/23/2023 Overview (05/30/2024): BP at goal -Lisinopril 5mg was d/c at hospital follow up. -pt has ran out of the Lisinopril from Hospital, will restart 5mg Lisinopril, daily 11/23/23 -CDTM referral placed 08/03/2021, re-referred to [facility]agment Program with our NAYELY Zapata 11/23/23 Assessment & Plan (05/30/2024 2:32 PM EST): BP at goal -Lisinopril 5mg was d/c at hospital follow up. -pt has ran out of the Lisinopril from Hospital, will restart 5mg Lisinopril, daily 11/23/23 -CDTM referral placed 08/03/2021, re-referred to Collaborative Drug Therapy Managment Program with our NAYELY Zapata 11/23/23 Assessment & Plan (11/23/2023 9:51 AM EDT): BP initially elevated, repeat was at goal -Lisinopril 5mg was d/c at hospital follow up. -pt has ran out of the Lisinopril from Hospital, will restart 5mg Lisinopril, daily 11/23/23 -CDTM referral placed 08/03/2021, re-referred to Collaborative Drug Therapy Managment Program with our PharmD, NAYELY 11/23/23 Hidradenitis suppurativa 11/23/2023 Overview (11/23/2023): -referred to Dermatology 11/23/23 Assessment & Plan (11/23/2023 9:52 AM EDT): -referred to Dermatology 11/23/23 Allergic rhinitis 11/23/2023 Hx laparoscopic cholecystectomy 09/04/2023 Overview (09/04/2023): -done 09/02/23 at [facility] with Jeff Hagen MD Constipation 02/21/2023 Overview (02/21/2023): -Medication given 02/21/2023 Assessment & Plan (02/21/2023 9:33 AM EDT): -Medication given 02/21/2023 Colon cancer screening 02/18/2023 Overview (05/08/2024): -colonoscopy with Dr. Barker 02/25/2023 polyp pathology states fecal material only -Polyp pathology was fecal meterial only Assessment & Plan (02/21/2023 9:19 AM EDT): -referred for colonoscopy 03/14/2022 -Polyp pathology was fecal meterial only Abnormal finding on ultrasound 01/17/2023 Overview (05/30/2024): US ordered by Bus Analyst 12/2022 revealed 1. A 0.5 cm hyperechoic focus in the right ovary without internal vascularity which may reflect a tiny ovarian dermoid. Recommend definitive characterization with contrast-enhanced MR and if not surgically resected, annual follow-up ultrasound. 2. Uterus is mildly enlarged and heterogeneous in echotexture, which could be seen in the setting of adenomyosis, which could be confirmed with MR pelvis. -Follow up on 01/31/2023 repeat pelvic US ordred and urology referral placed for retention of urine, also referred by civil engineering professor to Dr Zurita to consider best way of investigating uterine and ovarian findings. -US 02/08/[address] Mcbride Small echogenic mass in the right ovary is slightly larger than on the prior ultrasound. This could represent a small dermoid. Follow-up ultrasound in 6-12 months is recommended. -note from Dr. Mcbride 05/26/24 differential includes the following but not limited to: benign and malignant gynecological and non-gynecological causes. Will proceed with pelvic MRI and schedule follow-up appointment afterwards. -MRI done 05/30/24 and has follow-up scheduled with Dr. Mcbride. Assessment & Plan (05/30/2024 2:46 PM EST): US ordered by Bus Analyst 12/2022 revealed 1. A 0.5 cm hyperechoic focus in the right ovary without internal vascularity which may reflect a tiny ovarian dermoid. Recommend definitive characterization with contrast-enhanced MR and if not surgically resected, annual follow-up ultrasound. 2. Uterus is mildly enlarged and heterogeneous in echotexture, which could be seen in the setting of adenomyosis, which could be confirmed with MR pelvis. -Follow up on 01/31/2023 repeat pelvic US ordred and urology referral placed for retention of urine, also referred by civil engineering professor to Dr Zurita to consider best way of investigating uterine and ovarian findings. -US 02/08/[address] Mcbride Small echogenic mass in the right ovary is slightly larger than on the prior ultrasound. This could represent a small dermoid. Follow-up ultrasound in 6-12 months is recommended. -note from Dr. Mcbride 05/26/24 differential includes the following but not limited to: benign and malignant gynecological and non-gynecological causes. Will proceed with pelvic MRI and schedule follow-up appointment afterwards. -MRI done 05/30/24 and has follow-up scheduled with Dr. Mcbride. Assessment & Plan (02/21/2023 9:12 AM EDT): US ordered by Bus Analyst 12/2022 revealed 1. A 0.5 cm hyperechoic focus in the right ovary without internal vascularity which may reflect a tiny ovarian dermoid. Recommend definitive characterization with contrast-enhanced MR and if not surgically resected, annual follow-up ultrasound. 2. Uterus is mildly enlarged and heterogeneous in echotexture, which could be seen in the setting of adenomyosis, which could be confirmed with MR pelvis. --Follow up on 01/31/2023 repeat pelvic US ordred and urology referral placed for retention of urine, also referred by civil engineering professor to Dr Zurita to consider best way of investigating uterine and ovarian findings. Other specified health status 10/13/2022 Overview (05/30/2024): -next physical exam due after 11/22/24 -referred to [facility] 05/30/24 -dental home is [facility] -health care proxy filed 11/23/23 Assessment & Plan (05/30/2024 2:35 PM EST): -next physical exam due after 11/22/24 -referred to [facility] 05/30/24 -dental home is [facility] -health care proxy filed 11/23/23 Assessment & Plan (11/23/2023 9:54 AM EDT): -next physical exam due after 11/22/24 -eye exam with Dr. Euceda last year -dental home is -health care proxy filed 11/23/23 Assessment & Plan (02/21/2023 9:31 AM EDT): -next physical exam due after August 12, 2023 -eye exam with Dr. Euceda last year Chronic pain disorder 08/11/2022 Overview (08/11/2022): Pt given number to call pain management. Assessment & Plan (02/21/2023 8:56 AM EDT): Pt given number to call pain management. Assessment & Plan (08/11/2022 10:49 AM EDT): Pt given number to call pain management. Knee pain, bilateral 05/24/2022 Fibromyalgia 05/21/2022 Overview (08/10/2022): Significant difficult with ADLs and IADLs in the background of multiple chronic medical conditions. Patient meets criteria for in the backdrop of arthralgias and musculoskelatal pain including knee pain, shoulder pain, and back pain. She has chronic oxycodone where she takes as needed 10 mg bid. She has no improvment with gabapentin bid so this was weaned. Cymbalta 30 mg bid started and dc'ing fluoxetine 40 mg. We discussed lifestyle modifications and she agrees with the plans. Assessment & Plan (08/11/2022 10:47 AM EDT): Significant difficult with ADLs and IADLs in the background of multiple chronic medical conditions. Patient meets criteria for in the backdrop of arthralgias and musculoskelatal pain including knee pain, shoulder pain, and back pain. She has chronic oxycodone where she takes as needed 10 mg bid. She has no improvment with gabapentin bid so this was weaned. Cymbalta 30 mg bid started and dc'ing fluoxetine 40 mg. We discussed lifestyle modifications and she agrees with the plans. Assessment & Plan (05/24/2022 10:46 AM EST): Significant difficult with ADLs and IADLs in the background of multiple chronic medical conditions. Patient meets criteria for in the backdrop of arthralgias and musculoskelatal pain including knee pain, shoulder pain, and back pain. She has chronic oxycodone where she takes as needed 10 mg bid. She has no improvment with gabapentin bid so this was weaned. Cymbalta 30 mg bid started and dc'ing fluoxetine 40 mg. We discussed lifestyle modifications and she agrees with the plans. -Referral for pain management and acupuncture 05/24/22. Chronic right-sided low back pain with right-aurora ed sciatica 05/21/2022 Overview (05/21/2022): No improvement with PT, injections, multiple medications MRI 06/2016 with only minor changes, no significant stenosis. Nerve conduction study 07/29/16 revealed Chronic right mid to lower lumbar radiculopathy. 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 Gabapentin was ineffective. Continue Oxycodone to 10mg BID. This is improving her function. Assessment & Plan (11/30/2023 11:57 AM EDT): No improvement with PT, injections, multiple medications MRI 06/2016 with only minor changes, no significant stenosis. Nerve conduction study 07/29/16 revealed Chronic right mid to lower lumbar radiculopathy. 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 Gabapentin was ineffective. Continue Oxycodone to 10mg BID. This is improving her function. Assessment & Plan (08/11/2022 10:46 AM EDT): No improvement with PT, injections, multiple medications MRI 06/2016 with only minor changes, no significant stenosis. Nerve conduction study 07/29/16 revealed Chronic right mid to lower lumbar radiculopathy. 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 Gabapentin was ineffective. Continue Oxycodone to 10mg BID. This is improving her function. Assessment & Plan (05/21/2022 9:34 AM EST): No improvement with PT, injections, multiple medications MRI 06/2016 with only minor changes, no significant stenosis. Nerve conduction study 07/29/16 revealed Chronic right mid to lower lumbar radiculopathy. 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 Gabapentin was ineffective. Continue Oxycodone to 10mg BID. This is improving her function. Seasonal allergies 05/21/2022 History of bariatric surgery 05/21/2022 Overview (05/21/2022): Hx gastric bypass ru en y 08/2020 at [facility]. Max weight 297lbs 2017, weight before surgery 286 08/2020. Continue with weight loss program. Assessment & Plan (08/11/2022 10:47 AM EDT): Hx gastric bypass ru en y 08/2020 at [facility]. Max weight 297lbs 2017, weight before surgery 286 08/2020. Continue with weight loss program. Assessment & Plan (05/21/2022 9:35 AM EST): Hx gastric bypass ru en y 08/2020 at [facility]. Max weight 297lbs 2016, weight before surgery 286 08/2020. Continue with weight loss program. Moderate major depression 05/21/2022 Leucocytosis 05/21/2022 Overview (09/21/2023): Chronic since 2012. Possibly from chronic hydradenitis suppurativa and multiple abscesses. Pt followed by hematology. Visit with Dr. Maraivlla 09/19/23 iron deficiency anemia and chronic neutrophilic leukocytosis. She probably has sickle alpha thalassemia trait. She has mild iron deficiency. She has chronic elevation of ESR. Chronic underlying inflammation can be seen in patients with sickle cell disease. Leukocytosis is probably reactive from underlying inflammation. Hematological workup was essentially negative. Bcr/ABL translocation negative, blood flow cytometry negative for atypical cells, serum protein electrophoresis consistent with acute inflammation, serum immunofixation showed no monoclonal protein. Blood work shows iron deficiency anemia. She does have intermittent thrombocytosis, probably related to iron deficiency. Since is she is intolerant of oral iron therapy, parenteral iron will be scheduled. She toleratedthis well before. Follow-up in 6 months. Assessment & Plan (08/11/2022 10:47 AM EDT): Chronic since 2012. Possibly from chronic hydradenitis suppurativa and multiple abscesses. Pt followed by hematology. Assessment & Plan (05/21/2022 9:39 AM EST): Chronic since 2012. Possibly from chronic hydradenitis suppurativa and multiple abscesses. Pt followed by hematology. Steatosis of liver 08/25/2018 Overview (11/30/2023): -Followed by GI. Likely due to metabolic dysfunction-associated steatotic liver disease. Lab Results Component Value Date AST 12 11/23/2023 AST 10 05/24/2022 ALT 11 11/23/2023 ALT 11 05/24/2022 ALP 110 11/23/2023 DIRECTBILIRU 0.1 11/23/2023 -Labs for autoimmune hepatitis, hemochromatosis, alpha -1 antitrypsin deficiency and viral hepatitis normal 11/23/23 except slight elevation in smooth muscle Ab (35) Plan: Avoid alcohol. Dietary modification, increase physical activity. -Ultrasound 06/14/2023: generalized increase in hepatic echotexture, consistent with fatty infiltration or hepatocellular disease. No focal hepatic mass or intrahepatic biliary duct dilatation is seen. Gallstones. No sonographic findings to suggest acute cholecystitis. Small left renal parapelvic cyst versus calyceal dilatation. 10/22/22 CT abd w/wo contrast: A worrisome renal abnormality is not seen. There is no hydronephrosis. There is a benign left renal Bosniak class I cyst which needs no additional imaging or follow-up. Hepatic steatosis. Assessment & Plan (11/30/2023 11:58 AM EDT): -Followed by GI. Likely due to metabolic dysfunction-associated steatotic liver disease. Lab Results Component Value Date AST 12 11/23/2023 AST 10 05/24/2022 ALT 11 11/23/2023 ALT 11 05/24/2022 ALP 110 11/23/2023 DIRECTBILIRU 0.1 11/23/2023 -Labs for autoimmune hepatitis, hemochromatosis, alpha -1 antitrypsin deficiency and viral hepatitis normal 11/23/23 except slight elevation in smooth muscle Ab (35) Plan: Avoid alcohol. Dietary modification, increase physical activity. -Ultrasound 06/14/2023: generalized increase in hepatic echotexture, consistent with fatty infiltration or hepatocellular disease. No focal hepatic mass or intrahepatic biliary duct dilatation is seen. Gallstones. No sonographic findings to suggest acute cholecystitis. Small left renal parapelvic cyst versus calyceal dilatation. 10/22/22 CT abd w/wo contrast: A worrisome renal abnormality is not seen. There is no hydronephrosis. There is a benign left renal Bosniak class I cyst which needs no additional imaging or follow-up. Hepatic steatosis. Axillary hidradenitis suppurativa 01/11/2013 Overview (02/21/2023): -Currently controlled with clindagel Assessment & Plan (02/21/2023 8:56 AM EDT): -Currently controlled with clindagel Assessment & Plan (08/11/2022 10:46 AM EDT): Currently controlled with clindagel Assessment & Plan (05/21/2022 9:33 AM EST): Currently controlled with clindagel Obstructive sleep apnea syndrome 10/05/2012 Overview (11/30/2023): Pt was asymptomatic and off CPAP after weightloss, then had a televisit on 10/15/21 for CORBIN symptoms. A sleep study was ordered, appt on 11/20/21. Assessment & Plan (11/30/2023 11:56 AM EDT): Pt was asymptomatic and off CPAP after weightloss, then had a televisit on 10/15/21 for CORBIN symptoms. A sleep study was ordered, appt on 11/20/21. Assessment & Plan (08/11/2022 10:47 AM EDT): Pt was asymptomatic and off CPAP after weightloss, then had a televisit on 10/15/21 for CORBIN symptoms. A sleep study was ordered, appt on 11/20/21. Assessment & Plan (05/21/2022 9:31 AM EST): Pt was asymptomatic and off CPAP after weightloss, then had a televisit on 10/15/21 for CORBIN symptoms. A sleep study was ordered, appt on 11/20/21. PCOS (polycystic ovarian syndrome) 06/30/2012 Class 2 severe obesity due t o excess calories with serious comorbidity and body mass index (BMI) of 39.0 to 39.9 in adult 01/05/2012 Overview (05/30/2024): Discussed weight, diet, exercise with patient in relation to health conditions. Used motivational interviewing to illicit change talk and established initial goals with patient. Assessment & Plan (05/30/2024 2:43 PM EST): Discussed weight, diet, exercise with patient in relation to health conditions. Used motivational interviewing to illicit change talk and established initial goals with patient. Type 2 diabetes mellitus 09/17/2011 Overview (05/30/2024): Diabetes is controlled. Lab Results Component Value Date HGBA1C 6.8 (A) 05/30/2024 HGBA1C 6.2 (A) 11/23/2023 HGBA1C 6.2 (A) 02/21/2023 Lab Results Component Value Date CREATININE 0.78 11/23/2023 EGFR >60 11/23/2023 MICROALBCREU 13.3 11/23/2023 MICROALBCREU 4.2 02/21/2023 LDLCHOLCAL 209 (H) 11/23/2023 -Regino/Arb: lisinopril 5mg -Statin therapy: atorvastatin 80 -Diabetic eye exam: referred to [facility] 05/30/24 -Diabetic foot exam: done 11/23/23 -Continue lifestyle modifications -All diabetes medication discontinued by weight management program. S/p weight loss surgery 08/2020 Assessment & Plan (05/30/2024 2:34 PM EST): Diabetes is controlled. Lab Results Component Value Date HGBA1C 6.8 (A) 05/30/2024 HGBA1C 6.2 (A) 11/23/2023 HGBA1C 6.2 (A) 02/21/2023 Lab Results Component Value Date CREATININE 0.78 11/23/2023 EGFR >60 11/23/2023 MICROALBCREU 13.3 11/23/2023 MICROALBCREU 4.2 02/21/2023 LDLCHOLCAL 209 (H) 11/23/2023 -Regino/Arb: lisinopril 5mg -Statin therapy: atorvastatin 80 -Diabetic eye exam: referred to [facility] 05/30/24 -Diabetic foot exam: done 11/23/23 -Continue lifestyle modifications -All diabetes medication discontinued by weight management program. S/p weight loss surgery 08/2020 Assessment & Plan (11/30/2023 11:56 AM EDT): Diabetes is controlled. Lab Results Component Value Date HGBA1C 6.2 (A) 11/23/2023 HGBA1C 6.2 (A) 02/21/2023 HGBA1C 6.1 (A) 11/03/2022 Lab Results Component Value Date CREATININE 0.78 11/23/2023 EGFR >60 11/23/2023 MICROALBCREU 13.3 11/23/2023 MICROALBCREU 4.2 02/21/2023 LDLCHOLCAL 209 (H) 11/23/2023 -Regino/Arb: lisinopril 5mg -Statin therapy: atorvastatin 80 -Diabetic eye exam: via [facility] -Diabetic foot exam: done 11/23/23 -Continue lifestyle modifications -All diabetes medication discontinued by weight management program. S/p weight loss surgery 08/2020 Assessment & Plan (02/21/2023 8:55 AM EDT): Diabetes is controlled. - Lab Results Component Value Date HGBA1C 6.1 (A) 11/03/2022 HGBA1C 6.2 (A) 05/24/2022 HGBA1C 6.1 (H) 05/24/2022 -No results found for: POCA1C - Lab Results Component Value Date MICROALBUR 1.3 08/19/2021 CREATININE 0.80 10/05/2022 -Changes: none -Regino/Arb: lisinopril 5mg -Statin therapy: atorvastatin 80 -Diabetic eye exam: via [facility] -Diabetic foot exam: -Continue lifestyle modifications -All diabetes medication discontinued by weight management program. S/p weight loss surgery 08/2020 Assessment & Plan (08/11/2022 11:47 AM EDT): Diabetes is controlled. - Lab Results Component Value Date HGBA1C 6.2 (A) 05/24/2022 HGBA1C 6.1 (H) 05/24/2022 HGBA1C 7.1 (H) 04/15/2020 - Lab Results Component Value Date MICROALBUR 1.3 08/19/2021 CREATININE 0.78 05/24/2022 -Changes: none -Regino/Arb: lisinopril 5mg -Statin therapy: atorvastatin 80 -Diabetic eye exam: via [facility] -Diabetic foot exam: -Continue lifestyle modifications -All diabetes medication discontinued by weight management program. S/p weight loss surgery 08/2020 Assessment & Plan (05/21/2022 9:30 AM EST): DM is controlled. A1c 6.0% 11/12/21 A1c 5.7% 08/03/21 A1c 04/15/2020 6.1 A1c 11/2018: 6.1% A1c 06/2018 6.7% A1c 04/2018: 7.4% All diabetes medication discontinued by weight management program. S/p weight loss surgery 08/2020 - continue Atorvastatin (80 mg QHS). - Ophthalmology evaluation 03/2017 at [facility], recommended 1 year f/u. - S/P influenza vaccination 12/2020 - Importance of low-fat, low cholesterol, ADA diet discussed. Importance of moderate physical activity discussed. Dyslipidemia 09/17/2011 Overview (05/30/2024): Lab Results Component Value Date CHOL 288 (H) 11/23/2023 CHOL 258 (H) 02/21/2023 TRIG 131 11/23/2023 TRIG 125 02/21/2023 TRIG 195 (H) 05/24/2022 HDL 53 11/23/2023 HDL 50 02/21/2023 LDLCHOLCAL 209 (H) 11/23/2023 LDLCHOLCAL 183 (H) 02/21/2023 -continue lifestyle modification -ezetimibe started 05/07/2020 -was on 80 mg Atorvastatin, but has not been taking it for years. Will restart at 40 mg 05/30/24. Will recheck again in 6 weeks, if LDL is not <100 will increase Atorvastatin back to 80 mg. Assessment & Plan (05/30/2024 2:39 PM EST): Lab Results Component Value Date CHOL 288 (H) 11/23/2023 CHOL 258 (H) 02/21/2023 TRIG 131 11/23/2023 TRIG 125 02/21/2023 TRIG 195 (H) 05/24/2022 HDL 53 11/23/2023 HDL 50 02/21/2023 LDLCHOLCAL 209 (H) 11/23/2023 LDLCHOLCAL 183 (H) 02/21/2023 -continue lifestyle modification -ezetimibe started 05/07/2020 -was on 80 mg Atorvastatin, but has not been taking it for years. Will restart at 40 mg 05/30/24. Will recheck again in 6 weeks, if LDL is not <100 will increase Atorvastatin back to 80 mg. Assessment & Plan (11/30/2023 11:55 AM EDT): Lab Results Component Value Date CHOL 288 (H) 11/23/2023 CHOL 258 (H) 02/21/2023 TRIG 131 11/23/2023 TRIG 125 02/21/2023 TRIG 195 (H) 05/24/2022 HDL 53 11/23/2023 HDL 50 02/21/2023 LDLCHOLCAL 209 (H) 11/23/2023 LDLCHOLCAL 183 (H) 02/21/2023 -continue lifestyle modification -continue atorvastatin 80mg qhs -ezetimibe started 05/07/2020 Assessment & Plan (02/21/2023 8:56 AM EDT): Lab Results Component Value Date CHOLESTEROL 274 (H) 05/24/2022 LDLCHOL 192 (H) 05/24/2022 LDLCHOL 224 (H) 08/19/2021 LDLCHOL 140 (H) 04/15/2020 TRIG 195 (H) 05/24/2022 HDLCHOL 45 (L) 05/24/2022 CHOLHDLRAT 6.1 (H) 05/24/2022 - Continue atorvastatin 80mg qhs - Ezetimibe started 05/07/2020 -continue lifestyle modifications Assessment & Plan (08/11/2022 10:46 AM EDT): - Continue atorvastatin 80mg qhs - Ezetimibe started 05/07/2020 Assessment & Plan (05/21/2022 9:32 AM EST): - Continue atorvastatin 80mg qhs - Ezetimibe started 05/07/2020 Irregular periods 09/17/2011 Overview (02/01/2024): Endometrial Biopsy done with Dr. Mcbride 11/09/23, Secretory endometrium; no atypia or hyperplasia identified. -Note Dr. Mcbride 02/01/24 plan to proceed with endometrial ablation. Resolved Problems Problem Noted Date Diagnosed Date Resolved Date Routine screening for STI (s exually transmitted infection) 11/23/2023 01/20/2024 Physical exam 11/23/2023 01/20/2024 Physical exam 08/11/2022 11/03/2022 Overview (08/11/2022): -Normal growth and development. -Anticipatory guidance discussed. -Preventative care / harm reduction discussed. Assessment & Plan (08/11/2022 10:30 AM EDT): -Normal growth and development. -Anticipatory guidance discussed. -Preventative care / harm reduction discussed. Recurrent major depressive episodes, moderate 08/11/1905/08/2024 Benign hypertension 08/03/2021 05/08/19 25 Overview (11/23/2023): Assessment & Plan (02/21/2023 8:55 AM EDT): -LIsinopril was d/c At hospital follow up. Restart 08/03/2021 lisinopril 5mg daily -CDTM referral placed 08/03/2021 Assessment & Plan (08/11/2022 10:46 AM EDT): LIsinopril was d/c At hospital follow up. Restart 08/03/2021 lisinopril 5mg daily CDTM referral placed 08/03/2021 Assessment & Plan (05/21/2022 9:31 AM EST): LIsinopril was d/c At hospital follow up. Restart 08/03/2021 lisinopril 5mg daily CDTM referral placed 08/03/2021 Lumbago with sciatica 08/03/20212024 Shoulder pain 01/05/2012 05/08/2024 Encounters Date Type Department Care Team Description 05/30/2024 2:00 PM EST Office Visit [facility] [address] [place] [phone] Claudia Sapp MD Primary hypertension (Primary Dx); Type 2 diabetes mellitus without complication, with long-term current use of insulin ([facility]); Dyslipidemia; Allergic rhinitis, unspecified seasonality, unspecified trigger; Abnormal finding on ultrasound; Chronic low back pain with sciatica, sciatica laterality unspecified, unspecified back pain laterality; Irritable bowel syndrome, unspecified type; Colon cancer screening; Dietary counseling; Exercise counseling; Class 2 severe obesity due to excess calories with serious comorbidity and body mass index (BMI) of 39.0 to 39.9 in adult ([facility]); Other specified health status 05/30/2024 Travel 05/29/2024 Telephone [facility] [address] [place] [address] Anjana Mccabe MA chartprep 05/01/2024 Refill [facility] [address] [place] [address] Claudia Sapp MD Low back pain at multiple sites 04/25/2024 Refill [facility] [address] [place] [address] Claudia Sapp MD Constipation, unspecified constipation type 04/09/2024 Travel 04/02/2024 Refill [facility] [address] [place] [address] Claudia Sapp MD Low back pain at multiple sites 04/02/2024 Refill [facility] [address] [place] [address] Caludia Sapp MD Low back pain at multiple sites 03/05/2024 11:00 AM EST Telemedicine [facility] [address] [place] [address] Pauline Galvin, caser up right-sided low back pain with right-sided sciatica 03/05/2024 Travel 03/02/2024 Refill [facility] [address] [place] [address] Pauline Galvin, RN Low back pain at multiple sites 03/02/2024 Telephone [facility] [address] [place] [address] Claudia Sapp MD Med Refill from Last 3 Months Immunizations Name Administration Dates Next Due Hep A, Adult 02/21/2023,08/11/2022 Hep B, adult 03/14/2017,01/16/2016,01/11/2013 Influenza injectable quadriv alent IIV4 with preservative 01/20/2018,03/14/2017,01/16/2016,01/24 Influenza injectable quadriv alent preservative free 02/21/2023,05/24/2022,01/23/2021,03/10,03/23/2019 Influenza, IIV3, injectable 01/14/2014, 9,02/13/2008 Influenza, Split (incl. viji fied surface antigen) 01/11/2013,01/05/2012 MMR 08/11/2022 Moderna Covid-19 Vaccine 12+ 05/05/2021,07/31/19 21,07/02/2020 Moderna Covid-19 Vaccine 6+ Bivalent 05/24/2022 Pneumococcal Conjugate PCV 20 08/11/2022 Pneumococcal Polysaccharide PPSV23 05/17/2008 Tdap 08/11/2022,01/05/2012 Family History Medical History Relation Name Comments Diabetes Brother Heart disease Brother Diabetes Father Hypertension Father Diabetes Mother Relation Name Status Comments Brother Father Mother Social History Tobacco Use Types Packs/Day Years Used Date Smoking Tobacco: Never Passive Smoke Exposure: Never Smokeless Tobacco: Never Tobacco Cessation:Counseling Given: Not Answered Alcohol Use Standard Drinks/Week Comments Never 0 (1 standard drink = 0.6 oz pur e alcohol) Depression Answer Date Recorded Patient Health Questionnaire-9 Score 0 11/23/2023 Patient Health Questionnaire-9 Score 0 11/23/2023 Last PHQ-9: Questionnaire Data Not on file 0 11/23/2023 Housing Stability Answer Date Recorded What is your housing situation today? I have reanna ross 09/21/[address] you li ve. Do you have problems with any of the following? None of the above 09/21/2023 Food Insecurity Answer Date Recorded Within the past 12 months, y ou worried that your food would run out before you got money to buy more: Never True 09/21/2023 Within the past 12 months,th e food you bought just didn't last and you didn't have enough money to get more: Never True Transportation Answer Date Recorded In the past 12 months, has l ack of transportation kept you from medical appts, meetings, work or from getting things needed for daily living? Yes, it has kept me from medical appointments or getting medications. 09/21/2023 Utilities Answer Date Recorded In the past 12 months, has t he electric, gas, oil or water company threatened to shut off services in your home? No 09/21/2023 Depression Answer Date Recorded Patient Health Questionnaire-2 Score 0 11/23/2023 Comments Unknown Sex and Gender Information Value Date Recorded Sex Assigned at Female 03/01/2022 10:19 AM EDT Legal Sex Female 10:19 AM EDT Gender Identity Female 03/01/2022 10:19 AM EDT Sexual Orientation Straight 03/01/2022 10 :19 AM EDT Last Filed Vital Signs Vital Sign Reading Time Taken Comments Blood Pressure 122/62 05/30/2024 2:11 PM EST Pulse 77 05/30/2024 2:11 PM EST Temperature 36.3 ??C (97.3 ??F) 05/30/2024 2:11 PM ES T Respiratory Rate 20 05/30/2024 2:11 PM EST Oxygen Saturation 99% 05/30/2024 2:11 PM EST Inhaled Oxygen Concentration - - Weight 103 kg (227 lb 9.6 oz) 05/30/2024 2:11 PM EST Height 162.6 cm (5' 4 ) 05/30/2024 2:11 PM EST Body Mass Index 39.07 05/30/2024 2:11 PM EST Plan of Treatment Upcoming Encounters Date Type Department Care Team (Late st Contact Info) Description 06/08/2024 10:00 AM EST Clinical Support [facility] [address] [place], [place] [phone] Pauline Galvin, BRADEN [address] [place], [place] [phone] Health Maintenance Due Date Last Done Comments CT Colonography 1975 FIT DNA/Cologuard 1975 FIT 1975 FOBT 1975 Sigmoidoscopy 1975 Eye Exam 12/09/1983 Family Planning (PISQ) 1988 Zoster Vaccines (1 of 2) 12/09/2023 SDOH Screening 09/20/2024 09/21/2023 Influenza Vaccine (#1) 2024 , 05/24/2022, 01/23/2021, Additional history exists Postponed from 01/01/2024 (Patient Refused) Depression Screening 11/22/2024 11/23/2023, 11/23/19 Diabetes: Foot Exam 11/22/2024 11/23/2023, 11/23/2023, 11/23/2023, Additional history exists Diabetes: Urine Protein Screening 11/22/2024 11/23/2023, 02/21/2023, 08/19/2021, Additional history exists Lipid Panel 11/22/2024 11/23/2023, 01/31, 05/24/2022, Additional history exists Diabetes: Hemoglobin A1C 11/27/2024 025, 11/23/2023, 02/21/2023, Additional history exists Alcohol/Substance Use Screening 05/30/2025 05/30/2024 COVID-19 Vaccine ( season) 2025 05/24/2022, 05/05/2021, 07/30/2020, Additional history exists Postponed from 01/01/2024 (Patient Refused) Tobacco Screening 05/30/2025 05/30/2024 Mammogram 10/23/2025 10/24/2023, 0506/2022, 06/09/2022, Additional history exists Cervical Cancer Screening 12/28/2027 HPV/Cotest 12/28/2027 Pap Smear 12/28/2027 12/27/2022, 11/2020, 01/30/2021 DTaP/Tdap/Td Vaccines (3 - Td or Tdap) 08/11/2032 08/11/2022, 01/05/2012 Colonoscopy 02/15/2033 02/15/2023 Colorectal Cancer Screening 02/15/2033 RSV Patients and Patients Aged 60 years or older (1 - 1-dose 75+ series) 2048 Hepatitis B Vaccines Completed 03/14/2017, 01/16/2016, 01/11/2013 Pneumococcal Vaccine: 50+ Years Completed 08/11/2022, 05/17/2008 Hepatitis A Vaccines Completed 02/21/2023, 08/12/19 HIV Screening Completed 11/23/2023, 01/31, 10/12/2022, Additional history exists Hepatitis C Screening Completed 11/23/2023 , 11/23/2023, 02/21/2023, Additional history exists HIB Vaccines Aged Out No longer eligi ble based on patient's age to complete this topic HPV Vaccines Aged Out No longer eligi ble based on patient's age to complete this topic IPV Vaccines Aged Out No longer eligi ble based on patient's age to complete this topic Meningococcal Vaccine Aged Out No fadi yevgeniy eligible based on patient's age to complete this topic RSV under 20 months Aged Out No longe r eligible based on patient's age to complete this topic Rotavirus Vaccines Aged Out No longer eligible based on patient's age to complete this topic Procedures Procedure Name Priority Date/Time Associated Diagnosis Comments POCT GLYCATED HEMOGLOBIN, TOTAL Routine 05/30/2024 2:27 PM EST Type 2 diabetes mellitus without complication, with long-term current use of insulin (CMS/HCC) POCT GLUCOSE Routine 05/30/2024 2:21 PM EST Type 2 diabetes mellitus without complication, with long-term current use of insulin (CMS/HCC) HEPATITIS C AB W/REFL TO HCV RNA, QN, PCR Routine 11/23/2023 10:22 AM EDT Routine screening for STI (sexually transmitted infection) HIV 1/2 ANTIGEN/ANTIBODY, FOURTH GENERATION W/RFL Routine 11/23/2023 10:22 AM EDT Routine screening for STI (sexually transmitted infection) ALBUMIN, RANDOM URINE W/CREATININE Routine 11/23/2023 10:22 AM EDT Type 2 diabetes mellitus without complication, with long-term current use of insulin (CMS/HCC) LIPID PANEL, STANDARD Routine 11/23/2023 10:22 AM EDT Dyslipidemia BI MAMMOGRAM SCREENING TOMOSYNTHESIS BILATERAL Routine 10/24/2023 12:20 PM EDT HM COLONOSCOPY Routine 02/15/2023 PAP SMEAR Routine 12/27/2022 9:53 AM EDT from Last 3 Months or Most Recently Relevant to Health Maintenance Results * (ABNORMAL) POCT HGB A1C (05/30/2024 2:27 PM EST) Hemoglobin A1C 6.8(A) 4.0 - 6.0 % QC Media Lot # [id number] Lot# Expiration Date Blood 05/30/2024 2:27 PM EST Claudia Sapp MD POINT OF CARE TEST ENTER/E DIT ORDERABLES Final Result * POCT Glucose (05/30/2024 2:21 PM EST) Glucose Blood, POC 79 60 - 200 mg/dL QC Media Lot # [id number] Lot# Expiration Date Blood Capillary blood specimen / Unknown 05/30/2024 2:21 PM EST Claudia Sapp MD POINT OF CARE TEST ENTER/E DIT ORDERABLES Final Result * Albumin, Random Urine W/Creatinine (11/23/2023 10:22 AM EDT) Creatinine, Urine 195.00 mg/dL [facility] Microalbumin Urine 26.0 mg/L [facility] Microalbum Creatinine Ratio Ur 13.3 <30 ug/mg cr [facility] Comment:Albumin/Creatinine R at Reference Ranges: Normal: < 30 ug/mg creatinine Microalbuminuria: 30 - 300 ug/mg creatinineClinical Albuminuria: > 300 ug/mg creatinine Urine 11/23/2023 10:2 2 AM EDT 11/23/2023 11:50 AM EDT Claudia Sapp MD LAB URINE ORDERABLES Final Result Performing Organization Address [facility] Co de Phone Number [facility] [address] [place] [phone] * Hepatitis C Antibody with Reflex to HCV, RNA, Quantitative, Real-Time PCR (11/23/2023 10:22 AM EDT) Pathologist [facility] Hepatitis C Antibody Nonreactive Nonreactive [facility] Comment:Antibodies to HCV no t detected; does not exclude early acuteHCV infection. Blood Venous blood specimen / Unknown 11/23/2023 10:22 AM EDT 11/23/2023 11:48 AM EDT Claudia Sapp MD LAB BLOOD ORDERABLES Final Result Performing Organization Address [facility] de Phone Number [facility] [address] [place] [phone] * HIV-1/2 Antigen and Antibodies, Fourth Generation, with Reflexes (11/23/2023 10:22 AM EDT) [facility] HIV AB/AG Nonreactive Nonreactive [facility] Comment:HIV-1 p24 Ag and/or HIV-1/HIV-2 Ab not detected.A test result that is nonreactive does not exclude thepossibility of exposure to or infection with HIV-1 and/orHIV-2. Nonreactive results in this assay for individualswith prior exposure to HIV-1 and/or HIV-2 may be due toantigen and antibody levels that are below the limit ofdetection of this assay.The [employer] HIV Ag/Ab Combo assay result andsupplemental assay results should be interpreted inconjunction with the patient's clinical presentation,history and other laboratory results. If the results areinconsistent with clinical evidence, additional testing issuggested to confirm the result. Blood Venous blood specimen / Unknown 11/23/2023 10:22 AM EDT 11/23/2023 11:48 AM EDT Claudia Sapp MD LAB BLOOD ORDERABLES Final Result Performing Organization Address City/[facility]/ZIP Co de Phone Number [facility] [address] [place] [phone] * (ABNORMAL) Lipid Panel, Standard (11/23/2023 10:22 AM EDT) Triglycerides 131 <150 mg/dL [facility] Comment:Desirable Triglyceri de: less than 150 mg/dLBorderline High Triglyceride 150-199 mg/dLHigh Triglyceride: 200-499 mg/dLVery High Triglyceride: greater than or equal to 5OO mg/dL Cholesterol 288(H) <200 mg/dL [facility] Comment:Desirable Cholestero l: less than 200 mg/dLBorderline High Cholesterol: 200-239 mg/dLHigh Cholesterol: greater than 239 mg/dL LDL Cholesterol Calculated 209(H) <100 mg/dL [facility] Comment:Desirable LDL: less than 100 mg/dLNear Optimal/Above Optimal LDL: 110- 129 mg/dLBorderline High LDL: 130-159 mg/dLHigh LDL: 160-189 mg/dLVery High LDL: greater than or equal to 190 mg/dL HDL Cholesterol 53 >40 mg/dL [facility] Comment:Desirable HDL: great er than 40 mg/dL Note: This HDL assay may give artificially low results in patients with liver disease. Blood Venous blood specimen / Unknown 11/23/2023 10:22 AM EDT 11/23/2023 12:12 PM EDT Claudia Sapp MD LAB BLOOD ORDERABLES Final Result Performing Organization Address City/[facility]/ZIP Co de Phone Number [facility] [address] [place] [phone] * BI Mammogram Screening Tomosynthesis Bilateral (10/24/2023 12:20 PM EDT) Anatomical Region Laterality Modality Breast Bilateral Mammography 10/24/2023 12:2 0 PM EDT Narrative 10/24/2023 2:12 PM EDT ? [facility] ? [address] ?[place] [address] ? Mammography Report ? Signed ? Patient: Jonah Lei,Felisa ?MR# ?? : [id number] ? : 1975 ?Acct:[id number] ? Age/Sex: 47 / F ?ADM Date: 10/24/23 ? Loc: HO.MAMMO ? Attending Dr: Graham Mcbride MD ? Ordering Physician: Graham Mcbride MD ?Results: 1Negativ ?? e ? Date of Service: 10/24/23 ?Follow Up: 1 Year From Orig ?? inal Mammogram ? Procedure(s): MM tomosynthesis screening BI ?? Accession Number(s): [id number] ? cc: Claudia Sapp MD; Graham Mcbride MD ? EXAMINATION: ?? MM SCREENING DIGITAL BREAST TOMOSYNTHESIS, BILATERAL ? CLINICAL INFORMATION: ? Screening. Asymptomatic. ? COMPARISON: ?? Mammography: This study is compared with prior exams dating back to ?? 2019. ? TECHNIQUE: ?? Digital breast tomosynthesis is performed in both the craniocaudal and ?? mediolateral oblique views along with computer-aided detection (CAD). ?? Synthesized 2D images are generated from the tomosynthesis. ? FINDINGS: ?? There are scattered areas of fibroglandular density (ACR BI-RADS breast ?? composition Category b). ? There are no significant masses, abnormal calcifications, or other ?? abnormalities. ? MM/MM tomosynthesis screening BI ?? IMPRESSION: ?? No mammographic evidence of malignancy. ? ASSESSMENT: ? BI-RADS BI-RADS 1 - Negative ? RECOMMENDATION: ?? Routine annual mammography screening. ? 1 year F/U ? This examination should not preclude the clinical evaluation of a ?? suspicious palpable abnormality. ? This patient's information was entered into a reminder system with a ?? target due date for their next mammogram. ? Dictated By: ?Irma Almanza MD ? Signed By: ?<Electronically signed by Irma Almanza MD in OV> ? 10/24/23 1409 ? DD/ 1220 ? TD/TT: ? Extractive Metallurgist: ? Procedure Note Dondarshanter, Image - 10/24/2023 [facility] [address] [place], [place] [address] Mammography Report Signed Patient: Felisa CalhounMR# : [id number] : 1975Acct:[id number] Age/Sex: 47 / FADM Date: 10/24/23 Loc: HO.MAMMO Attending Dr: Graham Mcbride MD Ordering Physician: Graham Mcbrideesults: 1Negativ e Date of Service: 10/24/23Follow Up: 1 Year From Orig inal Mammogram Procedure(s): MM tomosynthesis screening BI Accession Number(s): [id number] cc: Claudia Sapp MD; Graham Mcbride MD EXAMINATION: MM SCREENING DIGITAL BREAST TOMOSYNTHESIS, BILATERAL CLINICAL INFORMATION: Screening. Asymptomatic. COMPARISON: Mammography: This study is compared with prior exams dating back to 2019. TECHNIQUE: Digital breast tomosynthesis is performed in both the craniocaudal and mediolateral oblique views along with computer-aided detection (CAD). Synthesized 2D images are generated from the tomosynthesis. FINDINGS: There are scattered areas of fibroglandular density (ACR BI-RADS breast composition Category b). There are no significant masses, abnormal calcifications, or other abnormalities. MM/MM tomosynthesis screening BI IMPRESSION: No mammographic evidence of malignancy. ASSESSMENT: BI-RADS BI-RADS 1 - Negative RECOMMENDATION: Routine annual mammography screening. 1 year F/U This examination should not preclude the clinical evaluation of a suspicious palpable abnormality. This patient's information was entered into a reminder system with a target due date for their next mammogram. Dictated By: Irma Almanza MD Signed By: <Electronically signed by Irma Almanza MD in OV> 10/24/23 1409 DD/ 1220 TD/TT: Extractive Metallurgist: [facility] External Provider IMG BI PROCEDURES Final Result * Hm Colonoscopy (02/15/2023) Colonoscopy Normal Normal Historical Provider HEALTH MAINTENANCE Final Result * Pap Smear (12/27/2022 9:53 AM EDT) 12/27/2022 9:53 AM EDT 12/27/2022 1:50 PM EDT [facility] - 01/08/2023 2:14 PM EDT ----- ------- Name: Felisa Calhoun ? Age/Sex: 47/F ? : 1975 Unit#: [id number] ?? Attend Dr: Amparo Hogan CNM ?Re12/27/22 ?Status: DEP REF ? Location: HO.LNP ?Disch: ? ----- ------- SPEC : [id number] ?RECD: 12/27/228440 ? STATUS: ??SOUT ? REQ NUM: [id number] ? WYATT: 12/27/221741 ? SUBM DR: Amparo Hogan CNM ? ENTERED: ??12/27/22-5148 ?SP TYPE: Pap Smr ?OTHR DR: Claudia Sapp MD ? ORDERED: ??Pap Smear ? Interpretation ?? Satisfactory for evaluation. ?? No endocervical cells seen. ?? Negative for intraepithelial lesion or malignancy. ? HPV mRNA E6/E7: ?NOT DETECTED ? This assay detects E6/E7 viral messenger RNA (mRNA) from 14 high-risk HPV types (16, 18, ?? 31, 33, 35, 39, 45, 51, 52, 56, 58, 59, 66, 68) ? HPV testing performed by [employer], [place], [place]. ??See reference laboratory ?? portion of the EMR for entire report. ?Clinical Information LMP:12/11/22 Previous PAP test:01/27/15, WNL Other history:pelvic and perineal pain ? Material Received ?? ThinPrep-Cervical Copies To: ?? Claudia Sapp MD ?? [address] ?? [place] [address] ? Amparo Hogan ?? [address] ?? [place] [address] ?? [phone] ----- ------- Signed (signature on file) Florina Stanford 01/08/23 1414 ? ----- ------- ? END OF REPORT ? 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
--- OUTSIDE RECORDS SUMMARY | 2024-05-30 15:06 | XMS_ITS | Encounter Summary ---
Author Organization [facility] Address [address] [facility] 7t [place] [address] Care Team Providers Care Residential Real Estate Sales Manager Name Role Phone Claudia Sapp MD Primary Care Provider [phone]- [phone] Graham Mcbride MD Unavailable Tamika Barker MD Unavailable [phone] Trudy Solomon MD Unavailable Reason for Visit * Reason Onset Date Comments Med Refill 01/07/2023 Encounter Details Date Type Department Care Team (Late st Contact Info) Description 01/07/2023 Telephone [facility] MEDICINE 230 [place], [place] [phone] Claudia Sapp MD 230 [place], [place] [phone] Med Refill Social History Tobacco Use Types Packs/Day Years Used Date Smoking Tobacco: Never Smokeless Tobacco: Never Alcohol Use Standard Drinks/Week Comments Never 0 [...] encounter Miscellaneous Notes * Telephone Encounter - Elvia Grady - 01/07/2023 10:44 AM EDT Tc from pt requesting med refill for medication oxyCODONE (Roxicodone) 10 MG immediate release tablet. documented in this encounter Plan of Treatment Upcoming Encounters Date Type Department Care Team (Late st Contact Info) Description 06/08/2024 10:00 AM EST Clinical Support [facility] MEDICINE 230 [place] [address] Pauline Galvin, BRADEN 505 [place] [address] documented as of this encounter Visit Diagnoses Not on filedocumented in this encounter Additional Health Concerns Assessment Noted Time PHQ-9 Depression Total Score: 0 05/24/19 23 10:10 AM EST documented as of this encounter Care Teams Residential Real Estate Sales Manager Relationship Specialty Start Date End Date Claudia Sapp MD 230 [place] [address] PCP - General Family Medicine 05/02/18 Graham Mcbride MD [address] [place] [address] Obstetrics and Gynecology 04/05/24 Tamika Barker MD [address] [place] [address] 3rd [place] [address] Gastroenterology 05/08/24 Trudy Solomon MD [address] [place] [address] Hematology and Oncology 05/08/24 documented as of this encounter
--- OUTSIDE RECORDS SUMMARY | 2024-05-30 15:06 | XMS_ITS | Encounter Summary ---
Author Organization [employer] Address 75 [facility] 7t [place] [address] Care Team Providers Care Clean Up Worker Name Role Phone Claudia Sapp MD Primary Care Provider +1- [phone] Graham Mcbride MD Unavailable Tamika Barker MD Unavailable [phone] Trudy Solomon MD Unavailable [phone] Reason for Visit * Reason Comments Med Refill Encounter Details Date Type Department Care Team (Late st Contact Info) Description 11/09/2022 Refill [facility] MEDICINE 230 [place], [place] [phone] Claudia Sapp MD 230 [place], [place] [phone] Low back pain at multiple sites Social [...] Orientation Straight 03/01/2022 10 :19 AM EDT COVID-19 Exposure Response Date Recorded In the last 10 days, have yo u been in contact with someone who was confirmed or suspected to have Coronavirus/COVID-19? No / Unsure 11/03/2022 10:28 AM EDT documented as of this encounter Plan of Treatment Upcoming Encounters Date Type Department Care Team (Late st Contact Info) Description 06/08/2024 10:00 AM EST Clinical Support [facility] MEDICINE 230 [place] [address] Pauline Galvin, RN [address] [place] [address] documented as of this encounter Visit Diagnoses Diagnosis Low back pain at multiple sites documented in this encounter Additional Health Concerns Assessment Noted Time PHQ-9 Depression Total Score: 0 05/24/19 10:10 AM EST documented as of this encounter Care Teams Clean Up Worker Relationship Specialty Start Date End Date Claudia Sapp MD 230 [place] [address] PCP - General Family Medicine 05/02/18 Graham Mcbride MD [address] [place] [address] [place] [address] Obstetrics and Gynecology 04/05/24 Tamika Barker MD [address] [place] [address] 3rd [place] [address] Gastroenterology 05/08/24 Trudy Solomon MD [address] [place] [address] Hematology and Oncology 05/08/24 documented as of this encounter
--- OUTSIDE RECORDS SUMMARY | 2024-05-30 15:06 | XMS_ITS | Encounter Summary ---
Author Organization [employer] Address 75 [facility] 7t [place] [address] Care Team Providers Care Motor Vehicle Or Caravan Salesperson Name Role Phone Claudia Sapp MD Primary Care Provider [phone]- [phone] Graham Mcbride MD Unavailable Tamika Barker MD Unavailable [phone] Trudy Solomon MD Unavailable [phone] Reason for Visit * Reason Onset Date Comments Med Refill 02/04/2023 Encounter Details Date Type Department Care Team (Late st Contact Info) Description 02/04/2023 Telephone [facility] MEDICINE 230 [place], [place] [phone] Claudia Sapp MD 230 [place], [place] [phone] Med Refill Social History Tobacco Use Types [...] encounter Miscellaneous Notes * Telephone Encounter - Brenton Alba - 02/04/2023 11:45 AM EDT Tc from pt requesting a refill for oxyCODONE (Roxicodone) 10 MG immediate release tablet documented in this encounter Plan of Treatment Upcoming Encounters Date Type Department Care Team (Late st Contact Info) Description 06/08/2024 10:00 AM EST Clinical Support [facility] MEDICINE 230 [place] [address] Pauline Galivn RN 505 [place] [address] documented as of this encounter Visit Diagnoses Not on filedocumented in this encounter Additional Health Concerns Assessment Noted Time PHQ-9 Depression Total Score: 0 05/24/19 23 10:10 AM EST documented as of this encounter Care Teams Motor Vehicle Or Caravan Salesperson Relationship Specialty Start Date End Date Claudia Sapp MD 230 [place] [address] PCP - General Family Medicine 05/02/18 Graham Mcbride MD [address] [place] [address] [address] [place] [address] Obstetrics and Gynecology 04/05/24 Tamika Barker MD [address] [place] [address] 3rd [place] [address] Gastroenterology 05/08/24 Trudy Solomon MD [address] [place] [address] Hematology and Oncology 05/08/24 documented as of this encounter
--- OUTSIDE RECORDS SUMMARY | 2024-05-30 15:06 | XMS_ITS | Encounter Summary ---
Author Organization [employer] Address 75 [facility] 7t [place] [address] Care Team Providers Care Outbound Sales Professional Name Role Phone Claudia Sapp MD Primary Care Provider [phone]- [phone] Graham Mcbride MD Unavailable Tamika Barker MD Unavailable [phone] Trudy Solomon MD Unavailable [phone] Reason for Visit * Reason Onset Date Comments Med Refill 03/08/2023 Encounter Details Date Type Department Care Team (Late st Contact Info) Description 03/08/2023 Telephone [facility] MEDICINE 230 [place], [place] [phone] Claudia Sapp MD 230 [place], [place] [phone] Med Refill Social History Tobacco Use Types Packs/Day Years Used Date Smoking Tobacco: Never Smokeless Tobacco: Never Alcohol Use Standard Drinks/Week Comments Never 0 (1 standard drink = 0.6 oz pur e alcohol) Depression Answer Date Recorded Patient Health Questionnaire-9 Score 0 05/24/2022 Housing Stability Answer Date Recorded What is your housing situation today? I have reannamichael ross 02/15/[address] you li ve. Do you have problems with any of the following? None of the above 02/15/2023 Food Insecurity Answer Date Recorded Within the past 12 months, y ou worried that your food would run out before you got money to buy more: Never True 02/15/2023 Within the past 12 months,th e food you bought just didn't last and you didn't have enough money to get more: Never True Transportation Answer Date Recorded In the past 12 months, has l ack of transportation kept you from medical appts, meetings, work or from getting things needed for daily living? No 02/15/2023 Utilities Answer Date Recorded In the past 12 months, has t he electric, gas, oil or water company threatened to shut off services in your home? No 02/15/2023 Depression Answer Date Recorded Patient Health Questionnaire-2 Score 0 05/24/2022 Comments Unknown Sex and Gender Information Value Date Recorded Sex Assigned at Female 03/01/2022 10:19 AM EDT Legal Sex Female 10:19 AM EDT Gender Identity Female 03/01/2022 10:19 AM EDT Sexual Orientation Straight 03/01/2022 10 :19 AM EDT documented as of this encounter Miscellaneous Notes * Telephone Encounter - Perez Mccabe - 03/08/2023 1:31 PM EST Tc from patient requesting a medication refill for oxyCODONE (Roxicodone) 10 MG immediate release tablet. documented in this encounter Plan of Treatment Upcoming Encounters Date Type Department Care Team (Late st Contact Info) Description 06/08/2024 10:00 AM EST Clinical Support [facility] MEDICINE [address] [place] [address] Pauline Galvin RN 505 [place] [address] documented as of this encounter Visit Diagnoses Not on filedocumented in this encounter Additional Health Concerns Assessment Noted Time PHQ-9 Depression Total Score: 0 05/24/19 23 10:10 AM EST documented as of this encounter Care Teams Outbound Sales Professional Relationship Specialty Start Date End Date Claudia Sapp MD [address] [place] [address] PCP - General Family Medicine 05/02/18 Graham Mcbride MD [address] [place] [address] [place] [address] Obstetrics and Gynecology 04/05/24 Tamika Barker MD [address] [place] [address] 3rd [place] [address] Gastroenterology 05/08/24 Trudy Solomon MD [address] [place] [address] Hematology and Oncology 05/08/24 documented as of this encounter
--- OUTSIDE RECORDS SUMMARY | 2024-05-30 15:06 | XMS_ITS | Encounter Summary ---
Author Organization [employer] [facility] Address [address] [place] [address] 7t [place] [address] Care Team Providers Care Shampoo Technician Name Role Phone Claudia Sapp MD Primary Care Provider [phone]- [phone] Graham Mcbride MD Unavailable Tamika Barker MD Unavailable [phone] Trudy Solomon MD Unavailable [phone] Reason for Visit * Reason Onset Date Comments Med Refill 04/08/2022 Encounter Details Date Type Department Care Team ([facility] Contact Info) Description 04/08/2022 Telephone [facility] MEDICINE 230 [place], [place] [phone] Claudia Sapp MD 230 [place], [place] [phone] Med Refill Social History Tobacco Use Types Packs/Day Years Used Date Smoking Tobacco: Never Assessed Comments Unknown Sex and Gender Information Value Date Recorded Sex Assigned at Female 03/01/2022 10:19 AM EDT Legal Sex Female 10:19 AM EDT Gender Identity Female 03/01/2022 10:19 AM EDT Sexual Orientation Straight 03/01/2022 10 :19 AM EDT documented as of this encounter Miscellaneous Notes * Telephone Encounter - Elvia Grady - 04/08/2022 10:34 AM EST Tc from pt requesting med refill on medication oxycodone 10mg. documented in this encounter Plan of Treatment Upcoming Encounters Date Type Department Care Team ([facility] st Contact Info) Description 06/08/2024 10:00 AM EST Clinical Support [facility] MEDICINE 230 [place] [address] Pauline Galvin, BRADEN [address] [place] [address] documented as of this encounter Visit Diagnoses Not on filedocumented in this encounter Care Teams Shampoo Technician Relationship Specialty Start Date End Date Claudia Sapp MD 230 [place] [address] PCP - General Family Medicine 05/02/18 Graham Mcbride MD [address] [place] [address] Obstetrics and Gynecology 04/05/24 Tamika Barker MD [address] [place] [address] 3rd [place] [address] Gastroenterology 05/08/24 Trudy Solomon MD [address] [place] [address] Hematology and Oncology 05/08/24 documented as of this encounter
--- OUTSIDE RECORDS SUMMARY | 2024-05-30 15:06 | XMS_ITS | Encounter Summary ---
Author Organization [employer] Address 75 [facility] 7t [place] [address] Care Team Providers Care Asp Net Software Developer Name Role Phone Claudia Sapp MD Primary Care Provider [phone]- [phone] Graham Mcbride MD Unavailable Tamika Barker MD Unavailable Trudy Solomon MD Unavailable [phone] Reason for Visit * Reason Onset Date Comments Med Refill 10/05/2023 Encounter Details Date Type Department Care Team (Late st Contact Info) Description 10/05/2023 Telephone [facility] MEDICINE 230 [place] [address] Claudia Sapp MD 230 [place], [place] [phone] Med Refill Social History Tobacco Use Types Packs/Day Years Used Date Smoking Tobacco: Never Smokeless Tobacco: Never Alcohol Use Standard Drinks/Week Comments Never 0 (1 standard drink = 0.6 oz pur e alcohol) Depression Answer Date Recorded Patient Health Questionnaire-9 Score 0 05/24/2022 Housing Stability Answer Date Recorded What is your housing situation today? I have reanna cody 09/21/[address] you li [...] * Telephone Encounter - Perez Mccabe - 10/05/2023 10:01 AM EDT TC from pt requesting medication refill. Medications needing refill : oxyCODONE (Roxicodone) 10 MG immediate release tablet To be sent to: [facility] [place], [place] - [address] [place] [address] documented in this encounter Plan of Treatment Upcoming Encounters Date Type Department Care Team ([facility] st Contact Info) Description 06/08/2024 10:00 AM EST Clinical Support [facility] MEDICINE 230 [place] [address] Pauline Galvin RN 505 [place] [address] documented as of this encounter Visit Diagnoses Not on filedocumented in this encounter Additional Health Concerns Assessment Noted Time PHQ-9 Depression Total Score: 0 05/24/19 10:10 AM EST documented as of this encounter Care Teams Asp Net Software Developer Relationship Specialty Start Date End Date Claudia Sapp MD 230 [place] [address] PCP - General Family Medicine 05/02/18 Graham Mcbride MD [address] [place] [address] [address] [place] [address] Obstetrics and Gynecology 04/05/24 Tamika Barker MD [address] [place] [address] 3rd [place] [address] Gastroenterology 05/08/24 Trudy Solomon MD [address] [place] [address] Hematology and Oncology 05/08/24 documented as of this encounter
--- OUTSIDE RECORDS SUMMARY | 2024-05-30 15:06 | XMS_ITS | Encounter Summary ---
Author Organization [employer] [facility] Address 75 [facility] 7t [place] [address] Care Team Providers Care Flat Surfacer Name Role Phone Claudia Sapp MD Primary Care Provider [phone]- [phone] Graham Mcbride MD Unavailable Tamika Barker MD Unavailable [phone] Trudy Solomon MD Unavailable [phone] Encounter Details Date Type Department Care Team (Late Contact Info) Description 09/01/2022 Abstract [facility] MEDICINE 230 [place] [address] Claudia Sapp MD 230 [place], [place] [phone] Social History Tobacco Use Types Packs/Day Years [...] suspected to have Coronavirus/COVID-19? No / Unsure 08/11/2022 10:14 AM EDT documented as of this encounter Plan of Treatment Upcoming Encounters Date Type Department Care Team (Late st Contact Info) Description 06/08/2024 10:00 AM EST Clinical Support [facility] MEDICINE 230 [place] [address] Pauline Galvin, RN [address] [place] [address] documented as of this encounter Procedures Procedure Name Priority Date/Time Associated Diagnosis Comments MAMMOGRAPHY Routine 09/01/2022 3:25 PM EDT documented in this encounter Results * Mammography (09/01/2022 3:25 PM EDT) Mammogram B1-Rad 1 Negative Anatomical Region Laterality Modality Other Claudia Sapp MD HEALTH MAINTENANCE Final R esult documented in this encounter Visit Diagnoses Not on filedocumented in this encounter Additional Health Concerns Assessment Noted Time PHQ-9 Depression Total Score: 0 05/24/19 10:10 AM EST documented as of this encounter Care Teams Flat Surfacer Relationship Specialty Start Date End Date Claudia Sapp MD 230 [place] [address] PCP - General Family Medicine 05/02/18 Graham Mcbride MD [address] [place] [address] [place] [address] Obstetrics and Gynecology 04/05/24 Tamika Barker MD [address] [place] [address] 3rd [place] [address] Gastroenterology 05/08/24 Trudy Solomon MD [address] [place] [address] Hematology and Oncology 05/08/24 documented as of this encounter
--- OUTSIDE RECORDS SUMMARY | 2024-05-30 15:07 | XMS_ITS | Encounter Summary ---
Author Organization [employer] [facility] Address [address] [facility] [address] 7t [place] [address] Care Team Providers Care Lower In Supervisor Name Role Phone Claudia Sapp MD Primary Care Provider [phone]- [phone] Graham Mcbride MD Unavailable Tamika Barker MD Unavailable [phone] Trudy Solomon MD Unavailable [phone] Encounter Details Date Type Department Care Team (Late st Contact Info) Description 06/17/2022 Orders Only [facility] MEDICINE 230 [place], [place] [phone] Claudia Sapp MD 230 [place], [place] [phone] Type 2 diabetes mellitus with hyperglycemia, with long-term current use of insulin ([facility]) (Primary Dx) Social History Tobacco Use Types Packs/Day Years Used Date Smoking Tobacco: Never Assessed Depression Answer Date Recorded Patient Health Questionnaire-9 [...] suspected to have Coronavirus/COVID-19? No / Unsure 05/24/2022 9:44 AM EST documented as of this encounter Plan of Treatment Upcoming Encounters Date Type Department Care Team (Late st Contact Info) Description 06/08/2024 10:00 AM EST Clinical Support [facility] MEDICINE 230 [place] [address] Pauline Galvin, BRADEN [address] [place] [address] documented as of this encounter Visit Diagnoses Diagnosis Type 2 diabetes mellitus with hyperglycemia, with long-term current use of insulin ([facility])- Primary documented in this encounter Additional Health Concerns Assessment Noted Time PHQ-9 Depression Total Score: 0 05/24/19 10:10 AM EST documented as of this encounter Care Teams Lower In Supervisor Relationship Specialty Start Date End Date Claudia Sapp MD 230 [place] [address] PCP - General Family Medicine 05/02/18 Graham Mcbride MD [address] [place] [address] Obstetrics and Gynecology 04/05/24 Tamika Barker MD [address] [place] [address] 3rd [place] [address] Gastroenterology 05/08/24 Trudy Solomon MD [address] [place] [address] Hematology and Oncology 05/08/24 documented as of this encounter
--- OUTSIDE RECORDS SUMMARY | 2024-05-30 15:07 | XMS_ITS | Encounter Summary ---
Author Organization [employer] Address 75 [facility] 7t [place] [address] Care Team Providers Care Industrial Education Teacher Name Role Phone Claudia Sapp MD Primary Care Provider [phone]- [phone] Graham Mcbride MD Unavailable Tamika Barker MD Unavailable [phone] Trudy Solomon MD Unavailable [phone] Reason for Visit * Reason Onset Date Comments Med Refill 03/02/2024 Encounter Details Date Type Department Care Team (Late st Contact Info) Description 03/02/2024 Telephone [facility] MEDICINE 230 [place], [place] [phone] Claudia Sapp MD 230 [place], [place] [phone] Med Refill Social History Tobacco Use Types [...] encounter Miscellaneous Notes * Telephone Encounter - Annita Weathers - 03/02/2024 9:19 AM EDT TC from pt requesting medication refill. Medications needing refill : oxyCODONE (Roxicodone) 10 MG immediate release tablet To be sent to: [facility] documented in this encounter Plan of Treatment Upcoming Encounters Date Type Department Care Team (Late st Contact Info) Description 06/08/2024 10:00 AM EST Clinical Support [facility] MEDICINE 230 [place] [address] Pauline Galvin RN 505 [place] [address] documented as of this encounter Visit Diagnoses Not on filedocumented in this encounter Additional Health Concerns Assessment Noted Time PHQ-9 Depression Total Score: 0 11/23/19 24 9:19 AM EDT documented as of this encounter Care Teams Industrial Education Teacher Relationship Specialty Start Date End Date Claudia Sapp MD 230 [place] [address] PCP - General Family Medicine 05/02/18 Graham Mcbride MD [address] [place] [address] [address] [place] [address] Obstetrics and Gynecology 04/05/24 Tamika Barker MD [address] [place] [address] Drive 3rd [place] [address] Gastroenterology 05/08/24 Trudy Solomon MD [address] [place] [address] Hematology and Oncology 05/08/24 documented as of this encounter
--- OUTSIDE RECORDS SUMMARY | 2024-05-30 15:07 | XMS_ITS | Encounter Summary ---
Author Organization [employer] Address [address] [facility] [address] 7t [place] [address] Care Team Providers Care Glass Cutting Machine Operator Name Role Phone Claudia Sapp MD Primary Care Provider [phone]- [phone] Graham Mcbride MD Unavailable Tamika Barker MD Unavailable [phone] Trudy Solomon MD Unavailable [phone] Reason for Visit * Reason Comments Med Refill Encounter Details Date Type Department Care Team (Late st Contact Info) Description 04/02/2024 Refill [facility] [address] [place] [address] Claudia Sapp MD 230 [place] [address] Low back pain at multiple sites Social [...] encounter Miscellaneous Notes * Telephone Encounter - Shirin Lomax MD - 04/02/2024 5:17 PM EST Med sent already documented in this encounter Plan of Treatment Upcoming Encounters Date Type Department Care Team (Late st Contact Info) Description 06/08/2024 10:00 AM EST Clinical Support [facility] MEDICINE [address] [place] [address] Pauline Galvin RN 505 [place] [address] documented as of this encounter Visit Diagnoses Diagnosis Low back pain at multiple sites documented in this encounter Additional Health Concerns Assessment Noted Time PHQ-9 Depression Total Score: 0 11/23/19 24 9:19 AM EDT documented as of this encounter Care Teams Glass Cutting Machine Operator Relationship Specialty Start Date End Date Claudia Sapp MD [address] [place] [address] PCP - General Family Medicine 05/02/18 Graham Mcbride MD [address] [place] [address] [address] [place] [address] Obstetrics and Gynecology 04/05/24 Tamika Barker MD [address] [place] [address] 3rd [place] [address] Gastroenterology 05/08/24 Trudy Solomon MD [address] [place] [address] Hematology and Oncology 05/08/24 documented as of this encounter
--- OUTSIDE RECORDS SUMMARY | 2024-05-30 15:07 | XMS_ITS | Encounter Summary ---
Author Organization [employer] Address [address] [facility] 7t [place] [address] Care Team Providers Care Siding Mechanic Name Role Phone Claudia Sapp MD Primary Care Provider [phone]- [phone] Graham Mcbride MD Unavailable Tamika Barker MD Unavailable [phone] Trudy Solomon MD Unavailable [phone] Reason for Visit * Reason Onset Date Comments Med Refill 02/02/2024 Encounter Details Date Type Department Care Team (Late st Contact Info) Description 02/02/2024 Telephone [facility] [address] [place], [place] [phone] Claudia Sapp MD 230 [place], [place] [phone] Med Refill Social History Tobacco Use Types [...] encounter Miscellaneous Notes * Telephone Encounter - Connor Lauren - 02/02/2024 9:47 AM EDT TC from pt requesting medication refill. Medications needing refill: oxyCODONE (Roxicodone) 10 MG immediate release tablet To be sent to: [facility] - [place], [place] - [address] [place] [address] documented in this encounter Plan of Treatment Upcoming Encounters Date Type Department Care Team ([facility] st Contact Info) Description 06/08/2024 10:00 AM EST Clinical Support [facility] [address] [place] [address] Pauline Galvin RN [address] [place] [address] documented as of this encounter Visit Diagnoses Not on filedocumented in this encounter Additional Health Concerns Assessment Noted Time PHQ-9 Depression Total Score: 0 11/23/19 9:19 AM EDT documented as of this encounter Care Teams Siding Mechanic Relationship Specialty Start Date End Date Claudia Sapp MD 230 [place] [address] PCP - General Family Medicine 05/02/18 Graham Mcbride MD [address] [place] [address] [address] [place] [address] Obstetrics and Gynecology 04/05/24 Tamika Barker MD [address] [place] [address] Drive 3rd [place] [address] Gastroenterology 05/08/24 Trudy Solomon MD [address] [place] [address] Hematology and Oncology 05/08/24 documented as of this encounter
--- OUTSIDE RECORDS SUMMARY | 2024-05-30 15:07 | XMS_ITS | Encounter Summary ---
Author Organization [employer] Address [address] [facility] 7t [place] [address] Care Team Providers Care Director Of Academic Support Name Role Phone Claudia Sapp MD Primary Care Provider [phone] Graham Mcbride MD Unavailable Tamika Barker MD Unavailable [phone] Trudy Solomon MD Unavailable [phone] Reason for Visit * Reason Onset Date Comments Med Refill 12/05/2023 Encounter Details Date Type Department Care Team (Late st Contact Info) Description 12/05/2023 Telephone [facility] MEDICINE 230 [place], [place] [phone] Claudia Sapp MD 230 [place], [place] [phone] Med Refill Social History Tobacco Use Types [...] * Telephone Encounter - Perez Mccabe - 12/05/2023 9:44 AM EDT TC from pt requesting medication refill. Medications needing refill : oxyCODONE (Roxicodone) 10 MG immediate release tablet To be sent to: [facility] - [place], [place] - [address] [place] [address] documented in this encounter Plan of Treatment Upcoming Encounters Date Type Department Care Team ([facility] st Contact Info) Description 06/08/2024 10:00 AM EST Clinical Support [facility] 230 [place] [address] Pauline Galvin RN [address] [place] [address] documented as of this encounter Visit Diagnoses Not on filedocumented in this encounter Additional Health Concerns Assessment Noted Time PHQ-9 Depression Total Score: 0 11/23/19 24 9:19 AM EDT documented as of this encounter Care Teams Director Of Academic Support Relationship Specialty Start Date End Date Claudia Sapp MD 230 [place] [address] PCP - General Family Medicine 05/02/18 Graham Mcbride MD [address] [place] [address] [address] [place] [address] Obstetrics and Gynecology 04/05/24 Tamika Barker MD [address] [place] [address] Drive 3rd [place] [address] Gastroenterology 05/08/24 Trudy Soolmon MD [address] [place] [address] Hematology and Oncology 05/08/24 documented as of this encounter
--- OUTSIDE RECORDS SUMMARY | 2024-05-30 15:07 | XMS_ITS | Encounter Summary ---
Author Organization [employer] Address [address] [facility] [address] 7t [place] [address] Care Team Providers Care Director Vaccine Name Role Phone [place], Claudia GORMAN Primary Care Provider [phone]- [phone] Graham Mcbride MD Unavailable Tamika Barker MD Unavailable [phone] Trudy Solomon MD Unavailable [phone] Reason for Visit * Reason Onset Date Comments chartprep 05/29/2024 Encounter Details Date Type Department Care Team (Late st Contact Info) Description 05/29/2024 Telephone [facility] MEDICINE 230 [place], [place] [phone] Anjana Mccabe MA chartprep Social History Tobacco Use Types Packs/Day Years [...] encounter Miscellaneous Notes * Telephone Encounter - Anjana Mccabe MA - 05/29/2024 1:34 PM EST Chart Prep Labs: not applicable Images: not applicable Vaccines due:Covid due and flu due Referrals: Not Applicable Screenings: none Overdue care gaps: None documented in this encounter Plan of Treatment Upcoming Encounters Date Type Department Care Team (Late st Contact Info) Description 06/08/2024 10:00 AM EST Clinical Support [facility] [address] [place] [address] Pauline Galvin RN 505 [place] [address] documented as of this encounter Visit Diagnoses Not on filedocumented in this encounter Additional Health Concerns Assessment Noted Time PHQ-9 Depression Total Score: 0 11/23/19 24 9:19 AM EDT documented as of this encounter Care Teams Director Vaccine Relationship Specialty Start Date End Date Claudia Sapp MD [address] [place] [address] PCP - General Family Medicine 05/02/18 Graham Mcbride MD [address] [place] [address] [place] [address] Obstetrics and Gynecology 04/05/24 Tamika Barker MD [address] [place] [address] Drive 3rd [place] [address] Gastroenterology 05/08/24 Trudy Solomon MD [address] [place] [address] Hematology and Oncology 05/08/24 documented as of this encounter
--- OUTSIDE RECORDS SUMMARY | 2024-05-30 15:07 | XMS_ITS | Encounter Summary ---
Author Organization [employer] [facility] Address [address] [facility] [address] 7t [place] [address] Care Team Providers Care Pipe Crew Foreman Name Role Phone Claudia Sapp MD Primary Care Provider [phone]- [phone] Graham Mcbride MD Unavailable Tamika Barker MD Unavailable [phone] Trudy Solomon MD Unavailable [phone] Encounter Details Date Type Department Care Team (Late Contact Info) Description 05/24/2022 Abstract [facility] MEDICINE 230 [place] [address] Claudia Sapp MD 230 [place], [place] [phone] Social History Tobacco Use Types Packs/Day Years [...] Encounters Date Type Department Care Team (Late Contact Info) Description 06/08/2024 10:00 AM EST Clinical Support [facility] MEDICINE 230 [place] [address] Pauline Galvin, RN [address] [place] [address] documented as of this encounter Procedures Procedure Name Priority Date/Time Associated Diagnosis Comments PAP SMEAR Routine 01/30/2021 12:00 AM EDT MAMMOGRAPHY Routine 10/02/2018 documented in this encounter Results * Pap Smear (01/30/2021 12:00 AM EDT) Swab us Historical Provider LAB CYTOLOGY ORDERABLES F inal Result IMAGING * Hm Mammography (10/02/2018) HM Mammogram BIRADS 1 Anatomical Region Laterality Modality Other us Historical Provider HEALTH MAINTENANCE Final Result documented in this encounter Visit Diagnoses Not on filedocumented in this encounter Additional Health Concerns Assessment Noted Time PHQ-9 Depression Total Score: 0 05/24/19 23 10:10 AM EST documented as of this encounter Care Teams Pipe Crew Foreman Relationship Specialty Start Date End Date Claudia Sapp MD 230 [place] [address] PCP - General Family Medicine 05/02/18 Graham Mcbride MD [address] [place] [address] [address] [place] [address] Obstetrics and Gynecology 04/05/24 Tamika Barker MD [address] [place] [address] 3rd [place] [address] Gastroenterology 05/08/24 Trudy Solomon MD [address] [place] [address] Hematology and Oncology 05/08/24 documented as of this encounter
--- OUTSIDE RECORDS SUMMARY | 2024-05-30 15:07 | XMS_ITS | Encounter Summary ---
Author Organization [employer] Address [address] [facility] 7t [place] [address] Care Team Providers Care Tube Machine Operator Name Role Phone Claudia Sapp MD Primary Care Provider [phone] Graham Mcbride MD Unavailable Tamika Barker MD Unavailable [phone] Trudy Solomon MD Unavailable [phone] Reason for Visit * Reason Onset Date Comments Med Refill 01/04/2024 Encounter Details Date Type Department Care Team (Late st Contact Info) Description 01/04/2024 Telephone [facility] MEDICINE 230 [place], [place] [phone] Claudia Sapp MD 230 [place], [place] [phone] Med Refill Social History Tobacco Use Types [...] * Telephone Encounter - Elvia Grady - 01/04/2024 9:39 AM EDT TC from pt requesting medication refill. Medications needing refill : oxyCODONE (Roxicodone) 10 MG immediate release tablet To be sent to: [facility] - [place], [place] - [address] [place] [address] documented in this encounter Plan of Treatment Upcoming Encounters Date Type Department Care Team ([facility] st Contact Info) Description 06/08/2024 10:00 AM EST Clinical Support [facility] MEDICINE 230 [place] [address] Pauline Galvin RN 505 [place] [address] documented as of this encounter Visit Diagnoses Not on filedocumented in this encounter Additional Health Concerns Assessment Noted Time PHQ-9 Depression Total Score: 0 11/23/19 24 9:19 AM EDT documented as of this encounter Care Teams Tube Machine Operator Relationship Specialty Start Date End Date Claudia Sapp MD 230 [place] [address] PCP - General Family Medicine 05/02/18 Graham Mcbride MD [address] [place] [address] [address] [place] [address] Obstetrics and Gynecology 04/05/24 Tamika Barker MD [address] [place] [address] Drive 3rd [place] [address] Gastroenterology 05/08/24 Trudy Solomon MD [address] [place] [address] Hematology and Oncology 05/08/24 documented as of this encounter
--- OUTSIDE RECORDS SUMMARY | 2024-05-30 15:07 | XMS_ITS | Encounter Summary ---
Author Organization [employer] Address [address] [facility] 7t [place] [address] Care Team Providers Care Teacher Public Health Name Role Phone Claudia Sapp MD Primary Care Provider [phone]- [phone] Graham Mcbride MD Unavailable Reason for Visit * Reason Onset Date Comments Med Refill 05/01/2024 Encounter Details Date Type Department Care Team (Late st Contact Info) Description 05/01/2024 Refill [facility] MEDICINE 230 [place], [place] [phone] Claudia Sapp MD 230 [place] [address] Low back pain at multiple sites Social [...] encounter Miscellaneous Notes * Telephone Encounter - Gracie Tracy - 05/01/2024 9:43 AM EST TC from pt requesting medication refill. Medications needing refill : oxyCODONE (Roxicodone) 10 MG immediate release tablet To be sent to: [facility] documented in this encounter Plan of Treatment Upcoming Encounters Date Type Department Care Team (Late st Contact Info) Description 06/08/2024 10:00 AM EST Clinical Support [facility] MEDICINE [address] [place] [address] Pauline Galvin RN 505 [place] [address] documented as of this encounter Visit Diagnoses Diagnosis Low back pain at multiple sites documented in this encounter Additional Health Concerns Assessment Noted Time PHQ-9 Depression Total Score: 0 11/23/19 24 9:19 AM EDT documented as of this encounter Care Teams Teacher Public Health Relationship Specialty Start Date End Date Claudia Sapp MD [address] [place] [address] PCP - General Family Medicine 05/02/18 Graham Mcbride MD [address] [place] [address] [address] [place] [address] Obstetrics and Gynecology 04/05/24 documented as of this encounter
--- OUTSIDE RECORDS SUMMARY | 2024-05-30 15:07 | XMS_ITS | Encounter Summary ---
Author Organization [employer] Address [address] [facility] 7t [place] [address] Care Team Providers Care Breaker Tender Name Role Phone Claudia Sapp MD Primary Care Provider [phone] Graham Mcbride MD Unavailable Tamika Barker MD Unavailable [phone] Trudy Solomon MD Unavailable [phone] Reason for Visit * Reason Onset Date Comments Med Refill 06/08/2023 Encounter Details Date Type Department Care Team (Late st Contact Info) Description 06/08/[address] [facility] MEDICINE 230 [place] [address] Claudia Sapp MD 230 [place], [place] [phone] Med Refill Social History Tobacco Use Types [...] encounter Miscellaneous Notes * Telephone Encounter - Alvin Hennessy - 06/08/2023 11:15 AM EST TC from pt requesting medication refill. Medications needing refill : oxyCODONE (Roxicodone) 10 MG immediate release tablet To be sent to: [facility] - [place], [place] - [address] [place] [address] documented in this encounter Plan of Treatment Upcoming Encounters Date Type Department Care Team ([facility] st Contact Info) Description 06/08/2024 10:00 AM EST Clinical Support [facility] MEDICINE 230 [place] [address] Pauline Galvin RN [address] [place] [address] documented as of this encounter Visit Diagnoses Not on filedocumented in this encounter Additional Health Concerns Assessment Noted Time PHQ-9 Depression Total Score: 0 05/24/19 10:10 AM EST documented as of this encounter Care Teams Breaker Tender Relationship Specialty Start Date End Date Claudia Sapp MD 230 [place] [address] PCP - General Family Medicine 05/02/18 Graham Mcbride MD [address] [place] [address] [address] [place] [address] Obstetrics and Gynecology 04/05/24 Tamika Barker MD [address] [place] [address] 3rd [place] [address] Gastroenterology 05/08/24 Trudy Solomon MD [address] [place] [address] Hematology and Oncology 05/08/24 documented as of this encounter
== END 2024-05-30 13:00 | disposition home or self-care (01) ==
LOC: HO.MRI 12:59
PROVIDERS: Visit Provider Obstetrics & Gynecology
DX: N83.299 Other ovarian cyst, unspecified side (principal)
CPT/HCPCS: 72197; A9585

== ENCOUNTER → 2024-05-30 13:03 | Outpatient (BNV) | payer MEDICAID, SELFPAY | PROVIDERS: Visit Provider Radiology Diagnostic Radiology | DX: N83.291 Other ovarian cyst, right side (principal) | CPT/HCPCS: 72197 ==

== ENCOUNTER 2024-06-04 10:17 | Outpatient (AMB) | payer MEDICAID, SELFPAY ==
--- NOTE | 2024-06-04 10:10 | MHC.OFFVISWM ---
VS Expanded 06/04/24 10:25 Height 5 ft 4 in Weight 220 lb BMI 37.8 Intake Visit Reasons: (TV) PO LSG 09/18/20 [employer] Required: Yes [employer] Name: Angelina [id number] Allergies sulfamethoxazole [From Bactrim] Allergy (Verified 05/28/24 09:25) Rash trimethoprim [From Bactrim] Allergy (Verified 05/28/24 09:25) Rash Medication List - Last Reconciled 06/04/24 by KIMI Loera alcohol swabs (Alcohol Prep Pads) 0 pad topical DIRECTED atorvastatin 80 mg PO BEDTIME bisacodyl 10 mg (2 x 5 mg) PO BEDTIME blood sugar diagnostic (FreeStyle Lite Strips) As directed calcium citrate-vitamin D3 315 mg-5 mcg (200 unit) (Calcium Citrate + D) 1 tab PO DAILY cromolyn 4% 1 drp ophthalmic (eye) QID duloxetine 30 mg PO DAILY fluticasone propionate 50 mcg/actuation (Flonase Allergy Relief) 1 spray intranasal DAILY hydrocodone-acetaminophen 5-325 mg 1 tab PO Q4-6H PRN hydrocortisone 2.5% (Proctosol HC) 1 appl MI QID lancets (TRUEplus Lancets) As directed linaclotide (Linzess) 290 mcg PO QAM lisinopril 5 mg PO DAILY loratadine 10 mg PO DAILY oxycodone 10 mg PO BID PRN pantoprazole 40 mg PO DAILY sucralfate 10 mL PO BID HPI Comments Details: This?is a?48?yo female who is s/p RYGB 09/18/2020. Has not been seen since Apr 2021. Weight at last visit on 04/08/2021 was 203.2 pounds with a BMI of 34.9, weight today is 220 pounds, representing a BMI today of 37.8.? Pt reports a lot of complications - pt reports pain when eating even with small amounts, solid foods and some liquids like milk, coffee, juice. Constipation, hemorrhoids. Follows with GI, takes Linzess. No tobacco, EtOH. Does take ibuprofen a lot - almost every day. Present meal plan includes: not following a plan [facility] Medical History (Updated 05/28/24 @ 09:41 by Graham Mcbride MD) Cervical cancer screening Pre-op chest exam Gallstones Upper abdominal pain BMI 38.0-38.9,adult Obesity Hypoxia BMI 45.0-49.9, adult Intestinal malabsorption following gastrectomy Hepatomegaly DJD (degenerative joint disease) Abdominal adhesions Diabetes COVID-19 Gallstones Abdominal cramping Chronic idiopathic constipation Family history of anesthesia complication COVID-19 vaccine administered Arthritis Fibromyalgia Sleep apnea Cholelithiasis Vitamin D deficiency, unspecified Vitamin D deficiency Vitamin A deficiency Vitamin B1 deficiency Depression Hypertension Insulin dependent diabetes mellitus Morbid obesity Leukocytosis (leucocytosis) Sickle thalassemia disease Leucocytosis Chronic leukopenia Bilateral shoulder pain Dyslipidemia Axillary hidradenitis suppurativa Chronic back pain Polycystic ovarian syndrome Obesity Surgical History (Updated 06/04/24 @ 10:42 by KIMI Loera) S/P gastric bypass Hx laparoscopic cholecystectomy (09/02/23) S/P laparoscopic sleeve gastrectomy H/O colonoscopy Hx of tubal ligation Hx of gastric bypass Hx of cholecystectomy History of esophagogastroduodenoscopy (EGD) Hx of section Family History Mother Diabetes DVT (deep venous thrombosis) HTN (hypertension) Father Diabetes HTN (hypertension) Sister Stroke Son Asthma Sickle cell anemia Son Sickle cell anemia Maternal Aunt Ovary cancer Throat cancer Breast cancer Paternal Aunt Stomach neoplasm Social History Household Members: Spouse and Children Housing: Apartment Are you a primary special needs caregiver to a significant other at home: Yes Do you presently have visiting nurse or other home services: No Comment: counts correct Patient Tobacco Use Status: Never used Tobacco service: No Current occupational status: employed and unemployed 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 Current occupational exposures/hazards: Yes (stress) Female Reproductive History Menstrual Age of Menarche: 9 Telehealth Telehealth Telehealth Platform: Telephone Location of provider rendering services: other Location of patient: address on file Patient Identification confirmed using: Name, : Yes Telehealth method: voice only Patient verbally consented to treatment: Yes Patient verbally consented to billing insurance company: Yes Patient informed of any privacy concerns related to visit: Yes Minutes spent on Phone/Video with Pt.: 25 Assessment & Plan Assessment & Plan (1) Abdominal pain: Code(s): R10.9 - Unspecified abdominal pain Category: Medical (2) S/P gastric bypass: Code(s): Z98.84 - Bariatric surgery status Category: Surgical Plan Start PPI and carafate. Instructed pt that she should d/c NSAIDs immediately and discussed the harmful effects of these meds on her stomach pouch after bypass. Given meal plan of 3 PP shakes with 1 scoop each in 8oz water or UAM, and one small meal 4f soft protein. Labs ordered. Sent reflux questionnaire via email. RTC 4-6 weeks to monitor response to treatment regimen. If no improvement despite these changes- will consider endoscopy. I spent a total of 30 minutes reviewing/updating records, examining the patient and counseling the patient on weight management as detailed above. Orders: Orders Insulin Today K91.2 - Postsurgical malabsorption, not elsewhere classified, R10.9 - Unspecified abdominal pain, Z90.3 - Acquired absence of stomach [part of] Hemoglobin A1c Today K91.2 - Postsurgical malabsorption, not elsewhere classified, R10.9 - Unspecified abdominal pain, Z90.3 - Acquired absence of stomach [part of] Lipid Panel Today K91.2 - Postsurgical malabsorption, not elsewhere classified, R10.9 - Unspecified abdominal pain, Z90.3 - Acquired absence of stomach [part of] IRON PROFILE Today K91.2 - Postsurgical malabsorption, not elsewhere classified, R10.9 - Unspecified abdominal pain, Z90.3 - Acquired absence of stomach [part of] Vitamin B12 and Folate Today K91.2 - Postsurgical malabsorption, not elsewhere classified, R10.9 - Unspecified abdominal pain, Z90.3 - Acquired absence of stomach [part of] C Reactive Protein Today K91.2 - Postsurgical malabsorption, not elsewhere classified, R10.9 - Unspecified abdominal pain, Z90.3 - Acquired absence of stomach [part of] Vitamin A Today K91.2 - Postsurgical malabsorption, not elsewhere classified, R10.9 - Unspecified abdominal pain, Z90.3 - Acquired absence of stomach [part of] TSH reflex Free T4 Today K91.2 - Postsurgical malabsorption, not elsewhere classified, R10.9 - Unspecified abdominal pain, Z90.3 - Acquired absence of stomach [part of] Ferritin Today K91.2 - Postsurgical malabsorption, not elsewhere classified, R10.9 - Unspecified abdominal pain, Z90.3 - Acquired absence of stomach [part of] Vitamin D 25-OH Total Today K91.2 - Postsurgical malabsorption, not elsewhere classified, R10.9 - Unspecified abdominal pain, Z90.3 - Acquired absence of stomach [part of] Complete Blood Count Auto Diff Today K91.2 - Postsurgical malabsorption, not elsewhere classified, R10.9 - Unspecified abdominal pain, Z90.3 - Acquired absence of stomach [part of] Comprehensive Met. Panel Today K91.2 - Postsurgical malabsorption, not elsewhere classified, R10.9 - Unspecified abdominal pain, Z90.3 - Acquired absence of stomach [part of] Zinc Today K91.2 - Postsurgical malabsorption, not elsewhere classified, R10.9 - Unspecified abdominal pain, Z90.3 - Acquired absence of stomach [part of] Vitamin B1 Today K91.2 - Postsurgical malabsorption, not elsewhere classified, R10.9 - Unspecified abdominal pain, Z90.3 - Acquired absence of stomach [part of] Medications: New sucralfate 10 mL PO BID 414 mL 3RF pantoprazole 40 mg PO DAILY 90 tabs 3RF
[2024-06-04 10:25] VITALS: BMI 37.8
--- OUTSIDE RECORDS SUMMARY | 2024-06-04 11:02 | XMS_ITS | Encounter Summary ---
Author Organization [employer] Address [address] [facility] 7t [place] [address] Care Team Providers Care Stamp Presser Name Role Phone Claudia Sapp MD Primary Care Provider [phone]- [phone] Graham Mcbride MD Unavailable Tamika Barker MD Unavailable [phone] Trudy Solomon MD Unavailable Reason for Visit * Reason Onset Date Comments Med Refill 03/08/2023 Encounter Details Date Type Department Care Team (Late st Contact Info) Description 03/08/2023 Telephone [facility] MEDICINE [address] [place], [place] [phone] Claudia Sapp MD 230 [place], [place] [phone] Med Refill Social History Tobacco Use Types [...] Description 06/08/2024 10:00 AM EST Clinical Support [facility] MEDICINE [address] [place] [address] Pauline Galvin RN 505 [place] [address] 08/02/2024 9:15 AM EDT Office Visit [facility] MEDICINE [address] [place] [address] Claudia Sapp MD [address] [place] [address] documented as of this encounter Visit Diagnoses Not on filedocumented in this encounter Additional Health Concerns Assessment Noted Time PHQ-9 Depression Total Score: 0 05/24/19 10:10 AM EST documented as of this encounter Care Teams Stamp Presser Relationship Specialty Start Date End Date Claudia Sapp MD [address] [place] [address] PCP - General Family Medicine 05/02/18 Graham Mcbride MD [address] [place] [address] [place] [address] Obstetrics and Gynecology 04/05/24 Tamika Barker MD [address] [place] [address] 3rd [place] [address] Gastroenterology 05/08/24 Trudy Solomon MD [address] [place] [address] Hematology and Oncology 05/08/24 documented as of this encounter
--- OUTSIDE RECORDS SUMMARY | 2024-06-04 11:02 | XMS_ITS | Encounter Summary ---
Author Organization [facility] Address [address] [place] [address] 7t [place] [address] Care Team Providers Care Executive Candidate Developer Name Role Phone Claudia Sapp MD Primary Care Provider [phone] Graham Mcbride MD Unavailable Tamika Barker MD Unavailable [phone] Trudy Solomon MD Unavailable [phone] Reason for Visit * Reason Onset Date Comments Med Refill 04/08/2022 Encounter Details Date Type Department Care Team ([facility] Contact Info) Description 04/08/2022 Telephone [facility] MEDICINE 230 [place], [place] [phone] Claudia Sapp MD 230 [place], [place] [phone] Med Refill Social History Tobacco Use Types [...] Upcoming Encounters Date Type Department Care Team ([facility] st Contact Info) Description 06/08/2024 10:00 AM EST Clinical Support [facility] MEDICINE [address] [place] [address] Pauline Galvin, BRADEN 505 [place] [address] 08/02/2024 9:15 AM EDT Office Visit [facility] MEDICINE [address] [place] [address] Claudia Sapp MD 230 [place] [address] documented as of this encounter Visit Diagnoses Not on filedocumented in this encounter Care Teams Executive Candidate Developer Relationship Specialty Start Date End Date Claudia Sapp MD [address] [place] [address] PCP - General Family Medicine 05/02/18 Graham Mcbride MD [address] [place] [address] Obstetrics and Gynecology 04/05/24 Tamika Barker MD [address] [place] [address] 3rd [place] [address] Gastroenterology 05/08/24 Trudy Solomon MD [address] [place] [address] Hematology and Oncology 05/08/24 documented as of this encounter
--- OUTSIDE RECORDS SUMMARY | 2024-06-04 11:02 | XMS_ITS | Encounter Summary ---
Author Organization [employer] Address [address] [facility] [address] 7t [place] [address] Care Team Providers Care Camp Dining Room Attendant Name Role Phone Claudia Sapp MD Primary Care Provider [phone]- [phone] Graham Mcbride MD Unavailable Tamika Barker MD Unavailable [phone] Trudy Solomon MD Unavailable [phone] Reason for Visit * Reason Onset Date Comments Med Refill 03/02/2024 Encounter Details Date Type Department Care Team (Late st Contact Info) Description 03/02/2024 Telephone [facility] MEDICINE 230 [place], [place] [phone] Claudia Sapp MD 230 [place], [place] [phone] Med Refill Social History Tobacco Use Types [...] immediate release tablet To be sent to: [facility] documented in this encounter Plan of Treatment Upcoming Encounters Date Type Department Care Team (Late st Contact Info) Description 06/08/2024 10:00 AM EST Clinical Support [facility] MEDICINE [address] [place] [address] Pauline Galvin RN 505 [place] [address] 08/02/2024 9:15 AM EDT Office Visit [facility] MEDICINE [address] [place] [address] [phone] Claudia Sapp MD 230 [place] [address] documented as of this encounter Visit Diagnoses Not on filedocumented in this encounter Additional Health Concerns Assessment Noted Time PHQ-9 Depression Total Score: 0 11/23/19 24 9:19 AM EDT documented as of this encounter Care Teams Camp Dining Room Attendant Relationship Specialty Start Date End Date Claudia Sapp MD [address] [place] [address] PCP - General Family Medicine 05/02/18 Graham Mcbride MD [address] [place] [address] [place] [address] Obstetrics and Gynecology 04/05/24 Tamika Barker MD [address] [place] [address] 3rd [place] [address] Gastroenterology 05/08/24 Trudy Solomon MD [address] [place] [address] Hematology and Oncology 05/08/24 documented as of this encounter
--- OUTSIDE RECORDS SUMMARY | 2024-06-04 11:02 | XMS_ITS | Encounter Summary ---
Author Organization [employer] Address [address] [facility] [address] 7t [place] [address] Care Team Providers Care Sports Medicine Masseur Name Role Phone Claudia Sapp MD Primary Care Provider [phone]- [phone] Graham Mcbride MD Unavailable Tamika Barker MD Unavailable [phone] Trudy Solomon MD Unavailable [phone] Reason for Visit * Reason Onset Date Comments Med Refill 02/02/2024 Encounter Details Date Type Department Care Team (Late st Contact Info) Description 02/02/2024 Telephone [facility] MEDICINE 230 [place], [place] [phone] Claudia Sapp MD 230 [place], [place] [phone] Med Refill Social History Tobacco Use Types [...] immediate release tablet To be sent to: [facility] - [place], [place] - [address] [place] [address] documented in this encounter Plan of Treatment Upcoming Encounters Date Type Department Care Team ([facility] st Contact Info) Description 06/08/2024 10:00 AM EST Clinical Support [facility] MEDICINE [address] [place] [address] Pauline Galvin RN 505 [place] [address] 08/02/2024 9:15 AM EDT Office Visit [facility] MEDICINE [address] [place] [address] Claudia Sapp MD [address] [place] [address] documented as of this encounter Visit Diagnoses Not on filedocumented in this encounter Additional Health Concerns Assessment Noted Time PHQ-9 Depression Total Score: 0 11/23/19 24 9:19 AM EDT documented as of this encounter Care Teams Sports Medicine Masseur Relationship Specialty Start Date End Date Claudia Sapp MD [address] [place] [address] PCP - General Family Medicine 05/02/18 Graham Mcbride MD [address] [place] [address] [place] [address] Obstetrics and Gynecology 04/05/24 Tamika Barker MD [address] [place] [address] 3rd [place] [address] Gastroenterology 05/08/24 Trudy Solomon MD [address] [place] [address] Hematology and Oncology 05/08/24 documented as of this encounter
--- OUTSIDE RECORDS SUMMARY | 2024-06-04 11:02 | XMS_ITS | Encounter Summary ---
Author Organization [employer] Address [address] [facility] [address] 7t [place] [address] Care Team Providers Care Front Edger Name Role Phone Claudia Sapp MD Primary Care Provider [phone]- [phone] Graham Mcbride MD Unavailable Tamika Barker MD Unavailable [phone] Trudy Solomon MD Unavailable [phone] Reason for Visit * Reason Onset Date Comments Med Refill 01/04/2024 Encounter Details Date Type Department Care Team (Late st Contact Info) Description 01/04/2024 Telephone [facility] MEDICINE 230 [place], [place] [phone] Claudia Sapp MD 230 [place], [place] [phone] Med Refill Social History Tobacco Use Types [...] immediate release tablet To be sent to: [facility] - [place], [place] - [address] [place] [address] documented in this encounter Plan of Treatment Upcoming Encounters Date Type Department Care Team ([facility] st Contact Info) Description 06/08/2024 10:00 AM EST Clinical Support [facility] MEDICINE [address] [place] [phone] Pauline Galvin RN 505 [place] [address] 08/02/2024 9:15 AM EDT Office Visit [facility] MEDICINE [address] [place] [address] Claudia Sapp MD [address] [place] [address] documented as of this encounter Visit Diagnoses Not on filedocumented in this encounter Additional Health Concerns Assessment Noted Time PHQ-9 Depression Total Score: 0 11/23/19 24 9:19 AM EDT documented as of this encounter Care Teams Front Edger Relationship Specialty Start Date End Date Claudia Sapp MD [address] [place] [address] PCP - General Family Medicine 05/02/18 Graham Mcbride MD [address] [place] [address] [place] [address] Obstetrics and Gynecology 04/05/24 Tamika Barker MD [address] [place] [address] 3rd [place] [address] Gastroenterology 05/08/24 Trudy Solomon MD [address] [place] [address] Hematology and Oncology 05/08/24 documented as of this encounter
--- OUTSIDE RECORDS SUMMARY | 2024-06-04 11:02 | XMS_ITS | Encounter Summary ---
Author Organization [employer] [facility] Address [address] [facility] 7t [place] [address] Care Team Providers Care Rn Transitional Name Role Phone Claudia Sapp MD Primary Care Provider [phone] Graham Mcbride MD Unavailable Tamika Barker MD Unavailable [phone] Trudy Solomon MD Unavailable [phone] Reason for Visit * Reason Comments Diabetes Encounter Details Date Type Department Care Team (Late st Contact Info) Description 05/30/2024 2:00 PM EST Office Visit [facility] [address] [place] [address] Claudia Sapp MD [address] [place], [place] [phone] Primary hypertension (Primary Dx); Type 2 diabetes mellitus without complication, with long-term current use of insulin ([facility]); Dyslipidemia; Allergic rhinitis, unspecified seasonality, unspecified trigger; Abnormal finding on ultrasound; Chronic low back pain with sciatica, sciatica laterality unspecified, unspecified back pain laterality; Irritable bowel syndrome, unspecified type; Colon cancer screening; Dietary counseling; Exercise counseling; Class 2 severe obesity due to excess calories with serious comorbidity and body mass index (BMI) of 39.0 to 39.9 in adult (CMS/HCC); Other specified health status Social History Tobacco Use Types Packs/Day Years [...] AM EDT documented as of this encounter Last Filed Vital Signs Vital Sign Reading [...] Mass Index 39.07 05/30/2024 2:11 PM EST documented in this encounter Progress Notes * Claudia Sapp MD - 05/30/2024 2:00 PM EST Subjective Patient ID: Felisa Lei is a 48 y.o. female with past medical history of type 2 diabetes well controlled since bariatric surgery, hypertension, CORBIN and chronic back pian on chronic opoids who presents for follow-up. Pt reports she has not been taking her Atorvastatin for years as she has bene trying to use more natural remedies. Agrees to restart since labs done in 10/2023 showed elevated LDL and total cholesterol. A1C is well controlled. Pt reports she is not established with [facility]. She reports she has been overwhelmed since her son has been hospitalized due to sickle cell. Deniessuicidial or homacidial ideation. Declines behavior health referral. Pt reports she had her MRI follow-up on abnormal US done today and has follow-up with Dr. Reed rust. Review of Systems Constitutional: Negative for fever and unexpected weight change. Respiratory: Negative for shortness of breath. Cardiovascular: Negative for chest pain. Gastrointestinal: Negative for abdominal pain. Endocrine: Negative for polydipsia, polyphagia and polyuria. Genitourinary: Negative for difficulty urinating. Objective Visit Vitals BP 122/62 (BP Location: Left arm, Patient Position: Sitting, BP Cuff Size: Large adult) Pulse 77 Temp 97.3 ??F (36.3 ??C) (Temporal) Resp 20 Body mass index is 39.07 kg/m??. Physical Exam Constitutional: Appearance: Normal appearance. Cardiovascular: Rate and Rhythm: Normal rate and regular rhythm. Heart sounds: Normal heart sounds. Pulmonary: Effort: Pulmonary effort is normal. Breath sounds: Normal breath sounds. Neurological: General: No focal deficit present. Mental Status: She is alert. Psychiatric: Behavior: Behavior normal. Office Visit on 05/30/2024 Component Date Value Glucose Blood, POC 05/30/2024 79 QC Media Lot # 05/30/2024 [id number] Lot# Expiration Date 05/30/2024 [id number] Hemoglobin A1C 05/30/2024 6.8 (A) QC Media Lot # 05/30/2024 [id number] Lot# Expiration Date 05/30/2024 [id number] Clinical Support on 12/20/2023 Component Date Value Oxycodone Screen, Urine 12/20/2023 Positive Office Visit on 11/23/2023 Component Date Value Creatinine, Urine 11/23/2023 195.00 Microalbumin Urine 11/23/2023 26.0 Microalbum Creatinine Ra* 11/23/2023 13.3 Bilirubin, Total 11/23/2023 0.4 Bilirubin, Direct 11/23/2023 0.1 Aspartate Amino Transfer* 11/23/2023 12 Alanine Aminotransferase 11/23/2023 11 Total Protein 11/23/2023 7.4 Albumin Level 11/23/2023 4.2 Alkaline Phosphatase 11/23/2023 110 Triglycerides 11/23/2023 131 Cholesterol 11/23/2023 288 (H) LDL Cholesterol Calculat* 11/23/2023 209 (H) HDL Cholesterol 11/23/2023 53 Sodium 11/23/2023 143 Potassium 11/23/2023 3.8 Chloride 11/23/2023 106 Carbon Dioxide 11/23/2023 26 Anion Gap 11/23/2023 15 Urea Nitrogen (BUN) 11/23/2023 9 Creatinine, Serum 11/23/2023 0.78 Estimated Glomerular Luis* 11/23/2023 >60 Glucose 11/23/2023 81 Calcium 11/23/[address] PCR 11/23/2023 NOT DETECTED NG PCR 11/23/2023 NOT DETECTED HIV AB/AG 11/23/2023 Nonreactive Hepatitis C Antibody 11/23/2023 Nonreactive Syphilis Screen 11/23/2023 Nonreactive Alpha Fetoprotein 11/23/2023 1.3 Hepatitis A IgM 11/23/2023 Nonreactive ~Hepatitis B Surface Ant* 11/23/2023 NONREACTIVE Hepatitis B Core Antibody 11/23/2023 Nonreactive Hepatitis C Antibody 11/23/2023 Nonreactive Hepatitis B Surface Ag 11/23/2023 Negative Ferritin 11/23/2023 197 Iron 11/23/2023 60 Total Iron Binding Galeton* 11/23/2023 326 Percent Iron Saturation 11/23/2023 18 Unsaturated Iron Binding 11/23/2023 266 Ceruloplasmin 11/23/2023 36 Anti Nuclear Antibody Sc* 11/23/2023 NEGATIVE JOSEFINA Titer 11/23/2023 TNP JOSEFINA Pattern 11/23/2023 TNP JOSEFINA TITER 2 (REF LAB) 11/23/2023 TNP JOSEFINA Pattern 2 11/23/2023 TNP JOSEFINA TITER 3 11/23/2023 TNP JOSEFINA PATTERN 3 11/23/2023 TNP Mitochondrial Antibodies 11/23/2023 NEGATIVE Mitochondrial Ab Titer 11/23/2023 TNP Smooth Muscle Antibody 11/23/2023 32 (A) Glucose Blood, POC 11/23/2023 96 QC Media Lot # 11/23/2023 [id number] Lot# Expiration Date 11/23/2023 11,825 Hemoglobin A1C 11/23/2023 6.2 (A) QC Media Lot # 11/23/2023 [id number] Lot# Expiration Date 11/23/2023 41,826 Problem List Items Addressed This Visit Primary hypertension - Primary BP at goal -Lisinopril 5mg was d/c at hospital follow up. -pt has ran out of the Lisinopril from Hospital, will restart 5mg Lisinopril, daily 11/23/23 -CDTM referral placed 08/03/2021, re-referred to Collaborative Drug Therapy Managment Program with our PharmDNAYELY 11/23/23 Type 2 diabetes mellitus (CMS/HCC) Diabetes is controlled. Lab Results Component Value Date HGBA1C 6.8 (A) 05/30/2024 HGBA1C 6.2 (A) 11/23/2023 HGBA1C 6.2 (A) 02/21/2023 Lab Results Component Value Date CREATININE 0.78 11/23/2023 EGFR >60 11/23/2023 MICROALBCREU 13.3 11/23/2023 MICROALBCREU 4.2 02/21/2023 LDLCHOLCAL 209 (H) 11/23/2023 -Regino/Arb: lisinopril 5mg -Statin therapy: atorvastatin 80 -Diabetic eye exam: referred to [facility] 05/30/24 -Diabetic foot exam: done 11/23/23 -Continue lifestyle modifications -All diabetes medication discontinued by weight management program. S/p weight loss surgery 08/2020 Relevant Orders POCT Glucose (Completed) POCT HGB A1C (Completed) Diabetic Retinopathy Screening - OU - Both Eyes Dyslipidemia Lab Results Component Value Date CHOL 288 [...] will increase Atorvastatin back to 80 mg. Relevant Medications atorvastatin (Lipitor) 40 MG tablet Other Relevant Orders Lipid Panel, Standard Hepatic Function Panel Allergic rhinitis Relevant Medications fluticasone (Flonase) 50 MCG/ACT nasal spray Abnormal finding on ultrasound US ordered by Retail Client Manager 12/2022 revealed 1. A 0.5 cm hyperechoic [...] for retention of urine, also referred by electroplater to Dr Zurita to consider best way [...] and has follow-up scheduled with Dr. Mcbride. Colon cancer screening Dietary counseling Dietary Recommendations: Fruits, vegetables, whole grains, protein foods, and fat-free or low-fat dairy products are healthychoices. Eat different types of protein foods in your diet. This can include seafood, lean meats, poultry, beans, peas, lentils, nuts, seeds, soy products, and eggs. Limit foods and beverages higher in added sugars, saturated fat, and sodium. Exercise counseling Exercise Recommendations: At least 150 minutes of moderate-intensity physical activity per week, or an equivalent combinationof moderate- and vigorous-intensity activity Class 2 severe obesity due to excess calories with serious comorbidity and body mass index (BMI) of39.0 to 39.9 in adult ([facility]) Discussed weight, diet, exercise with patient in relation to health conditions. Used motivational interviewing to illicit change talk and established initial goals with patient. Other specified health status -next physical exam due after 11/22/24 -referred to [facility] 05/30/24 -dental home is [facility] -health care proxy filed 11/23/23 Other Visit Diagnoses Chronic low back pain with sciatica, sciatica laterality unspecified, unspecified back pain laterality Relevant Medications naloxone (Narcan) 4 mg/0.1 mL nasal spray Irritable bowel syndrome, unspecified type Relevant Medications Bisacodyl EC 5 MG EC tablet Linzess 290 MCG capsule Follow up in about 6 weeks (around 07/11/2024) for follow-up cholesterol. I, Antoni Menchaca, am serving as a scribe to document services personally performed by Dr. Eckert, based on the patient's response to questions by provider and providers statements to me. documented in this encounter Miscellaneous Notes * Assessment & Plan Note - Antoni Menchaca - 05/30/2024 2:46 PM ESTAssociated Problem(s): Abnormal finding on ultrasound US ordered by Retail Client Manager 12/2022 revealed 1. A 0.5 cm hyperechoic [...] for retention of urine, also referred by electroplater to Dr Zurita to consider best way [...] and has follow-up scheduled with Dr. Mcbride. * Assessment & Plan Note - Antoni Menchaca - 05/30/2024 2:43 PM ESTAssociated Problem(s): Class 2 severe obesity due to excess calories with serious comorbidity and body mass index (BMI) of 39.0 to 39.9 in adult ([facility]) Discussed weight, diet, exercise with patient in relation to health conditions. Used motivational interviewing to illicit change talk and established initial goals with patient. * Assessment & Plan Note - Antoni Menchaca - 05/30/2024 2:37 PM ESTAssociated Problem(s): Dyslipidemia Lab Results Component Value Date CHOL 288 [...] will increase Atorvastatin back to 80 mg. * Assessment & Plan Note - Antoni Menchaca - 05/30/2024 2:35 PM ESTAssociated Problem(s): Other specified health status -next physical exam due after 11/22/24 -referred to [facility] 05/30/24 -dental home is [facility] -health care proxy filed 11/23/23 * Assessment & Plan Note - Antoni Menchaca - 05/30/2024 2:32 PM ESTAssociated Problem(s): Primary hypertension BP at goal -Lisinopril 5mg was d/c at hospital follow up. -pt has ran out of the Lisinopril from Hospital, will restart 5mg Lisinopril, daily 11/23/23 -CDTM referral placed 08/03/2021, re-referred to Collaborative Drug Therapy Managment Program with our PharmD, NAYELY 11/23/23 * Assessment & Plan Note - Antoni Menchaca - 05/30/2024 2:31 PM ESTAssociated Problem(s): Type 2 diabetes mellitus ([facility]) Diabetes is controlled. Lab Results Component Value Date HGBA1C 6.8 (A) 05/30/2024 HGBA1C 6.2 (A) 11/23/2023 HGBA1C 6.2 (A) 02/21/2023 Lab Results Component Value Date CREATININE 0.78 11/23/2023 EGFR >60 11/23/2023 MICROALBCREU 13.3 11/23/2023 MICROALBCREU 4.2 02/21/2023 LDLCHOLCAL 209 (H) 11/23/2023 -Regino/Arb: lisinopril 5mg -Statin therapy: atorvastatin 80 -Diabetic eye exam: referred to [facility] 05/30/24 -Diabetic foot exam: done 11/23/23 -Continue lifestyle modifications -All diabetes medication discontinued by weight management program. S/p weight loss surgery 08/2020 * Assessment & Plan Note - Antoni Menchaca - 05/30/2024 2:27 PM ESTAssociated Problem(s): Exercise counseling Exercise Recommendations: At least 150 minutes of moderate-intensity physical activity per week, or an equivalent combinationof moderate- and vigorous-intensity activity * Assessment & Plan Note - Antoni Menchaca - 05/30/2024 2:27 PM ESTAssociated Problem(s): Dietary counseling Dietary Recommendations: Fruits, vegetables, whole grains, protein foods, and fat-free or low-fat dairy products are healthychoices. Eat different types of protein foods in your diet. This can include seafood, lean meats, poultry, beans, peas, lentils, nuts, seeds, soy products, and eggs. Limit foods and beverages higher in added sugars, saturated fat, and sodium. documented in this encounter Plan of Treatment Upcoming Encounters Date Type Department Care Team (Late st Contact Info) Description 06/08/2024 10:00 AM EST Clinical Support [facility] [address] [place] [address] Pauline Galvin RN [address] [place] [address] 08/02/2024 9:15 AM EDT Office Visit [facility] [address] [place] [address] Claudia Sapp MD [address] [place] [address] Scheduled Orders Name Type Priority Associated Diagnoses Orde r Schedule Diabetic Retinopathy Screening - OU - Both Eyes Ophthalmology Routine Type 2 diabetes mellitus without complication, with long-term current use of insulin ([facility]) Ordered: 05/30/2024 Lipid Panel, Standard Lab Routine Dyslipidemia Expected: 05/30/2024 (Approximate), Expires: 05/30/2025 Hepatic Function Panel Lab Routine Dyslipidemia Expected: 05/30/2024 (Approximate), Expires: 05/30/2025 documented as of this encounter Procedures Procedure Name Priority Date/Time Associated Diagnosis Comments POCT GLYCATED HEMOGLOBIN, TOTAL Routine 05/30/2024 2:27 PM EST Type 2 diabetes mellitus without complication, with long-term current use of insulin ([facility]) POCT GLUCOSE Routine 05/30/2024 2:21 PM EST Type 2 diabetes mellitus without complication, with long-term current use of insulin ([facility]) documented in this encounter Results * (ABNORMAL) POCT HGB A1C (05/30/2024 2:27 PM EST) Hemoglobin A1C 6.8(A) 4.0 - 6.0 % QC Media Lot # [id number] Lot# Expiration Date Blood 05/30/2024 2:27 PM EST us Claudia Sapp MD POINT OF CARE TEST ENTER/E DIT ORDERABLES Final Result * POCT Glucose (05/30/2024 2:21 PM EST) Glucose Blood, POC 79 60 - 200 mg/dL QC Media Lot # [id number] Lot# Expiration Date 025 Blood Capillary blood specimen / Unknown 05/30/2024 2:21 PM EST us Claudia Sapp MD POINT OF CARE TEST ENTER/E DIT ORDERABLES Final Result documented in this encounter Visit Diagnoses Diagnosis Primary hypertension- Primary Unspecified essential hypertension Type 2 diabetes mellitus without complication, with long-term current use of insulin ([facility]) Dyslipidemia Other and unspecified hyperlipidemia Allergic rhinitis, unspecified seasonality, unspecified trigger Abnormal finding on ultrasound Chronic low back pain with sciatica, sciatica laterality unspecified, unspecified back pain laterality Irritable bowel syndrome, unspecified type Colon cancer screening Special screening for malignant neoplasms, colon Dietary counseling Dietary surveillance and counseling Exercise counseling Class 2 severe obesity due to excess calories with serious comorbidity and body mass index (BMI) of 39.0 to 39.9 in adult (CMS/[facility]) Other specified health status documented in this encounter Additional Health Concerns Assessment Noted Time PHQ-9 Depression Total Score: 0 11/23/19 24 9:19 AM EDT documented as of this encounter Care Teams Rn Transitional Relationship Specialty Start Date End Date Claudia Sapp MD [address] [place] [phone] PCP - General Family Medicine 05/02/18 Graham Mcbride MD [address] [place] [address] [address] [place] [address] Obstetrics and Gynecology 04/05/24 Tamika Barker MD [address] [place] [address] Drive 3rd [place] [address] Gastroenterology 05/08/24 Trudy Solomon MD [address] [place] [address] Hematology and Oncology 05/08/24 documented as of this encounter
--- OUTSIDE RECORDS SUMMARY | 2024-06-04 11:02 | XMS_ITS | Encounter Summary ---
Author Organization [employer] Address [address] [facility] 7t [place] [address] Care Team Providers Care Crew Leader/Control Room Operator Name Role Phone Claudia Sapp MD Primary Care Provider [phone] Graham Mcbride MD Unavailable Tamika Barker MD Unavailable [phone] Trudy Solomon MD Unavailable [phone] Reason for Visit * Reason Onset Date Comments Med Refill 05/31/2024 Encounter Details Date Type Department Care Team (Late st Contact Info) Description 05/31/2024 Refill [facility] [address] [place], [place] [phone] Claudia Sapp MD [address] [place], [place] [phone] Low back pain at multiple sites Social History Tobacco Use Types Packs/Day Years Used Date Smoking Tobacco: Never Passive Smoke Exposure: Never Smokeless Tobacco: Never Alcohol Use Standard [...] the past 12 months, has t he [employer], gas, oil or water [employer] threatened to shut off services in your [...] * Telephone Encounter - Gracie Tracy - 05/31/2024 9:08 AM EST TC from pt requesting medication refill. Medications needing refill : oxyCODONE (Roxicodone) 10 MG immediate release tablet To be sent to: [facility] pharmacy documented in this encounter Plan of Treatment Upcoming Encounters Date Type Department Care Team (Late st Contact Info) Description 06/08/2024 10:00 AM EST Clinical Support [facility] [address] [place] [address] Pauline Galvin RN [address] [place] [address] 08/02/2024 9:15 AM EDT Office Visit [facility] [address] [place] [address] Claudia Sapp MD [address] [place] [address] documented as of this encounter Visit Diagnoses Diagnosis Low back pain at multiple sites documented in this encounter Additional Health Concerns Assessment Noted Time PHQ-9 Depression Total Score: 0 11/23/19 24 9:19 AM EDT documented as of this encounter Care Teams Crew Leader/Control Room Operator Relationship Specialty Start Date End Date Claudia Sapp MD [address] [place] [address] PCP - General Family Medicine 05/02/18 Graham Mcbride MD [address] [place] [address] [place] [address] Obstetrics and Gynecology 04/05/24 Tamika Barker MD [address] [place] [address] 3rd [place] [address] Gastroenterology 05/08/24 Trudy Solomon MD [address] [place] [address] Hematology and Oncology 05/08/24 documented as of this encounter
--- OUTSIDE RECORDS SUMMARY | 2024-06-04 11:02 | XMS_ITS | Encounter Summary ---
Author Organization [employer] Address [address] [facility] [address] 7t [place] [address] Care Team Providers Care [employer] Crewmember Name Role Phone [place], Claudia GORMAN Primary Care Provider [phone] Graham Mcbride MD Unavailable Tamika Barker MD Unavailable [phone] Trudy Solomon MD Unavailable Reason for Visit * Reason Onset Date Comments chartprep 05/29/2024 Encounter Details Date Type Department Care Team (Late st Contact Info) Description 05/29/2024 Telephone [facility] [address] [place], [place] [phone] Anjana Mccabe MA chartprep Social History Tobacco [...] Description 06/08/2024 10:00 AM EST Clinical Support [facility] [address] [place] [address] Pauline Galvin RN [address] [place] [address] 08/02/2024 9:15 AM EDT Office Visit [facility] [address] [place] [address] Claudia Sapp MD [address] [place] [address] documented as of this encounter Visit Diagnoses Not on filedocumented in this encounter Additional Health Concerns Assessment Noted Time PHQ-9 Depression Total Score: 0 11/23/19 9:19 AM EDT documented as of this encounter Care Teams [employer] Crewmember Relationship Specialty Start Date End Date Claudia Sapp MD [address] [place] [address] PCP - General Family Medicine 05/02/18 Graham Mcbride MD [address] [place] [address] [address] [place] [address] Obstetrics and Gynecology 04/05/24 Tamika Barker MD [address] [place] [address] 3rd [place] [address] Gastroenterology 05/08/24 Trudy Solomon MD [address] [place] [address] Hematology and Oncology 05/08/24 documented as of this encounter
--- OUTSIDE RECORDS SUMMARY | 2024-06-04 11:02 | XMS_ITS | Encounter Summary ---
Author Organization [employer] Address [address] [facility] 7t [place] [address] Care Team Providers Care Supervisor Pipelines Name Role Phone Claudia Sapp MD Primary Care Provider [phone] Graham Mcbride MD Unavailable Tamika Barker MD Unavailable [phone] Trudy Solomon MD Unavailable [phone] Reason for Visit * Reason Onset Date Comments Med Refill 10/05/2023 Encounter Details Date Type Department Care Team (Late st Contact Info) Description 10/05/2023 Telephone [facility] [address] [place] [address] Claudia Sapp MD [address] [place], [place] [phone] Med Refill Social History Tobacco Use Types [...] immediate release tablet To be sent to[facility] [place], [place] - [address] [place] [address] documented in this encounter Plan of Treatment Upcoming Encounters Date Type Department Care Team ([facility] st Contact Info) Description 06/08/2024 10:00 AM EST Clinical Support [facility] [address] [place] [address] Pauline Galvin RN [address] [place] [address] 08/02/2024 9:15 AM EDT Office Visit [facility] [address] [place] [address] Claudia Sapp MD [address] [place] [address] documented as of this encounter Visit Diagnoses Not on filedocumented in this encounter Additional Health Concerns Assessment Noted Time PHQ-9 Depression Total Score: 0 05/24/19 23 10:10 AM EST documented as of this encounter Care Teams Supervisor Pipelines Relationship Specialty Start Date End Date Claudia Sapp MD [address] [place] [address] PCP - General Family Medicine 05/02/18 Graham Mcbride MD [address] [place] [address] [address] [place] [address] Obstetrics and Gynecology 04/05/24 Tamika Barker MD [address] [place] [address] 3rd [place] [address] Gastroenterology 05/08/24 Trudy Solomon MD [address] [place] [address] Hematology and Oncology 05/08/24 documented as of this encounter
--- OUTSIDE RECORDS SUMMARY | 2024-06-04 11:02 | XMS_ITS | Encounter Summary ---
Author Organization [employer] [facility] Address [address] 7t [place] [address] Care Team Providers Care Boiler Tester Name Role Phone Claudia Sapp MD Primary Care Provider [phone]- [phone] Graham Mcbride MD Unavailable Tamika Barker MD Unavailable [phone] Trudy Solomon MD Unavailable [phone] Encounter Details Date Type Department Care Team (Late Contact Info) Description 05/24/2022 Abstract [facility] MEDICINE [address] [place] [address] Claudia Sapp MD 230 [place], [place] [phone] Social History Tobacco Use Types Packs/Day Years [...] 06/08/2024 10:00 AM EST Clinical Support [facility] [address] [place] [address] Pauline Galvin, RN 505 [place] [address] 08/02/2024 9:15 AM EDT Office Visit [facility] [address] [place] [address] Claudia Sapp MD [address] [place] [address] documented as of this encounter Procedures Procedure Name Priority Date/Time Associated Diagnosis Comments PAP SMEAR Routine 01/30/2021 12:00 AM EDT MAMMOGRAPHY Routine 10/02/2018 documented in this encounter Results * Pap Smear (01/30/2021 12:00 AM EDT) Swab Historical Provider LAB CYTOLOGY ORDERABLES F inal Result IMAGING * Mammography (10/02/2018) Mammogram BIRADS 1 Anatomical Region Laterality Modality Other Historical Provider HEALTH MAINTENANCE Final Result documented in this encounter Visit Diagnoses Not on filedocumented in this encounter Additional Health Concerns Assessment Noted Time PHQ-9 Depression Total Score: 0 05/24/19 23 10:10 AM EST documented as of this encounter Care Teams Boiler Tester Relationship Specialty Start Date End Date Claudia Sapp MD [address] [place] [address] PCP - General Family Medicine 05/02/18 Graham Mcbride MD [address] [place] [address] [address] [place] [address] Obstetrics and Gynecology 04/05/24 Tamika Barker MD [address] [place] [address] 3rd Floor ILEANA Chapman [address] Gastroenterology 05/08/24 Trudy Solomon MD [address] [place] [address] [place] [address] Hematology and Oncology 05/08/24 documented as of this encounter
--- OUTSIDE RECORDS SUMMARY | 2024-06-04 11:02 | XMS_ITS | Encounter Summary ---
Author Organization [employer] Address [address] [facility] 7t [place] [address] Care Team Providers Care Ore Grader Name Role Phone Claudia Sapp MD Primary Care Provider [phone]- [phone] Graham Mcbride MD Unavailable Tamika Barker MD Unavailable [phone] Trudy Solomon MD Unavailable [phone] Reason for Visit * Reason Onset Date Comments Med Refill 02/04/2023 Encounter Details Date Type Department Care Team (Late st Contact Info) Description 02/04/2023 Telephone [facility] MEDICINE 230 [place], [place] [phone] Claudia Sapp MD 230 [place], [place] [phone] Med Refill Social History Tobacco Use Types [...] Description 06/08/2024 10:00 AM EST Clinical Support [facility] [address] [place] [address] Pauline Galvin RN 505 [place] [address] 08/02/2024 9:15 AM EDT Office Visit [facility] [address] [place] [address] Claudia Sapp MD [address] [place] [address] documented as of this encounter Visit Diagnoses Not on filedocumented in this encounter Additional Health Concerns Assessment Noted Time PHQ-9 Depression Total Score: 0 05/24/19 23 10:10 AM EST documented as of this encounter Care Teams Ore Grader Relationship Specialty Start Date End Date Claudia Sapp MD 230 [place] [address] PCP - General Family Medicine 05/02/18 Graham Mcbride MD [address] [place] [address] [address] [place] [address] Obstetrics and Gynecology 04/05/24 Tamika Barker MD [address] [place] [address] Drive 3rd [place] [address] Gastroenterology 05/08/24 Trudy Solomon MD [address] [place] [address] Hematology and Oncology 05/08/24 documented as of this encounter
--- OUTSIDE RECORDS SUMMARY | 2024-06-04 11:02 | XMS_ITS | Encounter Summary ---
Author Organization [employer] [facility] Address [address] [facility] 7t [place] [address] Care Team Providers Care Costumed Character Name Role Phone Claudia Sapp MD Primary Care Provider [phone] Graham Mcbride MD Unavailable Tamika Barker MD Unavailable [phone] Trudy Solomon MD Unavailable [phone] Encounter Details Date Type Department Care Team (Late Contact Info) Description 09/01/2022 Abstract [facility] MEDICINE 230 [place] [address] Claudia Sapp MD 230 [place], [place] [phone] Social History Tobacco Use Types Packs/Day Years [...] Description 06/08/2024 10:00 AM EST Clinical Support [facility] MEDICINE [address] [place] [address] Pauline Galvin, BRADEN [address] [place] [address] 08/02/2024 9:15 AM EDT Office Visit [facility] MEDICINE [address] [place] [address] Claudia Sapp MD 230 [place] [address] documented as of this encounter Procedures Procedure [...] documented as of this encounter Care Teams Costumed Character Relationship Specialty Start Date End Date Claudia Sapp MD [address] [place] [address] PCP - General Family Medicine 05/02/18 Graham Mcbride MD [address] [place] [address] [address] [place] [address] Obstetrics and Gynecology 04/05/24 Tamika Barker MD [address] [place] [address] 3rd [place] [address] Gastroenterology 05/08/24 Trudy Solomon MD [address] [place] [address] Hematology and Oncology 05/08/24 documented as of this encounter
--- OUTSIDE RECORDS SUMMARY | 2024-06-04 11:02 | XMS_ITS | Encounter Summary ---
Author Organization [employer] Address [address] 7t [place] [address] Care Team Providers Care Law Researcher Name Role Phone Claudia Sapp MD Primary Care Provider [phone]- [phone] Graham Mcbride MD Unavailable Tamika Barker MD Unavailable [phone] Trudy Solomon MD Unavailable [phone] Reason for Visit * Reason Comments Med Refill Encounter Details Date Type Department Care Team (Late st Contact Info) Description 04/02/2024 Refill [facility] [address] [place] [address] Claudia Sapp MD 230 [place] [address] Low back pain at multiple sites Social [...] Description 06/08/2024 10:00 AM EST Clinical Support [facility] MEDICINE [address] [place] [address] Paluine Galvin RN 505 [place] [address] 08/02/2024 9:15 AM EDT Office Visit [facility] MEDICINE [address] [place] [address] Claudia Sapp MD [address] [place] [address] documented as of this encounter Visit Diagnoses Diagnosis Low back pain at multiple sites documented in this encounter Additional Health Concerns Assessment Noted Time PHQ-9 Depression Total Score: 0 11/23/19 9:19 AM EDT documented as of this encounter Care Teams Law Researcher Relationship Specialty Start Date End Date Fisher, MD Claudia [address] [place] [address] PCP - General Family Medicine 05/02/18 Graham Mcbride MD [address] [place] [address] [address] [place] [address] Obstetrics and Gynecology 04/05/24 Tamika Barker MD [address] [place] [address] Drive 3rd [place] [address] Gastroenterology 05/08/24 Trudy Solomon MD [address] [place] [address] Hematology and Oncology 05/08/24 documented as of this encounter
--- OUTSIDE RECORDS SUMMARY | 2024-06-04 11:02 | XMS_ITS | Encounter Summary ---
Author Organization [employer] Address [address] [facility] 7t [place] [address] Care Team Providers Care Manufacturing Plant Controller Name Role Phone Claudia Sapp MD Primary Care Provider [phone] Graham Mcbride MD Unavailable Tamika Barker MD Unavailable [phone] Trudy Solomon MD Unavailable [phone] Reason for Visit * Reason Comments Med Refill Encounter Details Date Type Department Care Team (Late st Contact Info) Description 11/09/2022 Refill [facility] MEDICINE 230 [place], [place] [phone] Claudia Sapp MD 230 [place], [place] [phone] Low back pain at multiple sites Social [...] Description 06/08/2024 10:00 AM EST Clinical Support [address] [address] Pauline Galvin RN 505 [place] [address] 08/02/2024 9:15 AM EDT Office Visit [facility] [address] [place] [address] Claudia Sapp MD [address] [place] [address] documented as of this encounter Visit Diagnoses Diagnosis Low back pain at multiple sites documented in this encounter Additional Health Concerns Assessment Noted Time PHQ-9 Depression Total Score: 0 05/24/19 10:10 AM EST documented as of this encounter Care Teams Manufacturing Plant Controller Relationship Specialty Start Date End Date Claudia Sapp MD [address] [place] [address] PCP - General Family Medicine 05/02/18 Graham Mcbride MD [address] [place] [address] [place] [address] Obstetrics and Gynecology 04/05/24 Tamika Barker MD [address] [place] [address] 3rd [place] [address] Gastroenterology 05/08/24 Trudy Solomon MD [address] [place] [address] Hematology and Oncology 05/08/24 documented as of this encounter
--- OUTSIDE RECORDS SUMMARY | 2024-06-04 11:02 | XMS_ITS | Encounter Summary ---
Author Organization [employer] [facility] Address [address] [facility] 7t [place] [address] Care Team Providers Care Edger Runner Name Role Phone Claudia Sapp MD Primary Care Provider [phone] Graham Mcbride MD Unavailable Tamika Barker MD Unavailable [phone] Trudy Solomon MD Unavailable [phone] Reason for Visit * Reason Onset Date Comments Med Refill 01/07/2023 Encounter Details Date Type Department Care Team (Late st Contact Info) Description 01/07/2023 Telephone [facility] MEDICINE 230 [place], [place] [phone] Claudia Sapp MD 230 [place], [place] [phone] Med Refill Social History Tobacco Use Types [...] Description 06/08/2024 10:00 AM EST Clinical Support [facility] [address] [place] [address] Pauline Galvin, BRADEN 505 [place] [address] 08/02/2024 9:15 AM EDT Office Visit [facility] MED[facility] [address] [place] [address] Claudia Sapp MD [address] [place] [address] documented as of this encounter Visit Diagnoses Not on filedocumented in this encounter Additional Health Concerns Assessment Noted Time PHQ-9 Depression Total Score: 0 05/24/19 10:10 AM EST documented as of this encounter Care Teams Edger Runner Relationship Specialty Start Date End Date Claudia Sapp MD [address] [place] [address] PCP - General Family Medicine 05/02/18 Graham Mcbride MD [address] [place] [address] [place] [address] Obstetrics and Gynecology 04/05/24 Tamika Barker MD [address] [place] [address] 3rd [place] [address] Gastroenterology 05/08/24 Trudy Solomon MD [address] [place] [address] Hematology and Oncology 05/08/24 documented as of this encounter
--- OUTSIDE RECORDS SUMMARY | 2024-06-04 11:02 | XMS_ITS | Encounter Summary ---
Author Organization [employer] Address [address] [facility] 7t h Floor [address] Care Team Providers Care Finance Lead Name Role Phone Claudia Sapp MD Primary Care Provider [phone] Graham Mcbride MD Unavailable Tamika Barker MD Unavailable [phone] Trudy Solomon MD Unavailable [phone] Reason for Visit * Reason Onset Date Comments Med Refill 06/08/2023 Encounter Details Date Type Department Care Team (Late st Contact Info) Description 06/08/2023 Telephone [facility] MEDICINE 230 [place] [address] Claudia Sapp MD 230 [place], [place] [phone] Med Refill Social History Tobacco Use Types [...] immediate release tablet To be sent to: [facility] - [place], [place] - [address] [place] [address] documented in this encounter Plan of Treatment Upcoming Encounters Date Type Department Care Team ([facility] st Contact Info) Description 06/08/2024 10:00 AM EST Clinical Support [facility] MEDICINE [address] [place] [address] Pauline Galvin RN [address] [place] [address] 08/02/2024 9:15 AM EDT Office Visit [facility] MEDICINE [address] [place] [address] Claudia Sapp MD 230 [place] [address] documented as of this encounter Visit Diagnoses Not on filedocumented in this encounter Additional Health Concerns Assessment Noted Time PHQ-9 Depression Total Score: 0 05/24/19 10:10 AM EST documented as of this encounter Care Teams Finance Lead Relationship Specialty Start Date End Date Claudia Sapp MD 230 [place] [address] PCP - General Family Medicine 05/02/18 Graham Mcbride MD [address] [place] [address] [address] [place] [address] Obstetrics and Gynecology 04/05/24 Tamika Barker MD [address] [place] [address] 3rd [place] [address] Gastroenterology 05/08/24 Trudy Solomon MD [address] [place] [address] Hematology and Oncology 05/08/24 documented as of this encounter
--- OUTSIDE RECORDS SUMMARY | 2024-06-04 11:02 | XMS_ITS | Clinical Summary ---
Author Organization [employer] [facility] Address [address] [place] [address] 7t [place] [address] Care Team Providers Care Package Clerk Name Role Phone Aiken, Claudia GORMAN Primary Care Provider [phone] Graham Mcbride MD Unavailable Tamika Barker MD Unavailable [phone] Trudy Solomon MD Unavailable [phone] Allergies No known active allergies Medications Blood Glucose Monitoring Suppl (FreeStyle Lite) w/Device kitIndications: Type 2 diabetes mellitus with hyperglycemia, unspecified whether powder compounder insulin use ([facility]) 1 kit 2 times daily. 1 kit 023 Active Blood Glucose Monitoring Suppl (FreeStyle glucose monitoring) kitIndications: Type 2 diabetes mellitus with hyperglycemia, with long-term current use of insulin (CMS/[facility]) Use BID. Dx type 2 diabetes 1 [...] 2 diabetes mellitus without complication, unspecified whether group home insulin use (CMS/HCC) USE DIRECTED TO TEST BLOOD SUGAR TWICE DAILY 100 strip 5 024 Active TRUEplus Lancets 33G miscIndications :Type 2 diabetes mellitus without complication, unspecified whether powder compounder insulin use ([facility]) USE DIRECTED TO TEST BLOOD SUGAR TWICE DAILY 100 each 5 024 Active DULoxetine (Cymbalta) [address] capsuleIndicati ons:Moderate major depression ([facility]) Take 1 capsule (30 mg) by mouth [...] FOR CONSTIPATION 510 g 2 024 Active Bisacodyl EC 5 MG EC [...] day. 30 tablet 11 025 2025 Active oxyCODONE (Roxicodone) 10 MG immediate release tabletIndicatio ns:Low back pain at multiple sites Take 1 tablet (10 mg) by mouth every 8 (eight) hours if needed for severe pain. 84 tablet 025 Active naloxone (Narcan) 4 mg/0.1 mL nasal [...] 2 diabetes mellitus without complication, unspecified whether powder compounder insulin use ([facility]) Take 1 tablet (80 mg) by mouth [...] needed for severe pain. 84 tablet 024 2024 Discontinued(R eorder (will not trigger [...] equivalent combination of moderate- and vigorous-intensity activity volunteer services specialist (current) use of opiate analgesic 02/01 Pain [...] cholecystectomy 09/04/2023 Overview (09/04/2023): -done 09/02/23 at [facility] with Jeff Hagen MD Constipation 02/21/2023 Overview [...] ultrasound 01/17/2023 Overview (05/30/2024): US ordered by Legal Technician 12/2022 revealed 1. A 0.5 cm hyperechoic [...] for retention of urine, also referred by cashiers bussers food runners to Dr Zurita to consider best way [...] (05/30/2024 2:46 PM EST): US ordered by Legal Technician 12/2022 revealed 1. A 0.5 cm hyperechoic [...] for retention of urine, also referred by cashiers bussers food runners to Dr Zurita to consider best way [...] (02/21/2023 9:12 AM EDT): US ordered by Legal Technician 12/2022 revealed 1. A 0.5 cm hyperechoic [...] for retention of urine, also referred by cashiers bussers food runners to Dr Zurita to consider best way of investigating uterine and ovarian findings. Other specified health status 10/13/2022 Overview (05/30/2024): -next physical exam due after 11/22/24 -referred to [facility] 05/30/24 -dental home is [facility] -health care proxy filed 11/23/23 Assessment & Plan (05/30/2024 2:35 PM EST): -next physical exam due after 11/22/24 -referred to [facility] 05/30/24 -dental home is [facility] -health [...] to lower lumbar radiculopathy. Pt on chronic STATISTICAL DEVELOPER and compliant with therapy. Gabapentin was ineffective. Continue Oxycodone to 10mg BID. This is improving her function. Assessment & Plan (11/30/2023 11:57 AM EDT): No improvement with PT, injections, multiple medications MRI 06/2016 with only minor changes, no significant stenosis. Nerve conduction study 07/29/16 revealed Chronic right mid to lower lumbar radiculopathy. Pt on chronic STATISTICAL DEVELOPER and compliant with therapy. Gabapentin was ineffective. Continue Oxycodone to 10mg BID. This is improving her function. Assessment & Plan (08/11/2022 10:46 AM EDT): No improvement with PT, injections, multiple medications MRI 06/2016 with only minor changes, no significant stenosis. Nerve conduction study 07/29/16 revealed Chronic right mid to lower lumbar radiculopathy. Pt on chronic STATISTICAL DEVELOPER and compliant with therapy. Gabapentin was ineffective. Continue Oxycodone to 10mg BID. This is improving her function. Assessment & Plan (05/21/2022 9:34 AM EST): No improvement with PT, injections, multiple medications MRI 06/2016 with only minor changes, no significant stenosis. Nerve conduction study 07/29/16 revealed Chronic right mid to lower lumbar radiculopathy. Pt on chronic STATISTICAL DEVELOPER and compliant with therapy. Gabapentin was ineffective. Continue Oxycodone to 10mg BID. This is improving her function. Seasonal allergies 05/21/2022 History of bariatric surgery 05/21/2022 Overview (05/21/2022): Hx gastric bypass ru en y 08/2020 at [facility]. Max weight 297lbs 2017, weight before surgery 286 08/2020. Continue with weight loss program. Assessment & Plan (08/11/2022 10:47 AM EDT): Hx gastric bypass ru en y 08/2020 at [facility]. Max weight 297lbs 2017, weight before surgery 286 08/2020. Continue with weight loss program. Assessment & Plan (05/21/2022 9:35 AM EST): Hx gastric bypass ru en y 08/2020 at [facility]. Max weight 297lbs 2016, weight before surgery 286 08/2020. Continue with weight loss program. Moderate major depression 05/21/2022 Leucocytosis 05/21/2022 Overview (09/21/2023): Chronic since 2012. Possibly from chronic hydradenitis suppurativa and multiple abscesses. Pt followed by hematology. Visit with Dr. Maravilla 09/19/23 iron deficiency anemia and chronic neutrophilic [...] atorvastatin 80 -Diabetic eye exam: referred to [facility] 05/30/24 -Diabetic foot exam: done [...] atorvastatin 80 -Diabetic eye exam: referred to [facility] 05/30/24 -Diabetic foot exam: done [...] -Diabetic eye exam: via [facility] in [facility] -Diabetic foot exam: done 11/23/23 -Continue lifestyle [...] 80 -Diabetic eye exam: via [facility] -Diabetic foot exam: -Continue lifestyle modifications [...] -Diabetic eye exam: via [facility] in [facility] -Diabetic foot exam: -Continue lifestyle modifications -All [...] mg QHS). - Ophthalmology evaluation 03/2017 at [facility], recommended 1 year f/u. - S/P [...] Encounters Date Type Department Care Team Description 06/04/2024 Telephone [facility] [address] [place] [address] Claudia Sapp MD Med Refill 05/31/2024 Refill [facility] [address] [place] [address] Claudia Sapp MD Low back pain at multiple sites 05/30/2024 2:00 PM EST Office Visit [facility] [address] [place] [address] Claudia Sapp MD Primary hypertension (Primary Dx); Type 2 diabetes mellitus without complication, with long-term current use of insulin ([facility]); Dyslipidemia; Allergic rhinitis, unspecified seasonality, unspecified trigger; Abnormal finding on ultrasound; Chronic low back pain with sciatica, sciatica laterality unspecified, unspecified back pain laterality; Irritable bowel syndrome, unspecified type; Colon cancer screening; Dietary counseling; Exercise counseling; Class 2 severe obesity due to excess calories with serious comorbidity and body mass index (BMI) of 39.0 to 39.9 in adult ([facility]); Other specified health status 05/30/2024 Travel 05/29/2024 Telephone [facility] [address] [place] [address] Anjana Mccabe MA chartprep 05/01/2024 Refill [facility] [address] [place] [address] Claudia Sapp MD Low back pain at multiple sites 04/25/2024 Refill [facility] [address] [place] [address] Claudia Sapp MD Constipation, unspecified constipation type 04/09/2024 Travel 04/02/2024 Refill [facility] [address] [place] [address] Claudia Sapp MD Low back pain at multiple sites 04/02/2024 Refill [facility] [address] [place] [address] Claudia Sapp MD Low back pain at multiple sites 03/05/2024 11:00 AM EST Telemedicine [facility] [address] [place] [address] Pauline Galvin, medical records supervisor right-sided low back pain with right-sided sciatica 03/05/2024 Travel from Last 3 Months Immunizations Name Administration [...] EST Clinical Support [facility] [address] [place] [address] Pauline Galvin RN [address] [place] [address] 08/02/2024 9:15 AM EDT Office Visit [facility] [address] [place] [phone] Claudia Sapp MD [address] [place] [place] [address] [phone] Health Maintenance Due Date Last Done Comments [...] Tobacco Screening 05/30/2025 05/30/2024 Mammogram 10/23/2025 10/24/2023, 050 06/2022, 06/09/2022, Additional history exists Cervical Cancer Screening 12/28/2027 HPV/Cotest 12/28/2027 Pap Smear 12/28/2027 12/27/2022, 100 11/2020, 01/30/2021 DTaP/Tdap/Td Vaccines (3 - Td [...] complication, with long-term current use of insulin ([facility]) LIPID PANEL, STANDARD Routine 11/23/2023 10:22 AM [...] Media Lot # [id number] Lot# Expiration Date 534 Blood Capillary blood specimen / Unknown 05/30/2024 2:21 PM EST Claudia Sapp MD POINT OF CARE TEST ENTER/E DIT ORDERABLES Final Result * Albumin, Random Urine W/Creatinine (11/23/2023 10:22 AM EDT) Creatinine, Urine 195.00 mg/dL [facility] Microalbumin Urine 26.0 mg/L [facility] Microalbum Creatinine Ratio Ur 13.3 <30 ug/mg cr [facility] Comment:Albumin/Creatinine R atio Reference Ranges: Normal: < 30 ug/mg creatinine Microalbuminuria: 30 - 300 ug/mg creatinineClinical Albuminuria: > 300 ug/mg creatinine Urine 11/23/2023 10:2 2 AM EDT 11/23/2023 11:50 AM EDT Claudia Sapp MD LAB URINE ORDERABLES Final Result Performing Organization Address [facility] Co de Phone Number [facility] [address] [place] [phone] * Hepatitis C Antibody with Reflex to HCV, RNA, Quantitative, Real-Time PCR (11/23/2023 10:22 AM EDT) Hepatitis C Antibody Nonreactive Nonreactive [facility] Comment:Antibodies to HCV no t detected; does not exclude early acuteHCV infection. Blood Venous blood specimen / Unknown 11/23/2023 10:22 AM EDT 11/23/2023 11:48 AM EDT Claudia Sapp MD LAB BLOOD ORDERABLES Final Result Performing Organization Address [facility] de Phone Number [facility] [address] [place] [phone] * HIV-1/2 Antigen and Antibodies, Fourth Generation, with Reflexes (11/23/2023 10:22 AM EDT) HIV AB/AG Nonreactive Nonreactive [facility] Comment:HIV-1 p24 Ag and/or HIV-1/HIV-2 Ab not detected.A test result that is nonreactive does not exclude thepossibility of exposure to or infection with HIV-1 and/orHIV-2. Nonreactive results in this assay for individualswith prior exposure to HIV-1 and/or HIV-2 may be due toantigen and antibody levels that are below the limit ofdetection of this assay.The AFreeze HIV Ag/Ab Combo assay result andsupplemental assay results should be interpreted inconjunction with the patient's clinical presentation,history and other laboratory results. If the results areinconsistent with clinical evidence, additional testing issuggested to confirm the result. Blood Venous blood specimen / Unknown 11/23/2023 10:22 AM EDT 11/23/2023 11:48 AM EDT Claudia Sapp MD LAB BLOOD ORDERABLES Final Result Performing Organization Address [facility] Co de Phone Number [facility] [address] [place] [phone] * (ABNORMAL) Lipid Panel, Standard (11/23/2023 10:22 AM EDT) Triglycerides 131 <150 mg/dL [facility] Comment:Desirable Triglyceri de: less than 150 mg/dLBorderline High Triglyceride 150-199 mg/dLHigh Triglyceride: 200-499 mg/dLVery High Triglyceride: greater than or equal to 5OO mg/dL Cholesterol 288(H) <200 mg/dL [facility] Comment:Desirable Cholestero l: less than 200 mg/dLBorderline High Cholesterol: 200-239 mg/dLHigh Cholesterol: greater than 239 mg/dL LDL Cholesterol Calculated 209(H) <100 mg/dL [facility] Comment:Desirable LDL: less than 100 mg/dLNear Optimal/Above Optimal LDL: 110- 129 mg/dLBorderline High LDL: 130-159 mg/dLHigh LDL: 160-189 mg/dLVery High LDL: greater than or equal to 190 mg/dL HDL Cholesterol 53 >40 mg/dL [facility] Comment:Desirable HDL: great er than 40 mg/dL Note: This HDL assay may give artificially low results in patients with liver disease. Blood Venous blood specimen / Unknown 11/23/2023 10:22 AM EDT 11/23/2023 12:12 PM EDT Claudia Sapp MD LAB BLOOD ORDERABLES Final Result Performing Organization Address [facility]/ZIP Co de Phone Number [facility] [address] [place] [phone] * BI Mammogram Screening Tomosynthesis Bilateral (10/24/2023 12:20 PM EDT) Anatomical Region Laterality Modality Breast Bilateral Mammography 10/24/2023 12:2 0 PM EDT Narrative 10/24/2023 2:12 PM EDT ? [facility] [place] ? [address] ?[place] [address] ? Mammography Report ? Signed ? Patient: Felisa Calhoun ?MR# ?? : [id number] ? : 1975 ?Acct:[id number] ? Age/Sex: 47 / F ?ADM Date: 10/24/23 ? Loc: HO.MAMMO ? Attending Dr: Graham Mcbride MD ? Ordering Physician: Graham Mcbride MD ?Results: 1Negativ ?? e ? Date of Service: 10/24/23 ?Follow Up: 1 Year From Orig ?? inal Mammogram ? Procedure(s): MM tomosynthesis screening BI ?? Accession Number(s): [id number] ? cc: Claudia Sapp MD; Graham Mcbride [...] 1409 ? DD/ 1220 ? TD/TT: ? Infantryman: ? Procedure Note Blanche, Image - 10/24/2023 [facility] [address] [place] [address] Mammography Report Signed Patient: Felisa Calhoun# : [id number] : 1975Acct:[id number] Age/Sex: 47 / FADM Date: 10/24/23 Loc: HO.MAMMO Attending Dr: Graham Mcbride MD Ordering Physician: Graham Mcbride MDResults: 1Negativ e Date of Service: 10/24/23Follow Up: 1 Year From Orig inal Mammogram Procedure(s): MM tomosynthesis screening BI Accession Number(s): [id number] cc: Claudia Sapp MD; Graham Mcbride MD [...] in OV> 10/24/23 1409 DD/ 1220 TD/TT: Infantryman: [facility] External Provider IMG BI PROCEDURES Final Result * Colonoscopy (02/15/2023) Colonoscopy Normal Normal Historical Provider HEALTH MAINTENANCE Final Result * Pap Smear (12/27/2022 9:53 AM EDT) 12/27/2022 9:53 AM EDT 12/27/2022 1:50 PM EDT [facility] - 01/08/2023 2:14 PM EDT ----- ------- Name: Felisa Calhoun ? Age/Sex: 47/F ? : 1975 Unit#: [id number] ?? Attend Dr: Amparo Hogan CNM ?Re12/27/22 ?Status: DEP REF ? Location: HO.LNP ?Disch: ? ----- ------- SPEC : [id number] ?RECD: 12/27/22-4610 ? STATUS: ??SOUT ? REQ NUM: [id number] ? WYATT: 12/27/22-6648 ? SUBM DR: SamiraAmparo BERTO ? ENTERED: ??12/27/22-2306 ?SP TYPE: Pap Smr ?OTHR DR: Claudia [...] 66, 68) ? HPV testing performed by [facility], [place], [place]. ??See reference laboratory ?? portion of the EMR for entire report. ?Clinical Information LMP:12/11/22 Previous PAP test:01/27/15, WNL Other history:pelvic and perineal pain ? Material Received ?? ThinPrep-Cervical Copies To: ?? Claudia Sapp MD ?? [address] ?? [place] [id number] ? Amparo Hogan CNM ?? [address] [place] [facility] ?? [place] [address] ?? [phone] ----- ------- Signed (signature on file) Florina Jane Hien 01/08/23 1414 ? ----- ------- ? END OF REPORT ? us [facility] External Provider LAB CYT OLOGY ORDERABLES Final Result [facility] [address] [place] [address] [phone] from Last 3 Months or Most Recently Relevant to Health Maintenance [place] [address] [place] [address] C3 Advance Directives Documents on File Type Date Recorded Patient Lamp Stack Developer Expl anation Advance Directives and Living Will 11/23/2023 Health Care Proxy 11/23/23 Care Teams Package Clerk Relationship Specialty Start Date End Date Aiken, MD Claudia [address] [place] [place] [address] PCP - General Family Medicine 05/02/18 Graham Mcbride MD [address] [place] [address] [address] [place] [address] Obstetrics and Gynecology 04/05/24 Tamika Barker MD [address] [place] [address] 3rd [place] [address] Gastroenterology 05/08/24 Trudy Solomon MD [address] [place] [address] Hematology and Oncology 05/08/24
--- OUTSIDE RECORDS SUMMARY | 2024-06-04 11:02 | XMS_ITS | Encounter Summary ---
Author Organization [employer] Address [address] [place] [address] Care Team Providers Care Cone Machine Feeder Name Role Phone Immaculata, Claudia GORMAN Primary Care Provider [phone] Graham Mcbride MD Unavailable Tamika Barker MD Unavailable [phone] Trudy Solomon MD Unavailable [phone] Encounter Details Date Type Department Care Team (Latest Contact Info) Description 05/30/2024 Travel Social History Tobacco Use Types Packs/Day Years [...] Description 06/08/2024 10:00 AM EST Clinical Support [address] [address] Pauline Galvin RN [address] [place] [address] 08/02/2024 9:15 AM EDT Office Visit [facility] [address] [place] [address] Claudia Sapp MD [address] [place] [address] documented as of this encounter Visit Diagnoses Not on filedocumented in this encounter Additional Health Concerns Assessment Noted Time PHQ-9 Depression Total Score: 0 11/23/19 24 9:19 AM EDT documented as of this encounter Care Teams Cone Machine Feeder Relationship Specialty Start Date End Date Claudia Sapp MD [address] [place] [address] PCP - General Family Medicine 05/02/18 Graham Mcbride MD [address] [place] [address] [address] [place] [address] Obstetrics and Gynecology 04/05/24 Tamika Barker MD [address] [place] [address] 3rd [place] [address] Gastroenterology 05/08/24 Trudy Solomon MD [address] [place] [address] [place] [address] Hematology and Oncology 05/08/24 documented as of this encounter
--- OUTSIDE RECORDS SUMMARY | 2024-06-04 11:02 | XMS_ITS | Encounter Summary ---
Author Organization [employer] Address [address] [facility] 7t [place] [address] Care Team Providers Care Gas Fitter Helper Name Role Phone Claudia Sapp MD Primary Care Provider [phone] Graham Mcbride MD Unavailable Tamika Barker MD Unavailable [phone] Trudy Solomon MD Unavailable [phone] Reason for Visit * Reason Onset Date Comments Med Refill 12/05/2023 Encounter Details Date Type Department Care Team (Late st Contact Info) Description 12/05/2023 Telephone [facility] [address] [place], [place] [phone] Claudia Sapp MD [address] [place], [place] [phone] Med Refill Social History Tobacco Use Types [...] immediate release tablet To be sent to: [facility] - [place], [place] - [address] [place] [address] documented in this encounter Plan of Treatment Upcoming Encounters Date Type Department Care Team ([facility] st Contact Info) Description 06/08/2024 10:00 AM EST Clinical Support [facility] [address] [place] [address] Pauline Galvin RN [address] [place] [address] 08/02/2024 9:15 AM EDT Office Visit [facility] [address] [place] [address] Claudia Sapp MD [address] [place] [address] documented as of this encounter Visit Diagnoses Not on filedocumented in this encounter Additional Health Concerns Assessment Noted Time PHQ-9 Depression Total Score: 0 11/23/19 24 9:19 AM EDT documented as of this encounter Care Teams Gas Fitter Helper Relationship Specialty Start Date End Date Claudia Sapp MD [address] [place] [address] PCP - General Family Medicine 05/02/18 Graham Mcbride MD [address] [place] [address] [place] [address] Obstetrics and Gynecology 04/05/24 Tamika Barker MD [address] [place] [address] 3rd [place] [address] Gastroenterology 05/08/24 Trudy Solomon MD [address] [place] [address] Hematology and Oncology 05/08/24 documented as of this encounter
--- OUTSIDE RECORDS SUMMARY | 2024-06-04 11:02 | XMS_ITS | Encounter Summary ---
Author Organization [employer] [facility] Address [address] [place] [address] Care Team Providers Care Thread Roller Name Role Phone Claudia Sapp MD Primary Care Provider [phone] Graham Mcbride MD Unavailable Tamika Barker MD Unavailable [phone] Trudy Solomon MD Unavailable [phone] Encounter Details Date Type Department Care Team (Late st Contact Info) Description 06/17/2022 Orders Only [facility] [address] [place], [place] [phone] Claudia Sapp MD [address] [place], [place] [phone] Type 2 diabetes mellitus with hyperglycemia, with long-term current use of insulin ([facility]) (Primary Dx) Social History Tobacco Use Types [...] AM EST Clinical Support [facility] [address] [place] [address] Pauline Galvin, BRADEN [address] [place] [address] 08/02/2024 9:15 AM EDT Office Visit [facility] [address] [place] [address] Claudia Sapp MD [address] [place] [address] documented as of this encounter Visit Diagnoses Diagnosis Type 2 diabetes mellitus with hyperglycemia, with long-term current use of insulin ([facility])- Primary documented in this encounter Additional Health Concerns Assessment Noted Time PHQ-9 Depression Total Score: 0 05/24/19 10:10 AM EST documented as of this encounter Care Teams Thread Roller Relationship Specialty Start Date End Date Claudia Sapp MD [address] [place] [address] PCP - General Family Medicine 05/02/18 Graham Mcbride MD [address] [place] [address] Obstetrics and Gynecology 04/05/24 Tamika Barker MD [address] [place] [address] 3rd [place] [address] Gastroenterology 05/08/24 Trudy Solomon MD [address] [place] [address] Hematology and Oncology 05/08/24 documented as of this encounter
--- OUTSIDE RECORDS SUMMARY | 2024-06-04 11:02 | XMS_ITS | Encounter Summary ---
Author Organization [email or web address] Address 75 [facility] 7t [place] [address] Care Team Providers Care Agricultural Education Instructor Name Role Phone [place], Claudia GORMAN Primary Care Provider [phone]- [phone] Graham Mcbride MD Unavailable Tamika Barker MD Unavailable [phone] Trudy Solomon MD Unavailable [phone] Reason for Visit * Reason Comments Med Refill Encounter Details Date Type Department Care Team (Late st Contact Info) Description 10/08/2022 Refill [facility] MEDICINE 230 [place], [place] [phone] Mary Abdul, ANP 230 [place], [place] [phone] Low back pain at multiple sites Social [...] Description 06/08/2024 10:00 AM EST Clinical Support [address] [address] Pauline Galvin RN [address] [place] [address] 08/02/2024 9:15 AM EDT Office Visit [address] [address] Claudia Sapp MD [address] [place] [address] documented as of this encounter Visit Diagnoses Diagnosis Low back pain at multiple sites documented in this encounter Additional Health Concerns Assessment Noted Time PHQ-9 Depression Total Score: 0 05/24/19 10:10 AM EST documented as of this encounter Care Teams Agricultural Education Instructor Relationship Specialty Start Date End Date Claudia Sapp MD [address] [place] [address] PCP - General Family Medicine 05/02/18 Graham Mcbride MD [address] [place] [address] Obstetrics and Gynecology 04/05/24 Tamika Barker MD [address] [place] [address] Drive 3rd [place] [address] Gastroenterology 05/08/24 Trudy Solomon MD [address] [place] [address] Hematology and Oncology 05/08/24 documented as of this encounter
--- OUTSIDE RECORDS SUMMARY | 2024-06-04 11:02 | XMS_ITS | Encounter Summary ---
Author Organization [employer] Address 75 [facility] 7t [place] [address] Care Team Providers Care Metal Hanger Name Role Phone Claudia Sapp MD Primary Care Provider [phone]- [phone] Graham Mcbride MD Unavailable Tamika Barker MD Unavailable [phone] Trudy Solomon MD Unavailable [phone] Reason for Visit * Reason Onset Date Comments Med Refill 06/04/2024 Encounter Details Date Type Department Care Team (Late st Contact Info) Description 06/04/2024 Telephone [facility] MEDICINE 230 [place], [place] [phone] Claudia Sapp MD 230 [place], [place] [phone] Med Refill Social History Tobacco Use Types [...] the past 12 months, has t he [employer], gas, oil or water [employer] threatened to shut off services in your [...] encounter Miscellaneous Notes * Telephone Encounter - Maggy Urrutia LPN - 06/04/2024 9:27 AM EST Medications were sent to [facility] on 05/30/24. * Telephone Encounter - Gracie Tracy - 06/04/2024 9:21 AM EST TC from pt requesting medication refill. Medications needing refill : atorvastatin (Lipitor) 80 MG tablet fluticasone (Flonase) 50 MCG/ACT nasal spray naloxone (Narcan) 4 mg/0.1 mL nasal spray To be sent to: [facility] - [place], [place] - [address] [facility] documented in this encounter Plan of Treatment Upcoming Encounters Date Type Department Care Team ([facility] st Contact Info) Description 06/08/2024 10:00 AM EST Clinical Support [facility] MEDICINE 230 [place] [address] Pauline Galvin RN 505 [place] [address] 08/02/2024 9:15 AM EDT Office Visit [facility]INE 230 [place] [address] Claudia Sapp MD 230 [place] [address] documented as of this encounter Visit Diagnoses Not on filedocumented in this encounter Additional Health Concerns Assessment Noted Time PHQ-9 Depression Total Score: 0 11/23/19 9:19 AM EDT documented as of this encounter Care Teams Metal Hanger Relationship Specialty Start Date End Date Claudia Sapp MD 230 [place] [address] PCP - General Family Medicine 05/02/18 Graham Mcbride MD [address] [place] [address] Obstetrics and Gynecology 04/05/24 Tamika Barker MD [address] [place] [address] 3rd [place] [address] Gastroenterology 05/08/24 Trudy Solomon MD [address] [place] [address] Hematology and Oncology 05/08/24 documented as of this encounter
== END 2024-06-04 10:43 | disposition home or self-care (01) ==
LOC: HO.HBS 10:17
PROVIDERS: Visit Provider Physician Assistant Surgical
DX: R10.9 Unspecified abdominal pain (principal); Z98.84 Bariatric surgery status
CPT/HCPCS: 99214

== ENCOUNTER → 2024-06-04 10:17 | Outpatient (BNVA) | payer MEDICAID, SELFPAY | PROVIDERS: Visit Provider Physician Assistant Surgical | DX: R10.9 Unspecified abdominal pain (principal); K91.2 Postsurgical malabsorption, not elsewhere classified; Z98.84 Bariatric surgery status | CPT/HCPCS: 99212 ==

== ENCOUNTER 2024-06-13 13:10 | Outpatient (AMB) | payer MEDICAID, SELFPAY ==
--- NOTE | 2024-06-13 13:15 | A.OFFVIS_ITS ---
Vital Signs 06/13/24 13:16 Height 5 ft 4 in Weight 220 lb BMI 37.8 BP 130/76 Intake Visit Reasons: MRI F/U Patient Financial Specialist Required: Yes Patient Financial Specialist Language: Air Transportation Provider Services: Patient Financial Specialist Present (in person) Patient Financial Specialist Name: Maribell HINOJOSA Information Interpreted: non-clinical & clinical Accompanied by: Son Allergies sulfamethoxazole [From Bactrim] Allergy (Verified 06/13/24 13:18) Rash trimethoprim [From Bactrim] Allergy (Verified 06/13/24 13:18) Rash HPI Comments Details: Presenting for MRI done on 05/30/2024 follow-up which showed the following: The uterus measures 4 x 8 x 13 cm. The cervix measures 4 cm. The junctional zone measures 6 mm. No enhancing lesion within the uterus. Right ovary measures 4 x 3 x 2 cm. There is a focal, 2 cm intrinsic hyperintense T1 and slightly fat saturated nonenhancing signal abnormality. Left ovary measures 3 x 2 x 2 cm. No cystic lesion or enhancing lesion. No ascites. Abundant stool within the large intestine. No intestinal obstruction pattern. No aneurysm or dissection in the included infrarenal distal abdominal aorta and iliac arteries. Bone marrow signal is normal. Nonspecific prominent lymph nodes, inguinal region. Diastases abdominal rectus muscles. No gross inguinal hernias. Spondylosis L5-S1 with disc bulging. Ultrasound done on 02/08/2024 showed the following: IMPRESSION: Small echogenic mass in the right ovary is slightly larger than on the prior ultrasound. This could represent a small dermoid. Follow-up ultrasound in 6-12 months is recommended. [facility] Medical History Cervical cancer screening Pre-op chest exam Gallstones Upper abdominal pain BMI 38.0-38.9,adult Obesity Hypoxia BMI 45.0-49.9, adult Intestinal malabsorption following gastrectomy Hepatomegaly DJD (degenerative joint disease) Abdominal adhesions Diabetes COVID-19 Gallstones Abdominal cramping Chronic idiopathic constipation Family history of anesthesia complication COVID-19 vaccine administered Arthritis Fibromyalgia Sleep apnea Cholelithiasis Vitamin D deficiency, unspecified Vitamin D deficiency Vitamin A deficiency Vitamin B1 deficiency Depression Hypertension Insulin dependent diabetes mellitus Morbid obesity Leukocytosis (leucocytosis) Sickle thalassemia disease Leucocytosis Chronic leukopenia Bilateral shoulder pain Dyslipidemia Axillary hidradenitis suppurativa Chronic back pain Polycystic ovarian syndrome Obesity Surgical History S/P gastric bypass Hx laparoscopic cholecystectomy (09/02/23) S/P laparoscopic sleeve gastrectomy H/O colonoscopy Hx of tubal ligation Hx of gastric bypass Hx of cholecystectomy History of esophagogastroduodenoscopy (EGD) Hx of section Family History Mother Diabetes DVT (deep venous thrombosis) HTN (hypertension) Father Diabetes HTN (hypertension) Sister Stroke Son Asthma Sickle cell anemia Son Sickle cell anemia Maternal Aunt Ovary cancer Throat cancer Breast cancer Paternal Aunt Stomach neoplasm Social History Household Members: Spouse and Children Housing: Apartment Are you a primary career development facilitator to a significant other at home: Yes Do you presently have visiting nurse or other home services: No Comment: counts correct Patient Tobacco Use Status: Never used Tobacco service: No Current occupational status: employed and unemployed 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 Current occupational exposures/hazards: Yes (stress) Female Reproductive History Menstrual Age of Menarche: 9 Review of Systems Const All systems reviewed & are unremarkable except as noted in HPI and below Reports as per HPI and Reports no additional complaints GI Reports no additional complaints Reports no additional complaints Physical Exam Vital Signs: Last Vital Signs BP 130/76 06/13/24 13:16 BMI result Body Mass Index 37.8 Assessment & Plan Assessment & Plan (1) Dermoid cyst of ovary: Code(s): D27.9 - Benign neoplasm of unspecified ovary Category: Medical Plan: Discussed with the patient the finding on ultrasound /MRI of teratoma. Explained to the patient that these tumors have a characteristic imaging appearance, which allows reasonably accurate noninvasive diagnosis in many cases with high reported specificity is 98 to 100 percent, but definitive diagnosis is made at the time of surgical excision. Malignant transformation occurs in 0.2 to 2 percent of mature cystic teratomas The treatment is laparoscopic ovarian cystectomy in order to make a definitive diagnosis, preserve ovarian tissue, and avoid potential problems such as torsion, rupture, or development of malignant components. For women who have completed childbearing, salpingo-oophorectomy is also acceptable treatment. 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 Will refer to [facility] for minimally invasive surgery. Instructed the patient to call our office back in case a referral appointment is not scheduled, missed or canceled so that we will assist on rescheduling another appointment, the patient verbalized understanding agreed with the plan. Coding Level of Care Code Est Pt Level 3 (59422) Diagnoses Dermoid cyst of ovary D27.9
[2024-06-13 13:16] VITALS: BP 130/76; BMI 37.8
--- OUTSIDE RECORDS SUMMARY | 2024-06-13 14:31 | XMS_ITS | Encounter Summary ---
Author Organization [employer] [facility] Address 75 [facility] 7t [place] [address] Care Team Providers Care Cage Maker Machine Name Role Phone Claudia Sapp MD Primary Care Provider [phone] Graham Mcbride MD Unavailable Tamika Barker MD Unavailable [phone] Trudy Solomon MD Unavailable [phone] Reason for Visit * Reason Onset Date Comments Med Refill 01/07/2023 Encounter Details Date Type Department Care Team (Late st Contact Info) Description 01/07/2023 Telephone [facility] MEDICINE 230 [place], [place] [phone] Claudia Sapp MD [address] [place], [place] [phone] Med Refill Social History Tobacco Use Types [...] Care Team (Late st Contact Info) Description 08/02/2024 9:15 AM EDT Office Visit [facility] MEDICINE [address] [place] [address] Claudia Sapp MD 230 [place] [address] documented as of this encounter Visit Diagnoses Not on filedocumented in this encounter Additional Health Concerns Assessment Noted Time PHQ-9 Depression Total Score: 0 05/24/19 10:10 AM EST documented as of this encounter Care Teams Cage Maker Machine Relationship Specialty Start Date End Date Claudia Sapp MD 230 [place] [address] PCP - General Family Medicine 05/02/18 Graham Mcbride MD [address] [place] [address] Obstetrics and Gynecology 04/05/24 Tamika Barker MD [address] [place] [address] 3rd [place] [address] Gastroenterology 05/08/24 Trudy Solomon MD [address] [place] [address] Hematology and Oncology 05/08/24 documented as of this encounter
--- OUTSIDE RECORDS SUMMARY | 2024-06-13 14:31 | XMS_ITS | Encounter Summary ---
Author Organization [employer] Address [address] [facility] 7t [place] [address] Care Team Providers Care Tobacco Grower Name Role Phone Claudia Sapp MD Primary Care Provider [phone]- [phone] Graham Mcbride MD Unavailable Tamika Barker MD Unavailable [phone] Trudy Solomon MD Unavailable [phone] Reason for Visit * Reason Comments Med Refill Encounter Details Date Type Department Care Team (Late st Contact Info) Description 11/09/2022 Refill [facility] MEDICINE 230 [place], [place] [phone] Claudia Sapp MD 230 [place], [place] [phone] Low back pain at multiple sites Social [...] Description 08/02/2024 9:15 AM EDT Office Visit [facility] MEDICINE 230 [place] [address] Claudia Sapp MD 230 [place] [address] documented as of this encounter Visit Diagnoses Diagnosis Low back pain at multiple sites documented in this encounter Additional Health Concerns Assessment Noted Time PHQ-9 Depression Total Score: 0 05/24/19 10:10 AM EST documented as of this encounter Care Teams Tobacco Grower Relationship Specialty Start Date End Date Claudia Sapp MD [address] [place] [address] PCP - General Family Medicine 05/02/18 Graham Mcbride MD [address] [place] [address] Obstetrics and Gynecology 04/05/24 Tamika Barker MD [address] [place] [address] 3rd [place] [address] Gastroenterology 05/08/24 Truyd Solomon MD [address] [place] [address] Hematology and Oncology 05/08/24 documented as of this encounter
--- OUTSIDE RECORDS SUMMARY | 2024-06-13 14:31 | XMS_ITS | Encounter Summary ---
Author Organization [employer] [facility] Address [address] [place] [address] 7t [place] [address] Care Team Providers Care Hospital Carrier Name Role Phone Claudia Sapp MD Primary Care Provider [phone] Graham Mcbride MD Unavailable Tamika Barker MD Unavailable [phone] Trudy Solomon MD Unavailable [phone] Reason for Visit * Reason Onset Date Comments Med Refill 04/08/2022 Encounter Details Date Type Department Care Team ([facility] Contact Info) Description 04/08/2022 Telephone [facility] MEDICINE 230 [place], [place] [phone] Claudia Sapp MD 230 [place], [place] [phone] Med Refill Social History Tobacco Use Types [...] [facility] Contact Info) Description 08/02/2024 9:15 AM EDT Office Visit [facility] MEDICINE 230 [place] [address] Claudia Sapp MD 230 [place] [address] documented as of this encounter Visit Diagnoses Not on filedocumented in this encounter Care Teams Hospital Carrier Relationship Specialty Start Date End Date Claudia Sapp MD 230 [place] [address] PCP - General Family Medicine 05/02/18 Graham Mcbride MD [address] [place] [address] Obstetrics and Gynecology 04/05/24 Tamika Barker MD [address] [place] [address] 3rd [place] [address] Gastroenterology 05/08/24 Trudy Solomon MD [address] [place] [address] Hematology and Oncology 05/08/24 documented as of this encounter
--- OUTSIDE RECORDS SUMMARY | 2024-06-13 14:31 | XMS_ITS | Encounter Summary ---
Author Organization [employer] Address [address] [facility] [address] 7t [place] [address] Care Team Providers Care Irrigation Installation Specialist Name Role Phone [place], Claudia GORMAN Primary Care Provider [phone] Graham Mcbride MD Unavailable Tamika Barker MD Unavailable [phone] Trudy Solomon MD Unavailable [phone] Reason for Visit * Reason Onset Date Comments head teller 06/07/2024 Encounter Details Date Type Department Care Team ([facility] st Contact Info) Description 06/07/2024 Telephone [facility] 505 [place] [address] Pauline Galvin, RN 505 [place] [address] head teller Social History Tobacco Use Types Packs/Day Years [...] encounter Miscellaneous Notes * Telephone Encounter - Pauline Galvin RN - 06/07/2024 2:16 PM EST TC back to pt regarding message below. Called via BLS ID# [id number]. No answer, lvm for pt to c/b and r/s appt. documented in this encounter Plan of Treatment Upcoming Encounters Date Type Department Care Team (Late st Contact Info) Description 08/02/2024 9:15 AM EDT Office Visit [facility] MEDICINE 230 [place] [address] Claudia Sapp MD 230 [place] [address] documented as of this encounter Visit Diagnoses Not on filedocumented in this encounter Additional Health Concerns Assessment Noted Time PHQ-9 Depression Total Score: 0 11/23/19 24 9:19 AM EDT documented as of this encounter Care Teams Irrigation Installation Specialist Relationship Specialty Start Date End Date Claudia Sapp MD 230 [place] [address] PCP - General Family Medicine 05/02/18 Graham Mcbride MD [address] [place] [address] [address] [place] [address] Obstetrics and Gynecology 04/05/24 Tamika Barker MD [address] [place] [address] Drive 3rd [place] [address] Gastroenterology 05/08/24 Trudy Solomon MD [address] [place] [address] Hematology and Oncology 05/08/24 documented as of this encounter
--- OUTSIDE RECORDS SUMMARY | 2024-06-13 14:31 | XMS_ITS | Encounter Summary ---
Author Organization [employer] [facility] Address [address] [place] [address] 7t [place] [address] Care Team Providers Care Unit Coordinator Name Role Phone [place], Claudia GORMAN Primary Care Provider [phone]- [phone] Graham Mcbride MD Unavailable Tamika Barker MD Unavailable [phone] Trudy Solomon MD Unavailable [phone] Reason for Visit * Reason Comments Med Refill Encounter Details Date Type Department Care Team (Late st Contact Info) Description 10/08/2022 Refill [facility] MEDICINE 230 [place], [place] [phone] Mary Abdul, ANP 230 [place], [place] [phone] Low back pain at multiple sites Social [...] Miscellaneous Notes * Telephone Encounter - Mali Conner - 10/08/2022 2:58 PM EDT Tc from [...] Description 08/02/2024 9:15 AM EDT Office Visit [facility] MEDICINE [address] [place] [address] Claudia Sapp MD 230 [place] [address] documented as of this encounter Visit Diagnoses Diagnosis Low back pain at multiple sites documented in this encounter Additional Health Concerns Assessment Noted Time PHQ-9 Depression Total Score: 0 05/24/19 10:10 AM EST documented as of this encounter Care Teams Unit Coordinator Relationship Specialty Start Date End Date Claudia Sapp MD [address] [place] [address] PCP - General Family Medicine 05/02/18 Graham Mcbride MD [address] [place] [address] [address] [place] [address] Obstetrics and Gynecology 04/05/24 Tamika Barker MD [address] [place] [address] 3rd [place] [address] Gastroenterology 05/08/24 Trudy Solomon MD [address] [place] [address] Hematology and Oncology 05/08/24 documented as of this encounter
--- OUTSIDE RECORDS SUMMARY | 2024-06-13 14:31 | XMS_ITS | Encounter Summary ---
Author Organization [facility] [facility] Address 75 [facility] 7t [place] [address] Care Team Providers Care Elevator Supervisor Name Role Phone Claudia Sapp MD Primary Care Provider [phone] Graham Mcbride MD Unavailable Tamika Barker MD Unavailable [phone] Trudy Solomon MD Unavailable [phone] Reason for Visit * Reason Comments Diabetes Encounter Details Date Type Department Care Team (Late st Contact Info) Description 05/30/2024 2:00 PM EST Office Visit [facility] MEDICINE [address] [place] [address] Claudia Sapp MD 230 [place], [place] [phone] Primary hypertension (Primary Dx); Type 2 diabetes mellitus without complication, with long-term current use of insulin ([facility]); Dyslipidemia; Allergic rhinitis, unspecified seasonality, unspecified trigger; [...] # 05/30/2024 [id number] Lot# Expiration Date 05/30/2024 [id number] Clinical Support on 12/20/2023 Component Date Value [...] 197 Iron 11/23/2023 60 Total Iron Binding [place]* 11/23/2023 326 Percent Iron Saturation 11/23/2023 18 [...] atorvastatin 80 -Diabetic eye exam: referred to [facility] 05/30/24 -Diabetic foot exam: [...] Abnormal finding on ultrasound US ordered by Crank Hand 12/2022 revealed 1. A 0.5 cm hyperechoic [...] for retention of urine, also referred by safety administrator to Dr Zurita to consider best way [...] index (BMI) of39.0 to 39.9 in adult ([facility]) Discussed weight, diet, exercise with patient in relation to health conditions. Used motivational interviewing to illicit change talk and established initial goals with patient. Other specified health status -next physical exam due after 11/22/24 -referred to [facility] 05/30/24 -dental home [facility] [...] Abnormal finding on ultrasound US ordered by Crank Hand 12/2022 revealed 1. A 0.5 cm hyperechoic [...] for retention of urine, also referred by safety administrator to Dr Zurita to consider best way [...] (BMI) of 39.0 to 39.9 in adult ([facility]) Discussed weight, diet, exercise with patient in [...] physical exam due after 11/22/24 -referred to [facility] 05/30/24 -dental home is [place] [...] PM ESTAssociated Problem(s): Type 2 diabetes mellitus ([facility]) Diabetes is controlled. Lab Results Component Value Date HGBA1C 6.8 (A) 05/30/2024 HGBA1C 6.2 (A) 11/23/2023 HGBA1C 6.2 (A) 02/21/2023 Lab Results Component Value Date CREATININE 0.78 11/23/2023 EGFR >60 11/23/2023 MICROALBCREU 13.3 11/23/2023 MICROALBCREU 4.2 02/21/2023 LDLCHOLCAL 209 (H) 11/23/2023 -Regino/Arb: lisinopril 5mg -Statin therapy: atorvastatin 80 -Diabetic eye exam: referred to [facility] 05/30/24 -Diabetic foot exam: [...] Description 08/02/2024 9:15 AM EDT Office Visit [facility] MEDICINE 230 [place] [address] Claudia Sapp MD 230 [place] [address] Scheduled Orders Name Type Priority Associated Diagnoses Orde r Schedule Diabetic Retinopathy Screening - OU - Both Eyes Ophthalmology Routine Type 2 diabetes mellitus without complication, with long-term current use of insulin ([facility]) Ordered: 05/30/2024 Lipid Panel, Standard Lab Routine Dyslipidemia Expected: 05/30/2024 (Approximate), Expires: 05/30/2025 Hepatic Function Panel Lab Routine Dyslipidemia Expected: 05/30/2024 (Approximate), Expires: 05/30/2025 documented as of this encounter Procedures Procedure Name Priority Date/Time Associated Diagnosis Comments POCT GLYCATED HEMOGLOBIN, TOTAL Routine 05/30/2024 2:27 PM EST Type 2 diabetes mellitus without complication, with long-term current use of insulin ([facility]) POCT GLUCOSE Routine 05/30/2024 2:21 PM EST Type 2 diabetes mellitus without complication, with long-term current use of insulin ([facility]) documented in this encounter Results * (ABNORMAL) [...] Media Lot # [id number] Lot# Expiration Date ,025 Blood Capillary blood specimen / Unknown 05/30/2024 2:21 PM EST us Claudia Sapp MD POINT OF CARE TEST ENTER/E DIT ORDERABLES Final Result documented in this encounter Visit Diagnoses Diagnosis Primary hypertension- Primary Unspecified essential hypertension Type 2 diabetes mellitus without complication, with long-term current use of insulin ([facility]) Dyslipidemia Other and unspecified hyperlipidemia Allergic rhinitis, [...] (BMI) of 39.0 to 39.9 in adult ([facility]) Other specified health status documented in this encounter Additional Health Concerns Assessment Noted Time PHQ-9 Depression Total Score: 0 11/23/19 24 9:19 AM EDT documented as of this encounter Care Teams Elevator Supervisor Relationship Specialty Start Date End Date Claudia Sapp MD [address] [place] [address] PCP - General Family Medicine 05/02/18 Graham Mcbride MD [address] [place] [address] [place] [address] Obstetrics and Gynecology 04/05/24 Tamika Barker MD [address] [place] [address] 3rd [place] [address] Gastroenterology 05/08/24 Trudy Solomon MD [address] [place] [address] Hematology and Oncology 05/08/24 documented as of this encounter
--- OUTSIDE RECORDS SUMMARY | 2024-06-13 14:31 | XMS_ITS | Encounter Summary ---
Author Organization [employer] Address 75 [facility] 7t [place] [address] Care Team Providers Care Tow Car Driver Name Role Phone Claudia Sapp MD Primary Care Provider [phone]- [phone] Graham Mcbride MD Unavailable Tamika Barker MD Unavailable [phone] Trudy Solomon MD Unavailable [phone] Reason for Visit * Reason Onset Date Comments Med Refill 03/08/2023 Encounter Details Date Type Department Care Team (Late st Contact Info) Description 03/08/2023 Telephone [facility] MED[facility]INE 230 [place], [place] [phone] Claudia Sapp MD 230 [place], [place] [phone] Med Refill Social History Tobacco Use Types [...] Description 08/02/2024 9:15 AM EDT Office Visit [facility] [address] [place] [address] Claudia Sapp MD [address] [place] [address] documented as of this encounter Visit Diagnoses Not on filedocumented in this encounter Additional Health Concerns Assessment Noted Time PHQ-9 Depression Total Score: 0 05/24/19 23 10:10 AM EST documented as of this encounter Care Teams Tow Car Driver Relationship Specialty Start Date End Date Claudia Sapp MD [address] [place] [address] PCP - General Family Medicine 05/02/18 Graham Mcbride MD [address] [place] [address] Obstetrics and Gynecology 04/05/24 Tamika Barker MD [address] [place] [address] 3rd [place] [address] Gastroenterology 05/08/24 Trudy Solomon MD [address] [place] [address] Hematology and Oncology 05/08/24 documented as of this encounter
--- OUTSIDE RECORDS SUMMARY | 2024-06-13 14:31 | XMS_ITS | Encounter Summary ---
Author Organization [employer] Address 75 [facility] 7t [place] [address] Care Team Providers Care Gerontology Aide Name Role Phone Claudia Sapp MD Primary Care Provider +1- [phone] Graham Mcbride MD Unavailable Tamika Barker MD Unavailable [phone] Trudy Solomon MD Unavailable [phone] Reason for Visit * Reason Onset Date Comments Med Refill 02/04/2023 Encounter Details Date Type Department Care Team (Late st Contact Info) Description 02/04/2023 Telephone [facility] MED[facility]INE 230 [place], [place] [phone] Claudia Sapp MD 230 [place], [place] [phone] Med Refill Social History Tobacco Use Types [...] Description 08/02/2024 9:15 AM EDT Office Visit [facility] 230 [place] [address] Claudia Sapp MD 230 [place] [address] documented as of this encounter Visit Diagnoses Not on filedocumented in this encounter Additional Health Concerns Assessment Noted Time PHQ-9 Depression Total Score: 0 05/24/19 23 10:10 AM EST documented as of this encounter Care Teams Gerontology Aide Relationship Specialty Start Date End Date Claudia Sapp MD [address] [place] [address] PCP - General Family Medicine 05/02/18 Graham Mcbride MD [address] [place] [address] [address] [place] [address] Obstetrics and Gynecology 04/05/24 Tamika Barker MD [address] [place] [address] Drive 3rd [place] [address] Gastroenterology 05/08/24 Trudy Solomon MD [address] [place] [address] Hematology and Oncology 05/08/24 documented as of this encounter
--- OUTSIDE RECORDS SUMMARY | 2024-06-13 14:31 | XMS_ITS | Encounter Summary ---
Author Organization [employer] Address 75 [facility] 7t [place] [address] Care Team Providers Care Public Transportation Inspector Name Role Phone Claudia Sapp MD Primary Care Provider [phone]- [phone] Graham Mcbride MD Unavailable Tamika Barker MD Unavailable [phone] Trudy Solomon MD Unavailable [phone] Reason for Visit * Reason Onset Date Comments Med Refill 06/04/2024 Encounter Details Date Type Department Care Team (Late st Contact Info) Description 06/04/2024 Telephone [facility] MEDICINE 230 [place], [place] [phone] Claudia Sapp MD 230 [place], [place] [phone] Med Refill Social History Tobacco Use Types [...] the past 12 months, has t he [employer], gas, oil or water [employer] threatened to shut off services in your [...] 9:27 AM EST Medications were sent to [facility] on 05/30/24. * Telephone Encounter - Gracie Tracy - 06/04/2024 9:21 AM EST TC from pt requesting medication refill. Medications needing refill : atorvastatin (Lipitor) 80 MG tablet fluticasone (Flonase) 50 MCG/ACT nasal spray naloxone (Narcan) 4 mg/0.1 mL nasal spray To be sent to: [facility] - [place], [place] - [address] [place] [address] documented in this encounter Plan of Treatment Upcoming Encounters Date Type Department Care Team ([facility] st Contact Info) Description 08/02/2024 9:15 AM EDT Office Visit [facility] MEDICINE 230 [place] [address] Claudia Sapp MD 230 [place] [address] documented as of this encounter Visit Diagnoses Not on filedocumented in this encounter Additional Health Concerns Assessment Noted Time PHQ-9 Depression Total Score: 0 11/23/19 24 9:19 AM EDT documented as of this encounter Care Teams Public Transportation Inspector Relationship Specialty Start Date End Date Claudia Sapp MD 230 [place] [address] PCP - General Family Medicine 05/02/18 Graham Mcbride MD [address] [place] [address] [address] [place] [address] Obstetrics and Gynecology 04/05/24 Tamika Barker MD [address] [place] [address] Drive 3rd [place] [address] Gastroenterology 05/08/24 Trudy Solomon MD [address] [place] [address] Hematology and Oncology 05/08/24 documented as of this encounter
--- OUTSIDE RECORDS SUMMARY | 2024-06-13 14:31 | XMS_ITS | Encounter Summary ---
Author Organization [employer] Address [address] [facility] [address] 7t [place] [address] Care Team Providers Care Cross Tie Maker Name Role Phone Sekou, Claudia GORMAN Primary Care Provider [phone]- [phone] Graham Mcbride MD Unavailable Tamika Barker MD Unavailable [phone] Trudy Solomon MD Unavailable [phone] Encounter Details Date Type Department Care [...] AM EDT Office Visit [facility] MED[facility]INE [address] [place] [address] Claudia Sapp MD [address] [place] [address] documented as of this encounter Visit Diagnoses Not on filedocumented in this encounter Additional Health Concerns Assessment Noted Time PHQ-9 Depression Total Score: 0 11/23/19 9:19 AM EDT documented as of this encounter Care Teams Cross Tie Maker Relationship Specialty Start Date End Date Claudia Sapp MD [address] [place] [address] PCP - General Family Medicine 05/02/18 Graham Mcbride MD [address] [place] [address] [address] [place] [address] Obstetrics and Gynecology 04/05/24 Tamika Barker MD [address] [place] [address] 3rd [place] [address] Gastroenterology 05/08/24 Trudy Solomon MD [address] [place] [address] Hematology and Oncology 05/08/24 documented as of this encounter
--- OUTSIDE RECORDS SUMMARY | 2024-06-13 14:31 | XMS_ITS | Encounter Summary ---
Author Organization [employer] Address [address] [facility] [address] 7t [place] [address] Care Team Providers Care Western Felt Hat Blocker Name Role Phone Claudia Sapp MD Primary Care Provider [phone]- [phone] Graham Mcbride MD Unavailable Tamika Barker MD Unavailable [phone] Trudy Solomon MD Unavailable [phone] Reason for Visit * Reason Onset Date Comments Appointment Request 06/07/2024 Encounter Details Date Type Department Care Team (Late st Contact Info) Description 06/07/2024 Telephone [facility] MEDICINE 230 [place] [address] Claudia Sapp MD 230 [place], [place] [phone] Appointment Request Social History Tobacco Use Types Packs/Day Years [...] encounter Miscellaneous Notes * Telephone Encounter - Miriam Grubbs - 06/07/2024 1:45 PM EST Tc from pt requesting reschedule 06/08 appt. Appt was canceled due pt son was admitted to the hospital. [phone] emirati documented in this encounter Plan of Treatment Upcoming Encounters Date Type Department Care Team (Late st Contact Info) Description 08/02/2024 9:15 AM EDT Office Visit [facility] MEDICINE 230 [place] [address] Claudia Sapp MD 230 [place] [address] documented as of this encounter Visit Diagnoses Not on filedocumented in this encounter Additional Health Concerns Assessment Noted Time PHQ-9 Depression Total Score: 0 11/23/19 9:19 AM EDT documented as of this encounter Care Teams Western Felt Hat Blocker Relationship Specialty Start Date End Date Claudia Sapp MD 230 [place] [address] PCP - General Family Medicine 05/02/18 Graham Mcbride MD [address] [place] [address] [address] [place] [address] Obstetrics and Gynecology 04/05/24 Tamika Barker MD [address] [place] [address] 3rd [place] [address] Gastroenterology 05/08/24 Trudy Solomon MD [address] [place] [address] Hematology and Oncology 05/08/24 documented as of this encounter
--- OUTSIDE RECORDS SUMMARY | 2024-06-13 14:31 | XMS_ITS | Encounter Summary ---
Author Organization [employer] Address 75 [facility] 7t [place] [address] Care Team Providers Care Automation Test Developer Name Role Phone Claudia Sapp MD Primary Care Provider [phone]- [phone] Graham Mcbride MD Unavailable Tamika Barker MD Unavailable [phone] Trudy Solomon MD Unavailable [phone] Reason for Visit * Reason Onset Date Comments Med Refill 05/31/2024 Encounter Details Date Type Department Care Team (Late st Contact Info) Description 05/31/2024 Refill [facility] MEDICINE 230 [place], [place] [phone] Claudia Sapp MD 230 [place], [place] [phone] Low back pain at multiple sites Social [...] the past 12 months, has t he [employer], gas, oil or water [employer] threatened to shut off services in your [...] immediate release tablet To be sent to: [facility] pharmacy documented in this encounter Plan of Treatment Upcoming Encounters Date Type Department Care Team (Late st Contact Info) Description 08/02/2024 9:15 AM EDT Office Visit [facility] MEDICINE 230 [place] [address] Claudia Sapp MD 230 [place] [address] documented as of this encounter Visit Diagnoses Diagnosis Low back pain at multiple sites documented in this encounter Additional Health Concerns Assessment Noted Time PHQ-9 Depression Total Score: 0 11/23/19 9:19 AM EDT documented as of this encounter Care Teams Automation Test Developer Relationship Specialty Start Date End Date Claudia Sapp MD [address] [place] [address] PCP - General Family Medicine 05/02/18 Graham Mcbride MD [address] [place] [address] [address] [place] [address] Obstetrics and Gynecology 04/05/24 Tamika Barker MD [address] [place] [address] Drive 3rd [place] [address] Gastroenterology 05/08/24 Trudy Solomon MD [address] [place] [address] Hematology and Oncology 05/08/24 documented as of this encounter
--- OUTSIDE RECORDS SUMMARY | 2024-06-13 14:31 | XMS_ITS | Encounter Summary ---
Author Organization [employer] Address [address] [facility] [address] 7t [place] [address] Care Team Providers Care Ends Down Checker Name Role Phone Sekou, Claudia GORMAN Primary Care Provider [phone]- [phone] Graham Mcbride MD Unavailable Tamika Barker MD Unavailable [phone] Trudy Solomon MD Unavailable [phone] Encounter Details Date Type Department Care Team (Late st Contact Info) Description 06/05/2024 Telephone [facility] 505 [place] [address] Pauline Galvin, RN 505 [place] [address] Social History Tobacco Use Types Packs/Day Years [...] Telephone Encounter - Pauline Galvin RN - 06/05/2024 3:54 PM EST .What MIDDLE SCHOOL COACH Tier would you like this patient to be? Tier 1 = HIGH RISK, Monthly MIDDLE SCHOOL COACH visits Tier 2 = MODerate RISK, Q3 Month visits Tier 3 = LOW RISK = Q4-6 month visits documented in this encounter Plan of Treatment Upcoming Encounters Date Type Department Care Team (Late st Contact Info) Description 08/02/2024 9:15 AM EDT Office Visit [facility] MED[facility]INE 230 [place] [address] Claudia Sapp MD 230 [place] [address] documented as of this encounter Visit Diagnoses Not on filedocumented in this encounter Additional Health Concerns Assessment Noted Time PHQ-9 Depression Total Score: 0 11/23/19 24 9:19 AM EDT documented as of this encounter Care Teams Ends Down Checker Relationship Specialty Start Date End Date Claudia Sapp MD 230 [place] [address] PCP - General Family Medicine 05/02/18 Graham Mcbride MD [address] [place] [address] [address] [place] [address] Obstetrics and Gynecology 04/05/24 Tamika Barker MD [address] [place] [address] 3rd [place] [address] Gastroenterology 05/08/24 Trudy Solomon MD [address] [place] [address] Hematology and Oncology 05/08/24 documented as of this encounter
--- OUTSIDE RECORDS SUMMARY | 2024-06-13 14:32 | XMS_ITS | Encounter Summary ---
Author Organization [employer] [facility] Address [address] [facility] [address] 7t [place] [address] Care Team Providers Care Dog Or Horse Racing Official Name Role Phone Claudia Sapp MD Primary Care Provider [phone]- [phone] Graham Mcbride MD Unavailable Tamika Barker MD Unavailable [phone] Trudy Solomon MD Unavailable [phone] Encounter Details Date Type Department Care Team (Late st Contact Info) Description 06/17/2022 Orders Only [facility] MEDICINE 230 [place], [place] [phone] Claudia Sapp MD 230 [place], [place] [phone] Type 2 diabetes mellitus with hyperglycemia, with long-term current use of insulin ([facility]) (Primary Dx) Social History Tobacco [...] Description 08/02/2024 9:15 AM EDT Office Visit [facility] 230 [place] [address] Claudia Sapp MD 230 [place] [address] documented as of this encounter Visit Diagnoses Diagnosis Type 2 diabetes mellitus with hyperglycemia, with long-term current use of insulin ([facility])- Primary documented in this encounter Additional Health Concerns Assessment Noted Time PHQ-9 Depression Total Score: 0 05/24/19 23 10:10 AM EST documented as of this encounter Care Teams Dog Or Horse Racing Official Relationship Specialty Start Date End Date Claudia Sapp MD 230 [place] [address] PCP - General Family Medicine 05/02/18 Graham Mcbride MD [address] [place] [address] Obstetrics and Gynecology 04/05/24 Tamika Barker MD [address] [place] [address] 3rd [place] [address] Gastroenterology 05/08/24 Trudy Solomon MD [address] [place] [address] Hematology and Oncology 05/08/24 documented as of this encounter
--- OUTSIDE RECORDS SUMMARY | 2024-06-13 14:32 | XMS_ITS | Encounter Summary ---
Author Organization [employer] Address 75 [facility] 7t [place] [address] Care Team Providers Care Supervisor Phosphorus Processing Name Role Phone Claudia Sapp MD Primary Care Provider [phone]- [phone] Graham Mcbride MD Unavailable Tamika Barker MD Unavailable [phone] Trudy Solomon MD Unavailable [phone] Reason for Visit * Reason Onset Date Comments Med Refill 10/05/2023 Encounter Details Date Type Department Care Team (Late st Contact Info) Description 10/05/2023 Telephone [facility] MEDICINE 230 [place] [address] Claudia Sapp MD 230 [place], [place] [phone] Med Refill Social History Tobacco Use Types [...] immediate release tablet To be sent to: [facility] - [place], [place] - [address] [place] [address] documented in this encounter Plan of Treatment Upcoming Encounters Date Type Department Care Team ([facility] st Contact Info) Description 08/02/2024 9:15 AM EDT Office Visit [facility] 230 [place] [address] Claudia Sapp MD 230 [place] [address] documented as of this encounter Visit Diagnoses Not on filedocumented in this encounter Additional Health Concerns Assessment Noted Time PHQ-9 Depression Total Score: 0 05/24/19 23 10:10 AM EST documented as of this encounter Care Teams Supervisor Phosphorus Processing Relationship Specialty Start Date End Date Claudia Sapp MD [address] [place] [address] PCP - General Family Medicine 05/02/18 Graham Mcbride MD [address] [place] [address] [address] [place] [address] Obstetrics and Gynecology 04/05/24 Tamika Barker MD [address] [place] [address] 3rd [place] [address] Gastroenterology 05/08/24 Trudy Solomon MD [address] [place] [address] Hematology and Oncology 05/08/24 documented as of this encounter
--- OUTSIDE RECORDS SUMMARY | 2024-06-13 14:32 | XMS_ITS | Encounter Summary ---
Author Organization [employer] Address [address] 7t [place] [address] Care Team Providers Care Edge Burnisher Name Role Phone Claudia Sapp MD Primary Care Provider [phone]- [phone] Graham Mcbride MD Unavailable Tamika Barker MD Unavailable [phone] Trudy Solomon MD Unavailable [phone] Reason for Visit * Reason Onset Date Comments Med Refill 01/04/2024 Encounter Details Date Type Department Care Team (Late st Contact Info) Description 01/04/2024 Telephone [facility] 230 [place], [place] [phone] Claudia Sapp MD 230 [place], [place] [phone] Med Refill Social History Tobacco Use Types [...] immediate release tablet To be sent to: [facility] - [place], [place] - [address] [place] [address] documented in this encounter Plan of Treatment Upcoming Encounters Date Type Department Care Team (Late st Contact Info) Description 08/02/2024 9:15 AM EDT Office Visit [facility] 230 [place] [address] Claudia Sapp MD [address] [place] [address] documented as of this encounter Visit Diagnoses Not on filedocumented in this encounter Additional Health Concerns Assessment Noted Time PHQ-9 Depression Total Score: 0 11/23/19 24 9:19 AM EDT documented as of this encounter Care Teams Edge Burnisher Relationship Specialty Start Date End Date Claudia Sapp MD [address] [place] [address] PCP - General Family Medicine 05/02/18 Graham Mcbride MD [address] [place] [address] [address] [place] [address] Obstetrics and Gynecology 04/05/24 Tamika Barker MD [address] [place] [address] Drive 3rd [place] [address] Gastroenterology 05/08/24 Trudy Solomon MD [address] [place] [address] Hematology and Oncology 05/08/24 documented as of this encounter
--- OUTSIDE RECORDS SUMMARY | 2024-06-13 14:32 | XMS_ITS | Encounter Summary ---
Author Organization [employer] Address [address] [facility] [address] 7t [place] [address] Care Team Providers Care Carton Machine Operator Name Role Phone Claudia Sapp MD Primary Care Provider [phone]- [phone] Graham Mcbride MD Unavailable Tamika Barker MD Unavailable [phone] Trudy Solomon MD Unavailable [phone] Reason for Visit * Reason Onset Date Comments Med Refill 02/02/2024 Encounter Details Date Type Department Care Team (Late st Contact Info) Description 02/02/2024 Telephone [facility] MEDICINE 230 [place], [place] [phone] Claudia Sapp MD 230 [place], [place] [phone] Med Refill Social History Tobacco Use Types [...] immediate release tablet To be sent to: [facility] - [place], [place] - [address] [place] [address] documented in this encounter Plan of Treatment Upcoming Encounters Date Type Department Care Team (Late st Contact Info) Description 08/02/2024 9:15 AM EDT Office Visit [facility] MED[facility]INE 230 [place] [address] Claudia Sapp MD 230 [place] [address] documented as of this encounter Visit Diagnoses Not on filedocumented in this encounter Additional Health Concerns Assessment Noted Time PHQ-9 Depression Total Score: 0 11/23/19 24 9:19 AM EDT documented as of this encounter Care Teams Carton Machine Operator Relationship Specialty Start Date End Date Claudia Sapp MD [address] [place] [address] PCP - General Family Medicine 05/02/18 Graham Mcbride MD [address] [place] [address] [address] [place] [address] Obstetrics and Gynecology 04/05/24 Tamika Barker MD [address] [place] [address] Drive 3rd [place] [address] Gastroenterology 05/08/24 Trudy Solomon MD [address] [place] [address] Hematology and Oncology 05/08/24 documented as of this encounter
--- OUTSIDE RECORDS SUMMARY | 2024-06-13 14:32 | XMS_ITS | Encounter Summary ---
Author Organization [employer] Address 75 [facility] 7t [place] [address] Care Team Providers Care Early Childhood Education Instructor Name Role Phone Claudia Sapp MD Primary Care Provider [phone]- [phone] Graham Mcbride MD Unavailable Tamika Barker MD Unavailable [phone] Trudy Solomon MD Unavailable [phone] Reason for Visit * Reason Onset Date Comments Med Refill 12/05/2023 Encounter Details Date Type Department Care Team (Late st Contact Info) Description 12/05/2023 Telephone [facility] MEDICINE 230 [place], [place] [phone] Claudia Sapp MD 230 [place], [place] [phone] Med Refill Social History Tobacco Use Types [...] immediate release tablet To be sent to: [facility] - [place], [place] - [address] [place] [address] documented in this encounter Plan of Treatment Upcoming Encounters Date Type Department Care Team (Late st Contact Info) Description 08/02/2024 9:15 AM EDT Office Visit [facility] MEDICINE 230 [place] [address] Claudia Sapp MD 230 [place] [address] documented as of this encounter Visit Diagnoses Not on filedocumented in this encounter Additional Health Concerns Assessment Noted Time PHQ-9 Depression Total Score: 0 11/23/19 24 9:19 AM EDT documented as of this encounter Care Teams Early Childhood Education Instructor Relationship Specialty Start Date End Date Claudia Sapp MD [address] [place] [address] PCP - General Family Medicine 05/02/18 Graham Mcbride MD [address] [place] [address] [address] [place] [address] Obstetrics and Gynecology 04/05/24 Tamika Barker MD [address] [place] [address] Drive 3rd [place] [address] Gastroenterology 05/08/24 Trudy Solomon MD [address] [place] [address] Hematology and Oncology 05/08/24 documented as of this encounter
--- OUTSIDE RECORDS SUMMARY | 2024-06-13 14:32 | XMS_ITS | Encounter Summary ---
Author Organization [employer] Address [address] 7t [place] [address] Care Team Providers Care Refuge Worker Name Role Phone Claudia Sapp MD Primary Care Provider [phone] Graham Mcbride MD Unavailable Tamika Barker MD Unavailable [phone] Trudy Solomon MD Unavailable [phone] Reason for Visit * Reason Comments Med Refill Encounter Details Date Type Department Care Team (Late st Contact Info) Description 04/02/2024 Refill [facility] CH[facility] MED & PEDS [address] [place] [address] Claudia Sapp MD 230 [place] [address] Low back pain at multiple sites Social [...] Description 08/02/2024 9:15 AM EDT Office Visit [facility] MEDICINE [address] [place] [address] Claudia Sapp MD [address] [place] [address] documented as of this encounter Visit Diagnoses Diagnosis Low back pain at multiple sites documented in this encounter Additional Health Concerns Assessment Noted Time PHQ-9 Depression Total Score: 0 11/23/19 9:19 AM EDT documented as of this encounter Care Teams Refuge Worker Relationship Specialty Start Date End Date Claudia Sapp MD [address] [place] [address] PCP - General Family Medicine 05/02/18 Graham Mcbride MD [address] [place] [address] [address] [place] [address] Obstetrics and Gynecology 04/05/24 Tamika Barker MD [address] [place] [address] 3rd [place] [address] Gastroenterology 05/08/24 Trudy Solomon MD [address] [place] [address] Hematology and Oncology 05/08/24 documented as of this encounter
--- OUTSIDE RECORDS SUMMARY | 2024-06-13 14:32 | XMS_ITS | Encounter Summary ---
Author Organization [facility] Address [address] [facility] 7t [place] [address] Care Team Providers Care Rf Test Engineer Name Role Phone Claudia Sapp MD Primary Care Provider [phone] Graham Mcbride MD Unavailable Tamika Barker MD Unavailable [phone] Trudy Solomon MD Unavailable [phone] Encounter Details Date Type Department Care Team (Late Contact Info) Description 09/01/2022 Abstract [facility] MEDICINE [address] [place] [address] Claudia Sapp MD [address] [place], [place] [phone] Social History Tobacco Use Types Packs/Day Years [...] Office Visit [facility] MEDICINE [address] [place] [address] Claudia Sapp MD [address] [place] [address] documented as of this encounter Procedures Procedure Name Priority Date/Time Associated Diagnosis Comments MAMMOGRAPHY Routine 09/01/2022 3:25 PM EDT documented in this encounter Results * Mammography (09/01/2022 3:25 PM EDT) Mammogram B1-Rad 1 Negative Anatomical Region Laterality Modality Other us Claudia Sapp MD HEALTH MAINTENANCE Final R esult documented in this encounter Visit Diagnoses Not on filedocumented in this encounter Additional Health Concerns Assessment Noted Time PHQ-9 Depression Total Score: 0 05/24/19 23 10:10 AM EST documented as of this encounter Care Teams Rf Test Engineer Relationship Specialty Start Date End Date Claudia Sapp MD [address] [place] [address] PCP - General Family Medicine 05/02/18 Graham Mcbride MD [address] [place] [address] [address] [place] [address] Obstetrics and Gynecology 04/05/24 Tamika Barker MD [address] [place] [address] 3rd [place] [address] Gastroenterology 05/08/24 Trudy Solomon MD [address] [place] [address] Hematology and Oncology 05/08/24 documented as of this encounter
--- OUTSIDE RECORDS SUMMARY | 2024-06-13 14:32 | XMS_ITS | Encounter Summary ---
Author Organization [employer] Address [address] [facility] 7t [place] [address] Care Team Providers Care Ibm Mainframe Systems Programmer Name Role Phone Claudia Sapp MD Primary Care Provider [phone] Graham Mcbride MD Unavailable Tamika Barker MD Unavailable [phone] Trudy Solomon MD Unavailable [phone] Reason for Visit * Reason Onset Date Comments Med Refill 06/08/2023 Encounter Details Date Type Department Care Team (Late st Contact Info) Description 06/08/2023 Telephone [facility] [address] [place] [address] Claudia Sapp MD 230 [place], [place] [phone] Med Refill Social History Tobacco Use Types [...] immediate release tablet To be sent to: [facility] - [place], [place] - [address] [place] [address] documented in this encounter Plan of Treatment Upcoming Encounters Date Type Department Care Team ([facility] st Contact Info) Description 08/02/2024 9:15 AM EDT Office Visit [facility] MED[facility]INE [address] [place] [address] Claudia Sapp MD [address] [place] [address] documented as of this encounter Visit Diagnoses Not on filedocumented in this encounter Additional Health Concerns Assessment Noted Time PHQ-9 Depression Total Score: 0 05/24/19 10:10 AM EST documented as of this encounter Care Teams Ibm Mainframe Systems Programmer Relationship Specialty Start Date End Date Claudia Sapp MD [address] [place] [address] PCP - General Family Medicine 05/02/18 Graham Mcbride MD [address] [place] [address] [address] [place] [address] Obstetrics and Gynecology 04/05/24 Tamika Barker MD [address] [place] [address] 3rd [place] [address] Gastroenterology 05/08/24 Trudy Solomon MD [address] [place] [address] Hematology and Oncology 05/08/24 documented as of this encounter
--- OUTSIDE RECORDS SUMMARY | 2024-06-13 14:32 | XMS_ITS | Clinical Summary ---
Author Organization [employer] Address [address] [place] [address] 7t [place] [address] Care Team Providers Care Culinary Art Teacher Name Role Phone Sekou, Claudia GORMAN Primary Care Provider [phone] Graham Mcbride MD Unavailable Tamika Barker MD Unavailable [phone] Trudy Solmoon MD Unavailable Allergies No known active allergies Medications Blood Glucose Monitoring Suppl (FreeStyle Lite) w/Device kitIndications: Type 2 diabetes mellitus with hyperglycemia, unspecified whether terminal make up operator insulin use ([facility]) 1 kit 2 times daily. 1 kit 023 Active Blood Glucose Monitoring Suppl (FreeStyle glucose monitoring) kitIndications: Type 2 diabetes mellitus with hyperglycemia, with long-term current use of insulin (CMS/[facility]) Use BID. Dx type 2 [...] 2 diabetes mellitus without complication, unspecified whether retirement insulin use (CMS/HCC) USE DIRECTED TO TEST BLOOD SUGAR TWICE DAILY 100 strip 5 024 Active TRUEplus Lancets 33G miscIndications :Type 2 diabetes mellitus without complication, unspecified whether retirement insulin use ([facility]) USE DIRECTED TO TEST BLOOD SUGAR TWICE DAILY 100 each 5 024 Active DULoxetine (Cymbalta) [address] capsuleIndicati ons:Moderate major depression ([facility]) Take 1 capsule (30 mg) [...] eorder (will not trigger notification to Pharmacy)) atorvastatin (Lipitor) 80 MG tabletIndicatio ns:Dyslipidemia ,Type 2 diabetes mellitus without complication, unspecified whether terminal make up operator insulin use (CMS/[facility]) Take 1 tablet (80 mg) [...] equivalent 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 A 0.5 cm hyperechoic [...] for retention of urine, also referred by rail switch operator to Dr Zurita to consider best way [...] (05/30/2024 2:46 PM EST): US ordered by Spike Machine Operator 12/2022 revealed 1. A 0.5 cm hyperechoic [...] for retention of urine, also referred by rail switch operator to Dr Zurita to consider best way [...] (02/21/2023 9:12 AM EDT): US ordered by Spike Machine Operator 12/2022 revealed 1. A 0.5 cm hyperechoic [...] for retention of urine, also referred by rail switch operator to Dr Zurita to consider best way of investigating uterine and ovarian findings. Other specified health status 10/13/2022 Overview (05/30/2024): -next physical exam due after 11/22/24 -referred to [facility] 05/30/24 -d[facility] home is [facility] -health care proxy filed 11/23/23 Assessment & Plan (05/30/2024 2:35 PM EST): -next physical exam due after 11/22/24 -referred to [facility] 05/30/24 -dental home [facility] [...] to lower lumbar radiculopathy. Pt on chronic SOLAR PHOTOVOLTAIC CREW LEAD and compliant with therapy. Gabapentin was ineffective. Continue Oxycodone to 10mg BID. This is improving her function. Assessment & Plan (11/30/2023 11:57 AM EDT): No improvement with PT, injections, multiple medications MRI 06/2016 with only minor changes, no significant stenosis. Nerve conduction study 07/29/16 revealed Chronic right mid to lower lumbar radiculopathy. Pt on chronic SOLAR PHOTOVOLTAIC CREW LEAD and compliant with therapy. Gabapentin was ineffective. Continue Oxycodone to 10mg BID. This is improving her function. Assessment & Plan (08/11/2022 10:46 AM EDT): No improvement with PT, injections, multiple medications MRI 06/2016 with only minor changes, no significant stenosis. Nerve conduction study 07/29/16 revealed Chronic right mid to lower lumbar radiculopathy. Pt on chronic SOLAR PHOTOVOLTAIC CREW LEAD and compliant with therapy. Gabapentin was ineffective. Continue Oxycodone to 10mg BID. This is improving her function. Assessment & Plan (05/21/2022 9:34 AM EST): No improvement with PT, injections, multiple medications MRI 06/2016 with only minor changes, no significant stenosis. Nerve conduction study 07/29/16 revealed Chronic right mid to lower lumbar radiculopathy. Pt on chronic SOLAR PHOTOVOLTAIC CREW LEAD and compliant with therapy. Gabapentin was ineffective. Continue Oxycodone to 10mg BID. This is improving her function. Seasonal allergies 05/21/2022 History of bariatric surgery 05/21/2022 Overview (05/21/2022): Hx gastric bypass ru en y 08/2020 at [facility]. Max weight 297lbs 2017, weight before surgery 286 08/2020. Continue with weight loss program. Assessment & Plan (08/11/2022 10:47 AM EDT): Hx gastric bypass ru en y 08/2020 at [facility]. Max weight 297lbs 2017, weight before surgery 286 08/2020. Continue with weight loss program. Assessment & Plan (05/21/2022 9:35 AM EST): Hx gastric bypass ru en y 08/2020 at [facility]. Max weight 297lbs 2017, weight before surgery [...] atorvastatin 80 -Diabetic eye exam: referred to [facility] 05/30/24 -Diabetic foot exam: [...] atorvastatin 80 -Diabetic eye exam: referred to [facility] 05/30/24 -Diabetic foot exam: [...] -Diabetic eye exam: via [facility] -Diabetic foot exam: done 11/23/23 -Continue lifestyle [...] -Diabetic eye exam: via [facility] -Diabetic foot exam: -Continue lifestyle modifications [...] -Diabetic eye exam: via [facility] -Diabetic foot exam: -Continue lifestyle modifications [...] mg QHS). - Ophthalmology evaluation 03/2017 at [facility], recommended 1 year f/u. - S/P influenza [...] reduction discussed. Recurrent major depressive episodes, moderate 08/11/19 23 05/08/2024 Benign hypertension 08/03/2021 05/08/19 25 Overview (11/23/2023): [...] Encounters Date Type Department Care Team Description 06/07/[address] [facility] CHC MED & PEDS [address] [place] [address] Pauline Galvin, RN stockroom inventory clerk 06/07/[address] [facility] MEDICINE [address] [place] [address] Claudia Sapp MD Appointment Request 06/05/2024 Telephone [facility] MED & PEDS [address] [place] [address] Pauline Galvin RN 06/04/[address] [facility] MED[facility]INE [address] [place] [address] Claudia Sapp MD Med Refill 05/31/[address] [facility] [address] [place] [address] Claudia Sapp MD Low back pain at multiple sites 05/30/2024 2:00 PM EST Office Visit [facility] MEDICINE [address] [place] [address] Claudia Sapp MD Primary hypertension (Primary Dx); Type 2 diabetes mellitus without complication, with long-term current use of insulin (CMS/[facility]); Dyslipidemia; Allergic rhinitis, unspecified seasonality, [...] in adult (CMS/HCC); Other specified health status 05/30/2024 Travel 05/29/[address] [facility] [address] [place] [address] Anjana Mccabe MA chartprep 05/01/[address] [facility] [address] [place] [address] Claudia Sapp MD Low back pain at multiple sites 04/25/[address] [facility] [address] [place] [address] Claudia Sapp MD Constipation, unspecified constipation type 04/09/2024 Travel 04/02/2024 Refill [facility] MED & PEDS [address] [place] [address] Claudia Sapp MD Low back pain at multiple sites 04/02/[address] [facility] [address] [place] [address] Claudia Sapp MD Low back pain at multiple sites from Last 3 Months Immunizations Name Administration [...] Description 08/02/2024 9:15 AM EDT Office Visit [facility] [address] [place] [address] Claudia Sapp MD [address] [place] [address] Health Maintenance Due Date Last Done Comments [...] of insulin ([facility]) POCT GLUCOSE Routine 05/30/2024 2:21 PM EST Type 2 diabetes mellitus without complication, with long-term current use of insulin (CMS/[facility]) HEPATITIS C AB W/REFL TO HCV RNA, QN, PCR Routine 11/23/2023 10:22 AM EDT Routine screening for STI (sexually transmitted infection) HIV 1/2 ANTIGEN/ANTIBODY, FOURTH GENERATION W/RFL Routine 11/23/2023 10:22 AM EDT Routine screening for STI (sexually transmitted infection) ALBUMIN, RANDOM URINE W/CREATININE Routine 11/23/2023 10:22 AM EDT Type 2 diabetes mellitus without complication, with long-term current use of insulin (CMS/[facility]) LIPID PANEL, STANDARD Routine 11/23/2023 [...] 10:22 AM EDT) Creatinine, Urine 195.00 mg/dL [facility] Microalbumin Urine 26.0 mg/L [facility] Microalbum Creatinine Ratio Ur 13.3 <30 ug/mg cr [facility] Comment:Albumin/Creatinine R atio Reference Ranges: Normal: < 30 ug/mg creatinine Microalbuminuria: 30 - 300 ug/mg creatinineClinical Albuminuria: > 300 ug/mg creatinine Urine 11/23/2023 10:2 2 AM EDT 11/23/2023 11:50 AM EDT Claudia Sapp MD LAB URINE ORDERABLES Final Result Performing Organization Address [facility]/ZIP Co de Phone Number [facility] [address] [place] [address] [phone] * Hepatitis C Antibody with Reflex to HCV, RNA, Quantitative, Real-Time PCR (11/23/2023 10:22 AM EDT) Hepatitis C Antibody Nonreactive Nonreactive [facility] Comment:Antibodies to HCV no t detected; does not exclude early acuteHCV infection. Blood Venous blood specimen / Unknown 11/23/2023 10:22 AM EDT 11/23/2023 11:48 AM EDT Claudia Sapp MD LAB BLOOD ORDERABLES Final Result Performing Organization Address [facility] Co de Phone Number [facility] [address] [place] [address] [phone] * HIV-1/2 Antigen and Antibodies, Fourth Generation, with Reflexes (11/23/2023 10:22 AM EDT) HIV AB/AG Nonreactive Nonreactive [facility] Comment:HIV-1 p24 Ag and/or HIV-1/HIV-2 Ab not detected.A test result that is nonreactive does not exclude thepossibility of exposure to or infection with HIV-1 and/orHIV-2. Nonreactive results in this assay for individualswith prior exposure to HIV-1 and/or HIV-2 may be due toantigen and antibody levels that are below the limit ofdetection of this assay.The [employer] HIV Ag/Ab Combo assay result andsupplemental assay results should be interpreted inconjunction with the patient's clinical presentation,history and other laboratory results. If the results areinconsistent with clinical evidence, additional testing issuggested to confirm the result. Blood Venous blood specimen / Unknown 11/23/2023 10:22 AM EDT 11/23/2023 11:48 AM EDT Claudia Sapp MD LAB BLOOD ORDERABLES Final Result Performing Organization Address [facility] Co de Phone Number [facility] [address] [place] [phone] * (ABNORMAL) Lipid Panel, Standard (11/23/2023 10:22 AM EDT) Triglycerides 131 <150 mg/dL [facility] Comment:Desirable Triglyceri de: less than 150 mg/dLBorderline High Triglyceride 150-199 mg/dLHigh Triglyceride: 200-499 mg/dLVery High Triglyceride: greater than or equal to 5OO mg/dL Cholesterol 288(H) <200 mg/dL [facility] Comment:Desirable Cholestero l: less than 200 mg/dLBorderline High Cholesterol: 200-239 mg/dLHigh Cholesterol: greater than 239 mg/dL LDL Cholesterol Calculated 209(H) <100 mg/dL [facility] Comment:Desirable LDL: less than 100 mg/dLNear Optimal/Above Optimal LDL: 110- 129 mg/dLBorderline High LDL: 130-159 mg/dLHigh LDL: 160-189 mg/dLVery High LDL: greater than or equal to 190 mg/dL HDL Cholesterol 53 >40 mg/dL [facility] Comment:Desirable HDL: great er than 40 mg/dL Note: This HDL assay may give artificially low results in patients with liver disease. Blood Venous blood specimen / Unknown 11/23/2023 10:22 AM EDT 11/23/2023 12:12 PM EDT Claudia Sapp MD LAB BLOOD ORDERABLES Final Result Performing Organization Address [facility] Co de Phone Number [facility] [address] [place] [phone] * BI Mammogram Screening Tomosynthesis Bilateral (10/24/2023 12:20 PM EDT) Anatomical Region Laterality Modality Breast Bilateral Mammography 10/24/2023 12:2 0 PM EDT Narrative 10/24/2023 2:12 PM EDT ? [place] [facility] ? [address] ?[place] [address] ? Mammography Report ? Signed ? Patient: Jonah Lei,Felisa ?MR# ?? : [id number] ? : 1975 ?Acct:[id number] ? Age/Sex: 47 / F ?ADM Date: 10/24/23 ? Loc: HO.MAMMO ? Attending Dr: Graham Mcbride MD ? Ordering Physician: Graham Mcbride MD ?Results: 1Negativ ?? e ? Date of Service: 10/24/23 ?Follow Up: 1 Year From Orig ?? inal Mammogram ? Procedure(s): MM tomosynthesis screening BI ?? Accession Number(s): [id number] ? cc: Claudia Sapp MD; Graham Mcbride MD ? EXAMINATION: ?? MM SCREENING DIGITAL BREAST TOMOSYNTHESIS, BILATERAL ? CLINICAL INFORMATION: ? Screening. Asymptomatic. ? COMPARISON: ?? Mammography: This study is compared with prior exams dating back to ?? 2018. ? TECHNIQUE: ?? Digital breast tomosynthesis is [...] 1409 ? DD/ 1220 ? TD/TT: ? Tobacco Sieve Operator: ? Procedure Note Blanche, Alexis - 10/24/2023 [facility] [address] [place] [address] Mammography Report Signed Patient: Felisa Calhoun# : [id number] : 1975Acct:[id number] Age/Sex: 47 / FADM Date: 10/24/23 Loc: HO.MAMMO Attending Dr: Graham Mcbride MD Ordering Physician: Graham Mcbrideesults: 1Negativ e Date of Service: 10/24/23Follow Up: 1 Year From Orig inal Mammogram Procedure(s): MM tomosynthesis screening BI Accession Number(s): [id number] cc: Claudia Sapp MD; Graham Mcbride MD [...] in OV> 10/24/23 1409 DD/ 1220 TD/TT: Tobacco Sieve Operator: [facility] External Provider IMG BI PROCEDURES Final Result * Colonoscopy (02/15/2023) Colonoscopy Normal Normal Historical Provider HEALTH MAINTENANCE Final Result * Pap Smear (12/27/2022 9:53 AM EDT) 12/27/2022 9:53 AM EDT 12/27/2022 1:50 PM EDT Narrative [facility] - 01/08/2023 2:14 PM EDT ----- ------- Name: Felisa Calhoun ? Age/Sex: 47/F ? : 1975 Unit#: [id number] ?? Attend Dr: Amparo Hogan CNM ?Re12/27/22 ?Status: DEP REF ? Location: HO.LNP ?Disch: ? ----- ------- SPEC : [id number] ?RECD: 12/27/220303 ? STATUS: ??SOUT ? REQ NUM: [id number] ? WYATT: 12/27/2253 ? SUBM DR: Amparo Hogan CNM ? ENTERED: ??12/27/22-8064 ?SP TYPE: Pap Smr ?OTHR DR: Claudia [...] 66, 68) ? HPV testing performed by [facility], [place], [place]. ??See reference laboratory ?? portion of the EMR for entire report. ?Clinical Information LMP:12/11/22 Previous PAP test:01/27/15, WNL Other history:pelvic and perineal pain ? Material Received ?? ThinPrep-Cervical Copies To: ?? Claudia Sapp MD ?? [address] ?? [place] [address] ? Amparo Hogan CNM ?? [address] ?? [place] [address] ?? [phone] ----- ------- Signed (signature on file) Florina Jacobsen Hien 01/08/23 1414 ? ----- ------- ? END OF REPORT ? 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 Advance Directives and Living Will 11/23/2023 Health Care Proxy 11/23/23 Care Teams Culinary Art Teacher Relationship Specialty Start Date End Date [place], [place] Claudia [address] [place] [address] PCP - General Family Medicine 05/02/18 Graham Mcbride MD [address] [place] [address] [place] [address] Obstetrics and Gynecology 04/05/24 Tamika Barker MD [address] [place] [address] Drive 3rd [place] [address] Gastroenterology 05/08/24 Trudy Solomon MD [address] [place] [address] Hematology and Oncology 05/08/24
--- OUTSIDE RECORDS SUMMARY | 2024-06-13 14:32 | XMS_ITS | Encounter Summary ---
Author Organization [employer] Address [address] [place] [address] Care Team Providers Care Analyst Business Analysis Name Role Phone Claudia Sapp MD Primary Care Provider [phone] Graham Mcbride MD Unavailable Tamika Barker MD Unavailable [phone] Trudy Solomon MD Unavailable [phone] Reason for Visit * Reason Onset Date Comments Med Refill 03/02/2024 Encounter Details Date Type Department Care Team (Late st Contact Info) Description 03/02/2024 Telephone [facility] MEDICINE [address] [place], [place] [phone] Claudia Sapp MD [address] [place], [place] [phone] Med Refill Social History Tobacco Use Types [...] immediate release tablet To be sent to: [facility] documented in this encounter Plan of Treatment Upcoming Encounters Date Type Department Care Team (Late st Contact Info) Description 08/02/2024 9:15 AM EDT Office Visit [facility] [address] [place] [address] Claudia Sapp MD [address] [place] [address] documented as of this encounter Visit Diagnoses Not on filedocumented in this encounter Additional Health Concerns Assessment Noted Time PHQ-9 Depression Total Score: 0 11/23/19 9:19 AM EDT documented as of this encounter Care Teams Analyst Business Analysis Relationship Specialty Start Date End Date Claudia Sapp MD [address] [place] [address] PCP - General Family Medicine 05/02/18 Graham Mcbride MD [address] [place] [address] [address] [place] [address] Obstetrics and Gynecology 04/05/24 Tamika Barker MD [address] [place] [address] Drive [address] [place] [address] Gastroenterology 05/08/24 Trudy Solomon MD [address] [place], [place] [address] [address] Hematology and Oncology 05/08/24 documented as of this encounter
--- OUTSIDE RECORDS SUMMARY | 2024-06-13 14:32 | XMS_ITS | Encounter Summary ---
Author Organization [employer] [facility] Address [address] [place] [address] Care Team Providers Care Manager Telemetry Name Role Phone Claudia Sapp MD Primary Care Provider [phone] Graham Mcbride MD Unavailable Tamika Barker MD Unavailable [phone] Trudy Solomon MD Unavailable Encounter Details Date Type Department Care Team (Late Contact Info) Description 05/24/2022 Abstract [facility] MEDICINE [address] [place] [address] Claudia Sapp MD [address] [place], [place] [phone] Social History Tobacco Use Types Packs/Day Years [...] Department Care Team (Late Contact Info) Description 08/02/2024 9:15 AM EDT Office Visit [facility] MEDICINE [address] [place] [address] Claudia Sapp MD [address] [place] [address] documented as of this encounter Procedures Procedure [...] documented as of this encounter Care Teams Manager Telemetry Relationship Specialty Start Date End Date [place] [address] PCP - General Family Medicine 05/02/18 Graham Mcbride MD [address] [place] [address] [address] [place] [address] Obstetrics and Gynecology 04/05/24 Tamika Barker MD [address] [place] [address] 3rd [place] [address] Gastroenterology 05/08/24 Trudy Solomon MD [address] [place] [address] Hematology and Oncology 05/08/24 documented as of this encounter
--- OUTSIDE RECORDS SUMMARY | 2024-06-13 14:32 | XMS_ITS | Encounter Summary ---
Author Organization [employer] Address [address] [place] [address] Care Team Providers Care Nutter Up Name Role Phone Sekou, Claudia GORMAN Primary Care Provider [phone] Graham Mcbride MD Unavailable Tamika Barker MD Unavailable [phone] Trudy Solomon MD Unavailable [phone] Reason for Visit * Reason Onset Date Comments chartprep 05/29/2024 Encounter Details Date Type Department Care Team (Late st Contact Info) Description 05/29/[address] [facility] MEDICINE [address] [place], [place] [phone] Anjana Mccabe MA chartprep Social History Tobacco [...] Description 08/02/2024 9:15 AM EDT Office Visit [facility] MEDICINE [address] [place] [address] Claudia Sapp MD [address] [place] [address] documented as of this encounter Visit Diagnoses Not on filedocumented in this encounter Additional Health Concerns Assessment Noted Time PHQ-9 Depression Total Score: 0 11/23/19 24 9:19 AM EDT documented as of this encounter Care Teams Nutter Up Relationship Specialty Start Date End Date Claudia Sapp MD [address] [place] [address] PCP - General Family Medicine 05/02/18 Graham Mcbride MD [address] [place] [address] [address] [place] [address] Obstetrics and Gynecology 04/05/24 Tamika Barker MD [address] [place] [address] Drive 3rd [place] [address] Gastroenterology 05/08/24 Trudy Solomon MD [address] [place] [address] Hematology and Oncology 05/08/24 documented as of this encounter
== END 2024-06-13 13:53 | disposition home or self-care (01) ==
PROVIDERS: PCP Family Medicine; Visit Provider Obstetrics & Gynecology
DX: D27.9 Benign neoplasm of unspecified ovary (principal)
CPT/HCPCS: 99213

== ENCOUNTER → 2024-06-13 13:10 | Outpatient (BNVA) | payer MEDICAID, SELFPAY | PROVIDERS: PCP Family Medicine; Visit Provider Obstetrics & Gynecology | DX: D27.9 Benign neoplasm of unspecified ovary (principal) | CPT/HCPCS: 99212 ==

== ENCOUNTER 2024-07-06 08:49 | Outpatient (REF) | payer MEDICAID, SELFPAY ==
[2024-07-06 09:06] LABS: MANUAL DIFF FLAG NO
[2024-07-06 09:18] LABS: Basophils Percent Auto 0.4 % (0-2); Eosinophils Absolute Auto 0.2 X10*3/uL (0.0-0.4); Eosinophils Percent Auto 1.7 % (0-4); Hemoglobin 11.9 g/dl (12.0-16.0); Imm Gran Abs Auto 0.03 X10*3/uL (0.00-0.03); Imm Gran Pct Auto 0.3 % (0.0-0.4); Lymphocytes Absolute Auto 2.6 X10*3/uL (1.2-4.9); Lymphocytes Percent Auto 24.3 % (20-40); Mean Corpuscular HGB Conc 32.2 g/dl (31.0-35.0); Mean Corpuscular Hemoglobin 24.3 pg (27.0-33.0); Mean Corpuscular Volume 75.5 fL (80.0-98.0); Mean Platelet Volume 10.6 fL (9.4-12.3); Monocytes Absolute Auto 0.7 X10*3/uL (0.1-1.2); Monocytes Percent Auto 6.4 % (2-11); Neutrophils Absolute Auto 7.2 x10*3/uL (2.0-8.3); Neutrophils Percent Auto 66.9 % (45-73); Platelet Count 363 X10*3/uL (160-400); Red Cell Distribution Width 13.5 % (11.0-16.0); White Blood Count 10.8 X10*3/uL (4.8-10.8)
--- OUTSIDE RECORDS SUMMARY | 2024-07-06 09:26 | XMS_ITS | Clinical Summary ---
Author Organization [employer] Address [address] [place] [address] 7t [place] [address] Care Team Providers Care Help Desk Operator Name Role Phone Sekou, Claudia GORMAN Primary Care Provider [phone] Graham Mcbride MD Unavailable Tamika Barker MD Unavailable [phone] Trudy Solomon MD Unavailable [phone] Allergies No known active allergies Medications Blood Glucose Monitoring Suppl (FreeStyle Lite) w/Device kitIndications: Type 2 diabetes mellitus with hyperglycemia, unspecified whether predatory animal exterminator insulin use ([facility]) 1 kit 2 times daily. 1 kit 023 Active Blood Glucose Monitoring Suppl (FreeStyle glucose monitoring) kitIndications: Type 2 diabetes mellitus with hyperglycemia, with long-term current use of insulin (CMS/[facility]) Use BID. Dx type 2 diabetes 1 [...] 2 diabetes mellitus without complication, unspecified whether predatory animal exterminator insulin use (CMS/HCC) USE DIRECTED TO TEST BLOOD SUGAR TWICE DAILY 100 strip 5 024 Active TRUEplus Lancets 33G miscIndications :Type 2 diabetes mellitus without complication, unspecified whether predatory animal exterminator insulin use ([facility]) USE DIRECTED TO TEST BLOOD SUGAR TWICE DAILY 100 each 5 024 Active DULoxetine (Cymbalta) [address] capsuleIndicati ons:Moderate major depression ([facility]) Take 1 capsule (30 mg) by mouth [...] 8 (eight) hours if needed for severe pain for up to 28 days. 84 tablet 025 2024 Active oxyCODONE (Roxicodone) 10 MG immediate release tabletIndicatio ns:Low back pain at multiple sites Take 1 tablet (10 mg) by mouth every 8 (eight) hours if needed for severe pain. 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 -pt has ran out of the Lisinopril from Hospital, will restart 5mg Lisinopril, daily 11/23/23 -CDTM referral placed 08/03/2021, re-referred to Collaborative Drug Therapy Managment Program with our PharmDNAYELY 11/23/23 Assessment & Plan (11/23/2023 9:51 AM EDT): BP initially elevated, repeat was at goal -Lisinopril 5mg was d/c at hospital follow up. -pt has ran out of the Lisinopril from Hospital, will restart 5mg Lisinopril, daily 11/23/23 -CDTM referral placed 08/03/2021, re-referred to Collaborative Drug Therapy Managment Program with our NAYELY Zapata 11/23/23 Hidradenitis suppurativa 11/23/2023 Overview (11/23/2023): -referred to Dermatology 11/23/23 Assessment & Plan (11/23/2023 9:52 AM EDT): -referred to Dermatology 11/23/23 Allergic rhinitis 11/23/2023 Hx laparoscopic cholecystectomy 09/04/2023 Overview (09/04/2023): -done 09/02/23 at [facility] with Jeff Hagen MD Constipation 02/21/2023 [...] only Abnormal finding on ultrasound 01/17/2023 Overview (06/14/2024): US ordered by Stoker Installation Mechanic 12/2022 revealed 1. A 0.5 cm hyperechoic [...] for retention of urine, also referred by optical model maker and tester to Dr Zurita to consider best way [...] 05/30/24 and has follow-up scheduled with Dr. Mcbrdie. -note with Dr. Mcbride 06/13/24 The treatment is laparoscopic ovarian cystectomy in order to make a definitive diagnosis, preserve ovarian tissue, and avoid potential problems such as torsion, rupture, or development of malignant components. For women who have completed childbearing, salpingo-oophorectomy is also acceptable treatment. 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 Pt referred to to [facility] for minimally invasive surgery by Dr. Mcbride. Assessment & Plan (05/30/2024 2:46 PM EST): US ordered by Stoker Installation Mechanic 12/2022 revealed 1. A 0.5 cm hyperechoic [...] for retention of urine, also referred by optical model maker and tester to Dr Zurita to consider best way [...] (02/21/2023 9:12 AM EDT): US ordered by Stoker Installation Mechanic 12/2022 revealed 1. A 0.5 cm hyperechoic [...] for retention of urine, also referred by optical model maker and tester to Dr Zurita to consider best way of investigating uterine and ovarian findings. Other specified health status 10/13/2022 Overview (05/30/2024): -next physical exam due after 11/22/24 -referred to [facility] 05/30/24 -dental home is [facility] -health care proxy filed 11/23/23 Assessment & Plan (05/30/2024 2:35 PM EST): -next physical exam due after 11/22/24 -referred to [facility] 05/30/24 -dental home is [facility] -health care proxy filed 11/23/23 Assessment [...] to lower lumbar radiculopathy. 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 Gabapentin was ineffective. Continue Oxycodone to 10mg BID. This is improving her function. Assessment & Plan (11/30/2023 11:57 AM EDT): No improvement with PT, injections, multiple medications MRI 06/2016 with only minor changes, no significant stenosis. Nerve conduction study 07/29/16 revealed Chronic right mid to lower lumbar radiculopathy. 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 Gabapentin was ineffective. Continue Oxycodone to 10mg BID. This is improving her function. Assessment & Plan (08/11/2022 10:46 AM EDT): No improvement with PT, injections, multiple medications MRI 06/2016 with only minor changes, no significant stenosis. Nerve conduction study 07/29/16 revealed Chronic right mid to lower lumbar radiculopathy. 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 Gabapentin was ineffective. Continue Oxycodone to 10mg BID. This is improving her function. Assessment & Plan (05/21/2022 9:34 AM EST): No improvement with PT, injections, multiple medications MRI 06/2016 with only minor changes, no significant stenosis. Nerve conduction study 07/29/16 revealed Chronic right mid to lower lumbar radiculopathy. 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 Gabapentin was ineffective. Continue Oxycodone to 10mg BID. This is improving her function. Seasonal allergies 05/21/2022 History of bariatric surgery 05/21/2022 Overview (05/21/2022): Hx gastric bypass ru en y 08/2020 at [facility]. Max weight 297lbs 2017, weight before surgery 286 08/2020. Continue with weight loss program. Assessment & Plan (08/11/2022 10:47 AM EDT): Hx gastric bypass ru en y 08/2020 at [facility]. Max weight 297lbs 2017, weight before surgery 286 08/2020. Continue with weight loss program. Assessment & Plan (05/21/2022 9:35 AM EST): Hx gastric bypass ru en y 08/2020 at [facility]. Max weight 297lbs 2017, weight before [...] atorvastatin 80 -Diabetic eye exam: referred to [facility] 05/30/24 -Diabetic foot exam: [...] atorvastatin 80 -Diabetic eye exam: referred to [facility] 05/30/24 -Diabetic foot exam: [...] -Diabetic eye exam: via [facility] -Diabetic foot exam: done 11/23/23 -Continue lifestyle [...] therapy: atorvastatin 80 -[facility] -Diabetic foot exam: -Continue lifestyle modifications -All [...] therapy: atorvastatin 80 -Diabetic eye exam: via [facility] -Diabetic foot exam: -Continue lifestyle modifications -All [...] mg QHS). - Ophthalmology evaluation 03/2017 at [facility], recommended 1 year f/u. - S/P [...] Encounters Date Type Department Care Team Description 07/06/2024 Orders Only GENERIC EXTERNAL DATA DEPARTMENT Provider, Generic External Data 06/29/2024 Travel 06/29/2024 Refill [facility] [address] [place] [address] Pauline Galvin, RN Low back pain at multiple sites 06/29/2024 Telephone [facility] [address] [place] [phone] Claudia Sapp MD Med Refill 06/07/2024 Telephone [facility] [address] [place] [address] Pauline Galvin, RN vice president commercial bank 06/07/2024 Telephone [facility] [address] [place] [phone] Claudia Sapp MD Appointment Request 06/05/2024 Telephone [facility] [address] [place] [address] Pauline Galvin RN 06/04/2024 Telephone [facility] [address] [place] [phone] Claudia Sapp MD Med Refill 05/31/2024 Refill [facility] [address] [place] [phone] Claudia Sapp MD Low back pain at multiple sites 05/30/2024 2:00 PM EST Office Visit [facility] [address] [place] [phone] Claudia Sapp MD Primary hypertension (Primary Dx); Type 2 diabetes mellitus without complication, with long-term current use of insulin ([facility]); Dyslipidemia; Allergic rhinitis, unspecified seasonality, unspecified trigger; Abnormal finding on ultrasound; Chronic low back pain with sciatica, sciatica laterality unspecified, unspecified back pain laterality; Irritable bowel syndrome, unspecified type; Colon cancer screening; Dietary counseling; Exercise counseling; Class 2 severe obesity due to excess calories with serious comorbidity and body mass index (BMI) of 39.0 to 39.9 in adult ([facility]); Other specified health status 05/30/2024 Travel 05/29/2024 Telephone [facility] [address] [place] [phone] Anjana Mccabe MA chartprep 05/01/2024 Refill [facility] [address] [place] [phone] Claudia Sapp MD Low back pain at multiple sites 04/25/2024 Refill [facility] [address] [place] [phone] Claudia Sapp MD Constipation, unspecified constipation type 04/09/2024 Travel from Last 3 Months Immunizations Name [...] Care Team (Late st Contact Info) Description 07/06/2024 11:00 AM EST Clinical Support [address] [address] Pauline Galvin, RN [address] [place] [address] 08/02/2024 9:15 AM EDT Office Visit [facility] [address] [place] [phone] Claudia Sapp MD [address] [place] [phone] Health Maintenance Due Date Last Done Comments [...] 12/28/2027 12/27/2022, 100 11/2020, 01/30/2021 DTaP/Tdap/Td Vaccines (4 - Td or Tdap) 08/11/2032 08/11/2022, 02/12/2014, 01/05/2012 Colonoscopy 02/15/2033 02/15/2023 Colorectal Cancer Screening [...] Procedure Name Priority Date/Time Associated Diagnosis Comments CBC WITH AUTO DIFFERENTIAL Routine 07/06/2024 9:00 AM EST POCT GLYCATED HEMOGLOBIN, TOTAL Routine 05/30/2024 2:27 [...] Relevant to Health Maintenance Results * (ABNORMAL) CBC auto differential (07/06/2024 9:00 AM EST) White Blood Count 10.8 4.8 - 10.8 X10*3/uL [facility] Red Blood Count 4.90 4.20 - 5.50 X10*6/uL [facility] Hemoglobin 11.9(L) 12.0 - 16.0 g/dl [facility] Hematocrit 37.0 37.0 - 47.0 % [facility] Mean Corpuscular Volume 75.5(L) 80.0 - 98.0 fL [facility] Mean Corpuscular Hemoglobin 24.3(L) 27.0 - 33.0 pg [facility] Mean Corpuscular HGB Conc 32.2 31.0 - 35.0 g/dl [facility] Red Cell Distribution Width 13.5 11.0 - 16.0 % [facility] Platelet Count 363 160 - 400 X10*3/uL [facility] Mean Platelet Volume 10.6 9.4 - 12.3 fL [facility] Neutrophils Percent Auto 66.9 45 - 73 % [facility] Imm Gran Pct Auto 0.3 0.0 - 0.4 % [facility] Lymphocytes Percent Auto 24.3 20 - 40 % [facility] Monocytes Percent Auto 6.4 2 - 11 % [facility] Eosinophils Percent Auto 1.7 0 - 4 % [facility] Basophils Percent Auto 0.4 0 - 2 % [facility] NRBC Pct Auto 0.0 0.0 - 0.2 /100WBC [facility] Neutrophils Absolute Auto 7.2 2.0 - 8.3 x10*3/uL [facility] Imm Gran Abs Auto 0.03 0.00 - 0.03 X10*3/uL [facility] Lymphocytes Absolute Auto 2.6 1.2 - 4.9 X10*3/uL [facility] Monocytes Absolute Auto 0.7 0.1 - 1.2 X10*3/uL [facility] Eosinophils Absolute Auto 0.2 0.0 - 0.4 X10*3/uL [facility] Basophils Absolute Auto 0.0 0.0 - 0.2 X10*3/uL [facility] NRBC Abs Auto 0.000 0.0 - 0.012 X10*3/uL [facility] 07/06/2024 9:00 AM EST 07/06/2024 9:05 AM EST Generic External Data Provider LAB BLOOD ORDERAB LES Final Result Performing Organization Address City/State/[facility] Co de Phone Number [facility] [address] [place] [phone] * (ABNORMAL) POCT HGB A1C (05/30/2024 2:27 [...] 10:22 AM EDT) Creatinine, Urine 195.00 mg/dL [facility] Microalbumin Urine 26.0 mg/L [facility] Microalbum Creatinine Ratio Ur 13.3 <30 ug/mg cr [facility] Comment:Albumin/Creatinine R atio Reference Ranges: Normal: < 30 ug/mg creatinine Microalbuminuria: 30 - 300 ug/mg creatinineClinical Albuminuria: > 300 ug/mg creatinine Urine 11/23/2023 10:2 2 AM EDT 11/23/2023 11:50 AM EDT Claudia Sapp MD LAB URINE ORDERABLES Final Result Performing Organization Address [facility] de Phone Number [facility] [address] [place] [phone] * Hepatitis C Antibody with Reflex to HCV, RNA, Quantitative, Real-Time PCR (11/23/2023 10:22 AM EDT) Hepatitis C Antibody Nonreactive Nonreactive [facility] Comment:Antibodies to HCV no t detected; does not exclude early acuteHCV infection. Blood Venous blood specimen / Unknown 11/23/2023 10:22 AM EDT 11/23/2023 11:48 AM EDT Claudia Sapp MD LAB BLOOD ORDERABLES Final Result Performing Organization Address [facility] Co de Phone Number [facility] [address] [place] [phone] * HIV-1/2 Antigen and Antibodies, Fourth Generation, with Reflexes (11/23/2023 10:22 AM EDT) HIV AB/AG Nonreactive Nonreactive [facility] Comment:HIV-1 p24 Ag and/or HIV-1/HIV-2 Ab not detected.A test result that is nonreactive does not exclude thepossibility of exposure to or infection with HIV-1 and/orHIV-2. Nonreactive results in this assay for individualswith prior exposure to HIV-1 and/or HIV-2 may be due toantigen and antibody levels that are below the limit ofdetection of this assay.The [employer] HIV Ag/Ab Combo assay result andsupplemental assay results should be interpreted inconjunction with the patient's clinical presentation,history and other laboratory results. If the results areinconsistent with clinical evidence, additional testing issuggested to confirm the result. Blood Venous blood specimen / Unknown 11/23/2023 10:22 AM EDT 11/23/2023 11:48 AM EDT us Claudia Sapp MD LAB BLOOD ORDERABLES Final Result [facility] [address] [place] [phone] * (ABNORMAL) Lipid Panel, Standard (11/23/2023 10:22 AM EDT) Triglycerides 131 <150 mg/dL [facility] Comment:Desirable Triglyceri de: less than 150 mg/dLBorderline High Triglyceride 150-199 mg/dLHigh Triglyceride: 200-499 mg/dLVery High Triglyceride: greater than or equal to 5OO mg/dL Cholesterol 288(H) <200 mg/dL [facility] Comment:Desirable Cholestero l: less than 200 mg/dLBorderline High Cholesterol: 200-239 mg/dLHigh Cholesterol: greater than 239 mg/dL LDL Cholesterol Calculated 209(H) <100 mg/dL [facility] Comment:Desirable LDL: less than 100 mg/dLNear Optimal/Above Optimal LDL: 110- 129 mg/dLBorderline High LDL: 130-159 mg/dLHigh LDL: 160-189 mg/dLVery High LDL: greater than or equal to 190 mg/dL HDL Cholesterol 53 >40 mg/dL [facility] Comment:Desirable HDL: great er than 40 mg/dL Note: This HDL assay may give artificially low results in patients with liver disease. Blood Venous blood specimen / Unknown 11/23/2023 10:22 AM EDT 11/23/2023 12:12 PM EDT us Claudia Sapp MD LAB BLOOD ORDERABLES Final Result [facility] [address] [place] [phone] [phone] * BI Mammogram Screening Tomosynthesis Bilateral (10/24/2023 12:20 PM EDT) Anatomical Region Laterality Modality Breast Bilateral Mammography 10/24/2023 12:2 0 PM EDT Narrative 10/24/2023 2:12 PM EDT ? [facility] ? [address] ?[place] [address] ? Mammography Report ? Signed ? Patient: Felisa Calhuon ?MR# ?? : [id number] ? : 1975 ?Acct:[id number] ? Age/Sex: 47 / F ?ADM Date: 10/23/ ? Loc: HO.MAMMO ? Attending Dr: Graham Mcbride MD ? Ordering Physician: Graham Mcbride MD ?Results: 1Negativ ?? e ? Date of Service: 10/23/ ?Follow Up: 1 Year From Orig ?? inal Mammogram ? Procedure(s): MM tomosynthesis screening BI ?? Accession Number(s): [id number] ? cc: Claudia Sapp MD; Graham Mcbride [...] 1409 ? DD/ 1220 ? TD/TT: ? Outside Dealer Sales Representative: ? Procedure Note Blanche, Image - 10/24/2023 [facility] [address] [place], [place] [address] Mammography Report Signed Patient: Felisa Calhoun# : [id number] : 1975Acct:[id number] Age/Sex: 47 / FADM Date: 10/24/23 Loc: DONAL Attending Dr: Graham Mcbride MD Ordering Physician: Graham Mcbrideults: 1Negativ e Date of Service: 10/24/23Follow Up: 1 Year From Orig inal Mammogram Procedure(s): MM tomosynthesis screening BI Accession Number(s): [id number] cc: Claudia Sapp MD; Graham Mcbride MD [...] in OV> 10/24/23 1409 DD/ 1220 TD/TT: Outside Dealer Sales Representative: [facility] External Provider IMG BI PROCEDURES Final Result * Hm Colonoscopy (02/15/2023) Colonoscopy Normal Normal Historical Provider HEALTH MAINTENANCE Final Result * Pap Smear (12/27/2022 9:53 AM EDT) 12/27/2022 9:53 AM EDT 12/27/2022 1:50 PM EDT Narrative [facility] - 01/08/2023 2:14 PM EDT ----- ------- Name: Felisa Calhoun ? Age/Sex: 47/F ? : 1975 Unit#: [id number] ?? Attend Dr: Amparo Hogan CNM ?Re12/27/22 ?Status: DEP REF ? Location: HO.LNP ?Disch: ? ----- ------- SPEC : [id number] ?RECD: 12/27/222032 ? STATUS: ??SOUT ? REQ NUM: [id number] ? WYATT: 12/27/22 ? SUBM DR: Amparo Hogan CNM ? ENTERED: ??12/27/22-1377 ?SP TYPE: Pap Smr ?OTHR DR: Claudia [...] 66, 68) ? HPV testing performed by [facility], [place], [place]. ??See reference laboratory ?? portion of the EMR for entire report. ?Clinical Information LMP:12/11/22 Previous PAP test:01/27/15, WNL Other history:pelvic and perineal pain ? Material Received ?? ThinPrep-Cervical Copies To: ?? Claudia Sapp MD ?? [address] ?? [place] [address] ? Amparo Hogan CNM ?? [address] [facility] ?? [place] [address] ?? [phone] ----- ------- Signed (signature on file) Florina Jacobsen Hien 01/08/23 2290 ? ----- ------- ? END OF REPORT ? 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
--- OUTSIDE RECORDS SUMMARY | 2024-07-06 09:26 | XMS_ITS | Encounter Summary ---
Author Organization [employer] Address [address] [facility] [address]t [place] [address] Care Team Providers Care Hairspring Inspector Name Role Phone Claudia Sapp MD Primary Care Provider [phone] Graham Mcbride MD Unavailable Tamika Barker MD Unavailable [phone] Trudy Solomon MD Unavailable [phone] Reason for Visit * Reason Onset Date Comments Med Refill 10/05/2023 Encounter Details Date Type Department Care Team (Late st Contact Info) Description 10/05/2023 Telephone [facility] [address] [place] [address] Claudia Sapp MD [address] [place], [place] [phone] Med Refill Social History Tobacco Use Types [...] immediate release tablet To be sent to: [facility] [place], [place] - [address] [place] [address] documented in this encounter Plan of Treatment Upcoming Encounters Date Type Department Care Team ([facility] st Contact Info) Description 07/06/2024 11:00 AM EST Clinical Support [facility] [address] [place] [phone] Pauline Galvin RN [address] [place] [address] 08/02/2024 9:15 AM EDT Office Visit [facility] [address] [place] [phone] Claudia Sapp MD [address] [place] [address] documented as of this encounter Visit Diagnoses Not on filedocumented in this encounter Additional Health Concerns Assessment Noted Time PHQ-9 Depression Total Score: 0 05/24/19 23 10:10 AM EST documented as of this encounter Care Teams Hairspring Inspector Relationship Specialty Start Date End Date Claudia Sapp MD [address] [place] [address] PCP - General Family Medicine 05/02/18 Graham Mcbride MD [address] [place] [address] [address] [place] [address] Obstetrics and Gynecology 04/05/24 Tamika Barker MD [address] [place] [address] 3rd [place] [address] Gastroenterology 05/08/24 Trudy Solomon MD [address] [place] [phone] Hematology and Oncology 05/08/24 documented as of this encounter
--- OUTSIDE RECORDS SUMMARY | 2024-07-06 09:26 | XMS_ITS | Encounter Summary ---
Author Organization [employer] [facility] Address [address] [place] [address] 7t [place] [address] Care Team Providers Care Corrections Sergeant Name Role Phone Claudia Sapp MD Primary Care Provider [phone]- [phone] Graham Mcbride MD Unavailable Tamika Barker MD Unavailable [phone] Trudy Solomon MD Unavailable [phone] Reason for Visit * Reason Onset Date Comments Med Refill 04/08/2022 Encounter Details Date Type Department Care Team ([facility] Contact Info) Description 04/08/2022 Telephone [facility]INE 230 [place], [place] [phone] Claudia Sapp MD 230 [place], [place] [phone] Med Refill Social History Tobacco Use Types [...] Upcoming Encounters Date Type Department Care Team ([facility] st Contact Info) Description 07/06/2024 11:00 AM EST Clinical Support [facility] 230 [place] [address] Pauline Galvin, BRADEN 505 [place] [address] 08/02/2024 9:15 AM EDT Office Visit [facility] 230 [place] [address] Claudia Sapp MD 230 [place] [address] documented as of this encounter Visit Diagnoses Not on filedocumented in this encounter Care Teams Corrections Sergeant Relationship Specialty Start Date End Date Claudia Sapp MD [address] [place] [address] PCP - General Family Medicine 05/02/18 Graham Mcbride MD [address] [place] [address] Obstetrics and Gynecology 04/05/24 Tamika Barker MD [address] [place] [address] 3rd [place] [address] Gastroenterology 05/08/24 Trudy Solomon MD [address] [place] [address] Hematology and Oncology 05/08/24 documented as of this encounter
--- OUTSIDE RECORDS SUMMARY | 2024-07-06 09:26 | XMS_ITS | Encounter Summary ---
Author Organization [employer] Address [address] [facility] 7t [place] [address] Care Team Providers Care Surveyor Mine Name Role Phone Claudia Sapp MD Primary Care Provider [phone]- [phone] Graham Mcbride MD Unavailable Tamika Barker MD Unavailable [phone] Trudy Solomon MD Unavailable [phone] Reason for Visit * Reason Onset Date Comments Med Refill 02/02/2024 Encounter Details Date Type Department Care Team (Late st Contact Info) Description 02/02/2024 Telephone [facility] 230 [place], [place] [phone] Claudia Sapp MD 230 [place], [place] [phone] Med Refill Social History Tobacco Use Types [...] immediate release tablet To be sent to: [facility] - [place], [place] - [address] [place] [address] documented in this encounter Plan of Treatment Upcoming Encounters Date Type Department Care Team ([facility] st Contact Info) Description 07/06/2024 11:00 AM EST Clinical Support [facility]INE [address] [place] [address] Pauline Galvin RN 505 [place] [address] 08/02/2024 9:15 AM EDT Office Visit [facility] [address] [place] [address] Claudia Sapp MD [address] [place] [address] documented as of this encounter Visit Diagnoses Not on filedocumented in this encounter Additional Health Concerns Assessment Noted Time PHQ-9 Depression Total Score: 0 11/23/19 24 9:19 AM EDT documented as of this encounter Care Teams Surveyor Mine Relationship Specialty Start Date End Date Claudia Sapp MD [address] [place] [address] PCP - General Family Medicine 05/02/18 Graham Mcbride MD [address] [place] [address] [place] [address] Obstetrics and Gynecology 04/05/24 Tamika Barker MD [address] [place] [address] 3rd [place] [address] Gastroenterology 05/08/24 Trudy Solomon MD [address] [place] [address] Hematology and Oncology 05/08/24 documented as of this encounter
--- OUTSIDE RECORDS SUMMARY | 2024-07-06 09:26 | XMS_ITS | Encounter Summary ---
Author Organization [employer] Address [address] [facility] 7t [place] [address] Care Team Providers Care In Home Sales Representative Name Role Phone Claudia Sapp MD Primary Care Provider [phone]- [phone] Graham Mcbride MD Unavailable Tamika Barker MD Unavailable [phone] Trudy Solomon MD Unavailable [phone] Reason for Visit * Reason Onset Date Comments Med Refill 06/08/2023 Encounter Details Date Type Department Care Team (Late st Contact Info) Description 06/08/2023 Telephone [facility]INE 230 [place] [address] Claudia Sapp MD 230 [place], [place] [phone] Med Refill Social History Tobacco Use Types [...] immediate release tablet To be sent to: [facility] - [place], [place] - [address] [place] [address] documented in this encounter Plan of Treatment Upcoming Encounters Date Type Department Care Team ([facility] st Contact Info) Description 07/06/2024 11:00 AM EST Clinical Support [facility]INE [address] [place] [address] Pauline Galvin RN [address] [place] [address] 08/02/2024 9:15 AM EDT Office Visit [facility] [address] [place] [address] Claudia Sapp MD 230 [place] [address] documented as of this encounter Visit Diagnoses Not on filedocumented in this encounter Additional Health Concerns Assessment Noted Time PHQ-9 Depression Total Score: 0 05/24/19 10:10 AM EST documented as of this encounter Care Teams In Home Sales Representative Relationship Specialty Start Date End Date Claudia Sapp MD 230 [place] [address] PCP - General Family Medicine 05/02/18 Graham Mcbride MD [address] [place] [address] [address] [place] [address] Obstetrics and Gynecology 04/05/24 Tamika Barker MD [address] [place] [address] 3rd [place] [address] Gastroenterology 05/08/24 Trudy Solomon MD [address] [place] [address] Hematology and Oncology 05/08/24 documented as of this encounter
--- OUTSIDE RECORDS SUMMARY | 2024-07-06 09:26 | XMS_ITS | Encounter Summary ---
Author Organization [facility] Address [address] [place] [address] 7t [place] [address] Care Team Providers Care Cable Systems Installer Name Role Phone [place], Claudia GORMAN Primary Care Provider [phone]- [phone] Graham Mcbride MD Unavailable Tamika Barker MD Unavailable [phone] Trudy Solomon MD Unavailable [phone] Reason for Visit * Reason Comments Med Refill Encounter Details Date Type Department Care Team (Late st Contact Info) Description 10/08/[address] [facility] MEDICINE 230 [place], [place] [phone] Mary Abdul, ANP 230 [place], [place] [phone] Low back pain at multiple sites Social [...] Description 07/06/2024 11:00 AM EST Clinical Support [address] [address] Pauline Galvin RN [address] [place] [address] 08/02/2024 9:15 AM EDT Office Visit [address] [address] Claudia Sapp MD [address] [place] [address] documented as of this encounter Visit Diagnoses Diagnosis Low back pain at multiple sites documented in this encounter Additional Health Concerns Assessment Noted Time PHQ-9 Depression Total Score: 0 05/24/19 10:10 AM EST documented as of this encounter Care Teams Cable Systems Installer Relationship Specialty Start Date End Date Claudia Sapp MD [address] [place] [address] PCP - General Family Medicine 05/02/18 Graham Mcbride MD [address] [place] [address] Obstetrics and Gynecology 04/05/24 Tamika Barker MD [address] [place] [address] Drive 3rd [place] [address] Gastroenterology 05/08/24 Trudy Solomon MD [address] [place] [address] Hematology and Oncology 05/08/24 documented as of this encounter
--- OUTSIDE RECORDS SUMMARY | 2024-07-06 09:26 | XMS_ITS | Encounter Summary ---
Author Organization [employer] [facility] Address [address] [facility] [address] 7t [place] [address] Care Team Providers Care Corporate Travel Counselor Name Role Phone Claudia Sapp MD Primary Care Provider [phone]- [phone] Graham Mcbride MD Unavailable Tamika Barker MD Unavailable [phone] Trudy Solomon MD Unavailable [phone] Encounter Details Date Type Department Care Team (Late st Contact Info) Description 06/17/2022 Orders Only [facility] MEDICINE 230 [place], [place] [phone] Claudia Sapp MD 230 [place], [place] [phone] Type 2 diabetes mellitus with hyperglycemia, with long-term current use of insulin ([facility]) (Primary Dx) Social History Tobacco Use [...] Description 07/06/2024 11:00 AM EST Clinical Support [facility]INE [address] [place] [address] Pauline Galvin, BRADEN 505 [place] [address] 08/02/2024 9:15 AM EDT Office Visit [facility] [address] [place] [address] Claudia Sapp MD [address] [place] [address] documented as of this encounter Visit Diagnoses Diagnosis Type 2 diabetes mellitus with hyperglycemia, with long-term current use of insulin ([facility])- Primary documented in this encounter Additional Health Concerns Assessment Noted Time PHQ-9 Depression Total Score: 0 05/24/19 23 10:10 AM EST documented as of this encounter Care Teams Corporate Travel Counselor Relationship Specialty Start Date End Date Claudia Sapp MD [address] [place] [address] PCP - General Family Medicine 05/02/18 Graham Mcbride MD [address] [place] [address] Obstetrics and Gynecology 04/05/24 Tamika Barker MD [address] [place] [address] 3rd [place] [address] Gastroenterology 05/08/24 Trudy Solomon MD [address] [place] [address] Hematology and Oncology 05/08/24 documented as of this encounter
--- OUTSIDE RECORDS SUMMARY | 2024-07-06 09:26 | XMS_ITS | Encounter Summary ---
Author Organization [employer] Address [address] [facility] 7t [place] [address] Care Team Providers Care Comfort Station Attendant Name Role Phone Claudia Sapp MD Primary Care Provider [phone]- [phone] Graham Mcbride MD Unavailable Tamika Barker MD Unavailable [phone] Trudy Solomon MD Unavailable [phone] Reason for Visit * Reason Onset Date Comments Med Refill 01/04/2024 Encounter Details Date Type Department Care Team (Late st Contact Info) Description 01/04/2024 Telephone [facility] MEDICINE 230 [place], [place] [phone] Claudia Sapp MD 230 [place], [place] [phone] Med Refill Social History Tobacco Use Types [...] immediate release tablet To be sent to: [facility] - [place], [place] - [address] [place] [address] documented in this encounter Plan of Treatment Upcoming Encounters Date Type Department Care Team ([facility] st Contact Info) Description 07/06/2024 11:00 AM EST Clinical Support [facility] MEDICINE [address] [place] [address] Pauline Galvin RN 505 [place] [address] 08/02/2024 9:15 AM EDT Office Visit [facility]INE [address] [place] [address] Claudia Sapp MD [address] [place] [address] documented as of this encounter Visit Diagnoses Not on filedocumented in this encounter Additional Health Concerns Assessment Noted Time PHQ-9 Depression Total Score: 0 11/23/19 24 9:19 AM EDT documented as of this encounter Care Teams Comfort Station Attendant Relationship Specialty Start Date End Date Claudia Sapp MD [address] [place] [address] PCP - General Family Medicine 05/02/18 Graham Mcbride MD [address] [place] [address] [place] [address] Obstetrics and Gynecology 04/05/24 Tamika Barker MD [address] [place] [address] 3rd [place] [address] Gastroenterology 05/08/24 Trudy Solomon MD [address] [place] [address] Hematology and Oncology 05/08/24 documented as of this encounter
--- OUTSIDE RECORDS SUMMARY | 2024-07-06 09:26 | XMS_ITS | Encounter Summary ---
Author Organization [employer] Address [address] [facility] 7t [place] [address] Care Team Providers Care Crystal Inspector Name Role Phone Claudia Sapp MD Primary Care Provider [phone]- [phone] Graham Mcbride MD Unavailable Tamika Barker MD Unavailable Trudy Solomon MD Unavailable [phone] Reason for Visit * Reason Comments Med Refill Encounter Details Date Type Department Care Team (Late st Contact Info) Description 11/09/2022 Refill [facility] MEDICINE 230 [place], [place] [phone] Claudia Sapp MD 230 [place], [place] [phone] Low back pain at multiple sites Social [...] Description 07/06/2024 11:00 AM EST Clinical Support [address] [address] Pauline Galvin RN 505 [place] [address] 08/02/2024 9:15 AM EDT Office Visit [address] [address] Claudia Sapp MD [address] [place] [address] documented as of this encounter Visit Diagnoses Diagnosis Low back pain at multiple sites documented in this encounter Additional Health Concerns Assessment Noted Time PHQ-9 Depression Total Score: 0 05/24/19 10:10 AM EST documented as of this encounter Care Teams Crystal Inspector Relationship Specialty Start Date End Date Claudia Sapp MD [address] [place] [address] PCP - General Family Medicine 05/02/18 Graham Mcbride MD [address] [place] [address] [place] [address] Obstetrics and Gynecology 04/05/24 Tamika Barker MD [address] [place] [address] 3rd [place] [address] Gastroenterology 05/08/24 Trudy Solomon MD [address] [place] [address] Hematology and Oncology 05/08/24 documented as of this encounter
--- OUTSIDE RECORDS SUMMARY | 2024-07-06 09:26 | XMS_ITS | Encounter Summary ---
Author Organization [facility] Address [address] [facility] 7t [place] [address] Care Team Providers Care Veneer Gluer Name Role Phone Claudia Sapp MD Primary Care Provider [phone]- [phone] Graham Mcbride MD Unavailable Tamika Barker MD Unavailable [phone] Trudy Solomon MD Unavailable [phone] Encounter Details Date Type Department Care Team (Late Contact Info) Description 05/24/2022 Abstract [facility] MEDICINE 230 [place] [address] Claudia Sapp MD 230 [place], [place] [phone] Social History Tobacco Use Types Packs/Day Years [...] Department Care Team (Late Contact Info) Description 07/06/2024 11:00 AM EST Clinical Support [facility] MEDICINE [address] [place] [address] Pauline Galvin, RN 505 [place] [address] 08/02/2024 9:15 AM EDT Office Visit [facility] MED[facility]INE [address] [place] [address] Claudia Sapp MD [address] [place] [address] documented as of this encounter Procedures Procedure [...] documented as of this encounter Care Teams Veneer Gluer Relationship Specialty Start Date End Date Claudia Sapp MD [address] [place] [address] PCP - General Family Medicine 05/02/18 Graham Mcbride MD [address] [place] [address] [address] [place] [address] Obstetrics and Gynecology 04/05/24 Tamika Barker MD [address] [place] [address] 3rd Floor ILEANA Chapman [address] Gastroenterology 05/08/24 Trudy Solomon MD [address] [place] [address] [place] [address] Hematology and Oncology 05/08/24 documented as of this encounter
--- OUTSIDE RECORDS SUMMARY | 2024-07-06 09:26 | XMS_ITS | Encounter Summary ---
Author Organization [employer] Address [address] [facility] [address] 7t [place] [address] Care Team Providers Care Exercise Scientist Name Role Phone [place], Claudia GORMAN Primary Care Provider [phone]- [phone] Graham Mcbride MD Unavailable Tamika Barker MD Unavailable Trudy Solomon MD Unavailable [phone] Encounter Details Date Type Department Care Team (Latest Contact Info) Description 06/29/2024 Travel Social History Tobacco Use Types Packs/Day [...] Description 07/06/2024 11:00 AM EST Clinical Support [address] [address] Pauline Galvin RN 505 [place] [address] 08/02/2024 9:15 AM EDT Office Visit [facility] MEDICINE [address] [place] [address] Claudia Sapp MD [address] [place] [address] documented as of this encounter Visit Diagnoses Not on filedocumented in this encounter Additional Health Concerns Assessment Noted Time PHQ-9 Depression Total Score: 0 11/23/19 24 9:19 AM EDT documented as of this encounter Care Teams Exercise Scientist Relationship Specialty Start Date End Date Claudia Sapp MD [address] [place] [address] PCP - General Family Medicine 05/02/18 Graham Mcbride MD [address] [place] [address] [address] [place] [address] Obstetrics and Gynecology 04/05/24 Tamika Barker MD [address] [place] [address] 3rd [place] [address] Gastroenterology 05/08/24 Trudy Solomon MD [address] [place] [address] [place] [address] Hematology and Oncology 05/08/24 documented as of this encounter
--- OUTSIDE RECORDS SUMMARY | 2024-07-06 09:26 | XMS_ITS | Encounter Summary ---
Author Organization [facility] Address [address] [facility] 7t [place] [address] Care Team Providers Care Roundhouse Supervisor Name Role Phone Claudia Sapp MD Primary Care Provider [phone]- [phone] Graham Mcbride MD Unavailable Tamika Barker MD Unavailable [phone] Trudy Solomon MD Unavailable [phone] Reason for Visit * Reason Onset Date Comments Med Refill 01/07/2023 Encounter Details Date Type Department Care Team (Late st Contact Info) Description 01/07/2023 Telephone [facility] MEDICINE 230 [place], [place] [phone] Claudia Sapp MD 230 [place], [place] [phone] Med Refill Social History Tobacco Use Types [...] Description 07/06/2024 11:00 AM EST Clinical Support [facility] [address] [place] [address] Pauline Galvin, BRADEN 505 [place] [address] 08/02/2024 9:15 AM EDT Office Visit [facility]INE [address] [place] [address] Claudia Sapp MD [address] [place] [address] documented as of this encounter Visit Diagnoses Not on filedocumented in this encounter Additional Health Concerns Assessment Noted Time PHQ-9 Depression Total Score: 0 05/24/19 10:10 AM EST documented as of this encounter Care Teams Roundhouse Supervisor Relationship Specialty Start Date End Date Claudia Sapp MD [address] [place] [address] PCP - General Family Medicine 05/02/18 Graham Mcbride MD [address] [place] [address] [place] [address] Obstetrics and Gynecology 04/05/24 Tamika Barker MD [address] [place] [address] 3rd [place] [address] Gastroenterology 05/08/24 Trudy Solomon MD [address] [place] [address] Hematology and Oncology 05/08/24 documented as of this encounter
--- OUTSIDE RECORDS SUMMARY | 2024-07-06 09:26 | XMS_ITS | Encounter Summary ---
Author Organization [employer] Address [address] [facility] [address] 7t [place] [address] Care Team Providers Care Handbag Operator Name Role Phone [place], Claudia GORMAN Primary Care Provider [phone]- [phone] Graham Mcbride MD Unavailable Tamika Barker MD Unavailable [phone] Trudy Solomon MD Unavailable [phone] Encounter Details Date Type Department Care Team (Late st Contact Info) Description 06/29/2024 Refill [facility] 505 [place] [address] Pauline Galvin, RN 505 [place] [address] Low back pain at multiple sites Social [...] Telephone Encounter - Pauline Galvin RN - 06/29/2024 11:41 AM EST Pt c/b to r/s PODIATRIC AIDE appt. Scheduled for 07/06/24 @ 11am. * Telephone Encounter - Clive [place] - 06/29/2024 11:07 AM EST Tc from pt from pt returning call regarding prior message. Contact pt at [phone] * Telephone Encounter - Pauline Galvin RN - 06/29/2024 10:47 AM EST Pt cancelled PODIATRIC AIDE appt on 06/08/24. No c/b to r/s. Tc to pt again to r/s, no answer. Lvm for pt to c/b. Queueing 2 weeks supply. F/u with PCP 08/02/24 documented in this encounter Plan of Treatment Upcoming Encounters Date Type Department Care Team (Late st Contact Info) Description 07/06/2024 11:00 AM EST Clinical Support [facility] 230 [place] [address] Pauline Galvin, RN [address] [place] [address] 08/02/2024 9:15 AM EDT Office Visit [facility] 230 [place] [address] Claudia Sapp MD 230 [place] [address] documented as of this encounter Visit Diagnoses Diagnosis Low back pain at multiple sites documented in this encounter Additional Health Concerns Assessment Noted Time PHQ-9 Depression Total Score: 0 11/23/19 9:19 AM EDT documented as of this encounter Care Teams Handbag Operator Relationship Specialty Start Date End Date Claudia Sapp MD [address] [place] [address] PCP - General Family Medicine 05/02/18 Graham Mcbride MD [address] [place] [address] Obstetrics and Gynecology 04/05/24 Tamika Barker MD [address] [place] [address] 3rd [place] [address] Gastroenterology 05/08/24 Trudy Solomon MD [address] [place] [address] Hematology and Oncology 05/08/24 documented as of this encounter
--- OUTSIDE RECORDS SUMMARY | 2024-07-06 09:26 | XMS_ITS | Encounter Summary ---
Author Organization [employer] Address [address] [facility] 7t [place] [address] Care Team Providers Care Bolt Sawyer Name Role Phone Claudia Sapp MD Primary Care Provider [phone]- [phone] Graham Mcbride MD Unavailable Tamika Barker MD Unavailable [phone] Trudy Solomon MD Unavailable [phone] Reason for Visit * Reason Onset Date Comments Med Refill 03/08/2023 Encounter Details Date Type Department Care Team (Late st Contact Info) Description 03/08/2023 Telephone [facility] MEDICINE 230 [place], [place] [phone] Claudia Sapp MD 230 [place], [place] [phone] Med Refill Social History Tobacco Use Types [...] Description 07/06/2024 11:00 AM EST Clinical Support [facility] MED[facility]INE [address] [place] [address] Pauline Galvin RN 505 [place] [address] 08/02/2024 9:15 AM EDT Office Visit [facility] MED[facility]INE [address] [place] [address] Claudia Sapp MD [address] [place] [address] documented as of this encounter Visit Diagnoses Not on filedocumented in this encounter Additional Health Concerns Assessment Noted Time PHQ-9 Depression Total Score: 0 05/24/19 10:10 AM EST documented as of this encounter Care Teams Bolt Sawyer Relationship Specialty Start Date End Date Claudia Sapp MD [address] [place] [address] PCP - General Family Medicine 05/02/18 Graham Mcbride MD [address] [place] [address] [place] [address] Obstetrics and Gynecology 04/05/24 Tamika Barker MD [address] [place] [address] 3rd [place] [address] Gastroenterology 05/08/24 Trudy Solomon MD [address] [place] [address] Hematology and Oncology 05/08/24 documented as of this encounter
--- OUTSIDE RECORDS SUMMARY | 2024-07-06 09:26 | XMS_ITS | Encounter Summary ---
Author Organization [employer] Address 75 [facility] 7t [place] [address] Care Team Providers Care Assistant Import Manager Name Role Phone Claudia Sapp MD Primary Care Provider +1- [phone] Graham Mcbride MD Unavailable Tamika Barker MD Unavailable [phone] Trudy Solomon MD Unavailable [phone] Reason for Visit * Reason Onset Date Comments Med Refill 06/04/2024 Encounter Details Date Type Department Care Team (Late st Contact Info) Description 06/04/2024 Telephone [facility] MEDICINE [address] [place], [place] [phone] Claudia Sapp MD 230 [place], [place] [phone] Med Refill Social History Tobacco Use Types [...] the past 12 months, has t he [employer], gas, oil or water [employer] threatened to shut off services in your [...] 9:27 AM EST Medications were sent to [facility] on 05/30/24. * Telephone Encounter - Gracie Tracy - 06/04/2024 9:21 AM EST TC from pt requesting medication refill. Medications needing refill : atorvastatin (Lipitor) 80 MG tablet fluticasone (Flonase) 50 MCG/ACT nasal spray naloxone (Narcan) 4 mg/0.1 mL nasal spray To be sent to: [facility] - [place], [place] - [address] [facility] documented in this encounter Plan of Treatment Upcoming Encounters Date Type Department Care Team ([facility] st Contact Info) Description 07/06/2024 11:00 AM EST Clinical Support [facility] MEDICINE 230 [place] [address] Pauline Galvin RN 505 [place] [address] 08/02/2024 9:15 AM EDT Office Visit [facility] MED[facility]INE 230 [place] [address] Claudia Sapp MD 230 [place] [address] documented as of this encounter Visit Diagnoses Not on filedocumented in this encounter Additional Health Concerns Assessment Noted Time PHQ-9 Depression Total Score: 0 11/23/19 9:19 AM EDT documented as of this encounter Care Teams Assistant Import Manager Relationship Specialty Start Date End Date Claudia Sapp MD 230 [place] [address] PCP - General Family Medicine 05/02/18 Graham Mcbride MD [address] [place] [address] Obstetrics and Gynecology 04/05/24 Tamika Barker MD [address] [place] [address] 3rd [place] [address] Gastroenterology 05/08/24 Trudy Solomon MD [address] [place] [address] Hematology and Oncology 05/08/24 documented as of this encounter
--- OUTSIDE RECORDS SUMMARY | 2024-07-06 09:26 | XMS_ITS | Encounter Summary ---
Author Organization [employer] Address 75 [facility] 7t [place] [address] Care Team Providers Care Grape Cutter Name Role Phone Claudia Sapp MD Primary Care Provider [phone]- [phone] Graham Mcbride MD Unavailable Tamika Barker MD Unavailable [phone] Trudy Solomon MD Unavailable [phone] Reason for Visit * Reason Onset Date Comments Med Refill 03/02/2024 Encounter Details Date Type Department Care Team (Late st Contact Info) Description 03/02/2024 Telephone [facility] MEDICINE 230 [place], [place] [phone] Claudia Sapp MD 230 [place], [place] [phone] Med Refill Social History Tobacco Use Types [...] immediate release tablet To be sent to: [facility] documented in this encounter Plan of Treatment Upcoming Encounters Date Type Department Care Team (Late st Contact Info) Description 07/06/2024 11:00 AM EST Clinical Support [facility] MEDICINE [address] [place] [address] Pauline Galvin RN 505 [place] [address] 08/02/2024 9:15 AM EDT Office Visit [facility] MED[facility]INE [address] [place] [address] Claudia Sapp MD 230 [place] [address] documented as of this encounter Visit Diagnoses Not on filedocumented in this encounter Additional Health Concerns Assessment Noted Time PHQ-9 Depression Total Score: 0 11/23/19 24 9:19 AM EDT documented as of this encounter Care Teams Grape Cutter Relationship Specialty Start Date End Date Claudia Sapp MD [address] [place] [address] PCP - General Family Medicine 05/02/18 Graham Mcbride MD [address] [place] [address] [place] [address] Obstetrics and Gynecology 04/05/24 Tamika Barker MD [address] [place] [address] 3rd [place] [address] Gastroenterology 05/08/24 Trudy Solomon MD [address] [place] [address] Hematology and Oncology 05/08/24 documented as of this encounter
--- OUTSIDE RECORDS SUMMARY | 2024-07-06 09:26 | XMS_ITS | Encounter Summary ---
Author Organization [employer] Address 75 [facility] 7t [place] [address] Care Team Providers Care Account Associate Name Role Phone Claudia Sapp MD Primary Care Provider [phone]- [phone] Graham Mcbride MD Unavailable Tamika Barker MD Unavailable [phone] Trudy Solomon MD Unavailable [phone] Reason for Visit * Reason Onset Date Comments Appointment Request 06/07/2024 Encounter Details Date Type Department Care Team (Late st Contact Info) Description 06/07/2024 Telephone [facility] MEDICINE 230 [place] [address] Claudia Sapp MD 230 [place], [place] [phone] Appointment Request Social History Tobacco Use Types [...] pt son was admitted to the hospital. [phone] slovenian documented in this encounter Plan of Treatment Upcoming Encounters Date Type Department Care Team (Late st Contact Info) Description 07/06/2024 11:00 AM EST Clinical Support [facility] MEDICINE [address] [place] [address] Pauline Galvin RN 505 [place] [address] 08/02/2024 9:15 AM EDT Office Visit [facility] [address] [place] [address] Claudia Sapp MD 230 [place] [address] documented as of this encounter Visit Diagnoses Not on filedocumented in this encounter Additional Health Concerns Assessment Noted Time PHQ-9 Depression Total Score: 0 11/23/19 24 9:19 AM EDT documented as of this encounter Care Teams Account Associate Relationship Specialty Start Date End Date Claudia Sapp MD [address] [place] [address] PCP - General Family Medicine 05/02/18 Graham Mcbride MD [address] [place] [address] [place] [address] Obstetrics and Gynecology 04/05/24 Tamika Barker MD [address] [place] [address] 3rd [place] [address] Gastroenterology 05/08/24 Trudy Solomon MD [address] [place] [address] Hematology and Oncology 05/08/24 documented as of this encounter
--- OUTSIDE RECORDS SUMMARY | 2024-07-06 09:26 | XMS_ITS | Encounter Summary ---
Author Organization [employer] Address [address] [facility] [address] 7t [place] [address] Care Team Providers Care Assembler Product Name Role Phone Claudia Sapp MD Primary Care Provider [phone]- [phone] Graham Mcbride MD Unavailable Tamika Barker MD Unavailable [phone] Trudy Solomon MD Unavailable [phone] Reason for Visit * Reason Comments Med Refill Encounter Details Date Type Department Care Team (Late st Contact Info) Description 04/02/2024 Refill [facility] MED & PEDS [address] [place] [address] Claudia Sapp MD 230 [place] [address] Low back pain at multiple sites Social [...] 11:00 AM EST Clinical Support [facility] MEDICINE [address] [place] [address] Pauline Galvin RN 505 [place] [address] 08/02/2024 9:15 AM EDT Office Visit [facility] MEDICINE [address] [place] [address] Claudia Sapp MD [address] [place] [address] documented as of this encounter Visit Diagnoses Diagnosis Low back pain at multiple sites documented in this encounter Additional Health Concerns Assessment Noted Time PHQ-9 Depression Total Score: 0 11/23/19 9:19 AM EDT documented as of this encounter Care Teams Assembler Product Relationship Specialty Start Date End Date Sekou, MD Claudia 230 [place] [address] PCP - General Family Medicine 05/02/18 Graham Mcbride MD [address] [place] [address] [address] [place] [address] Obstetrics and Gynecology 04/05/24 Tamika Barker MD [address] [place] [address] Drive 3rd [place] [address] Gastroenterology 05/08/24 Trudy Solomon MD [address] [place] [address] Hematology and Oncology 05/08/24 documented as of this encounter
--- OUTSIDE RECORDS SUMMARY | 2024-07-06 09:26 | XMS_ITS | Encounter Summary ---
Author Organization [facility] Address 75 [facility] 7t [place] [address] Care Team Providers Care Meat Clerk Name Role Phone Claudia Sapp MD Primary Care Provider [phone]- [phone] Graham Mcbride MD Unavailable Tamika Barker MD Unavailable [phone] Trudy Solomon MD Unavailable [phone] Encounter Details Date Type Department Care Team (Late Contact Info) Description 09/01/2022 Abstract [facility] MEDICINE 230 [place] [address] Claudia Sapp MD 230 [place], [place] [phone] Social History Tobacco Use Types Packs/Day Years [...] Description 07/06/2024 11:00 AM EST Clinical Support [facility] [address] [place] [address] Pauline Galvin, BRADEN [address] [place] [address] 08/02/2024 9:15 AM EDT Office Visit [facility] MED[facility]INE [address] [place] [address] Claudia Sapp MD 230 [place] [address] documented as of this encounter Procedures Procedure [...] documented as of this encounter Care Teams Meat Clerk Relationship Specialty Start Date End Date Claudia Sapp MD [address] [place] [address] PCP - General Family Medicine 05/02/18 Graham Mcbride MD [address] [place] [address] [address] [place] [address] Obstetrics and Gynecology 04/05/24 Tamika Barker MD [address] [place] [address] 3rd [place] [address] Gastroenterology 05/08/24 Trudy Solomon MD [address] [place] [address] Hematology and Oncology 05/08/24 documented as of this encounter
--- OUTSIDE RECORDS SUMMARY | 2024-07-06 09:26 | XMS_ITS | Encounter Summary ---
Author Organization [employer] Address 75 [facility] 7t [place] [address] Care Team Providers Care Exam Proctor Name Role Phone Claudia Sapp MD Primary Care Provider [phone]- [phone] Graham Mcbride MD Unavailable Tamika Barker MD Unavailable [phone] Trudy Solomon MD Unavailable [phone] Reason for Visit * Reason Onset Date Comments Med Refill 06/29/2024 Encounter Details Date Type Department Care Team (Late st Contact Info) Description 06/29/2024 Telephone [facility] MEDICINE 230 [place], [place] [phone] Claudia Sapp MD 230 [place], [place] [phone] Med Refill Social History Tobacco Use Types [...] the past 12 months, has t he [employer], gas, oil or water company threatened to [...] encounter Miscellaneous Notes * Telephone Encounter - Clive Hardy - 06/29/2024 9:31 AM EST TC from pt requesting medication refill. Medications needing refill : oxyCODONE (Roxicodone) 10 MG immediate release tablet To be sent to: [facility] - [place], [place] - [address] [place] [address] documented in this encounter Plan of Treatment Upcoming Encounters Date Type Department Care Team ([facility] st Contact Info) Description 07/06/2024 11:00 AM EST Clinical Support [facility] MED[facility]INE [address] [place] [address] Pauline Galvin RN 505 [place] [address] 08/02/2024 9:15 AM EDT Office Visit [facility] [address] [place] [address] Claudia Sapp MD [address] [place] [address] documented as of this encounter Visit Diagnoses Not on filedocumented in this encounter Additional Health Concerns Assessment Noted Time PHQ-9 Depression Total Score: 0 11/23/19 24 9:19 AM EDT documented as of this encounter Care Teams Exam Proctor Relationship Specialty Start Date End Date Claudia Sapp MD [address] [place] [address] PCP - General Family Medicine 05/02/18 Graham Mcbride MD [address] [place] [address] [place] [address] Obstetrics and Gynecology 04/05/24 Tamika Barker MD [address] [place] [address] 3rd [place] [address] Gastroenterology 05/08/24 Trudy Solomon MD [address] [place] [address] Hematology and Oncology 05/08/24 documented as of this encounter
--- OUTSIDE RECORDS SUMMARY | 2024-07-06 09:26 | XMS_ITS | Encounter Summary ---
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 Called via BLS ID# [id number]. No answer, lvm for pt to c/b and r/s appt. documented in this encounter Plan of Treatment Upcoming Encounters Date Type Department Care Team (Late st Contact Info) Description 07/06/2024 11:00 AM EST Clinical Support [facility] MEDICINE [address] [place] [address] Pauline Galvin RN 505 [place] [address] 08/02/2024 9:15 AM EDT Office Visit [facility] [address] [place] [address] Claudia Sapp MD 230 [place] [address] documented as of this encounter Visit Diagnoses Not on filedocumented in this encounter Additional Health Concerns Assessment Noted Time PHQ-9 Depression Total Score: 0 11/23/19 9:19 AM EDT documented as of this encounter Care Teams Deliver Driver Relationship Specialty Start Date End Date Claudia Sapp MD [address] [place] [address] PCP - General Family Medicine 05/02/18 Graham Mcbride MD [address] [place] [address] [place] [address] Obstetrics and Gynecology 04/05/24 Tamika Barker MD [address] [place] [address] 3rd [place] [address] Gastroenterology 05/08/24 Trudy Solomon MD [address] [place] [address] Hematology and Oncology 05/08/24 documented as of this encounter
--- OUTSIDE RECORDS SUMMARY | 2024-07-06 09:26 | XMS_ITS | Encounter Summary ---
Author Organization [employer] Address 75 [facility] 7t [place] [address] Care Team Providers Care Industrial Specialist Name Role Phone Claudia Sapp MD Primary Care Provider [phone]- [phone] Graham Mcbride MD Unavailable Tamika Barker MD Unavailable [phone] Trudy Solomon MD Unavailable [phone] Reason for Visit * Reason Onset Date Comments Med Refill 12/05/2023 Encounter Details Date Type Department Care Team (Late st Contact Info) Description 12/05/2023 Telephone [facility] MEDICINE 230 [place], [place] [phone] Claudia Sapp MD 230 [place], [place] [phone] Med Refill Social History Tobacco Use Types [...] immediate release tablet To be sent to: [facility] - [place], [place] - [address] [place] [address] documented in this encounter Plan of Treatment Upcoming Encounters Date Type Department Care Team ([facility] st Contact Info) Description 07/06/2024 11:00 AM EST Clinical Support [facility] MEDICINE [address] [place] [address] Pauline Galvin RN 505 [place] [address] 08/02/2024 9:15 AM EDT Office Visit [facility] MED[facility]INE [address] [place] [address] Claudia Sapp MD [address] [place] [address] documented as of this encounter Visit Diagnoses Not on filedocumented in this encounter Additional Health Concerns Assessment Noted Time PHQ-9 Depression Total Score: 0 11/23/19 24 9:19 AM EDT documented as of this encounter Care Teams Industrial Specialist Relationship Specialty Start Date End Date Claudia Sapp MD [address] [place] [address] PCP - General Family Medicine 05/02/18 Graham Mcbride MD [address] [place] [address] [place] [address] Obstetrics and Gynecology 04/05/24 Tamika Barker MD [address] [place] [address] 3rd [place] [address] Gastroenterology 05/08/24 Trudy Solomon MD [address] [place] [address] Hematology and Oncology 05/08/24 documented as of this encounter
[2024-07-06 10:06] LABS: Alanine Aminotransferase 12 U/L (0-31); Albumin Level 3.7 g/dL (3.5-5.0); Alkaline Phosphatase 108 U/L (39-117); Anion Gap 10 (12-20); Aspartate Amino Transferase 15 U/L (5-31); Bilirubin Direct 0.2 mg/dL (0.0-0.5); Bilirubin Total 0.6 mg/dL (0.0-1.0); Blood Urea Nitrogen 9 mg/dL (9-16); C Reactive Protein 0.74 mg/dL (< or = 0.50); Calcium 9.2 mg/dL (8.4-10.2); Carbon Dioxide 28 mmol/L (22-29); Chloride 107 mmol/L (96-108); Cholesterol 186 mg/dL (<200); Cholesterol 190 mg/dL (<200); Estimated Glomerular Filt Rate > 60; Glucose Random 99 mg/dL (60-115); HDL Cholesterol 51 mg/dL (>40); HDL Cholesterol 52 mg/dL (>40); Iron 62 mcg/dL (30-160); LDL Cholesterol Calculated 116 mg/dL (<100); LDL Cholesterol Calculated 119 mg/dL (<100); Percent Iron Saturation 18 % (15-50); Potassium 4.4 mmol/L (3.3-5.1); Sodium 141 mmol/L (135-145); Total Iron Binding Capacity 345 mcg/dL (228-428); Total Protein 7.2 g/dL (6.5-8.0); Triglycerides 95 mg/dL (<150); Triglycerides 99 mg/dL (<150); Unsaturated Iron Binding 283 ug/dL
[2024-07-06 10:08] LABS: Estimated Average Glucose 134 mg/dL; Hemoglobin A1c % 6.3 % (<6.0)
[2024-07-06 10:25] LABS: Ferritin 13 ng/mL (10-250); TSH reflex Free T4 1.61 uIU/mL (0.32-4.0); Vitamin D 25-OH Total 24.9 ng/mL (>30)
[2024-07-06 10:34] LABS: Folate 7.6 ng/mL (> or = 4.0); Vitamin B12 359 pg/mL (200-900)
[2024-07-06 12:45] LABS: Insulin 8 uU/mL (2-29)
[2024-07-09 22:34] LABS: Zinc 47 mcg/dL (60-130)
[2024-07-10 19:29] LABS: Vitamin A 34 mcg/dL (38-98)
[2024-07-15 08:49] LABS: Vitamin B1 <6 nmol/L (8-30)
== END 2024-07-06 08:50 | disposition home or self-care (01) ==
LOC: HO.LAB 08:49
PROVIDERS: PCP Family Medicine; Visit Provider Physician Assistant Surgical
DX: R10.9 Unspecified abdominal pain (principal); E78.5 Hyperlipidemia, unspecified; K91.2 Postsurgical malabsorption, not elsewhere classified; Z90.3 Acquired absence of stomach [part of]
CPT/HCPCS: 36415; 80053; 80061; 80076; 82248; 82306; 82607; 82728; 82746; 83036; 83525; 83540; 84425; 84443; 84590; 84630; 85025; 86140

== ENCOUNTER 2024-08-02 09:50 | Outpatient (REF) | payer MEDICAID, SELFPAY ==
--- NOTE | ~2024-08-02 | XR_ITS ---
EXAMINATION: XR LUMBOSACRAL SPINE CLINICAL INFORMATION: chornic low back pain COMPARISON: May 05, 2016. TECHNIQUE: Three views of the lumbosacral spine. FINDINGS: No acute cortical disruption or malalignment. No lytic or blastic lesions. Vascular clips in the medial left hemiabdomen and right upper quadrant abdomen. Single vascular clip right lower pelvis likely fall down. XR/XR lumbar spine 2-3V IMPRESSION: No acute fracture or listhesis. Negative. Electronically signed by: Sherif Herrera MD 08/02/2024 10:53 AM EDT
--- OUTSIDE RECORDS SUMMARY | 2024-08-02 10:28 | XMS_ITS | Encounter Summary ---
Author Organization [employer] Address [address] [facility] [address] 7t [place] [address] Care Team Providers Care Custom Home Installer Name Role Phone Claudia Sapp MD Primary Care Provider [phone]- [phone] Graham Mcbride MD Unavailable Tamika Barker MD Unavailable [phone] Trudy Solomon MD Unavailable [phone] Reason for Visit * Reason Comments Med Refill Encounter Details Date Type Department Care Team (Late st Contact Info) Description 04/02/2024 Refill [facility] CHC MED & PEDS [address] [place] [address] Claudia Sapp MD 230 [place] [address] Low back pain at multiple sites Social [...] Care Team (Late st Contact Info) Description 09/17/2024 9:30 AM EDT Telemedicine [facility] MED & PEDS 505 [place] [address] Pauline Galvin, BRADEN 505 [place] [address] documented as of this encounter Visit Diagnoses Diagnosis Low back pain at multiple sites documented in this encounter Additional Health Concerns Assessment Noted Time PHQ-9 Depression Total Score: 0 11/23/19 9:19 AM EDT documented as of this encounter Care Teams Custom Home Installer Relationship Specialty Start Date End Date Claudia Sapp MD [address] [place] [address] PCP - General Family Medicine 05/02/18 Graham Mcbride MD [address] [place] [address] [address] [place] [address] Obstetrics and Gynecology 04/05/24 Tamika Barker MD [address] [place] [address] 3rd [place] [address] Gastroenterology 05/08/24 Trudy Solomon MD [address] [place] [address] Hematology and Oncology 05/08/24 Conor [place] MD [facility] [place] [address] Obstetrics and Gynecology 08/02/24 documented as of this encounter
--- OUTSIDE RECORDS SUMMARY | 2024-08-02 10:28 | XMS_ITS | Encounter Summary ---
Author Organization [employer] Address 75 [facility] 7t [place] [address] Care Team Providers Care Commercial Underwriter Name Role Phone Claudia Sapp MD Primary Care Provider [phone]- [phone] Graham Mcbride MD Unavailable Tamika Barker MD Unavailable [phone] Trudy Solomon MD Unavailable [phone] Reason for Visit * Reason Onset Date Comments Med Refill 06/29/2024 Encounter Details Date Type Department Care Team (Late st Contact Info) Description 06/29/2024 Telephone [facility] MEDICINE 230 [place], [place] [phone] Claudia Sapp MD 230 [place], [place] [phone] Med Refill Social History Tobacco Use Types [...] the past 12 months, has t he [employer], gas, oil or water company threatened to [...] be sent to: [facility] - [place], [place] - [address] [facility] documented in this encounter Plan of Treatment Upcoming Encounters Date Type Department Care Team (Late st Contact Info) Description 09/17/2024 9:30 AM EDT Telemedicine [facility] MED & PEDS 505 [place] [address] Pauline Galvin, BRADEN 505 [place] [address] documented as of this encounter Visit Diagnoses Not on filedocumented in this encounter Additional Health Concerns Assessment Noted Time PHQ-9 Depression Total Score: 0 11/23/19 9:19 AM EDT documented as of this encounter Care Teams Commercial Underwriter Relationship Specialty Start Date End Date Claudia Sapp MD 230 [place] [address] PCP - General Family Medicine 05/02/18 Graham Mcbride MD [address] [place] [address] [address] [place] [address] Obstetrics and Gynecology 04/05/24 Tamika Barker MD [address] [place] [address] 3rd [place] [address] Gastroenterology 05/08/24 Turdy Solomon MD [address] [place] [address] Hematology and Oncology 05/08/24 Conor [place] MD [facility] [place] [address] Obstetrics and Gynecology 08/02/24 documented as of this encounter
--- OUTSIDE RECORDS SUMMARY | 2024-08-02 10:28 | XMS_ITS | Encounter Summary ---
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 Encounter Details Date Type Department Care Team (Late st Contact Info) Description 07/30/2024 Telephone [facility] MEDICINE 230 [place], [place] [phone] Claudia Sapp MD 230 [place], [place] [phone] chartprep Social History Tobacco Use Types Packs/Day [...] the past 12 months, has t he [employer], gas, oil or water company threatened to [...] Telephone Encounter - Anjana Mccabe [place] - 07/30/2024 10:41 AM EDT ..Chart Prep Labs: done Images: done Vaccines due: Shingles in pharmacy Due Referrals: Not Applicable Screenings: Eye Exam Overdue care gaps: SDOH and Disability documented in this encounter Plan of Treatment Upcoming Encounters Date Type Department Care Team ([facility] st Contact Info) Description 09/17/2024 9:30 AM EDT Telemedicine [facility] CHC MED & PEDS 505 [place] [address] Pauline Galvin, BRADEN 505 [place] [address] documented as of this encounter Visit Diagnoses Not on filedocumented in this encounter Additional Health Concerns Assessment Noted Time PHQ-9 Depression Total Score: 0 11/23/19 9:19 AM EDT documented as of this encounter Care Teams Wilderness Guide Relationship Specialty Start Date End Date Claudia Sapp MD [address] [place] [address] [place] [address] PCP - General Family Medicine 05/02/18 Graham Mcbride MD [address] [place] [address] [address] [place] [address] Obstetrics and Gynecology 04/05/24 Tamika Barker MD [address] [place] [address] Drive 3rd [place] [address] Gastroenterology 05/08/24 Trudy Solomon MD [address] [place] [address] Hematology and Oncology 05/08/24 documented as of this encounter
--- OUTSIDE RECORDS SUMMARY | 2024-08-02 10:28 | XMS_ITS | Clinical Summary ---
Author Organization [employer] [facility] Address [address] [place] [address] 7[address] [place] [address] Care Team Providers Care Facility Service Associate Name Role Phone Sekou, Claudia GORMAN Primary Care Provider [phone] Graham Mcbride MD Unavailable Tamika Barker MD Unavailable [phone] Trudy Solomon MD Unavailable [phone] Allergies No known active allergies Medications Blood Glucose Monitoring Suppl (FreeStyle Lite) w/Device kitIndications: Type 2 diabetes mellitus with hyperglycemia, unspecified whether dedicated intermodal truck driver insulin use ([facility]) 1 kit 2 times daily. 1 kit 023 Active Blood Glucose Monitoring Suppl (FreeStyle glucose monitoring) kitIndications: Type 2 diabetes mellitus with hyperglycemia, with long-term current use of insulin (CMS/[facility]) Use BID. Dx type 2 diabetes [...] 2 diabetes mellitus without complication, unspecified whether dedicated intermodal truck driver insulin use (CMS/HCC) USE DIRECTED TO TEST BLOOD SUGAR TWICE DAILY 100 strip 5 024 Active TRUEplus Lancets 33G miscIndications :Type 2 diabetes mellitus without complication, unspecified whether dedicated intermodal truck driver insulin use ([facility]) USE DIRECTED TO TEST BLOOD SUGAR TWICE DAILY 100 each 5 024 Active DULoxetine (Cymbalta) [address] capsuleIndicati ons:Moderate major depression ([facility]) Take 1 capsule (30 mg) by [...] and replace cap. 48 g 025 Active oxyCODONE (Roxicodone) 10 MG immediate release tabletIndicatio ns:Low back pain at multiple sites Take 1 tablet (10 mg) by mouth every 8 (eight) hours if needed for severe pain. 84 tablet Active atorvastatin (Lipitor) 80 MG tabletIndicatio ns:Dyslipidemia Take 1 tablet (80 mg) by mouth Once per day. 30 tablet 11 025 2025 Active atorvastatin (Lipitor) 40 MG tabletIndicatio ns:Dyslipidemia Take 1 tablet (40 mg) by mouth Once per day. 30 tablet 11 025 2024 Discontinued oxyCODONE (Roxicodone) 10 MG immediate release tabletIndicatio ns:Low back pain at multiple sites Take 1 tablet (10 mg) by mouth every 8 (eight) hours if needed for severe pain for up to 28 days. 84 tablet 025 2024 Discontinued oxyCODONE (Roxicodone) 10 MG immediate release tabletIndicatio ns:Low back pain at multiple sites Take 1 tablet (10 mg) by mouth every 8 (eight) hours if needed for severe pain. Do not start before July 27, 2024. 84 tablet 025 2024 Discontinued(R eorder (will not trigger notification to Pharmacy)) Active Problems Problem Noted Date Diagnosed Date Dietary counseling 05/30/2024 Assessment & Plan (08/02/2024 9:18 AM EDT): Dietary Recommendations: Fruits, vegetables, whole grains, protein foods, and fat-free or low-fat dairy products are healthy choices. Eat different types of protein foods in your diet. This can include seafood, lean meats, poultry, beans, peas, lentils, nuts, seeds, soy products, and eggs. Limit foods and beverages higher in added sugars, saturated fat, and sodium. Assessment & Plan (05/30/2024 2:27 PM EST): [...] sodium. Exercise counseling 05/30/2024 Assessment & Plan (08/02/2024 9:32 AM EDT): Exercise Recommendations: At least 150 minutes of moderate-intensity physical activity per week, or an equivalent combination of moderate- and vigorous-intensity activity Assessment & Plan (05/30/2024 2:27 PM EST): Exercise Recommendations: At least 150 minutes of moderate-intensity physical activity per week, or an equivalent combination of moderate- and vigorous-intensity activity roasterman (current) use of opiate analgesic 02/01 Pain [...] Collaborative Drug Therapy Managment Program with our PharmNAYELY Medrano 11/23/23 Assessment & Plan (08/02/2024 9:22 AM EDT): BP at goal -Lisinopril 5mg was d/c [...] Therapy Managment Program with our PharmDNAYELY 11/23/23 Hidradenitis suppurativa 11/23/2023 Overview (11/23/2023): -referred to Dermatology 11/23/23 Assessment & Plan (11/23/2023 9:52 AM EDT): -referred to Dermatology 11/23/23 Allergic rhinitis 11/23/2023 Hx laparoscopic cholecystectomy 09/04/2023 Overview (09/04/2023): -done 09/02/23 at [facility] with Jeff Hagen MD Constipation 02/21/2023 Overview [...] only Abnormal finding on ultrasound 01/17/2023 Overview (08/02/2024): US ordered by Ceo And Founder 12/2022 revealed 1. A 0.5 cm hyperechoic [...] for retention of urine, also referred by supervisor delivery department to Dr Zurita to consider best way [...] and has follow-up scheduled with Dr. Mcbride. -note with Dr. Mcbride 06/13/24 The treatment is laparoscopic ovarian cystectomy in order to make a definitive diagnosis, preserve ovarian tissue, and avoid potential problems such as torsion, rupture, or development of malignant components. For women who have completed childbearing, salpingo-oophorectomy is also acceptable treatment. 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 Pt referred to to [facility] for minimally invasive surgery by Dr. Mcbride. Saw GEODESY TEACHER at [facility] 07/24/24, referred by her GEODESY TEACHER, Dr. Mcbride. Will request records, but per [facility] ER note from 07/27/24 provider reported that pt stated has set up a hysterectomy and right oophorectomy on 23 August at [facility]. Assessment & Plan (08/02/2024 9:31 AM EDT): US ordered by Ceo And Founder 12/2022 revealed 1. A 0.5 cm hyperechoic [...] for retention of urine, also referred by supervisor delivery department to Dr Zurita to consider best way [...] and has follow-up scheduled with Dr. Mcbride. -note with Dr. Mcbride 06/13/24 The treatment is laparoscopic ovarian cystectomy in order to make a definitive diagnosis, preserve ovarian tissue, and avoid potential problems such as torsion, rupture, or development of malignant components. For women who have completed childbearing, salpingo-oophorectomy is also acceptable treatment. 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 Pt referred to to [facility] for minimally invasive surgery by Dr. Mcbride. Saw GEODESY TEACHER at [facility] 07/24/24, referred by her GEODESY TEACHER, Dr. Mcbride. Will request records, but per [facility] ER note from 07/27/24 provider reported that pt stated has set up a hysterectomy and right oophorectomy on 23 August at [facility]. Assessment & Plan (05/30/2024 2:46 PM EST): US ordered by Ceo And Founder 12/2022 revealed 1. A 0.5 cm hyperechoic [...] for retention of urine, also referred by supervisor delivery department to Dr Zurita to consider best way [...] (02/21/2023 9:12 AM EDT): US ordered by Ceo And Founder 12/2022 revealed 1. A 0.5 cm hyperechoic [...] for retention of urine, also referred by supervisor delivery department to Dr Zurita to consider best way of investigating uterine and ovarian findings. Other specified health status 10/13/2022 Overview (05/30/2024): -next physical exam due after 11/22/24 -referred to [facility] 05/30/24 -dental [facility] -health care proxy filed 11/23/23 Assessment & Plan (05/30/2024 2:35 PM EST): -next physical exam due after 11/22/24 -referred to [facility] 05/30/24 -dental [facility] [...] -Referral for pain management and acupuncture 05/24/22. Seasonal allergies 05/21/2022 History of bariatric surgery 05/21/2022 Overview (05/21/2022): Hx gastric bypass ru en y 08/2020 at [facility]. Max weight 297lbs 2017, weight before surgery 286 08/2020. Continue with weight loss program. Assessment & Plan (08/11/2022 10:47 AM EDT): Hx gastric bypass ru en y 08/2020 at [facility]. Max weight 297lbs 2017, weight before surgery 286 08/2020. Continue with weight loss program. Assessment & Plan (05/21/2022 9:35 AM EST): Hx gastric bypass ru en y 08/2020 at [facility]. Max weight 297lbs 2017, weight before surgery [...] and multiple abscesses. Pt followed by hematology. Right-sided low back pain with right-sided sciat ica 05/21/2022 Overview (08/02/2024): No improvement with PT, injections, multiple medications MRI 06/2016 with only minor changes, no significant stenosis. Nerve conduction study 07/29/16 revealed Chronic right mid to lower lumbar radiculopathy. Pt on chronic AUTOMATIC LOG CUT OFF SAWYER and compliant with therapy. Gabapentin was ineffective. Continue Oxycodone to 10mg BID. This is improving her function. 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 Nerve conduction study 07/29/16 revealed Chronic right mid to lower lumbar radiculopathy. Pt on chronic AUTOMATIC LOG CUT OFF SAWYER and compliant with therapy. Gabapentin was ineffective. Continue Oxycodone to 10mg BID. This is improving her function. Assessment & Plan (08/02/2024 9:30 AM EDT): >>ASSESSMENT AND PLAN FOR CHRONIC RIGHT-SIDED LOW BACK PAIN WITH RIGHT-SIDED SCIATICA WRITTEN ON 08/11/2022 10:46 AM BY LARRY GARCIA No improvement with PT, injections, multiple medications MRI 06/2016 with only minor changes, no significant stenosis. Nerve conduction study 07/29/16 revealed Chronic right mid to lower lumbar radiculopathy. Pt on chronic AUTOMATIC LOG CUT OFF SAWYER and compliant with therapy. Gabapentin was ineffective. Continue Oxycodone to 10mg BID. This is improving her function. Assessment & Plan (08/02/2024 9:30 AM EDT): >>ASSESSMENT AND PLAN FOR CHRONIC RIGHT-SIDED LOW BACK PAIN WITH RIGHT-SIDED SCIATICA WRITTEN ON 11/30/2023 11:57 AM BY CLAUDIA SAPP MD No improvement with PT, injections, multiple medications MRI 06/2016 with only minor changes, no significant stenosis. Nerve conduction study 07/29/16 revealed Chronic right mid to lower lumbar radiculopathy. Pt on chronic AUTOMATIC LOG CUT OFF SAWYER and compliant with therapy. Gabapentin was ineffective. Continue Oxycodone to 10mg BID. This is improving her function. Assessment & Plan (08/02/2024 10:04 AM EDT): No improvement with PT, injections, multiple medications MRI 06/2016 with only minor changes, no significant stenosis. Nerve conduction study 07/29/16 revealed Chronic right mid to lower lumbar radiculopathy. Pt on chronic AUTOMATIC LOG CUT OFF SAWYER and compliant with therapy. Gabapentin was ineffective. Continue Oxycodone to 10mg BID. This is improving her function. 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 Likely due to metabolic dysfunction-associated steatotic liver disease. Lab Results Component Value Date AST 12 11/23/2023 AST 10 05/24/2022 ALT 11 11/23/2023 ALT 11 05/24/2022 ALP 110 11/23/2023 DIRECTBILIRU 0.1 11/23/2023 -Labs for autoimmune hepatitis, hemochromatosis, alpha -1 antitrypsin deficiency and viral hepatitis normal 7/24/24 except slight elevation in smooth muscle Ab [...] initial goals with patient. Assessment & Plan (08/02/2024 9:21 AM EDT): Discussed weight, diet, exercise with patient in relation to health conditions. Used motivational interviewing to illicit change talk and established initial goals with patient. Assessment & Plan (05/30/2024 2:43 PM EST): Discussed weight, diet, exercise with patient in relation to health conditions. Used motivational interviewing to illicit change talk and established initial goals with patient. Type 2 diabetes mellitus 09/17/2011 Overview (08/02/2024): Diabetes is controlled. - Lab Results Component Value Date HGBA1C 6.3 (H) 07/06/2024 HGBA1C 6.8 (A) 05/30/2024 HGBA1C 6.2 (A) 11/23/2023 - Lab Results Component Value Date CREATININE 0.78 11/23/2023 EGFR >60 11/23/2023 MICROALBCREU 13.3 11/23/2023 MICROALBCREU 4.2 02/21/2023 LDLCHOLCAL 119 (H) 07/06/2024 -Regino/Arb: lisinopril 5mg -Statin therapy: atorvastatin 80 -Diabetic eye exam: referred to [facility] 05/30/24 -Diabetic foot exam: done 11/23/23 -Continue lifestyle modifications -All diabetes medication discontinued by weight management program. S/p weight loss surgery 08/2020 Assessment & Plan (08/02/2024 9:33 AM EDT): Diabetes is controlled. Lab Results Component Value Date HGBA1C 6.3 (H) 07/06/2024 HGBA1C 6.8 (A) 05/30/2024 HGBA1C 6.2 (A) 11/23/2023 Lab Results Component Value Date CREATININE 0.78 11/23/2023 EGFR >60 11/23/2023 MICROALBCREU 13.3 11/23/2023 MICROALBCREU 4.2 02/21/2023 LDLCHOLCAL 119 (H) 07/06/2024 -Regino/Arb: lisinopril 5mg -Statin therapy: atorvastatin 80 -Diabetic eye exam: referred to [facility] 05/30/24 -Diabetic foot exam: done [...] atorvastatin 80 -Diabetic eye exam: referred to [facility] 05/30/24 -Diabetic foot exam: done [...] -Diabetic eye exam: via [facility] -Diabetic foot exam: done 11/23/23 -Continue [...] therapy: atorvastatin 80 -[facility] -Diabetic foot exam: -Continue lifestyle modifications [...] therapy: atorvastatin 80 -Diabetic eye exam: via [facility] -Diabetic foot exam: -Continue lifestyle modifications [...] QHS). - Ophthalmology evaluation 03/2017 at [facility], recommended 1 year f/u. - S/P influenza vaccination 12/2020 - Importance of low-fat, low cholesterol, ADA diet discussed. Importance of moderate physical activity discussed. Dyslipidemia 09/17/2011 Overview (08/02/2024): Lab Results Component Value Date CHOL 190 07/06/2024 CHOL 288 (H) 11/23/2023 CHOL 258 (H) 02/21/2023 TRIG 99 07/06/2024 TRIG 131 11/23/2023 TRIG 125 02/21/2023 TRIG 195 (H) 05/24/2022 HDL 52 07/06/2024 HDL 53 11/23/2023 HDL 50 02/21/2023 LDLCHOLCAL 119 (H) 07/06/2024 LDLCHOLCAL 209 (H) 11/23/2023 LDLCHOLCAL 183 (H) 02/21/2023 -continue lifestyle modification -ezetimibe started 05/07/2020 -was on 80 mg Atorvastatin, but has not been taking it for years. Will restart at 40 mg 05/30/24. Will recheck again in 6 weeks, if LDL is not <100 will increase Atorvastatin back to 80 mg. LDL from 07/06/24 was >100, will increase Atorvastatin to 80 mg today 08/02/24. Will repeat in 6 weeks. Assessment & Plan (08/02/2024 9:23 AM EDT): Lab Results Component Value Date CHOL 190 07/06/2024 CHOL 288 (H) 11/23/2023 CHOL 258 (H) 02/21/2023 TRIG 99 07/06/2024 TRIG 131 11/23/2023 TRIG 125 02/21/2023 TRIG 195 (H) 05/24/2022 HDL 52 07/06/2024 HDL 53 11/23/2023 HDL 50 02/21/2023 LDLCHOLCAL 119 (H) 07/06/2024 LDLCHOLCAL 209 (H) 11/23/2023 LDLCHOLCAL 183 (H) 02/21/2023 -continue lifestyle modification -ezetimibe started 05/07/2020 -was on 80 mg Atorvastatin, but has not been taking it for years. Will restart at 40 mg 05/30/24. Will recheck again in 6 weeks, if LDL is not <100 will increase Atorvastatin back to 80 mg. LDL from 07/06/24 was >100, will increase Atorvastatin to 80 mg today 08/02/24. Will repeat in 6 weeks. Assessment & Plan (05/30/2024 2:39 PM EST): [...] Encounters Date Type Department Care Team Description 08/02/2024 9:15 AM EDT Office Visit [facility] [address] [place] [phone] Claudia Sapp MD Abnormal finding on ultrasound (Primary Dx); Primary hypertension; Type 2 diabetes mellitus without complication, with long-term current use of insulin ([facility]); Dyslipidemia; Chronic right-sided low back pain with right-sided sciatica; Class 2 severe obesity due to excess calories with serious comorbidity and body mass index (BMI) of 39.0 to 39.9 in adult ([facility]); Dietary counseling; Exercise counseling 08/02/[address] [address] Claudia Sapp MD Care Coordination 08/02/2024 Travel 08/01/2024 Refill [facility] [address] [place] [address] Claudia Sapp MD Low back pain at multiple sites 07/30/[address] [address] Claudia Sapp MD chartprep 07/25/2024 Refill [facility] [address] [place] [address] Claudia Sapp MD Low back pain at multiple sites 07/13/2024 Population Health Risk Score [facility] [address] [facility] [address] [id number] Provider, Population Health Generic 07/06/2024 11:00 AM EST Clinical Support [facility] [address] [place] [phone] Pauline Galvin RN [facility] (current) use of opiate analgesic 07/06/2024 Travel 07/06/2024 Orders Only GENERIC EXTERNAL DATA DEPARTMENT Provider, Generic External Data 06/29/2024 Travel 06/29/2024 Refill [facility] [address] [place] [address] Pauline Galvin RN Low back pain at multiple sites 06/29/2024 Telephone [facility] [address] [place] [id number] Claudia Sapp MD Med Refill 06/07/2024 Telephone [facility] [address] [place] [address] Pauline Galvin, RN clerk operator 06/07/2024 Telephone [facility] [address] [place] [phone] Claudia Sapp MD Appointment Request 06/05/2024 Telephone [facility] [address] [place] [address] Pauline Galvin RN 06/04/[address] [address] Claudia Sapp MD Med Refill 05/31/2024 Refill [facility] [address] [place] [phone] Claudia Sapp MD Low back pain at multiple sites 05/30/2024 2:00 PM EST Office Visit [address] [phone] Claudia Sapp MD Primary hypertension (Primary Dx); Type 2 diabetes mellitus without complication, with long-term current use of insulin ([facility]); Dyslipidemia; Allergic rhinitis, unspecified seasonality, unspecified trigger; Abnormal finding on ultrasound; Chronic low back pain with sciatica, sciatica laterality unspecified, unspecified back pain laterality; Irritable bowel syndrome, unspecified type; Colon cancer screening; Dietary counseling; Exercise counseling; Class 2 severe obesity due to excess calories with serious comorbidity and body mass index (BMI) of 39.0 to 39.9 in adult ([facility]); Other specified health status 05/30/2024 Travel 05/29/[address] [address] Anjana Mccabe MA chartprep from Last 3 Months Immunizations Name Administration [...] getting things needed for daily living? No 08/02/2024 Utilities Answer Date Recorded In the past 12 months, has t he electric, gas, oil or water company threatened to shut off services in your home? No 09/21/2023 Depression Answer Date Recorded Patient Health Questionnaire-2 Score 0 11/23/2023 Internet Access Answer Date Recorded Internet Access Q1 No 08/02/2024 Internet Access Q2 I do not want or need it 06/2024 Comments Unknown Sex and Gender Information Value Date Recorded Sex Assigned at Female 03/01/2022 10:19 AM EDT Legal Sex Female 10:19 AM EDT Gender Identity Female 03/01/2022 10:19 AM EDT Sexual Orientation Straight 03/01/2022 10 :19 AM EDT Last Filed Vital Signs Vital Sign Reading Time Taken Comments Blood Pressure 136/83 08/02/2024 9:05 AM EDT Pulse 67 08/02/2024 9:05 AM EDT Temperature 37.2 ??C (98.9 ??F) 08/02/2024 9:05 AM ED T Respiratory Rate 18 08/02/2024 9:05 AM EDT Oxygen Saturation 99% 08/02/2024 9:05 AM EDT Inhaled Oxygen Concentration - - Weight 103 kg (226 lb 3.2 oz) 08/02/2024 9:05 AM EDT Height 162.6 cm (5' 4 ) 08/02/2024 9:05 AM EDT Body Mass Index 38.83 08/02/2024 9:05 AM EDT Plan of Treatment Upcoming Encounters Date Type Department Care Team (Late st Contact Info) Description 09/17/2024 9:30 AM EDT Telemedicine [facility] [address] [place] [address] Pauline Galvin, BRADEN [address] [place] [address] Health Maintenance Due Date Last Done Comments CT Colonography 1973 FIT DNA/Cologuard 1973 FIT 1973 FOBT 1973 Sigmoidoscopy 1973 Eye Exam 12/09/1983 Zoster Vaccines (1 of 2) 12/09/2023 Influenza Vaccine (#1) 2024 , 05/24/2022, 01/23/2021, Additional history exists Postponed from 01/01/2024 (Patient Refused) Depression Screening 11/22/2024 11/23/2023, 11/23/19 Diabetes: Foot Exam 11/22/2024 11/23/2023, 11/23/2023, 11/23/2023, Additional history exists Diabetes: Urine Protein Screening 11/22/2024 11/23/2023, 02/21/2023, 08/19/2021, Additional history exists Diabetes: Hemoglobin A1C 01/06/2025 025, 05/30/2024, 11/23/2023, Additional history exists Alcohol/Substance Use Screening 05/30/2025 05/30/2024 COVID-19 Vaccine ( season) 2025 05/24/2022, 05/05/2021, 07/30/2020, Additional history exists Postponed from 01/01/2024 (Patient Refused) Lipid Panel 07/06/2025 07/06/2024, 0708/2023, 02/21/2023, Additional history exists Family Planning (PISQ) 08/02/2025 08/02/2024 SDOH Screening 08/02/2025 08/02/2024 Tobacco Screening 08/02/2025 08/02/2024 Mammogram 10/23/2025 10/24/2023, 05/0 06/2022, 06/09/2022, Additional history exists Cervical Cancer [...] Name Priority Date/Time Associated Diagnosis Comments POCT MOISE-14 URINE DRUG SCREEN Routine 07/06/2024 10:22 AM EST roasterman (current) use of opiate analgesic VITAMIN B1 Routine 07/06/2024 9:00 AM EST VITAMIN A Routine 07/06/2024 9:00 AM EST ZINC Routine 07/06/2024 9:00 AM EST INSULIN Routine 07/06/2024 9:00 AM EST VITAMIN B12/FOLATE, SERUM PANEL Routine 07/06/2024 9:00 AM EST TSH W/REFLEX TO FT4 Routine 07/06/2024 9 :00 AM EST VITAMIN D,25-OH,TOTAL,IA Routine 07/06/2024 9:00 AM EST FERRITIN Routine 07/06/2024 9:00 AM EST HEMOGLOBIN A1C Routine 07/06/2024 9:00 AM EST LIPID PANEL, STANDARD Routine 07/06/2024 9:00 AM EST CBC WITH AUTO DIFFERENTIAL Routine 07/06/2024 9:00 [...] with long-term current use of insulin (CMS/HCC) BI MAMMOGRAM SCREENING TOMOSYNTHESIS BILATERAL Routine 10/24/2023 12:20 PM EDT HM COLONOSCOPY Routine 02/15/2023 PAP SMEAR Routine 12/27/2022 9:53 AM EDT from Last 3 Months or Most Recently Relevant to Health Maintenance Results * POCT MOISE-14 Urine Drug Screen (07/06/2024 10:22 AM EST) Oxycodone Screen, Urine Positive Urine Urine specimen obtained by clean catch procedure / Unknown 07/06/2024 10:22 AM EST Narrative Pauline Galvin, BRADEN - 07/06/2024 10:22 AM EST .UTOX cup Lot#[id number] Exp. 12/19/25 Internal Pass Control Claudia Sapp MD POINT OF CARE TEST ENTER/E DIT ORDERABLES Final Result * (ABNORMAL) Vitamin D, 25-Hydroxy, Total, Immunoassay (07/06/2024 9:00 AM EST) Vitamin D 25-OH Total 24.9(L) >30 ng/mL [facility] Comment:Health Based Referen ce Values*< 20 ng/mL Frirajofk91-50 ng/mL Insufficient> 30 ng/mL Sufficient*Jen ANOTNY. N Engl J Med. 2007;357:266-280Care must be taken in interpreting Vitamin D results fromdifferent laboratories and methodologies. Published datademonstrated that results from patients undergoinghemodialysis may show a negative bias when tested withvarious automated 25-OH vitamin D assays when compared toLC-MS/MS.When testing samples from patients whose predominant form ofVitamin D is Vitamin D2, such as patients receiving VitaminD2 supplementation, results that are subtherapeutic shouldbe confirmed with another method such as LC-MS/MS. 07/06/2024 9:00 AM EST 07/06/2024 9:05 AM EST us Generic External Data Provider LAB BLOOD ORDERAB LES Final Result [facility] [address] [place] [phone] * Vitamin B12 (Cobalamin) and Folate Panel, Serum (07/06/2024 9:00 AM EST) Vitamin B12 359 200 - 900 pg/mL [facility] Comment:NORMAL 200-900 PG/ML INDETERMINATE 160-199 PG/ML DEFICIENT < 160 PG/ML Folate 7.6 > or = 4.0 ng/mL [facility] Comment:Reference Values:> o r = 4.0 ng/mL< 4.0 ng/mL suggests folate deficiency Methotrexate, aminopterin and folinic acid(leucovorin) are chemotherapeutic agents whose molecularstructures are similar to folate; therefore, the Architectfolate assay cannot be used for patients using these drugs. 07/06/2024 9:00 AM EST 07/06/2024 9:05 AM EST Generic External Data Provider LAB BLOOD ORDERAB LES Final Result Performing Organization Address [facility] Co de Phone Number [facility] [address] [place] [phone] * TSH with Reflex to Free T4 (07/06/2024 9:00 AM EST) Pathologist [facility] TSH reflex Free T4 1.61 0.32 - 4.0 uIU/mL [facility] 07/06/2024 9:00 AM EST 07/06/2024 9:05 AM EST Generic External Data Provider LAB BLOOD ORDERAB LES Final Result Performing Organization Address [facility] de Phone Number [facility] [address] [place] [phone] * (ABNORMAL) CBC auto differential (07/06/2024 9:00 AM EST) White Blood Count 10.8 4.8 - 10.8 X10*3/uL [facility] Red Blood Count 4.90 4.20 - 5.50 X10*6/uL [facility] Hemoglobin 11.9(L) 12.0 - 16.0 g/dl [facility] Hematocrit 37.0 37.0 - 47.0 % [facility] Mean Corpuscular Volume 75.5(L) 80.0 - 98.0 fL [facility] Mean Corpuscular Hemoglobin 24.3(L) 27.0 - 33.0 pg [facility] Mean Corpuscular HGB Conc 32.2 31.0 - 35.0 g/dl [facility] Red Cell Distribution Width 13.5 11.0 - 16.0 % [facility] Platelet Count 363 160 - 400 X10*3/uL [facility] Mean Platelet Volume 10.6 9.4 - 12.3 fL [facility] Neutrophils Percent Auto 66.9 45 - 73 % [facility] Imm Gran Pct Auto 0.3 0.0 - 0.4 % [facility] Lymphocytes Percent Auto 24.3 20 - 40 % [facility] Monocytes Percent Auto 6.4 2 - 11 % [facility] Eosinophils Percent Auto 1.7 0 - 4 % [facility] Basophils Percent Auto 0.4 0 - 2 % [facility] NRBC Pct Auto 0.0 0.0 - 0.2 /100WBC [facility] Neutrophils Absolute Auto 7.2 2.0 - 8.3 x10*3/uL [facility] Imm Gran Abs Auto 0.03 0.00 - 0.03 X10*3/uL [facility] Lymphocytes Absolute Auto 2.6 1.2 - 4.9 X10*3/uL [facility] Monocytes Absolute Auto 0.7 0.1 - 1.2 X10*3/uL [facility] Eosinophils Absolute Auto 0.2 0.0 - 0.4 X10*3/uL [facility] Basophils Absolute Auto 0.0 0.0 - 0.2 X10*3/uL [facility] NRBC Abs Auto 0.000 0.0 - 0.012 X10*3/uL [facility] 07/06/2024 9:00 AM EST 07/06/2024 9:05 AM EST us Generic External Data Provider LAB BLOOD ORDERAB LES Final Result [facility] [address] [place] [phone] * Insulin (07/06/2024 9:00 AM EST) Insulin 8 2 - 29 uU/mL [facility] Comment:This test was perfor med using the Tolentino chemiluminescentmethod. Values obtained from different assay methods cannot beused interchangeably. This insulin assay shows a possiblecross-reactivity with antibodies generated against insulin(immunoreactive insulin and some patients treated withbovine or porcine insulin). Insulin levels may be measuredlower in patients with insulin autoimmune syndrome orfamilial high pro-insulinemia. 07/06/2024 9:00 AM EST 07/06/2024 9:05 AM EST Generic External Data Provider LAB BLOOD ORDERAB LES Final Result Performing Organization Address [facility] Co de Phone Number [facility] [address] [place] [address] [phone] * (ABNORMAL) Zinc (07/06/2024 9:00 AM EST) Zinc 47(A) 60 - 130 mcg/dL [facility] Comment:This test was develo ped and its analytical performancecharacteristics have been determined by [employer] [place], [place]. It hasnot been cleared or approved by the U.S. Food and DrugAdministration. This assay has been validated pursuantto the CLIA regulations and is used for clinicalpurposes.THIS TEST WAS PERFORMED AT:[employer] [place] [address]FXQXMEUJENNA MOORE MD,PHD 07/06/2024 9:0 0 AM EST 07/06/2024 9:05 AM EST Generic External Data Provider LAB BLOOD ORDERAB LES Final Result Performing Organization Address [facility] Co de Phone Number [facility] [address] [place] [phone] * (ABNORMAL) Vitamin A (07/06/2024 9:00 AM EST) Vitamin A (Retinol) 34(A) 38 - 98 mcg/dL [facility] Comment:Vitamin supplementat ion within 24 hours prior toblood draw may affect the accuracy of the results.This test was developed and its analytical performancecharacteristics have been determined by [employer] [place], [place]. It hasnot been cleared or approved by the .S. Food and DrugAdministration. This assay has been validated pursuantto the CLIA regulations and is used for clinicalpurposes.THIS TEST WAS PERFORMED AT:[employer]/[facility] [id number] [place] [address]DSCLTDMJENNA MOORE MD,PHD 07/06/2024 9:00 AM EST 07/06/2024 9:05 AM EST Generic External Data Provider LAB BLOOD ORDERAB LES Final Result Performing Organization Address [facility] de Phone Number [facility] [address] [place] [phone] * (ABNORMAL) Vitamin B1 (07/06/2024 9:00 AM EST) Vitamin B1 <6(A) 8 - 30 nmol/L [facility] Comment:Vitamin supplementat ion within 24 hours prior toblood draw may affect the accuracy of the results.This test was developed and its analytical performancecharacteristics have been determined by [employer] [place], [place]. It hasnot been cleared or approved by the U.S. Food and DrugAdministration. This assay has been validated pursuantto the CLIA regulations and is used for clinicalpurposes.THIS TEST WAS PERFORMED AT:[employer]/[id number] [place] [address]TKQQNVRJENNA MOORE MD,PHD 07/06/2024 9:00 AM EST 07/06/2024 9:05 AM EST Generic External Data Provider LAB BLOOD ORDERAB LES Final Result Performing Organization Address [facility]/ZIP Co de Phone Number [facility] [address] [place] [phone] * (ABNORMAL) Hemoglobin A1c (07/06/2024 9:00 AM EST) Hemoglobin A1c 6.3(H) <6.0 % [facility] Comment:Hemoglobin A1C Refer ence Range Adults: 4.8 - 6.0 % Non diabetic: < 6.0 % Goal: < 7.0 %Additional Action Suggested: > 8.0 %Note: Hemoglobin A1c results are invalid for patients with abnormal amounts of HbF. Blood transfusions may impact the HbA1c concentration in the patient sample. Estimated Average Glucose 134 mg/dL [facility] Comment:eAG = Estimated ave rage glucose which is %A1C expressed asaverage glucose, using the formula of the V0A-ZluplqmTufvtyp Glucose study (ADAG), Diabetes Care, Vol.31,#8,Nov. 2007 07/06/2024 9:00 AM EST 07/06/2024 9:05 AM EST us Generic External Data Provider LAB BLOOD ORDERAB LES Final Result [facility] [address] [place] [phone] * Ferritin (07/06/2024 9:00 AM EST) Pathologist [facility] Ferritin 13 10 - 250 ng/mL [facility] 07/06/2024 9:00 AM EST 07/06/2024 9:05 AM EST us Generic External Data Provider LAB BLOOD ORDERAB LES Final Result Performing Organization Address [facility]/State/ZIP Co de Phone Number [facility] [address] [place] [phone] * (ABNORMAL) Lipid Panel, Standard (07/06/2024 9:00 AM EST) Triglycerides 99 <150 mg/dL [facility] Comment:Desirable Triglyceri de: less than 150 mg/dLBorderline High Triglyceride 150-199 mg/dLHigh Triglyceride: 200-499 mg/dLVery High Triglyceride: greater than or equal to 5OO mg/dL Cholesterol 190 <200 mg/dL [facility] Comment:Desirable Cholestero l: less than 200 mg/dLBorderline High Cholesterol: 200-239 mg/dLHigh Cholesterol: greater than 239 mg/dL LDL Cholesterol Calculated 119(H) <100 mg/dL [facility] Comment:Desirable LDL: less than 100 mg/dLNear Optimal/Above Optimal LDL: 110- 129 mg/dLBorderline High LDL: 130-159 mg/dLHigh LDL: 160-189 mg/dLVery High LDL: greater than or equal to 190 mg/dL HDL Cholesterol 52 >40 mg/dL [facility] Comment:Desirable HDL: great er than 40 mg/dL Note: This HDL assay may give artificially low results in patients with liver disease. 07/06/2024 9:00 AM EST 07/06/2024 9:05 AM EST us Generic External Data Provider LAB BLOOD ORDERAB LES Final Result [facility] [address] [place] [address] [phone] * (ABNORMAL) POCT HGB A1C (05/30/2024 [...] 10:22 AM EDT) Creatinine, Urine 195.00 mg/dL [facility] Microalbumin Urine 26.0 mg/L [facility] Microalbum Creatinine Ratio Ur 13.3 <30 ug/mg cr [facility] Comment:Albumin/Creatinine R atio Reference Ranges: Normal: < 30 ug/mg creatinine Microalbuminuria: 30 - 300 ug/mg creatinineClinical Albuminuria: > 300 ug/mg creatinine Urine 11/23/2023 10:2 2 AM EDT 11/23/2023 11:50 AM EDT Claudia Sapp MD LAB URINE ORDERABLES Final Result Performing Organization Address [facility] Co de Phone Number [facility] [address] [place] [phone] * Hepatitis C Antibody with Reflex to HCV, RNA, Quantitative, Real-Time PCR (11/23/2023 10:22 AM EDT) Pathologist [facility] Hepatitis C Antibody Nonreactive Nonreactive [facility] Comment:Antibodies to HCV no t detected; does not exclude early acuteHCV infection. Blood Venous blood specimen / Unknown 11/23/2023 10:22 AM EDT 11/23/2023 11:48 AM EDT Claudia Sapp MD LAB BLOOD ORDERABLES Final Result Performing Organization Address [facility] Co de Phone Number [facility] [address] [place] [address] [phone] * HIV-1/2 Antigen and Antibodies, Fourth Generation, with Reflexes (11/23/2023 10:22 AM EDT) HIV AB/AG Nonreactive Nonreactive [facility] Comment:HIV-1 p24 Ag and/or HIV-1/HIV-2 Ab not detected.A test result that is nonreactive does not exclude thepossibility of exposure to or infection with HIV-1 and/orHIV-2. Nonreactive results in this assay for individualswith prior exposure to HIV-1 and/or HIV-2 may be due toantigen and antibody levels that are below the limit ofdetection of this assay.The dINK HIV Ag/Ab Combo assay result andsupplemental assay results should be interpreted inconjunction with the patient's clinical presentation,history and other laboratory results. If the results areinconsistent with clinical evidence, additional testing issuggested to confirm the result. Blood Venous blood specimen / Unknown 11/23/2023 10:22 AM EDT 11/23/2023 11:48 AM EDT us Claudia Sapp MD LAB BLOOD ORDERABLES Final Result [facility] [address] [place] [phone] * BI Mammogram Screening Tomosynthesis Bilateral (10/24/2023 12:20 PM EDT) Anatomical Region Laterality Modality Breast Bilateral Mammography 10/24/2023 12:2 0 PM EDT Narrative 10/24/2023 2:12 PM EDT ? [facility] [place] ? [address] ?[place] [address] ? Mammography Report ? Signed ? Patient: Jonah Lei,Felisa ?MR# ?? : [id number] ? : 1975 ?Acct:[id number] ? Age/Sex: 47 / F ?ADM Date: 06/24/24 ? Loc: HO.MAMMO ? Attending Dr: Graham Mcbride MD ? Ordering Physician: Graham Mcbride MD ?Results: 1Negativ ?? e ? Date of Service: 10/24/23 ?Follow Up: 1 Year From Orig ?? inal Mammogram ? Procedure(s): MM tomosynthesis screening BI ?? Accession Number(s): [id number] ? cc: Claudia Sapp MD; Graham Mcbride [...] 1409 ? DD/ 1220 ? TD/TT: ? Vice President Of Manufacturing: ? Procedure Note Donotuseinterpreter, Image - 10/24/2023 [facility] [address] [place] [address] Mammography Report Signed Patient: Felisa CalhounMR# : [id number] : 1975Acct:[id number] Age/Sex: 47 / FADM Date: 10/24/23 Loc: HO.MAMMO Attending Dr: Graham Mcbride MD Ordering Physician: Graham Mcbride MDResults: 1Negativ e Date of Service: 10/24/23Follow Up: 1 Year From Orig inal Mammogram Procedure(s): MM tomosynthesis screening BI Accession Number(s): [id number] cc: Claudia Sapp MD; Graham Mcbride MD [...] in OV> 10/24/23 1409 DD/ 1220 TD/TT: Vice President Of Manufacturing: [facility] External Provider IMG BI PROCEDURES Final Result * Hm Colonoscopy (02/15/2023) Colonoscopy Normal Normal us Historical Provider HEALTH MAINTENANCE Final Result * Pap Smear (12/27/2022 9:53 AM EDT) 12/27/2022 9:53 AM EDT 12/27/2022 1:50 PM EDT Narrative [facility] - 01/08/2023 2:14 PM EDT ----- ------- Name: Felisa Calhoun ? Age/Sex: 47/F ? : 1975 Unit#: [id number] ?? Attend Dr: Amprao Hogan CNM ?Re12/27/22 ?Status: DEP REF ? Location: HO.LNP ?Disch: ? ----- ------- SPEC : [id number] ?RECD: 12/27/22-1670 ? STATUS: ??SOUT ? REQ NUM: [id number] ? WYATT: 12/27/22-0953 ? SUBM DR: Amparo Hogan CNM ? ENTERED: ??12/27/22-1449 ?SP TYPE: Pap Smr ?OTHR DR: Claudia [...] 66, 68) ? HPV testing performed by [facility], [place], [place]. ??See reference laboratory ?? portion of the EMR for entire report. ?Clinical Information LMP:12/11/22 Previous PAP test:01/27/15, WNL Other history:pelvic and perineal pain ? Material Received ?? ThinPrep-Cervical Copies To: ?? Claudia Sapp MD ?? [address] ?? [place] [address] ? Amparo Hogan CNM ?? [address] ?? [place] [address] ?? [phone] ----- ------- Signed (signature on file) Florina Stanford 01/08/23 1414 ? ----- ------- ? END OF REPORT ? [facility] External Provider LAB [facility] ORDERABLES Final Result [facility] [address] [place], [place] [phone] from Last 3 Months or Most Recently Relevant to Health Maintenance Insurance [facility] C3 Advance Directives Documents on File Type Date Recorded Patient Makeup Artistry Instructor Expl anation Advance Directives and Living Will 11/23/2023 Health Care Proxy 11/23/23 Care Teams Facility Service Associate Relationship Specialty Start Date End Date Hickman, MD Claudia [address] [place] [phone] PCP - General Family Medicine 05/02/18 Graham Mcbride MD [address] [place] [phone] Obstetrics and Gynecology 04/05/24 Tamika Barker MD [address] [place] [address] 3rd [place] [address] Gastroenterology 05/08/24 Trudy Solomon MD [address] [place] [address] Hematology and Oncology 05/08/24 Conor Reed MD [facility] [place] [address] Obstetrics and Gynecology 08/02/24
--- OUTSIDE RECORDS SUMMARY | 2024-08-02 10:28 | XMS_ITS | Encounter Summary ---
Author Organization [employer] Address [address] [facility] 7t [place] [address] Care Team Providers Care Rubber Tester Name Role Phone Claudia Sapp MD Primary Care Provider [phone] Graham Mcbride MD Unavailable Tamika Barker MD Unavailable [phone] Trudy Solomon MD Unavailable Reason for Visit * Reason Onset Date Comments Med Refill 10/05/2023 Encounter Details Date Type Department Care Team (Late st Contact Info) Description 10/05/2023 Telephone [facility] MEDICINE [address] [place] [address] Claudia Sapp MD [address] [place], [place] [phone] Med Refill Social History Tobacco Use Types [...] immediate release tablet To be sent to: [facility] [place], [place] - [address] [place] [address] documented in this encounter Plan of Treatment Upcoming Encounters Date Type Department Care Team ([facility] st Contact Info) Description 09/17/2024 9:30 AM EDT Telemedicine [facility] [address] [place] [address] Pauline Galvin, BRADEN [address] [place] [address] documented as of this encounter Visit Diagnoses Not on filedocumented in this encounter Additional Health Concerns Assessment Noted Time PHQ-9 Depression Total Score: 0 05/24/19 10:10 AM EST documented as of this encounter Care Teams Rubber Tester Relationship Specialty Start Date End Date Claudia Sapp MD [address] [place] [address] PCP - General Family Medicine 05/02/18 Graham Mcbride MD [address] [place] [address] [address] [place] [address] Obstetrics and Gynecology 04/05/24 Tamika Barker MD [address] [place] [address] Drive 3rd [place] [address] Gastroenterology 05/08/24 Trudy Solomon MD [address] [place] [address] Hematology and Oncology 05/08/24 Conor Reed MD [facility] [place] [address] Obstetrics and Gynecology 08/02/24 documented as of this encounter
--- OUTSIDE RECORDS SUMMARY | 2024-08-02 10:28 | XMS_ITS | Encounter Summary ---
Author Organization [facility] Address [address] [place] [address] 7t [place] [address] Care Team Providers Care Roll Line Operator Name Role Phone [place], Claudia GORMAN Primary Care Provider [phone] Graham Mcbride MD Unavailable Taimka Barker MD Unavailable [phone] Trudy Solomon MD Unavailable [phone] Reason for Visit * Reason Comments Med Refill Encounter Details Date Type Department Care Team (Late st Contact Info) Description 10/08/2022 Refill [facility] MEDICINE [address] [place], [place] [phone] Mary Abdul, ANP [address] [place], [place] [phone] Low back pain at multiple sites Social [...] ([facility] st Contact Info) Description 09/17/2024 9:30 AM EDT Telemedicine [facility] MED & PEDS [address] [place] [address] Pauline Galvin RN [address] [place] [address] documented as of this encounter Visit Diagnoses Diagnosis Low back pain at multiple sites documented in this encounter Additional Health Concerns Assessment Noted Time PHQ-9 Depression Total Score: 0 05/24/19 10:10 AM EST documented as of this encounter Care Teams Roll Line Operator Relationship Specialty Start Date End Date Claudia Sapp MD [address] [place] [address] PCP - General Family Medicine 05/02/18 Graham Mcbride MD [address] [place] [address] [address] [place] [address] Obstetrics and Gynecology 04/05/24 Tamika Barker MD [address] [place] [address] 3rd [place] [address] Gastroenterology 05/08/24 Trudy Solomon MD [address] [place] [address] Hematology and Oncology 05/08/24 Conor Reed MD [facility] [place] [address] Obstetrics and Gynecology 08/02/24 documented as of this encounter
--- OUTSIDE RECORDS SUMMARY | 2024-08-02 10:28 | XMS_ITS | Encounter Summary ---
Author Organization [employer] [facility] Address [address] [facility] 7t [place] [address] Care Team Providers Care Plug Machine Operator Name Role Phone Claudia Sapp MD Primary Care Provider [phone] Graham Mcbride MD Unavailable Tamika Barker MD Unavailable [phone] Trudy Solomon MD Unavailable [phone] Reason for Visit * Reason Onset Date Comments Med Refill 01/07/2023 Encounter Details Date Type Department Care Team (Late st Contact Info) Description 01/07/2023 Telephone [facility] MEDICINE [address] [place], [place] [phone] Claudia Sapp MD [address] [place], [place] [phone] Med Refill Social History Tobacco Use Types [...] Team ([facility] st Contact Info) Description 09/17/2024 9:30 AM EDT Telemedicine [facility] MED [facility] P[facility] [address] [place] [address] Pauline Galvin, RN [address] [place] [address] documented as of this encounter Visit Diagnoses Not on filedocumented in this encounter Additional Health Concerns Assessment Noted Time PHQ-9 Depression Total Score: 0 05/24/19 23 10:10 AM EST documented as of this encounter Care Teams Plug Machine Operator Relationship Specialty Start Date End Date Claudia Sapp MD [address] [place] [address] PCP - General Family Medicine 05/02/18 Graham Mcbride MD [address] [place] [address] [address] [place] [address] Obstetrics and Gynecology 04/05/24 Tamika Barker MD [address] [place] [address] 3rd [place] [address] Gastroenterology 05/08/24 Trudy Solomon MD [address] [place] [address] Hematology and Oncology 05/08/24 Conor Reed MD [facility] [place] [address] Obstetrics and Gynecology 08/02/24 documented as of this encounter
--- OUTSIDE RECORDS SUMMARY | 2024-08-02 10:28 | XMS_ITS | Encounter Summary ---
Author Organization [employer] Address [address] [place] [address] Care Team Providers Care Metal Precision Machine Assembler Name Role Phone Claudia Sapp MD Primary Care Provider [phone] Graham Mcbride MD Unavailable Tamika Barker MD Unavailable [phone] Trudy Solomon MD Unavailable [phone] Reason for Visit * Reason Onset Date Comments Med Refill 03/02/2024 Encounter Details Date Type Department Care Team (Late st Contact Info) Description 03/02/2024 Telephone [facility] MEDICINE [address] [place], [place] [phone] Claudia Sapp MD [address] [place], [place] [phone] Med Refill Social History Tobacco Use Types [...] immediate release tablet To be sent to: [facility] documented in this encounter Plan of Treatment Upcoming Encounters Date Type Department Care Team (Late st Contact Info) Description 09/17/2024 9:30 AM EDT Telemedicine [facility] [address] [place] [address] Pauline Galvin RN [address] [place] [address] documented as of this encounter Visit Diagnoses Not on filedocumented in this encounter Additional Health Concerns Assessment Noted Time PHQ-9 Depression Total Score: 0 11/23/19 9:19 AM EDT documented as of this encounter Care Teams Metal Precision Machine Assembler Relationship Specialty Start Date End Date Claudia Sapp MD [address] [place] [address] PCP - General Family Medicine 05/02/18 Graham Mcbride MD [address] [place] [address] [address] [place] [address] Obstetrics and Gynecology 04/05/24 Tamika Barker MD [address] [place] [address] Drive 3rd [place] [address] Gastroenterology 05/08/24 Trudy Solomon MD [address] [place] [address] Hematology and Oncology 05/08/24 Conor Reed MD [facility] [place] [address] Obstetrics and Gynecology 08/02/24 documented as of this encounter
--- OUTSIDE RECORDS SUMMARY | 2024-08-02 10:28 | XMS_ITS | Encounter Summary ---
Author Organization [employer] Address [address] [facility] [address] 7t [place] [address] Care Team Providers Care Hospital Account Manager Name Role Phone Claudia Sapp MD Primary Care Provider [phone]- [phone] Graham Mcbride MD Unavailable Tamika Barker MD Unavailable [phone] Trudy Solomon MD Unavailable [phone] Reason for Visit * Reason Onset Date Comments Appointment Request 06/07/2024 Encounter Details Date Type Department Care Team (Late st Contact Info) Description 06/07/2024 Telephone [facility] 230 [place] [address] Claudia Sapp MD 230 [place], [place] [phone] Appointment Request Social History Tobacco Use Types [...] pt son was admitted to the hospital. [phone] georgian documented in this encounter Plan of Treatment Upcoming Encounters Date Type Department Care Team ([facility] st Contact Info) Description 09/17/2024 9:30 AM EDT Telemedicine [facility] MED & PEDS 505 [place] [address] Pauline Galvin RN 505 [place] [address] documented as of this encounter Visit Diagnoses Not on filedocumented in this encounter Additional Health Concerns Assessment Noted Time PHQ-9 Depression Total Score: 0 11/23/19 9:19 AM EDT documented as of this encounter Care Teams Hospital Account Manager Relationship Specialty Start Date End Date Claudia Sapp MD [address] [place] [address] [phone] PCP - General Family Medicine 05/02/18 Graham Mcbride MD [address] [place] [address] [address] [place] [address] Obstetrics and Gynecology 04/05/24 Tamika Barker MD [address] [place] [address] Drive 3rd [place] [address] Gastroenterology 05/08/24 Trudy Solomon MD [address] [place] [address] Hematology and Oncology 05/08/24 Conor Reed MD [facility] [place] [address] Obstetrics and Gynecology 08/02/24 documented as of this encounter
--- OUTSIDE RECORDS SUMMARY | 2024-08-02 10:28 | XMS_ITS | Encounter Summary ---
Author Organization [facility] Address [address] [facility] [address] 7t [place] [address] Care Team Providers Care Human Relations Teacher Name Role Phone Claudia Sapp MD Primary Care Provider +1- [phone] Graham Mcbride MD Unavailable Tamika Barker MD Unavailable [phone] Trudy Solomon MD Unavailable [phone] Encounter Details Date Type Department Care Team (Late st Contact Info) Description 06/17/2022 Orders Only [facility] MEDICINE 230 [place], [place] [phone] Claudia Sapp MD 230 [place], [place] [phone] Type 2 diabetes mellitus with hyperglycemia, with long-term current use of insulin ([facility]) (Primary Dx) Social [...] Info) Description 09/17/2024 9:30 AM EDT Telemedicine [facility] MED & PEDS 505 [place] [address] Pauline Galvin, RN [address] [place], [place] documented as of this encounter Visit Diagnoses Diagnosis Type 2 diabetes mellitus with hyperglycemia, with long-term current use of insulin ([facility])- Primary documented in this encounter Additional Health Concerns Assessment Noted Time PHQ-9 Depression Total Score: 0 05/24/19 23 10:10 AM EST documented as of this encounter Care Teams Human Relations Teacher Relationship Specialty Start Date End Date Claudia Sapp MD [address] [place] [address] PCP - General Family Medicine 05/02/18 Graham Mcbride MD [address] [place] [address] [place] [address] Obstetrics and Gynecology 04/05/24 Tamika Barker MD [address] [place] [address] 3rd [place] [address] Gastroenterology 05/08/24 Trudy Solomon MD [address] [place] [address] Hematology and Oncology 05/08/24 Conor Reed MD [facility] [place] [address] Obstetrics and Gynecology 08/02/24 documented as of this encounter
--- OUTSIDE RECORDS SUMMARY | 2024-08-02 10:28 | XMS_ITS | Encounter Summary ---
Author Organization [employer] Address [address] [facility] 7t [place] [address] Care Team Providers Care Giver Name Role Phone Claudia Sapp MD Primary Care Provider [phone]- [phone] Graham Mcbride MD Unavailable Tamika Barker MD Unavailable [phone] Trudy Solomon MD Unavailable [phone] Reason for Visit * Reason Comments Med Refill Encounter Details Date Type Department Care Team (Late st Contact Info) Description 11/09/2022 Refill [facility] MEDICINE 230 [place], [place] [phone] Claudia Sapp MD 230 [place], [place] [phone] Low back pain at multiple sites Social [...] Info) Description 09/17/2024 9:30 AM EDT Telemedicine [facility] MED & PEDS 505 [place] [address] Pauline Galvin, RN 505 [place] [address] documented as of this encounter Visit Diagnoses Diagnosis Low back pain at multiple sites documented in this encounter Additional Health Concerns Assessment Noted Time PHQ-9 Depression Total Score: 0 05/24/19 10:10 AM EST documented as of this encounter Care Teams Giver Relationship Specialty Start Date End Date Claudia Sapp MD [address] [place] [address] PCP - General Family Medicine 05/02/18 Graham Mcbride MD [address] [place] [address] [place] [address] Obstetrics and Gynecology 04/05/24 Tamika Barker MD [address] [place] [address] 3rd [place] [address] Gastroenterology 05/08/24 Trudy Solomon MD [address] [place] [address] Hematology and Oncology 05/08/24 Conor Reed MD [facility] [place] [address] Obstetrics and Gynecology 08/02/24 documented as of this encounter
--- OUTSIDE RECORDS SUMMARY | 2024-08-02 10:28 | XMS_ITS | Encounter Summary ---
Author Organization [employer] Address [address] [facility] 7t [place] [address] Care Team Providers Care Director Life Insurance Name Role Phone Claudia Sapp MD Primary Care Provider [phone]- [phone] Graham Mcbride MD Unavailable Tamika Barker MD Unavailable [phone] Trudy Solomon MD Unavailable [phone] Reason for Visit * Reason Onset Date Comments Med Refill 03/08/2023 Encounter Details Date Type Department Care Team (Late st Contact Info) Description 03/08/2023 Telephone [facility] MEDICINE 230 [place], [place] [phone] Claudia Sapp MD 230 [place], [place] [phone] Med Refill Social History Tobacco Use Types [...] Info) Description 09/17/2024 9:30 AM EDT Telemedicine [facility] MED & PEDS 505 [place] [address] Pauline Galvin, RN 505 [place] [address] documented as of this encounter Visit Diagnoses Not on filedocumented in this encounter Additional Health Concerns Assessment Noted Time PHQ-9 Depression Total Score: 0 05/24/19 23 10:10 AM EST documented as of this encounter Care Teams Director Life Insurance Relationship Specialty Start Date End Date Claudia Sapp MD [address] [place] [address] PCP - General Family Medicine 05/02/18 Graham Mcbride MD [address] [place] [address] [place] [address] Obstetrics and Gynecology 04/05/24 Tamika Barker MD [address] [place] [address] 3rd [place] [address] Gastroenterology 05/08/24 Trudy Solomon MD [address] [place] [address] Hematology and Oncology 05/08/24 Conor Reed MD [facility] [place] [address] Obstetrics and Gynecology 08/02/24 documented as of this encounter
--- OUTSIDE RECORDS SUMMARY | 2024-08-02 10:28 | XMS_ITS | Encounter Summary ---
Author Organization [employer] Address [address] [facility] 7t [place] [address] Care Team Providers Care Inside Contractor Sales Name Role Phone Claudia Sapp MD Primary Care Provider [phone]- [phone] Graham Mcbride MD Unavailable Tamika Barker MD Unavailable [phone] Trudy Solomon MD Unavailable [phone] Reason for Visit * Reason Onset Date Comments Med Refill 06/04/2024 Encounter Details Date Type Department Care Team (Late st Contact Info) Description 06/04/2024 Telephone [facility] MEDICINE 230 [place], [place] [phone] Claudia Sapp MD 230 [place], [place] [phone] Med Refill Social History Tobacco Use Types [...] the past 12 months, has t he [employer], Played, oil or water v[employer]Med[employer] threatened to shut off services in your [...] AM EST Medications were sent to [facility] on 05/30/24. * Telephone Encounter - Gracie Tracy - 06/04/2024 9:21 AM EST TC from pt requesting medication refill. Medications needing refill : atorvastatin (Lipitor) 80 MG tablet fluticasone (Flonase) 50 MCG/ACT nasal spray naloxone (Narcan) 4 mg/0.1 mL nasal spray To be sent to: [facility] - [place] - [address] documented in this encounter Plan of Treatment Upcoming Encounters Date Type Department Care Team ([facility] st Contact Info) Description 09/17/2024 9:30 AM EDT Telemedicine [facility] MED & PEDS 505 [place] [address] Pauline Galvin, RN 505 [place] [address] documented as of this encounter Visit Diagnoses Not on filedocumented in this encounter Additional Health Concerns Assessment Noted Time PHQ-9 Depression Total Score: 0 11/23/19 24 9:19 AM EDT documented as of this encounter Care Teams Inside Contractor Sales Relationship Specialty Start Date End Date Claudia Sapp MD [address] [place] [address] PCP - General Family Medicine 05/02/18 Graham Mcbride MD [address] [place] [address] [address] [place] [address] Obstetrics and Gynecology 04/05/24 Tamika Barker MD [address] [place] [address] 3rd [place] [address] Gastroenterology 05/08/24 Trudy Solomon MD [address] [place] [address] Hematology and Oncology 05/08/24 Conor Reed MD [facility] Women's [place] [address] Obstetrics and Gynecology 08/02/24 documented as of this encounter
--- OUTSIDE RECORDS SUMMARY | 2024-08-02 10:28 | XMS_ITS | Encounter Summary ---
Author Organization [email or web address] [facility] Address [address] [facility] [address] 7t [place] [address] Care Team Providers Care Certified Nurses' Aide Name Role Phone Claudia Sapp MD Primary Care Provider [phone]- [phone] Graham Mcbride MD Unavailable Tamika Barker MD Unavailable [phone] Trudy Solomon MD Unavailable [phone] Encounter Details Date Type Department Care Team (Late Contact Info) Description 05/24/2022 Abstract [facility] MEDICINE 230 [place] [address] Claudia Sapp MD 230 [place], [place] [phone] Social History Tobacco Use Types Packs/Day Years [...] Department Care Team (Late Contact Info) Description 09/17/2024 9:30 AM EDT Telemedicine [facility] MED & PEDS [address] [place] [address] Pauline Galvin, RN [address] [place], [place] documented as of this encounter Procedures Procedure [...] documented as of this encounter Care Teams Certified Nurses' Aide Relationship Specialty Start Date End Date Claudia Sapp MD [address] [place] [address] PCP - General Family Medicine 05/02/18 Graham Mcbride MD [address] [place] [address] [address] [place] [address] Obstetrics and Gynecology 04/05/24 Tamika Barker MD [address] [place] [address] 3rd [place] [address] Gastroenterology 05/08/24 Trudy Solomon MD [address] [place] [address] Hematology and Oncology 05/08/24 Conor Reed MD [facility] [place] [place] [address] Obstetrics and Gynecology 08/02/24 documented as of this encounter
--- OUTSIDE RECORDS SUMMARY | 2024-08-02 10:28 | XMS_ITS | Encounter Summary ---
Author Organization [employer] Address [address] [facility] 7t [place] [address] Care Team Providers Care Rim Turning Machine Operator Name Role Phone Claudia Sapp MD Primary Care Provider [phone]- [phone] Graham Mcbride MD Unavailable Tamika Barker MD Unavailable [phone] Trudy Solomon MD Unavailable [phone] Reason for Visit * Reason Onset Date Comments Med Refill 12/05/2023 Encounter Details Date Type Department Care Team (Late st Contact Info) Description 12/05/2023 Telephone [facility] MEDICINE 230 [place], [place] [phone] Claudia Sapp MD 230 [place], [place] [phone] Med Refill Social History Tobacco Use Types [...] immediate release tablet To be sent to: [facility] - [place], [place] - [address] [place] [address] documented in this encounter Plan of Treatment Upcoming Encounters Date Type Department Care Team ([facility] st Contact Info) Description 09/17/2024 9:30 AM EDT Telemedicine [facility] MED & PEDS 505 [place] [address] Pauline Galvin, BRADEN [address] [place] [address] documented as of this encounter Visit Diagnoses Not on filedocumented in this encounter Additional Health Concerns Assessment Noted Time PHQ-9 Depression Total Score: 0 11/23/19 9:19 AM EDT documented as of this encounter Care Teams Rim Turning Machine Operator Relationship Specialty Start Date End Date Claudia Sapp MD [address] [place] [address] PCP - General Family Medicine 05/02/18 Graham Mcbride MD [address] [place] [address] [address] [place] [address] Obstetrics and Gynecology 04/05/24 Tamika Barker MD [address] [place] [address] 3rd [place] [address] Gastroenterology 05/08/24 Trudy Solomon MD [address] [place] [address] Hematology and Oncology 05/08/24 Conor Reed MD [facility] [place] [address] Obstetrics and Gynecology 08/02/24 documented as of this encounter
--- OUTSIDE RECORDS SUMMARY | 2024-08-02 10:28 | XMS_ITS | Encounter Summary ---
Author Organization [employer] [facility] Address 75 [facility] 7t [place] [address] Care Team Providers Care Lubrication Worker Name Role Phone Claudia Sapp MD Primary Care Provider +1- [phone] Graham Mcbride MD Unavailable Taimka Barker MD Unavailable [phone] Trudy Solomon MD Unavailable [phone] Encounter Details Date Type Department Care Team (Late Contact Info) Description 09/01/2022 Abstract [facility] MEDICINE 230 [place] [address] Claudia Sapp MD 230 [place], [place] [phone] Social History Tobacco Use Types Packs/Day Years [...] Info) Description 09/17/2024 9:30 AM EDT Telemedicine [facility] MED & PEDS [address] [place] [address] Pauline Galvin, RN 505 [place], [place] documented as of this encounter Procedures [...] documented as of this encounter Care Teams Lubrication Worker Relationship Specialty Start Date End Date Claudia Sapp MD [address] [place] [address] PCP - General Family Medicine 05/02/18 Graham Mcbride MD [address] [place] [address] [address] [place] [address] Obstetrics and Gynecology 04/05/24 Tamika Barker MD [address] [place] [address] 3rd [place] [address] Gastroenterology 05/08/24 Trudy Solomon MD [address] [place] [address] Hematology and Oncology 05/08/24 Conor Reed MD [facility] [place] [address] Obstetrics and Gynecology 08/02/24 documented as of this encounter
--- OUTSIDE RECORDS SUMMARY | 2024-08-02 10:28 | XMS_ITS | Encounter Summary ---
Author Organization [employer] [facility] Address [address] [place] [address] 7t [place] [address] Care Team Providers Care Glaze Grinder Name Role Phone Claudia Sapp MD Primary Care Provider [phone]- [phone] Graham Mcbride MD Unavailable Tamika Barker MD Unavailable [phone] Trudy Solomon MD Unavailable [phone] Reason for Visit * Reason Onset Date Comments Med Refill 04/08/2022 Encounter Details Date Type Department Care Team ([facility] Contact Info) Description 04/08/2022 Telephone [facility] MEDICINE 230 [place], [place] [phone] Claudia Sapp MD 230 [place], [place] [phone] Med Refill Social History Tobacco Use Types [...] ([facility] st Contact Info) Description 09/17/2024 9:30 AM EDT Telemedicine [facility] CH[facility] MED & PEDS [address] [place] [address] Pauline Galvin, RN [address] [place], [place] documented as of this encounter Visit Diagnoses Not on filedocumented in this encounter Care Teams Glaze Grinder Relationship Specialty Start Date End Date Claudia Sapp MD [address] [place] [address] PCP - General Family Medicine 05/02/18 Graham Mcbride MD [address] [place] [address] [place] [address] Obstetrics and Gynecology 04/05/24 Tamika Barker MD [address] [place] [address] 3rd [place] [address] Gastroenterology 05/08/24 Trudy Solomon MD [address] [place] [address] Hematology and Oncology 05/08/24 Conor Reed MD [facility] [place] [address] Obstetrics and Gynecology 08/02/24 documented as of this encounter
--- OUTSIDE RECORDS SUMMARY | 2024-08-02 10:28 | XMS_ITS | Encounter Summary ---
Author Organization [employer] Address [address] [facility] [address] [facility] [address] 7t [place] [address] Care Team Providers Care Math And Sciences Department Chair Name Role Phone [place], Claudia GORMAN Primary Care Provider [phone]- [phone] Graham Mcbride MD Unavailable Tamika Barker MD Unavailable Trudy Solomon MD Unavailable [phone] Encounter Details Date Type Department Care Team (Latest Contact Info) Description 08/02/2024 Travel Social History Tobacco Use Types Packs/Day [...] Upcoming Encounters Date Type Department Care Team ([facility] st Contact Info) Description 09/17/2024 9:30 AM EDT Telemedicine [facility] MED & PEDS 505 [place] [address] Pauline Galvin RN 505 [place] [address] documented as of this encounter Visit Diagnoses Not on filedocumented in this encounter Additional Health Concerns Assessment Noted Time PHQ-9 Depression Total Score: 0 11/23/19 24 9:19 AM EDT documented as of this encounter Care Teams Math And Sciences Department Chair Relationship Specialty Start Date End Date Claudia Sapp MD [address] [place] [address] PCP - General Family Medicine 05/02/18 Graham Mcbride MD [address] [place] [address] [place] [address] Obstetrics and Gynecology 04/05/24 Tamika Barker MD [address] [place] [address] 3rd [place] [address] Gastroenterology 05/08/24 Trudy Solomon MD [address] [place] [address] Hematology and Oncology 05/08/24 Conor Reed MD [facility] [place] [address] Obstetrics and Gynecology 08/02/24 documented as of this encounter
--- OUTSIDE RECORDS SUMMARY | 2024-08-02 10:28 | XMS_ITS | Encounter Summary ---
Author Organization [employer] Address [address] [facility] [address] 7t [place] [address] Care Team Providers Care Fisher Clam Name Role Phone Claudia Sapp MD Primary Care Provider [phone]- [phone] Graham Mcbride MD Unavailable Tamika Barker MD Unavailable [phone] Trudy Solomon MD Unavailable [phone] Reason for Visit * Reason Onset Date Comments Med Refill 02/02/2024 Encounter Details Date Type Department Care Team (Late st Contact Info) Description 02/02/2024 Telephone [facility] MEDICINE 230 [place], [place] [phone] Claudia Sapp MD 230 [place], [place] [phone] Med Refill Social History Tobacco Use Types [...] be sent to: [facility] - [place], [place] - [address] [place] [address] documented in this encounter Plan of Treatment Upcoming Encounters Date Type Department Care Team ([facility] st Contact Info) Description 09/17/2024 9:30 AM EDT Telemedicine [facility] CHC MED & PEDS 505 [place] [address] Pauline Galvin RN 505 [place] [address] documented as of this encounter Visit Diagnoses Not on filedocumented in this encounter Additional Health Concerns Assessment Noted Time PHQ-9 Depression Total Score: 0 11/23/19 24 9:19 AM EDT documented as of this encounter Care Teams Fisher Clam Relationship Specialty Start Date End Date Claudia Sapp MD 230 [place] [address] PCP - General Family Medicine 05/02/18 Graham Mcbride MD [address] [place] [address] [address] [place] [address] Obstetrics and Gynecology 04/05/24 Tamika Barker MD [address] [place] [address] 3rd [place] [address] Gastroenterology 05/08/24 Trudy Solomon MD [address] [place] [address] Hematology and Oncology 05/08/24 Conor Reed MD [facility] [place] [address] Obstetrics and Gynecology 08/02/24 documented as of this encounter
--- OUTSIDE RECORDS SUMMARY | 2024-08-02 10:28 | XMS_ITS | Encounter Summary ---
Author Organization [employer] Address [address] 7t [place] [address] Care Team Providers Care Assembler Lay Ups Name Role Phone Claudia Sapp MD Primary Care Provider [phone]- [phone] Graham Mcbride MD Unavailable Tamika Barker MD Unavailable [phone] Trudy Solomon MD Unavailable [phone] Reason for Visit * Reason Onset Date Comments Med Refill 01/04/2024 Encounter Details Date Type Department Care Team (Late st Contact Info) Description 01/04/2024 Telephone [facility] MEDICINE 230 [place], [place] [phone] Claudia Sapp MD 230 [place], [place] [phone] Med Refill Social History Tobacco Use Types [...] immediate release tablet To be sent to: [facility] - [place], [place] - [address] [place] [address] documented in this encounter Plan of Treatment Upcoming Encounters Date Type Department Care Team ([facility] st Contact Info) Description 09/17/2024 9:30 AM EDT Telemedicine [facility] MED & PEDS 505 [place] [address] Pauline Galvin, BRADEN 505 [place] [address] documented as of this encounter Visit Diagnoses Not on filedocumented in this encounter Additional Health Concerns Assessment Noted Time PHQ-9 Depression Total Score: 0 11/23/19 9:19 AM EDT documented as of this encounter Care Teams Assembler Lay Ups Relationship Specialty Start Date End Date Claudia Sapp MD 230 [place] [address] PCP - General Family Medicine 05/02/18 Graham Mcbride MD [address] [place] [address] [address] [place] [address] Obstetrics and Gynecology 04/05/24 Tamika Barker MD [address] [place] [address] 3rd [place] [address] Gastroenterology 05/08/24 Trudy Solomon MD [address] [place] [address] Hematology and Oncology 05/08/24 Conor Reed MD [facility] [place] [address] Obstetrics and Gynecology 08/02/24 documented as of this encounter
--- OUTSIDE RECORDS SUMMARY | 2024-08-02 10:28 | XMS_ITS | Encounter Summary ---
Author Organization [facility] Address [address] [facility] 7t [place] [address] Care Team Providers Care Birthing Nurse Name Role Phone Claudia Sapp MD Primary Care Provider [phone] Graham Mcbride MD Unavailable Tamika Barker MD Unavailable [phone] Trudy Solomon MD Unavailable [phone] Reason for Referral * Consultation (Routine) - Pending Review Specialty Diagnoses / Procedures Referred By Devan cook Referred To Contact Orthopaedic Surgery Diagnoses Right-sided low back pain with right-sided sciatica, unspecified chronicity Claudia Sapp MD [address] [place] [address] Phone: tel: fax: Referral ID Status Reason Start Date Expiration Date Visits Requested Visits Authorized [id number] Pending Review Specialty Services Required 08/02/2024 08/02/2025 1 1 Reason for Visit * Reason Comments Follow-up cholesterol Encounter Details Date Type Department Care Team (Late st Contact Info) Description 08/02/2024 9:15 AM EDT Office Visit [facility] MEDICINE [address] [place] [address] [phone] Claudia Sapp MD [address] [place], [place] [phone] Abnormal finding on ultrasound (Primary Dx); Primary hypertension; Type 2 diabetes mellitus without complication, with long-term current use of insulin ([facility]); Dyslipidemia; Chronic right-sided low back pain with right-sided sciatica; Class 2 severe obesity due to excess calories with serious comorbidity and body mass index (BMI) of 39.0 to 39.9 in adult ([facility]); Dietary counseling; Exercise counseling Social History Tobacco Use Types Packs/Day Years [...] Mass Index 38.83 08/02/2024 9:05 AM EDT documented in this encounter Miscellaneous Notes * Assessment & Plan Note - Antoni Menchaca - 08/02/2024 9:33 AM EDTAssociated Problem(s): Type 2 diabetes mellitus ([facility]) Diabetes is controlled. Lab Results Component Value Date HGBA1C 6.3 (H) 07/06/2024 HGBA1C 6.8 (A) 05/30/2024 HGBA1C 6.2 (A) 11/23/2023 Lab Results Component Value Date CREATININE 0.78 11/23/2023 EGFR >60 11/23/2023 MICROALBCREU 13.3 11/23/2023 MICROALBCREU 4.2 02/21/2023 LDLCHOLCAL 119 (H) 07/06/2024 -Regino/Arb: lisinopril 5mg -Statin therapy: atorvastatin 80 -Diabetic eye exam: referred to [facility] 05/30/24 -Diabetic foot exam: done 11/23/23 -Continue lifestyle modifications -All diabetes medication discontinued by weight management program. S/p weight loss surgery 08/2020 * Assessment & Plan Note - Antoni Menchaca - 08/02/2024 9:32 AM EDTAssociated Problem(s): Exercise counseling Exercise Recommendations: At least 150 minutes of moderate-intensity physical activity per week, or an equivalent combinationof moderate- and vigorous-intensity activity * Assessment & Plan Note - Antoni Menchaca - 08/02/2024 9:31 AM EDTAssociated Problem(s): Abnormal finding on ultrasound US ordered by Senior Software Quality Analyst 12/2022 revealed 1. A 0.5 cm [...] for retention of urine, also referred by concrete tester to Dr Zurita to consider best [...] if surgically resected. Pt referred to to [facility] for minimally invasive surgery by Dr. Mcbride. Saw TYPING CHECKER at [facility] 07/24/24, referred by her TYPING CHECKER, Dr. Mcbride. Will request records, but per [facility] ER note from 07/27/24 provider reported that pt stated has set up a hysterectomy and right oophorectomy on 23 August at [facility]. * Assessment & Plan Note - Antoni Menchaca - 08/02/2024 9:29 AM EDTAssociated Problem(s): Right-sided low back pain with right-sided sciatica No improvement with PT, injections, multiple medications MRI 06/2016 with only minor changes, no significant stenosis. Nerve conduction study 07/29/16 revealed Chronic right mid to lower lumbar radiculopathy. 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 Gabapentin was ineffective. Continue Oxycodone to 10mg BID. This is improving her function. 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 Will repeat in 6 weeks. * Assessment & Plan Note - Antoni Menchaca - 08/02/2024 9:22 AM EDTAssociated Problem(s): Primary hypertension BP at goal -Lisinopril 5mg was d/c at hospital follow up. -pt has ran out of the Lisinopril from Hospital, will restart 5mg Lisinopril, daily 11/23/23 -CDTM referral placed 08/03/2021, re-referred to Collaborative Drug Therapy Managment Program with our PharmDNAYELY 11/23/23 * Assessment & Plan Note - Antoni Menchaca - 08/02/2024 9:21 AM EDTAssociated Problem(s): Class 2 severe obesity due to excess calories with serious comorbidity and body mass index (BMI) of 39.0 to 39.9 in adult ([facility]) Discussed weight, diet, exercise with patient in relation to health conditions. Used motivational interviewing to illicit change talk and established initial goals with patient. * Assessment & Plan Note - Antoni Menchaca - 08/02/2024 9:18 AM EDTAssociated Problem(s): Dietary counseling Dietary Recommendations: Fruits, vegetables, [...] Info) Description 09/17/2024 9:30 AM EDT Telemedicine [facility] & PEDS [address] [place] [address] Pauline Galvin, BRADEN [address] [place] [address] Scheduled Orders Name Type Priority Associated Diagnoses Orde r Schedule Lipid Panel, Standard Lab Routine Dyslipidemia Expected: 08/02/2024 (Approximate), Expires: 08/02/2025 Hepatic Function Panel Lab Routine Dyslipidemia Expected: 08/02/2024 (Approximate), Expires: 08/02/2025 XR Lumbar Spine 2-3 Views Imaging Routine Chronic right-sided low back pain with right-sided sciatica Expected: 08/02/2024, Expires: 08/02/2025 Scheduled Referrals Name Type Priority Associated Diagnoses Order Schedule Referral to Orthopaedic Surgery Outpatient Referral Routine Chronic right-sided low back pain with right-sided sciatica Expected: 08/02/2024 (Approximate), Expires: 08/02/2025 documented as of this encounter Visit Diagnoses Diagnosis Abnormal finding on ultrasound- Primary Primary hypertension Unspecified essential hypertension Type 2 diabetes mellitus without complication, with long-term current use of insulin ([facility]) Dyslipidemia Other and unspecified hyperlipidemia Chronic right-sided low back pain with right-sided sciatica Class 2 severe obesity due to excess calories with serious comorbidity and body mass index (BMI) of 39.0 to 39.9 in adult ([facility]) Dietary counseling Dietary surveillance and counseling Exercise counseling documented in this encounter Additional Health Concerns Assessment Noted Time PHQ-9 Depression Total Score: 0 11/23/19 24 9:19 AM EDT documented as of this encounter Care Teams Birthing Nurse Relationship Specialty Start Date End Date Claudia Sapp MD [address] [place] [address] PCP - General Family Medicine 05/02/18 Graham Mcbride MD [address] [place] [address] [address] [place] [address] Obstetrics and Gynecology 04/05/24 Tamika Barker MD [address] [place] [address] Drive 3rd [place] [address] Gastroenterology 05/08/24 Trudy Solomon MD [address] [place] [address] Hematology and Oncology 05/08/24 Conor Reed MD [facility] [place] [address] Obstetrics and Gynecology 08/02/24 documented as of this encounter
--- OUTSIDE RECORDS SUMMARY | 2024-08-02 10:28 | XMS_ITS | Encounter Summary ---
Author Organization [employer] Address [address] [facility] [address] 7t [place] [address] Care Team Providers Care Senior Assistant Manager Name Role Phone Claudia Sapp MD Primary Care Provider [phone] Graham Mcbride MD Unavailable Tamika Barker MD Unavailable [phone] Trudy Solomon MD Unavailable Reason for Visit * Reason Onset Date Comments Care Coordination 08/02/2024 Encounter Details Date Type Department Care Team (Late st Contact Info) Description 08/02/2024 Telephone [facility] [address] [place], [place] [phone] Claudia Sapp MD [address] [place], [place] [phone] Care Coordination Social History Tobacco Use Types Packs/Day Years [...] encounter Miscellaneous Notes * Telephone Encounter - Eduarda Forde RN - 08/02/2024 9:31 AM EDT Per PCP request, called [facility] Dr Reed's office in regards to question about potential PCP authorization prior to upcoming surgery. Left message with Shamayra, gave direct extension to call back and asked to be called back FORTUNATO. documented in this encounter Plan of Treatment Upcoming Encounters Date Type Department Care Team (Late st Contact Info) Description 09/17/2024 9:30 AM EDT Telemedicine [facility]S [address] [place] [address] Pauline Galvin, BRADEN [address] [facility] [place] [address] documented as of this encounter Visit Diagnoses Not on filedocumented in this encounter Additional Health Concerns Assessment Noted Time PHQ-9 Depression Total Score: 0 11/23/19 24 9:19 AM EDT documented as of this encounter Care Teams Senior Assistant Manager Relationship Specialty Start Date End Date Sekou, MD Claudia [address] [place] [address] PCP - General Family Medicine 05/02/18 Graham Mcbride MD [address] [place] [address] [address] [place] [address] Obstetrics and Gynecology 04/05/24 Tamika Barker MD [address] [place] [address] Drive 3rd [place] [address] Gastroenterology 05/08/24 Trudy Solomon MD [address] [place] [address] Hematology and Oncology 05/08/24 Conor Reed MD [facility] [place] [address] Obstetrics and Gynecology 08/02/24 documented as of this encounter
--- OUTSIDE RECORDS SUMMARY | 2024-08-02 10:28 | XMS_ITS | Encounter Summary ---
Author Organization [employer] Address [address] [facility] 7t [place] [address] Care Team Providers Care Embedded Software Test Engineer Name Role Phone Claudia Sapp MD Primary Care Provider [phone] Graham Mcbride MD Unavailable Tamika Barker MD Unavailable [phone] Trudy Solomon MD Unavailable [phone] Reason for Visit * Reason Onset Date Comments Med Refill 08/01/2024 Encounter Details Date Type Department Care Team (Late st Contact Info) Description 08/01/2024 Refill [facility] 230 [place], [place] [phone] Claudia Sapp MD 230 [place], [place] [phone] Low back pain at multiple sites Social [...] * Telephone Encounter - Gracie Tracy - 08/01/2024 10:14 AM EDT TC from pt requesting medication refill. Medications needing refill : oxyCODONE (Roxicodone) 10 MG immediate release tablet To be sent to: [facility] pharmacy documented in this encounter Plan of Treatment Upcoming Encounters Date Type Department Care Team (Late st Contact Info) Description 09/17/2024 9:30 AM EDT Telemedicine [facility] MED & PEDS 505 [place] [address] Pauline Galvin RN 505 [place] [address] documented as of this encounter Visit Diagnoses Diagnosis Low back pain at multiple sites documented in this encounter Additional Health Concerns Assessment Noted Time PHQ-9 Depression Total Score: 0 11/23/19 24 9:19 AM EDT documented as of this encounter Care Teams Embedded Software Test Engineer Relationship Specialty Start Date End Date Claudia Sapp MD [address] [place] [address] PCP - General Family Medicine 05/02/18 Graham Mcbride MD [address] [place] [address] [address] [place] [address] Obstetrics and Gynecology 04/05/24 Tamika Barker MD [address] [place] [address] 3rd [place] [address] Gastroenterology 05/08/24 Trudy Solomon MD [address] [place] [address] Hematology and Oncology 05/08/24 documented as of this encounter
--- OUTSIDE RECORDS SUMMARY | 2024-08-02 10:29 | XMS_ITS | Encounter Summary ---
Author Organization [employer] Address [address] [facility] 7t [place] [address] Care Team Providers Care Roll Grinder Operator Name Role Phone Claudia Sapp MD Primary Care Provider [phone] Graham Mcbride MD Unavailable Tamika Barker MD Unavailable [phone] Trudy Solomon MD Unavailable Reason for Visit * Reason Onset Date Comments Med Refill 06/08/2023 Encounter Details Date Type Department Care Team (Late st Contact Info) Description 06/08/2023 Telephone [facility] 230 [place] [address] Claudia Sapp MD 230 [place], [place] [phone] Med Refill Social History Tobacco Use Types [...] immediate release tablet To be sent to: [facility] [place], [place] - [address] [place] [address] documented in this encounter Plan of Treatment Upcoming Encounters Date Type Department Care Team ([facility] st Contact Info) Description 09/17/2024 9:30 AM EDT Telemedicine [facility] PEDS 505 [place] [address] Pauline Galvin RN 505 [place] [address] documented as of this encounter Visit Diagnoses Not on filedocumented in this encounter Additional Health Concerns Assessment Noted Time PHQ-9 Depression Total Score: 0 05/24/19 10:10 AM EST documented as of this encounter Care Teams Roll Grinder Operator Relationship Specialty Start Date End Date Claudia Sapp MD 230 [place] [address] PCP - General Family Medicine 05/02/18 Graham Mcbride MD [address] [place] [address] [address] [place] [address] Obstetrics and Gynecology 04/05/24 Tamika Barker MD [address] [place] [address] Drive 3rd [place] [address] Gastroenterology 05/08/24 Trudy Solomon MD [address] [place] [address] Hematology and Oncology 05/08/24 Conor Reed MD [facility] [place] [address] Obstetrics and Gynecology 08/02/24 documented as of this encounter
== END 2024-08-02 09:51 | disposition home or self-care (01) ==
LOC: HO.HHCX 09:50
PROVIDERS: Visit Provider Family Medicine
DX: M54.41 Lumbago with sciatica, right side (principal); G89.29 Other chronic pain
CPT/HCPCS: 72100

== ENCOUNTER → 2024-08-02 09:50 | Outpatient (BNV) | payer MEDICAID, SELFPAY | PROVIDERS: Visit Provider Radiology Diagnostic Radiology | DX: M54.50 Low back pain, unspecified (principal) | CPT/HCPCS: 72100 ==

== ENCOUNTER 2024-11-06 11:17 | Outpatient (REF) | payer MEDICAID, SELFPAY ==
--- NOTE | ~2024-11-06 | MM_ITS ---
EXAMINATION: MM SCREENING DIGITAL BREAST TOMOSYNTHESIS, BILATERAL CLINICAL INFORMATION: Screening. Asymptomatic. COMPARISON: Comparison made to multiple prior, most recent October 24, 2023, and most remote December 23 06/08/2014. TECHNIQUE: Digital breast tomosynthesis is performed in both the craniocaudal and mediolateral oblique views along with computer-aided detection (CAD). Synthesized 2D images are generated from the tomosynthesis. FINDINGS: BREAST COMPOSITION: There are scattered areas of fibroglandular density (ACR BI-RADS breast composition Category b). BILATERAL BREASTS: No significant masses, suspicious calcifications or other abnormalities are seen in either breast. MM/MM tomosynthesis screening BI IMPRESSION: BILATERAL BREASTS: Negative, no mammographic evidence of malignancy. Normal interval follow-up is recommended in 12 months. ASSESSMENT: BI-RADS 1 - Negative RECOMMENDATION: Routine annual mammography screening. FOLLOW-UP: 1 year F/U This examination should not preclude the clinical evaluation of a suspicious palpable abnormality. This patient's information was entered into a reminder system with a target due date for their next mammogram. Electronically signed by: Amy Silva MD 11/19/2024 06:49 PM EDT
--- OUTSIDE RECORDS SUMMARY | 2024-11-06 12:23 | XMS_ITS | Encounter Summary ---
Author Organization [employer] Address [address] [facility] 7t [place] [address] Care Team Providers Care High Pressure Boiler Operator Name Role Phone Claudia Sapp MD Primary Care Provider [phone] Graham Mcbride MD Unavailable Tamika Barker MD Unavailable [phone] Trudy Solomon MD Unavailable [phone] Reason for Visit * Reason Onset Date Comments Med Refill 06/04/2024 Encounter Details Date Type Department Care Team (Late st Contact Info) Description 06/04/2024 Telephone [facility] 230 [place], [place] [phone] Claudia Sapp MD 230 [place], [place] [phone] Med Refill Social History Tobacco Use Types [...] 9:27 AM EST Medications were sent to [facility] on 05/30/24. * Telephone Encounter - Gracie Tracy - 06/04/2024 9:21 AM EST TC from pt requesting medication refill. Medications needing refill : atorvastatin (Lipitor) 80 MG tablet fluticasone (Flonase) 50 MCG/ACT nasal spray naloxone (Narcan) 4 mg/0.1 mL nasal spray To be sent to: [facility] - [place], [place] - [address] [facility] documented in this encounter Plan of Treatment Upcoming Encounters Date Type Department Care Team ([facility] st Contact Info) Description 11/30/2024 10:00 AM EDT Clinical Support [facility] 230 [place] [address] Pauline Galvin RN 505 [place] [address] 12/19/2024 10:30 AM EDT Office Visit [facility] [address] [place] [address] Claudia Sapp MD 230 [place] [address] documented as of this encounter Visit Diagnoses Not on filedocumented in this encounter Additional Health Concerns Assessment Noted Time PHQ-9 Depression Total Score: 0 11/23/19 24 9:19 AM EDT documented as of this encounter Care Teams High Pressure Boiler Operator Relationship Specialty Start Date End Date Claudia Sapp MD 230 [place] [address] PCP - General Family Medicine 05/02/18 Graham Mcbride MD [address] [place] [address] [place] [address] Obstetrics and Gynecology 04/05/24 Tamika Barker MD [address] [place] [address] Drive 3rd [place] [address] Gastroenterology 05/08/24 Trudy Solomon MD [address] [place] [address] Hematology and Oncology 05/08/24 Conor Reed MD [facility] [place] [address] Obstetrics and Gynecology 08/02/[address] [facility] Orthopedic [facility] Orthopaedic Surgery 09/26/24 documented as of this encounter
== END 2024-11-06 11:18 | disposition home or self-care (01) ==
LOC: HO.MAMMO 11:17
PROVIDERS: PCP Family Medicine; Visit Provider Family Medicine
DX: Z12.31 Encounter for screening mammogram for malignant neoplasm of breast (principal)
CPT/HCPCS: 77063; 77067

== ENCOUNTER → 2024-11-06 11:45 | Outpatient (BNV) | payer MEDICAID, SELFPAY | PROVIDERS: PCP Family Medicine; Visit Provider Radiology Body Imaging | DX: Z12.31 Encounter for screening mammogram for malignant neoplasm of breast (principal) | CPT/HCPCS: 77063; 77067 ==

== ENCOUNTER 2024-12-19 11:45 | Outpatient (REF) | payer MEDICAID, SELFPAY ==
--- OUTSIDE RECORDS SUMMARY | 2024-12-19 13:01 | XMS_ITS | Clinical Summary ---
Author Organization [facility] Address [address] [place] [phone] Phone Care Team Providers Care Assistant Farm Operations Manager Name Role Phone Sekou, Claudia Velasquez MD Primary Care Provi bhupinder Allergies Active Allergy Reactions Criticality Noted Date Comments Sulfamethoxazole-Trimethoprim Hives 2024 Medications No known medications Active Problems No known active problems Social History Tobacco Use Types Packs/Day Years Used Date Smoking Tobacco: Never Assessed Education Answer Date Recorded Are you interested in more education? Not on socrates e 08/27/2022 Are you concerned about learning? Not on file 08/27/2022 No 08/27/2022 No 08/27/2022 Digital Access Answer Date Recorded No 09/27/2022 No 09/27/2022 Reliable internet access at home? Not on file 09/27/2022 Device with a working camera? Not on file Intimate Partner Violence Answer Date R ecorded Are you denied basic needs s uch as food, clothing, or medical care? No 07/27/2024 In the past 12 months have y ou been in a relationship with a person who hurts, threatens, or tries to control you? No 07/27/2024 Are you denied basic needs s uch as food, clothing, or medical care? No 07/27/2024 In the past 12 months have y ou been in a relationship with a person who hurts, threatens, or tries to control you? No 07/27/2024 Comments Unknown Sex and Gender Information Value Date Recorded Sex Assigned at Female 05/05/2021 4:22 PM EST Legal Sex Female 9:30 PM EDT Gender Identity Female 05/05/2021 4:22 PM EST Sexual Orientation Don't know 07/28/2024 2: 38 AM EDT Last Filed Vital Signs Vital Sign Reading Time Taken Comments Blood Pressure 139/79 07/27/2024 7:17 PM EDT Pulse 60 07/27/2024 7:17 PM EDT Temperature 36.8 C (98.2 F) 07/27/2024 7:17 PM EDT Respiratory Rate 20 07/27/2024 7:17 PM EDT Oxygen Saturation 100% 07/27/2024 7:17 PM EDT Inhaled Oxygen Concentration - - Weight 99.8 kg (220 lb) 07/27/2024 12:20 PM EDT Height 162.6 cm (5' 4 ) 07/27/2024 12:20 PM EDT Body Mass Index 37.76 07/27/2024 12:20 PM EDT Plan of Treatment Health Maintenance Due Date Last Done Comments DEPRESSION SCREENING 1985 SMOKING Hx and SMOKELESS TOBACCO SCREENING 1986 HEPATITIS C SCREENING 12/09/1991 HIV ONE-TIME SCREENING (18-6 5 YEARS) 12/09/1991 COLOGUARD 2018 COLONOSCOPY 2018 COLORECTAL CANCER SCREENING 2018 FIT TEST 2018 FOBT 2018 SIGMOIDOSCOPY 2018 VIRTUAL COLONOSCOPY 2018 PNEUMOCOCCAL VACCINES (50+ years) (2 of 2 - PCV) 12/09/2023 05/17/2008 ZOSTER VACCINES (1 of 2) 12/09/2023 COVID-19 VACCINE (1 - 2023-2 5 season) 2024 MAMMOGRAM 06/09/2024 06/09/2022, 10/02/2018 PAP SMEAR 12/27/2025 12/27/2022 SCREENING FOR DIABETES 07/28/2027 , 05/30/2024 LIPID PANEL 07/06/2029 07/06/2024 Adult Td,Tdap Booster 08/11/2032 08/11/2022 , 02/12/2014, 01/05/2012 HEPATITIS A VACCINES Aged Out No long er eligible based on patient's age to complete this topic HIB VACCINES Aged Out No longer eligi ble based on patient's age to complete this topic MENINGOCOCCAL VACCINES (ACWY) Aged Out No longer eligible based on patient's age to complete this topic MENINGOCOCCAL VACCINES (B) Aged Out N o longer eligible based on patient's age to complete this topic Medical Devices Not on file Insurance Care Teams Assistant Farm Operations Manager Relationship Specialty Start Date End Date Seco, Claudia Velasquez MD [address] [place] [address] PCP - General Family Medicine 05/05/21 Additional Source Comments The information contained in this document represents components of the legal health record. It is not the complete legal health record.[facility]
--- OUTSIDE RECORDS SUMMARY | 2024-12-19 13:01 | XMS_ITS | Encounter Summary ---
Author Organization [employer] Address [address] [place] [address] Care Team Providers Care Mold Stacker Name Role Phone Claudia Sapp MD Primary Care Provider [phone] Graham Mcbride MD Unavailable Tamika Barker MD Unavailable [phone] Trudy Solomon MD Unavailable [phone] Reason for Visit * Reason Onset Date Comments Med Refill 06/04/2024 Encounter Details Date Type Department Care Team (Late st Contact Info) Description 06/04/2024 Telephone [facility] [address] [place], [place] [phone] Claudia Sapp MD [address] [place], [place] [phone] Med Refill Social History Tobacco Use Types [...] 9:27 AM EST Medications were sent to [facility] on 05/30/24. * Telephone Encounter - Gracie Tracy - 06/04/2024 9:21 AM EST TC from pt requesting medication refill. Medications needing refill : atorvastatin (Lipitor) 80 MG tablet fluticasone (Flonase) 50 MCG/ACT nasal spray naloxone (Narcan) 4 mg/0.1 mL nasal spray To be sent to: [facility] - [place], [place] - [address] [facility] documented in this encounter Plan of Treatment Upcoming Encounters Date Type Department Care Team ([facility] st Contact Info) Description 01/04/2025 11:30 AM EDT Clinical Support [facility] [address] [place] [address] Pauline Galvin RN [address] [place] [address] documented as of this encounter Visit Diagnoses Not on filedocumented in this encounter Additional Health Concerns Assessment Noted Time PHQ-9 Depression Total Score: 0 11/23/19 24 9:19 AM EDT documented as of this encounter Care Teams Mold Stacker Relationship Specialty Start Date End Date Claudia Sapp MD [address] [place] [address] PCP - General Family Medicine 05/02/18 Graham Mcbride MD [address] [place] [address] [address] [place] [address] Obstetrics and Gynecology 04/05/24 Tamika Barker MD [address] [place] [address] [address] [place] [address] Gastroenterology 05/08/24 Trudy Solomon MD [address] [place] [phone] Hematology and Oncology 05/08/24 Conor Reed MD [facility] [address] Obstetrics and Gynecology 08/02/24 Elen Tubbs CNP [facility] Orthopedic [facility] Orthopaedic Surgery 09/26/24 documented as of this encounter
[2024-12-19 15:06] LABS: Alanine Aminotransferase 15 U/L (0-31); Albumin Level 4.4 g/dL (3.5-5.0); Alkaline Phosphatase 151 U/L (39-117); Anion Gap 14 (12-20); Aspartate Amino Transferase 20 U/L (5-31); Blood Urea Nitrogen 11 mg/dL (9-16); Calcium 9.9 mg/dL (8.4-10.2); Carbon Dioxide 28 mmol/L (22-29); Chloride 103 mmol/L (96-108); Cholesterol 280 mg/dL (<200); Estimated Glomerular Filt Rate > 60; HDL Cholesterol 48 mg/dL (>40); Potassium 4.2 mmol/L (3.3-5.1); Sodium 141 mmol/L (135-145); Total Protein 7.8 g/dL (6.5-8.0); Triglycerides 165 mg/dL (<150)
[2024-12-19 15:42] LABS: Hemoglobin A1C 156.4922 umol/L; Total Hemoglobin (HGBA1C) 3052.5174 umol/L
[2024-12-19 16:12] LABS: Microalbum/Creatinine Ratio Ur 20.7 ug/mg cr (<30)
[2024-12-20 08:23] LABS: Syphilis Screen Nonreactive (Nonreactive)
[2024-12-20 08:55] LABS: HIV Num 1 0.06 S/CO (0.00-0.99); ~HepC Num1 0.13 S/CO (0.00-0.79); ~Hepatitis C Antibody Nonreactive (Nonreactive)
== END 2024-12-19 11:46 | disposition home or self-care (01) ==
LOC: HO.HHCL 11:45
PROVIDERS: PCP Family Medicine; Visit Provider Family Medicine
DX: E78.5 Hyperlipidemia, unspecified (principal); Z11.3 Encounter for screening for infections with a predominantly sexual mode of transmission; Z11.59 Encounter for screening for other viral diseases; Z11.4 Encounter for screening for human immunodeficiency virus [HIV]; E11.9 Type 2 diabetes mellitus without complications
CPT/HCPCS: 36415; 80048; 80061; 80076; 82043; 82570; 83036; 86780; 86803; 87389